=== PATIENT | male | born 1945 | race Caucasian/White ===

== ENCOUNTER 2019-11-12 09:45 | Inpatient (IN) | payer MEDICARE, SELFPAY | END 2019-11-18 17:42 | disposition left against medical advice (07) | DRG 291 | PROVIDERS: Admitting Provider Internal Medicine; Emergency Provider Emergency Medicine; Family Provider Family Medicine; Visit Provider Family Medicine | DX: I50.43 Acute on chronic combined systolic (congestive) and diastolic (congestive) heart failure (principal); J96.01 Acute respiratory failure with hypoxia; J18.9 Pneumonia, unspecified organism; I26.99 Other pulmonary embolism without acute cor pulmonale; J96.02 Acute respiratory failure with hypercapnia; J44.0 Chronic obstructive pulmonary disease with (acute) lower respiratory infection; I48.20 Chronic atrial fibrillation, unspecified; J44.1 Chronic obstructive pulmonary disease with (acute) exacerbation; I25.5 Ischemic cardiomyopathy; N18.2 Chronic kidney disease, stage 2 (mild); Z99.81 Dependence on supplemental oxygen; D63.1 Anemia in chronic kidney disease; I73.9 Peripheral vascular disease, unspecified; R59.9 Enlarged lymph nodes, unspecified; Z53.29 Procedure and treatment not carried out because of patient's decision for other reasons; Z79.82 Long term (current) use of aspirin; I87.8 Other specified disorders of veins; Z79.52 Long term (current) use of systemic steroids; M19.90 Unspecified osteoarthritis, unspecified site; L65.9 Nonscarring hair loss, unspecified; F41.8 Other specified anxiety disorders; F17.210 Nicotine dependence, cigarettes, uncomplicated ==

== ENCOUNTER 2019-11-18 18:51 | Inpatient (IN) | payer MEDICARE, SELFPAY | END 2019-11-21 19:00 | disposition skilled nursing facility (03) | DRG 193 | PROVIDERS: Admitting Provider Internal Medicine; Emergency Provider Emergency Medicine; Family Provider Family Medicine; Visit Provider Internal Medicine | DX: J18.9 Pneumonia, unspecified organism (principal); J96.01 Acute respiratory failure with hypoxia; I26.99 Other pulmonary embolism without acute cor pulmonale; E43 Unspecified severe protein-calorie malnutrition; I50.42 Chronic combined systolic (congestive) and diastolic (congestive) heart failure; I48.20 Chronic atrial fibrillation, unspecified; I24.8 Other forms of acute ischemic heart disease; I25.5 Ischemic cardiomyopathy; J44.9 Chronic obstructive pulmonary disease, unspecified; N18.2 Chronic kidney disease, stage 2 (mild); D63.1 Anemia in chronic kidney disease; Z79.82 Long term (current) use of aspirin; Z99.81 Dependence on supplemental oxygen; F41.8 Other specified anxiety disorders; Z79.52 Long term (current) use of systemic steroids; Z86.718 Personal history of other venous thrombosis and embolism; M19.90 Unspecified osteoarthritis, unspecified site; I73.9 Peripheral vascular disease, unspecified; F17.210 Nicotine dependence, cigarettes, uncomplicated; I87.8 Other specified disorders of veins ==

== ENCOUNTER 2019-11-28 13:34 | Emergency (ER) | payer MEDICARE, SELFPAY ==
[2019-11-28 12:36] VITALS: BMI 21.2
[2019-11-28 12:52] VITALS: BP 109/45; PULSE 60; RESP 22; TEMP 35.9; O2SAT 91
--- NOTE | 2019-11-28 13:04 | ED_ITS ---
Entered by Romi Way, acting as scribe for Sharonda Goodwin HPI - SOB/Dyspnea General: Chief Complaint: Shortness of Breath/Dyspnea Stated Complaint: UNCOOPERATIVE AT RESIDENTIAL Time Seen by Provider: 11/28/19 13:04 Source: patient Mode of arrival: EMS Limitations: no limitations History of Present Illness: HPI Narrative: 74 yo Male presents to ED with complaint not wanting to be at the [facility] in. He states that he wants to be in a m[facility] here in [place]. EMS reports that that was the reason they stated that they were called. The patient has no complaints of being ill or other complaint. MD elicited complaint: shortness of breath Associated symptoms: Deny abdominal pain, chest congestion, chest pain, diaphoresis, dizziness, extremity pain, fever(s), hemoptysis, nausea, orthopnea, palpitations, polydipsia, syncope or vomiting Review of Systems General: Reports: other (negative unless marked) Const: Denies: fever, chills, body aches, fatigue, malaise or diaphoresis Eyes: Denies: change in vision or blurry vision ENMT: Denies: throat pain, painful swallowing, hoarseness, ear pain, ear discharge, Change in hearing or nasal discharge Card: Denies: chest pain, palpitations, irregular heart rhythm, syncope, pre- syncope, shortness of breath on exertion or shortness of breath when lying down Resp: Denies: shortness of breath, productive cough, non-productive cough, wheezing, coughing up blood or chest congestion GI: Denies: abdominal pain, nausea, vomiting, vomiting blood, coffee grounds in vomit, diarrhea, constipation, cramping, blood in stool or black tarry stool : Denies: flank pain, difficulty urinating, painful urination, urinary frequency, urinary urgency, decreased urine ouput, urinary incontinence or blood in urine Musc: Denies: neck pain, back pain, extremity pain, extremity swelling, joint pain, joint swelling, joint warmth or joint stiffness Skin/Breast: Denies: rash, skin tenderness or yellow skin Neuro: Denies: headache, numbness in extremities, weakness in extremities, changes in sensation, lack of coordination, difficulty walking, dizziness, vertigo or confusion Endo: Denies: excessive thirst, tired all the time, cold intolerance, excessive sweating, flushing or hot flashes Juan/Lymph: Denies: easy bruising, easy bleeding, petechiae or enlarged lymph nodes All/Imm: Denies: hives, throat swelling, tongue swelling, facial swelling or acute wheezing PFSH ED PFSH: Statuses (acute, chronic, etc) shown below reflect problem list status as previously entered and may not be historically accurate Social History Smoking and tobacco status: current every day smoker Physical Exam Const: COMMON NORMALS: no apparent distress, oriented x3, no limitations, healthy appearing and well nourished EXAM LIMITATIONS: no altered mental status GENERAL APPEARANCE: cooperative, well kempt and well developed ORIENTATION/CONSCIOUSNESS: Yes awake HENMT: COMMON NORMALS: normocephalic, head/scalp atraumatic, hearing grossly normal bilaterally, external ears normal, EAC's normal, external nose normal and moist oral mucous membranes HEAD & SCALP: normal to inspection, normocephalic and atraumatic FACE & SINUS: normal facial exam and face symmetric NOSE: external nose normal and nares normal EXTERNAL EAR: Yes external ears normal EXTERNAL AUDITORY CANAL: EAC's normal MOUTH: oral and palatal mucosa normal and tongue normal Eye: COMMON NORMALS: PERRL, EOMs intact bilaterally, conjunctivae normal and no scleral icterus GENERAL EYE: normal appearance of both eyes and normal light reflex CONJUNCTIVA: Yes conjunctivae normal SCLERA: sclerae normal CORNEA: Yes corneas normal PUPIL: Yes PERRL DIRECT OPHTHALMOSCOPY: Yes normal light reflex Neck/C-Spine: COMMON NORMALS: full ROM, no lymphadenopathy, supple, no meningeal signs and no JVD GENERAL: Yes normal visual inspection and Yes trachea midline CERVICAL SPINE: Yes cervical ROM normal Chest: COMMONS NORMALS: inspection of chest normal and palpation of chest normal Resp: COMMON NORMALS: normal respiratory effort, no retractions, no use of accessory muscles and clear to auscultation bilaterally EFFORT & INSPECTION: Yes able to speak in complete sentences AUSCULTATION: clear to auscultation bilaterally Cardio: COMMON NORMALS: no JVD, regular rate, regular rhythm, S1 normal heart sound, S2 normal heart sound, no gallops, no clicks, no murmurs and no rub JUGULAR VENOUS DISTENTION: no JVD RATE: regular rate RHYTHM: regular rhythm HEART SOUNDS: S1 normal and S2 normal GI: COMMON NORMALS: soft to palpation, non-tender, no hepatosplenomegaly and no masses INSPECTION: Yes normal to inspection PALPATION: Yes soft and Yes no hepatosplenomegaly : COMMON NORMALS: Yes no CVA tenderness BLADDER/KIDNEY EXAM: Yes no CVA tenderness Back/Pelvis: COMMON NORMALS: no CVA tenderness, thoracic and lumbar spine norm al to inspection, no thoracic nor lumbar tenderness and thoraco-lumbar ROM normal Extremity: COMMON NORMALS: normal to inspection, full ROM, normal capillary refill, no joint enlargement, no clubbing, cyanosis or edema and no calf tenderness Neuro: COMMON NORMALS: oriented x3, CN's II-XII intact bilaterally, moves all extremities, no focal motor deficits and no sensory deficits noted MENINGEAL SIGNS: Yes no meningeal signs Psych: COMMON NORMALS: mental status grossly normal, thought process normal, cooperative, affect normal, speech normal and activity/motor behavior normal APPEARANCE: Yes well kempt SPEECH: Yes normal speech THOUGHT PROCESS: normal thought process Skin: COMMON NORMALS: no rashes or lesions noted, skin turgor normal, no jaundice, no petechiae and no mottling GENERAL SKIN EXAM: no rashes or lesions noted and turgor normal Course Vital Signs: Vital signs: Vital Signs Temperature 96.7 F L 11/28/19 12:52 Pulse Rate 69 11/28/19 14:27 Respiratory Rate 24 H 11/28/19 14:27 Blood Pressure 113/43 11/28/19 14:27 Pulse Oximetry 94 11/28/19 13:16 MDM - SOB/Dyspnea MDM Narrative: Medical decision making narrative: The patient has no complaint of an illness here. He states he came in because he wants to be placed in a different [facility]. We have checked but he will need a 1 to 5-day pre authorization by his insurance company before he can be sent to a different m[facility]. He is tried multiple times to reach family because he states he can go live with them but they have not answered. As he has had no physical complaints or ill complaints I will discharge him back to the [facility] and he is aware that he will have to work from there to try to find a different place to stay. Discharge Plan Discharge Patient Disposition: [facility] ([place] Clinical Impression: Normal exam Condition: Stable Prescriptions: No Action Lasix 40 mg Tablet 40 mg PO TID RF: 0 Advair Diskus 250-50 mcg/dose Blister With Device 1 inh INHALATION BID RF: 0 senna 8.6 mg Tablet 17.2 mg PO BID RF: 0 prednisone 10 mg Tablet 10 mg PO DAILY RF: 0 Lipitor 20 mg Tablet 20 mg PO BEDTIME RF: 0 ipratropium-albuterol 0.5 mg-3 mg(2.5 mg base)/3 mL Solution For Nebulization 3 ml INHALATION QID RF: 0 amiodarone 200 mg Tablet 200 mg PO DAILY RF: 0 potassium chloride 10 mEq Tablet Extended Release 10 meq PO DAILY RF: 0 digoxin 250 mcg (0.25 mg) Tablet 250 mcg PO DAILY RF: 0 Aspir-81 81 mg Tablet,Delayed Release (Dr/Ec) 81 mg PO DAILY RF: 0 spironolactone 25 mg Tablet 12.5 mg PO DAILY RF: 0 Flomax 0.4 mg Capsule 0.4 mg PO BEDTIME RF: 0 trazodone 100 mg Tablet 100 mg PO BEDTIME RF: 0 Protonix 40 mg Tablet,Delayed Release (Dr/Ec) 40 mg PO DAILY RF: 0 lisinopril 5 mg Tablet 5 mg PO DAILY RF: 0 Prozac 20 mg Capsule 20 mg PO DAILY RF: 0 finasteride 5 mg Tablet 5 mg PO DAILY RF: 0 apixaban 2.5 mg Tablet 2.5 mg PO BID RF: 0 Discharge Orders: Discharge Order (Routine); Ordered 11/28/19 Ordered By: Sharonda Goodwin Referrals: Isai Bhatti DO [Primary Care Provider] - Discharge Activity: Resume usual activity Activity Restrictions/Additional Instructions: Work with the social science teacher at your mcf[facility] or with your family to help place yourself in a different facility where you would be more happy. Return to the ER if you have any ill type symptoms or pain that she would like evaluated. Coding Level of Care Code ED Ent Consultant for Chg Fwd The documentation recorded by the Seamus lea Carmen, accurately reflects the service I personally performed and the decisions made by Buddy zavaleta Eli N
[2019-11-28 13:16] VITALS: PULSE 55; RESP 16; O2SAT 94
[2019-11-28 13:21] VITALS: PULSE 57
--- NOTE | 2019-11-28 13:21 | PC.NURSE ---
Patient verbalizes during assessment that he is not having any current acute difficulty. Patient states that he does not want to go back to the senior care in [place], he wants to be in [place]. Patient states he does not like the senior care and does not want to be in one at all. ED physician notified. Case managment working with the patient.
[2019-11-28 14:27] VITALS: BP 113/43; PULSE 69; RESP 24
--- NOTE | 2019-11-28 14:31 | PC.NURSE ---
Chronic pain in the low back remains present. Patient provided with food and drink upon his request at this time. Social/Case Managment in room and states that they have contacted the patients family and left messages for the family to call back to see if they could pick the patient up. Patient yells at this time that he is NEVER going back to [place]. Case management discussed with patient that she has worked as far as she can on his case but it will require preauthorization from insurance for any movement or transfer to and from homes and this takes more than one day with his current insurance policy. Patient does not fully understand this and yells again that he is NEVER going back there, states they have them packed in the [place] theres so many people there.
--- NOTE | 2019-11-28 15:27 | PC.NURSE ---
Report called to [facility] at this time. Spoke with Gisele regarding patient. Nurse is informed that patient is medically stable and has been calm and cooperative with out staff. [facility] staff states that he has signed out of the facility but they will accept him back.
--- NOTE | 2019-11-28 16:12 | DCPLANNER ---
hair salon manager was asked to speak with patient about finding a different halfway facility to stay in. hair salon manager went to patients room and spoke with patient about going to a different halfway, patient stated that he was not going to a halfway, that he was going to go stay in a camper that his son in law has. hair salon manager informed ED physician and nurse of this. hair salon manager spoke with patient, asking if family would be able to pick patient up and take patient home today. Patient stated that he was unable to reach anyone in his family at this time, so patient would just go to another halfway. hair salon manager spoke with patient again, patient signed Patient Choice, stating that [facility] was his first choice. hair salon manager called [facility], spoke with Yvette, was told that with patients insurance that they would not be able to accept patient today, due to needing a pre auth from the halfway. hair salon manager was told that patient could have the halfway at [place] start a transfer process so that it can be started. hair salon manager was asked to call patients son in law at his work to have son in law, Juan, call patient or rehabilitation caseworker when he got message. hair salon manager did call [employer] employer and left a message to Juan to call patient or rehabilitation caseworker. hair salon manager got a phone number for patient for Juan and attempted to contact son in law. hair salon manager was unable to reach Juan to speak with him about being able to pick patient up. Patients daughter called rehabilitation caseworker, informing rehabilitation caseworker that daughter was unable to take care of patient at home at this time, that patient would need to go back to the halfway in [place]. hair salon manager explained this to patient, and ED physician and nurse. hair salon manager did not provide patient with performance data because patient was going to back to the halfway that he just left.
[2019-11-28 22:42] VITALS: BP 102/48; PULSE 56; RESP 18; TEMP 36.6; O2SAT 92
== END 2019-11-28 23:03 | disposition skilled nursing facility (03) ==
LOC: ER 16:27
PROVIDERS: Emergency Provider Emergency Medicine; Family Provider Family Medicine; PCP Family Medicine
DX: Z03.89 Encounter for observation for other suspected diseases and conditions ruled out (principal); F17.210 Nicotine dependence, cigarettes, uncomplicated
CPT/HCPCS: 99281; 99284

== ENCOUNTER 2020-05-17 21:09 | Emergency (ER) | payer MEDICARE, MEDICAID, SELFPAY ==
[2020-05-17] VITALS (7 sets, daily range): BP systolic 91–110; BP diastolic 45–61; PULSE 54–60; RESP 16–18; TEMP 36.6; O2SAT 94–99; BMI 20.6
--- NOTE | 2020-05-17 21:13 | ECG_ITS ---
[facility] Test Date: 2020-05-17 Pat Name: Fredi Claire Department: Room: Gender: Male Manager Diabetes: : 1945 Requested By: Alonso Mckenzie Order Number: [id number] Suzie MD: Noel French M.D. Measurements Intervals Homer Rate: 54 P: 55 NM: 210 QRS: -38 QRSD: 183 T: 53 QT: 412 QTc: 391 Interpretive Statements SINUS BRADYCARDIA WITH SINUS ARRHYTHMIA WITH FIRST DEGREE AV BLOCK LEFT AXIS DEVIATION [QRS AXIS < -30] LEFT BUNDLE BRANCH BLOCK [120+ ms QRS DURATION, 80+ ms Q/S IN V1/V2, 85+ ms R IN I/aVL/V5/V6] Compared to ECG 11/18/2019 19:04:35 First degree AV block now present Left-axis deviation now present Left bundle-branch block now present Sinus rhythm no longer present Indeterminate axis no longer present Intraventricular conduction delay no longer present Electronically Signed On 05-18-2020 21:50:51 CDT by Noel French M.D. [id number]
--- NOTE | 2020-05-17 21:15 | W.ED.GENADLT ---
HPI - General Adult General: Chief complaint: Anxiety Stated complaint: LAB VALUES Time Seen by Provider: 05/17/20 21:12 Source: patient and EMS Mode of arrival: EMS Limitations: no limitations History of Present Illness: HPI narrative: 74-year-old male who presents here from halfway with abnormal lab results. Patient had a creatinine of 2 and a potassium of 5.8 there. Patient has no medical complaints states he feels fine just slightly anxious due to his lab results. He does have a history of CHF and takes 40 mg of Lasix 3 times daily and was on potassium supplements which they stopped 2 days ago. He denies any chest pain or shortness of breath. Associated symptoms: Deny chest pain, dyspnea, headache(s), nausea, rash or vomiting Review of Systems Const: Denies: fever(s), chills, body aches or change in appetite Eyes: Denies: blurry vision or eye discomfort ENMT: Denies: throat pain or dental pain Card: Denies: chest pain Resp: Denies: dyspnea GI: Denies: abdominal pain, nausea, vomiting or diarrhea : Denies: dysuria Musc: Denies: neck pain or back pain Skin/Breast: Denies: rash Neuro: Denies: headache(s) Psych: Denies: depression Juan/Lymph: Denies: easy bruising All/Imm: Denies: urticaria PFSH ED PFSH: Medical History Anemia Anticoagulation adequate with anticoagulant therapy Eliquis Ascending aorta dilatation Atrial fibrillation CHF (congestive heart failure) COPD (chronic obstructive pulmonary disease) DVT (deep venous thrombosis) Dyslipidemia Edema Ischemic cardiomyopathy Left bundle branch block Myocardial infarction Pulmonary embolism Pulmonary HTN Tobacco abuse Venous insufficiency Family History Father CAD (coronary artery disease) Myocardial infarction Social History Smoking and tobacco status: current every day smoker Physical Exam Const: COMMON NORMALS: no acute distress, patient oriented x3 and healthy appearing HENMT: COMMON NORMALS: normocephalic and atraumatic HEAD & SCALP: normocephalic and atraumatic Eye: COMMON NORMALS: Equal, round and reactive pupils present and EOMs intact bilaterally PUPIL: Yes Equal, round and reactive pupils present Neck/C-Spine: COMMON NORMALS: full ROM and supple Chest: COMMONS NORMALS: normal inspection of the chest and normal palpation of entire chest wall Resp: COMMON NORMALS: normal respiratory effort, No retractions, No use of accessory muscles and clear to auscultation bilaterally AUSCULTATION: clear to auscultation bilaterally Cardio: COMMON NORMALS: regular rate, regular rhythm and No murmurs present (Cardio) RATE: regular rate RHYTHM: regular rhythm GI: COMMON NORMALS: Normal to inspection, nondistended, normoactive bowel sounds present, Soft to palpation, non-tender and no masses PALPATION: Yes Soft to palpation Extremity: COMMON NORMALS: normal to inspection and full ROM Neuro: COMMON NORMALS: patient oriented x3, moves all extremities and no focal motor deficits Psych: COMMON NORMALS: mental status grossly normal, Normal thought process present and cooperative THOUGHT PROCESS: Normal thought process present Skin: COMMON NORMALS: no rashes or lesions noted and no wounds GENERAL SKIN EXAM: no rashes or lesions noted Course Vital Signs: Vital signs: Vital Signs Temperature 97.9 F 05/17/20 21:15 Pulse Rate 56 L 05/17/20 23:40 Respiratory Rate 18 05/17/20 23:40 Blood Pressure 100/45 05/17/20 23:40 Pulse Oximetry 97 05/17/20 23:40 MDM - General Adult MDM Narrative: Medical decision making narrative: Patient presents with hyperkalemia along with acute kidney injury. Is likely due to taking Lasix 40 3 times daily. Patient does appear dehydrated as well. Patient's dig levels also elevated at 4. I spoke to poison control and they did not recommend Digibind at this time. I believe his hyperkalemia is likely more due to his acute kidney injury and dehydration. I have given him insulin and glucose and IV fluids. We do not have any ICU bed availability and will transfer to [facility] for bed availability. I spoke to Dr. Juan Miguel [facility], ER and will transfer there. Patient has been stable here and heart rate is currently 54 blood pressure 100/45. Lab Data: Labs: Lab Results 05/17/20 05/17/20 Range/Units 21:26 21:26 WBC 11.2 H (4.0-10.0) 10^3/ uL RBC 3.15 L (4.1-5.3) 10^6/u L Hgb 8.9 L (11.7-16.6) g/dL Hct 30.2 L (42.0-52.0) % MCV 95.9 H (80-94) fL MCH 28.3 (28.0-34.0) pg MCHC 29.5 L (30.0-36.0) g/dL RDW 13.7 (12.1-15.1) % Plt Count 183 (130-400) 10^3/c mm MPV 10.2 (7.4-10.4) fL Neut % (Auto) 82.0 % Lymph % (Auto) 7.4 % [place] % (Auto) 6.2 % Eos % (Auto) 1.2 % Baso % (Auto) 0.2 % Neut # (Auto) 9.2 H (1.8-7.7) 10^3/u L Lymph # (Auto) 0.8 (0.8-4.8) 10^3/u L [place] # (Auto) 0.7 (0.2-0.9) 10^3/u L Eos # (Auto) 0.1 (0.0-0.8) 10^3/u L Baso # (Auto) 0.0 (0.0-0.1) 10^3/u L Nucleated RBC % (a uto) 0 % Nucleated RBCs # 0.0 /100WBC Sodium 132 L (136-145) mmol/L Potassium 6.5 H* (3.5-5.1) mmol/L Chloride 99 (98-107) mmol/L Carbon Dioxide 22 (22-29) mmol/L Anion Gap 17.5 (5-19) BUN 90 H* (8-23) mg/dL Creatinine 2.4 H (0.7-1.2) mg/dL Glucose 98 (65-115) mg/dL Calculated Osmolal ity 274 L (285-295) mOsm/k g Calcium 9.3 (8.5-10.5) mg/dL Total Bilirubin 0.2 (0.15-1.2) mg/dL AST 9 (0-40) U/L ALT 12 (0-41) U/L Alkaline Phosphata se 71 (40-130) IU/L Total Protein 6.6 (6.6-8.7) g/dL Albumin 3.7 (3.5-5.2) g/dL Globulin 2.9 (1.3-4.6) g/dL Digoxin 4.0 H* (0.6-1.2) ng/mL Critical Care Time Critical Care Time: Critical Care Time: Yes Total Critical Care Time: 36 Attestation: This case had a high probability of a clinically significant, sudden, or life threatening deterioration of this patient's condition which required my full and direct attention, intervention and personal management. 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
[2020-05-17 21:37] LABS: Basophils % 0.2 %; Eosinophils # 0.1 10^3/uL (0.0-0.8); Eosinophils % 1.2 %; Hematocrit 30.2 % (42.0-52.0); Hemoglobin 8.9 g/dL (11.7-16.6); Lymphocytes # 0.8 10^3/uL (0.8-4.8); Lymphocytes % 7.4 %; Mean Corpuscular HGB Conc 29.5 g/dL (30.0-36.0); Mean Corpuscular Hemoglobin 28.3 pg (28.0-34.0); Mean Corpuscular Volume 95.9 fL (80-94); Mean Platelet Volume 10.2 fL (7.4-10.4); Monocytes # 0.7 10^3/uL (0.2-0.9); Monocytes % 6.2 %; Neutrophils # 9.2 10^3/uL (1.8-7.7); Nucleated Red Blood Cells % 0 %; Platelet Count 183 10^3/cmm (130-400); Red Blood Count 3.15 10^6/uL (4.1-5.3); Red Cell Distribution Width 13.7 % (12.1-15.1); White Blood Count 11.2 10^3/uL (4.0-10.0)
[2020-05-17] MEDS: sodium chloride 0.9% 500 ML IV (21:38)
--- NOTE | 2020-05-17 21:45 | PC.NURSE ---
EKG done at 2145 and shown to ER doctor
[2020-05-17 22:10] LABS: Alanine Aminotransferase 12 U/L (0-41); Albumin Level 3.7 g/dL (3.5-5.2); Alkaline Phosphatase 71 IU/L (40-130); Anion Gap 17.5 (5-19); Aspartate Amino Transferase 9 U/L (0-40); Calcium 9.3 mg/dL (8.5-10.5); Carbon Dioxide 22 mmol/L (22-29); Chloride 99 mmol/L (98-107); Globulin 2.9 g/dL (1.3-4.6); Glucose 98 mg/dL (65-115); Osmolality Calculated 274 mOsm/kg (285-295); Sodium 132 mmol/L (136-145); Total Bilirubin 0.2 mg/dL (0.15-1.2); Total Protein 6.6 g/dL (6.6-8.7)
[2020-05-17 22:21] LABS: Blood Urea Nitrogen 90 mg/dL (8-23); Potassium 6.5 mmol/L (3.5-5.1)
[2020-05-17] MEDS: insulin regular-human 100 units/1 mL 10 UNIT IVP (22:34)
[2020-05-17] MEDS: dextrose 50% syringe 50 mL IVP (22:35)
[2020-05-17] MEDS: sodium chloride 0.9% 1,000 ML 999 ML IV (23:27)
[2020-05-18 01:03] VITALS: BP 107/47; PULSE 53; RESP 16; O2SAT 94
[2020-05-18 01:13] VITALS: RESP 16; O2SAT 94
[2020-05-18] MEDS: fentaNYL 50 mcg/mL INJ 2mL IVP (01:13)
== END 2020-05-18 01:42 | disposition other institution (70) ==
PROVIDERS: Emergency Provider Emergency Medicine; PCP Family Medicine
DX: E87.5 Hyperkalemia (principal); N17.9 Acute kidney failure, unspecified; T46.0X5A Adverse effect of cardiac-stimulant glycosides and drugs of similar action, initial encounter; I48.91 Unspecified atrial fibrillation; I50.9 Heart failure, unspecified; J44.9 Chronic obstructive pulmonary disease, unspecified; E78.5 Hyperlipidemia, unspecified; I25.2 Old myocardial infarction; F17.210 Nicotine dependence, cigarettes, uncomplicated
CPT/HCPCS: 12345; 36415; 80053; 80162; 83735; 85025; 93005; 94640; 96374; 96375; 99283; 99285; J1815; J3010; J7030; J7040; J7611

== ENCOUNTER 2020-08-15 21:56 | Emergency (ER) | payer MEDICARE, MEDICAID, SELFPAY ==
[2020-08-15 22:00] VITALS: RESP 16; BMI 20.7
[2020-08-15 22:10] VITALS: BP 129/57; PULSE 51; RESP 18; TEMP 36.6; O2SAT 100
--- NOTE | 2020-08-15 22:12 | XR_ITS ---
WS: [id number] Left hip, AP and frog-leg views, AP pelvis, 08/15/2020 Clinical Data: Pain Comparison: Pelvis, 10/03/2019. Findings: No new fractures or dislocations are seen. A left hip arthroplasty is in good position. 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 Circumferential wires aid in the fixation of the pro ximal portion of the long stem prosthesis. The right hip is normal. There is a dextroscoliosis of the lumbar spine. The SI joints and pubic symphysis are normal. There are calcifications in the [place] of the arteries. There is a large amount of fecal material throughout the colon. XR/XR hip LT 2-3V wo/w pel* [id number] Impression: 1. Left hip arthroplasty unchanged. 2. Negative for new left hip or pelvic fracture.
--- NOTE | 2020-08-15 22:12 | XR_ITS ---
WS: [id number] Left femur and thigh, AP and lateral, 08/15/2020 Clinical Data: Pain Comparison: None. Findings: No new fractures or dislocations are seen. The left hip arthroplasty is in good position. A proximal longstem femoral luanne remains unchanged. The distal left femur shows no abnormalities. There is calcif ication in the wall of the superficial femoral artery XR/XR femur LT min 2V* [id number] Impression: 1. Intact left hip arthroplasty. 2. Negative for new left femoral fracture.
--- NOTE | 2020-08-15 22:47 | ED_ITS ---
HPI - Extremity Problem General: Chief complaint: Extremity Injury, Lower Stated complaint: HIP PAIN Time Seen by Provider: 08/15/20 22:37 History of Present Illness: HPI Narrative: Patient is a 74-year-old male comes to the ED via EMS for left hip pain. Past medical history of left total hip replacement. Patient says yesterday he was transferring from wheelchair to his bed and slipped. He says he did not fall but slipped and it kind of janusz his left hip. He is now having left hip pain. He currently rates it an 8 out of 10. Patient says he took his oxycodone a couple hours ago before arriving to the ED. denies fall with head trauma or loss of consciousness. Patient resides at [facility]. Associated symptoms: Deny chest pain, fever(s) or rash Review of Systems Const: Denies: fever(s), chills or fatigue Eyes: Denies: change in vision or eye discomfort ENMT: Denies: throat pain, odynophagia, nasal discharge or nasal congestion Card: Denies: chest pain, palpitations, edema, swelling of feet/ankles, dyspnea on exertion or orthopnea Resp: Denies: dyspnea, productive cough or non-productive cough GI: Denies: abdominal pain, nausea, vomiting, diarrhea, constipation or hematochezia : Denies: flank pain, difficulty urinating, dysuria or hematuria Musc: Reports: joint pain (left hip pain); Denies: neck pain, back pain or extremity swelling Skin/Breast: Denies: rash or new lesions Neuro: Denies: headache(s), numbness in extremities or weakness in extremities [facility] ED PFSH: Medical History Anemia Anticoagulation adequate with anticoagulant therapy Eliquis Ascending aorta dilatation Atrial fibrillation CHF (congestive heart failure) COPD (chronic obstructive pulmonary disease) DVT (deep venous thrombosis) Dyslipidemia Edema Ischemic cardiomyopathy Left bundle branch block Myocardial infarction Pulmonary embolism Pulmonary HTN Tobacco abuse Venous insufficiency Family History Father CAD (coronary artery disease) Myocardial infarction Social History Smoking and tobacco status: current every day smoker Alcohol intake: unknown Adopted: No Caregiver/support person: No Lives independently: No Household members: spouse Marital status: Physical Exam Const: COMMON NORMALS: no acute distress, patient oriented x3 and alert GENERAL APPEARANCE: cooperative and comfortable HENMT: COMMON NORMALS: normocephalic HEAD & SCALP: normocephalic MOUTH: Normal oral and palatal mucosa present THROAT: posterior oropharynx normal and uvula midline Eye: COMMON NORMALS: Equal, round and reactive pupils present PUPIL: Yes Equal, round and reactive pupils present Neck/C-Spine: COMMON NORMALS: supple GENERAL: Yes normal visual inspection Resp: COMMON NORMALS: normal respiratory effort, No retractions, No use of accessory muscles and clear to auscultation bilaterally AUSCULTATION: clear to auscultation bilaterally Cardio: COMMON NORMALS: regular rate, regular rhythm, S1 normal heart sound present, S2 normal heart sound present, No gallops present (Cardio), No clicks present (Cardio), No murmurs present (Cardio) and Peripheral pulses 2+ throughout RATE: regular rate RHYTHM: regular rhythm HEART SOUNDS: S1 normal heart sound present and S2 normal heart sound present PERIPHERAL PULSES: Peripheral pulses 2+ throughout GI: COMMON NORMALS: Normal to inspection, nondistended, normoactive bowel sounds present, Soft to palpation, non-tender and no masses PALPATION: Yes Soft to palpation : COMMON NORMALS: Yes no CVA tenderness BLADDER/KIDNEY EXAM: Yes no CVA tenderness Back/Pelvis: COMMON NORMALS: no CVA tenderness Extremity: LEFT LOWER EXTREMITY: Yes hip joint Left hip: Yes inspection (No visible deformity seen.), Yes palpation (Mild tenderness to palpation of the lateral left hip.), Yes ROM (Limited due to pain.) and Yes neurovascular exam (Intact) Neuro: COMMON NORMALS: patient oriented x3 and moves all extremities SENSORIUM/ORIENTATION: Yes alert Skin: COMMON NORMALS: no rashes or lesions noted GENERAL SKIN EXAM: no rashes or lesions noted and dry skin Course Vital Signs: Vital signs: Vital Signs Temperature 97.9 F 08/15/20 22:10 Pulse Rate 48 L 08/15/20 23:43 Respiratory Rate 18 08/15/20 23:43 Blood Pressure 133/65 08/15/20 23:43 Pulse Oximetry 98 08/15/20 23:43 MDM - Extremity (Nontraumatic) MDM Narrative: Medical decision making narrative: Patient is a 74-year-old male who comes to the ED via EMS for left hip pain. Patient lives at [facility]. Patient says during a transfer from his wheelchair to his bed he slipped but did not fall but it caused some left hip pain. Patient has history of left hip total replacement. X-ray of left hip showed no acute fractures or findings. The hardware was in place and no damage was seen. Patient was discharged with left hip pain and told to follow-up with PCP in 7 to 10 days for reevaluation. Apply cold pack on left hip to help with symptoms. Continue taking previously prescribed pain medications to help with pain. Return to ED precautions given. Patient understood and agreed with plan. Imaging Data^: Xray Ortho: Attestation: I personally reviewed and interpreted this imaging study as follows: My impression: Left hip and femur x-ray showed no acute fractures or findings. No damage to hip replacement hardware. Pending final radiology report. Discharge Plan Discharge Patient Disposition: Home Clinical Impression: Hip pain, left Condition: Stable Prescriptions: No Action Lasix 40 mg Tablet 40 mg PO TID RF: 0 Advair Diskus 250-50 mcg/dose Blister With Device 1 inh INHALATION BID RF: 0 senna 8.6 mg Tablet 17.2 mg PO BID RF: 0 prednisone 10 mg Tablet 10 mg PO DAILY RF: 0 Lipitor 20 mg Tablet 20 mg PO BEDTIME RF: 0 ipratropium-albuterol 0.5 mg-3 mg(2.5 mg base)/3 mL Solution For Nebulization 3 ml INHALATION QID RF: 0 amiodarone 200 mg Tablet 200 mg PO DAILY RF: 0 potassium chloride 10 mEq Tablet Extended Release 10 meq PO DAILY RF: 0 digoxin 250 mcg (0.25 mg) Tablet 250 mcg PO DAILY RF: 0 Aspir-81 81 mg Tablet,Delayed Release (Dr/Ec) 81 mg PO DAILY RF: 0 spironolactone 25 mg Tablet 12.5 mg PO DAILY RF: 0 Flomax 0.4 mg Capsule 0.4 mg PO BEDTIME RF: 0 trazodone 100 mg Tablet 100 mg PO BEDTIME RF: 0 Protonix 40 mg Tablet,Delayed Release (Dr/Ec) 40 mg PO DAILY RF: 0 lisinopril 5 mg Tablet 5 mg PO DAILY RF: 0 Prozac 20 mg Capsule 20 mg PO DAILY RF: 0 finasteride 5 mg Tablet 5 mg PO DAILY RF: 0 apixaban 2.5 mg Tablet 2.5 mg PO BID RF: 0 Discharge Orders: Discharge Order (Routine); Ordered 08/15/20 Ordered By: Jasmeet Manzano Referrals: Isai Bhatti DO [Primary Care Provider] - Discharge Diet: Regular Discharge Activity: Increase activity as tolerated Activity Restrictions/Additional Instructions: Follow-up with medical provider as directed in 7-10 days. Take home medications as prescribed. Return to the ER or your medical provider if condition worsens. Please read and understand discharge instructions. If any questions, please ask. Discharge Date/Time: 08/16/20 01:45 Coding Level of Care Code ED Tumbling Machine Operator for Shayg Fwd Exam Comprehensive
[2020-08-15] MEDS: HYDROcodone-acetaminophen 5-325 mg Tablet 1 TAB PO (22:59)
[2020-08-15 23:41] VITALS: BP 134/65; PULSE 51; RESP 18; O2SAT 98
[2020-08-15 23:43] VITALS: BP 133/65; PULSE 48; RESP 18; O2SAT 98
== END 2020-08-16 01:45 | disposition home or self-care (01) ==
PROVIDERS: Emergency Provider Physician Assistant; PCP Family Medicine
DX: M25.552 Pain in left hip (principal); Z79.82 Long term (current) use of aspirin; I48.91 Unspecified atrial fibrillation; J44.9 Chronic obstructive pulmonary disease, unspecified; I50.9 Heart failure, unspecified; E78.5 Hyperlipidemia, unspecified; I25.2 Old myocardial infarction; F17.210 Nicotine dependence, cigarettes, uncomplicated
CPT/HCPCS: 12345; 73502; 73552; 99281; 99283

== ENCOUNTER 2020-09-29 01:00 | Inpatient (IN) | payer MEDICARE, MEDICAID, SELFPAY ==
[2020-09-29] VITALS (79 sets, daily range): BP systolic 89–155; BP diastolic 47–88; PULSE 45–77; RESP 14–35; TEMP 36.3–37.2; O2SAT 85–100; BMI 19.4
--- NOTE | 2020-09-29 01:06 | XRR_ITS ---
PROCEDURE INFORMATION: Exam: XR Chest, 1 View Exam date and time: 09/29/2020 1:36 AM Age: 74 years old Clinical indication: Shortness of breath; Patient HX: Covid+; Additional info: Dyspnea TECHNIQUE: Imaging protocol: XR of the chest Views: 1 view. COMPARISON: CR Chest 1 [place] [id number] 11/18/2019 7:09 PM FINDINGS: Lungs: Continued coarse interstitial marking prominence in parts of each lung suggesting fibrosis. Blebs in both upper lungs still conceivable. Continued smaller size of the left lung and areas of increased density in the left lung base with no clear delineation of the left hemidiaphragm. No interval consolidation. Pleural space: Small lateral basilar pleural effusions or pleural scarring still not differentiated. Right basilar pleural calcifications not excluded. Still no apparent pneumothorax. Heart/Mediastinum: Continued cardiomegaly. Bones/joints: Continued diffuse osteopenia. Metallic sutures over the cervical spine again evident. Interval increase in the left convex thoracic scoliosis. No visible acute fracture. Old left rib fractures still conceivable. XR/XR chest 1V portable [id number] IMPRESSION: 1. Continued findings consistent with interstitial fibrosis. Blebs in the upper lungs still suspected. Continued increased density in the left lung base possibly due to chronic atelectasis and/or scar. 2. Cardiomegaly still present. 3. Bibasilar pleural scarring suspected although small residual pleural effusions not excluded. Right basilar pleural calcification also not excluded. Other findings detailed above.
--- NOTE | 2020-09-29 01:06 | ECG_ITS ---
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 Measurements Intervals [place] Rate: 54 P: 72 [place]: 182 QRS: -9 QRSD: 181 T: 127 QT: 492 QTc: 467 Interpretive Statements SINUS BRADYCARDIA LEFT BUNDLE BRANCH BLOCK [120+ ms QRS DURATION, 80+ ms Q/S IN V1/V2, 85+ ms R IN I/aVL/V5/V6] Compared to ECG 05/17/2020 21:49:15 Sinus arrhythmia no longer present First degree AV block no longer present Left-axis deviation no longer present Electronically Signed On 09-29-2020 11:29:22 EXECUTOR OF ESTATE by Florecita Chavez M.D. [id number]
--- NOTE | 2020-09-29 01:10 | ED_ITS ---
HPI - SOB/Dyspnea General: Chief Complaint: Shortness of Breath/Dyspnea Stated Complaint: low o2 Time Seen by Provider: 09/29/20 01:03 Source: patient and EMS Mode of arrival: EMS History of Present Illness: HPI Narrative: Fredi is a 74-year-old male who comes in with shortness of breath. The patient has been tested and found to be Covid positive. He was in the [facility] when they did routine rounds and found his oxygen level to be in the 50s on his normal requirement of oxygen believed to be 3 L. Patient was placed on a nonrebreather and by the time EMS arrived the patient's pulse oximetry was in the 90s. Here the patient does not appear to be in distress but his pulse ox is 91% on a nonrebreather. When asked if he has any pain Fredi states that he hurts all over. He denies other complaints at this time. Associated symptoms: Deny abdominal pain, chest congestion, chest pain, diaphoresis, dizziness, extremity pain, fever(s), hemoptysis, lightheadedness, nausea, orthopnea, palpitations, syncope or vomiting Review of Systems Const: Reports: malaise; Denies: fever(s), chills, body aches, fatigue or diaphoresis Eyes: Denies: change in vision, blurry vision, photophobia, eye discomfort, eye discharge, eye redness or yellow eyes ENMT: Denies: throat pain, odynophagia, hoarseness, swelling of lips/tongue, ear or mastoid pain, ear discharge, change in hearing or nasal discharge Card: Denies: chest pain, palpitations, irregular heart rhythm, edema, lightheadedness, syncope, pre-syncope, dyspnea on exertion or orthopnea Resp: Reports: dyspnea; Denies: productive cough, non-productive cough, wheezing, hemoptysis or chest congestion GI: Denies: abdominal pain, nausea, vomiting, hematemesis, coffee ground emesis, heartburn, diarrhea, constipation, GI cramping, hematochezia or melena : Denies: flank pain, dysuria, urinary frequency, urinary urgency or hematuria Musc: Denies: neck pain, back pain, extremity pain, extremity swelling, joint pain, joint swelling, joint redness, joint warmth or joint stiffness Skin/Breast: Denies: rash, pruritus, erythema, skin pain or skin tenderness Neuro: Denies: headache(s), numbness in extremities, weakness in extremities, sensory changes, lack of coordination, difficulty walking, dizziness, vertigo, confusion, Slurred speech present or seizure-like activity Juan/Lymph: Denies: easy bruising, easy bleeding, petechiae, purpura or enlarged lymph nodes All/Imm: Denies: urticaria, throat swelling, tongue swelling, facial swelling or acute wheezing PFSH ED PFSH: Medical History Anemia Anticoagulation adequate with anticoagulant therapy Eliquis Ascending aorta dilatation Atrial fibrillation CHF (congestive heart failure) COPD (chronic obstructive pulmonary disease) DVT (deep venous thrombosis) Dyslipidemia Edema Ischemic cardiomyopathy Left bundle branch block Myocardial infarction Pulmonary embolism Pulmonary HTN Tobacco abuse Urgency incontinence Venous insufficiency Family History Father CAD (coronary artery disease) Myocardial infarction Social History Smoking and tobacco status: current every day smoker Alcohol intake: unknown Adopted: No Caregiver/support person: No Lives independently: No Household members: spouse Marital status: Physical Exam Const: COMMON NORMALS: no acute distress, patient oriented x3, no limitations and alert GENERAL APPEARANCE: cooperative HENMT: COMMON NORMALS: normocephalic, atraumatic, external ears normal, EAC's normal and Normal external nose present HEAD & SCALP: normal to inspection, normocephalic and atraumatic FACE & SINUS: normal facial exam and face symmetric NOSE: Normal external nose present and Normal nares present EXTERNAL EAR: Yes external ears normal EXTERNAL AUDITORY CANAL: EAC's normal MOUTH: Normal oral and palatal mucosa present, lip normal and tongue normal Eye: COMMON NORMALS: Equal, round and reactive pupils present and conjunctivae normal GENERAL EYE: appearance normal, both eyes and all related structures ALIGNMENT: Yes alignment normal PERIORBITAL: periorbital findings normal EYELID: eyelids normal CONJUNCTIVA: Yes conjunctivae normal SCLERA: sclerae normal PUPIL: Yes Equal, round and reactive pupils present Neck/C-Spine: COMMON NORMALS: full ROM, no lymphadenopathy, supple, no men ingeal signs and no JVD GENERAL: Yes normal visual inspection and Yes trachea midline Chest: COMMONS NORMALS: normal inspection of the chest and normal palpation of entire chest wall Resp: COMMON NORMALS: normal respiratory effort EFFORT & INSPECTION: Yes able to speak in complete sentences, Yes symmetric chest movement, Yes tachypneic and Yes audible wheezes AUSCULTATION: no crackles, no rales, rhonchi and wheezes Cardio: COMMON NORMALS: no JVD, regular rate, regular rhythm, S1 normal heart sound present and S2 normal heart sound present RATE: regular rate RHYTHM: regular rhythm HEART SOUNDS: S1 normal heart sound present, S2 normal heart sound present, no click, no gallops, no murmurs and no rubs GI: COMMON NORMALS: Soft to palpation and No hepatosplenomegaly present PALPATION: Yes Soft to palpation, No Tenderness to palpation present (GI), No Guarding due to palpation present (GI), No Rigid due to palpation, Yes No hepatosplenomegaly present, No Hernia present, No Palpable mass present and No Pulsatile mass present : COMMON NORMALS: Yes no CVA tenderness BLADDER/KIDNEY EXAM: Yes no CVA tenderness Back/Pelvis: COMMON NORMALS: no CVA tenderness, thoracic and lumbar spine normal to inspection, no thoracic nor lumbar tenderness and thoraco-lumbar ROM normal Extremity: COMMON NORMALS: normal to inspection, full ROM, capillary refill normal, no joint enlargement, no clubbing, cyanosis or edema and no calf tenderness Neuro: COMMON NORMALS: patient oriented x3, CN's II-XII intact bilaterally, moves all extremities, no focal motor deficits and no sensory deficits noted SENSORIUM/ORIENTATION: Yes alert MENINGEAL SIGNS: Yes no meningeal signs SPEECH: speech normal Psych: COMMON NORMALS: mental status grossly normal, Normal thought process present, cooperative, normal affect, speech normal and activity/motor behavior normal SPEECH: Yes normal speech THOUGHT PROCESS: Normal thought process present Skin: COMMON NORMALS: no rashes or lesions noted, turgor normal, no jaundice, no petechiae and no mottling GENERAL SKIN EXAM: no rashes or lesions noted and turgor normal Course Vital Signs: Vital signs: Vital Signs Temperature 97.5 F L 09/29/20 01:06 Pulse Rate 56 L 09/29/20 01:06 Respiratory Rate 17 09/29/20 01:06 Blood Pressure 135/79 09/29/20 01:06 Pulse Oximetry 91 09/29/20 01:06 MDM - SOB/Dyspnea Lab Data: Labs: Lab Results 09/29/20 Range/Units 01:30 Specimen Type Arterial Sample Site Radial, right ABG pH 7.40 (7.35-7.45) ABG pCO2 46.6 H (35-45) mmHg ABG pO2 56.5 L (80.0-100.0) mmH g ABG HCO3 29.0 H (22-26) mmol/L ABG Base Excess 3.7 H (-2.0-2.0) mmol/ L Avni Test Pos Hematocrit 27.7 L (42-52) % Hgb O2 Saturation 88.1 L (95-100) % Carboxyhemoglobin 0.8 (0.4-20.1) %THgb Methemoglobin 0.6 (0.4-1.5) % Total Hemoglobin 9.0 L (14-18) g/dL O2 Delivery Device Nrb O2 Liters/Min 15.0 % FiO2 100.0 % Vet Tech ID [id number] Imaging Data^: CXR: Attestation: I personally reviewed and interpreted this imaging study as follows: My impression: Bilateral interstitial infiltrates. EKG Data^: EKG 1: Attestation: I personally reviewed and interpreted this EKG as follows: EKG Interpretation Date: 09/29/20 EKG interpretation time: 01:24 Interpretation: Sinus bradycardia 54 beats a minute, left bundle branch block, Discharge Plan Discharge Prescriptions: No Action sulfamethoxazole-trimethoprim 800-160 mg tablet 1 tab PO BID RF: 0 Advair Diskus 250-50 mcg/dose Blister With Device 1 inh INHALATION BID RF: 0 senna 8.6 mg Tablet 17.2 mg PO BID RF: 0 prednisone 10 mg Tablet 10 mg PO DAILY RF: 0 Lipitor 20 mg Tablet 20 mg PO BEDTIME RF: 0 ipratropium-albuterol 0.5 mg-3 mg(2.5 mg base)/3 mL Solution For Nebulization 3 ml INHALATION QID RF: 0 amiodarone 200 mg Tablet 200 mg PO DAILY RF: 0 potassium chloride 10 mEq Tablet Extended Release 10 meq PO DAILY RF: 0 digoxin 250 mcg (0.25 mg) Tablet 250 mcg PO DAILY RF: 0 Aspir-81 81 mg Tablet,Delayed Release (Dr/Ec) 81 mg PO DAILY RF: 0 Flomax 0.4 mg Capsule 0.4 mg PO BEDTIME RF: 0 trazodone 100 mg Tablet 100 mg PO BEDTIME RF: 0 Protonix 40 mg Tablet,Delayed Release (Dr/Ec) 40 mg PO DAILY RF: 0 Prozac 20 mg Capsule 20 mg PO DAILY RF: 0 finasteride 5 mg Tablet 5 mg PO DAILY RF: 0 apixaban 2.5 mg Tablet 2.5 mg PO BID RF: 0 Coding Level of Care Code ED Compounding And Finishing Supervisor for Christina Fwd Exam Comprehensive
[2020-09-29] MEDS: sodium chloride 0.9% 1,000 ML 100 ML IV (01:24)
[2020-09-29] MEDS: ondansetron 2 mg/ML SDV 2 mL 4 MG IV (01:24)
[2020-09-29 01:39] LABS: ABG PCO2 46.6 mmHg (35-45); Arterial Blood Gas Hematocrit 27.7 % (42-52); Base Excess ABG 3.7 mmol/L (-2.0-2.0); Blood Gas Allen Test Pos; Blood Gas Sample Site Radial, right; Blood Gas Sample Type Arterial; Carboxyhemoglobin 0.8 %THgb (0.4-20.1); HGB O2 Sat 88.1 % (95-100); Methemoglobin 0.6 % (0.4-1.5); Oxygen Device NRB; PO2 ABG 56.5 mmHg (80.0-100.0)
[2020-09-29 01:51] LABS: Hematocrit 30.6 % (42.0-52.0); Hemoglobin 8.6 g/dL (11.7-16.6); Lymphocytes # 0.2 10^3/uL (0.8-4.8); Lymphocytes % 4.5 %; Mean Corpuscular HGB Conc 28.1 g/dL (30.0-36.0); Mean Corpuscular Hemoglobin 21.7 pg (28.0-34.0); Mean Corpuscular Volume 77.1 fL (80-94); Monocytes # 0.1 10^3/uL (0.2-0.9); Monocytes % 3.7 %; Neutrophils # 3.19 10^3/uL (1.8-7.7); Neutrophils % 90.7 %; Nucleated Red Blood Cells % 0 %; Platelet Count 202 10^3/cmm (130-400); Red Blood Count 3.97 10^6/uL (4.1-5.3); Red Cell Distribution Width 17.5 % (12.1-15.1); White Blood Count 3.5 10^3/uL (4.0-10.0)
[2020-09-29 02:03] LABS: INR 0.94 (0.8-1.2)
[2020-09-29 02:04] LABS: Fibrinogen 535 mg/dL (174-498)
[2020-09-29 02:09] LABS: Troponin(5th) Baseline 47 ng/L (0-15)
[2020-09-29 02:10] LABS: Lactic Sepsis W/Reflex 0.8 mmol/L (0.5-2.2)
[2020-09-29 02:15] LABS: D Dimer 4.65 ug/mIFEU (0-0.59)
[2020-09-29 02:17] LABS: NT Pro B Type Natriuretic Pept 9094 pg/mL (0-450); Procalcitonin 0.13 ng/mL (0-0.5)
[2020-09-29 02:30] LABS: Alanine Aminotransferase 21 U/L (0-41); Albumin Level 3.1 g/dL (3.5-5.2); Alkaline Phosphatase 81 IU/L (40-130); Anion Gap 13.1 (5-19); Aspartate Amino Transferase 21 U/L (0-40); Blood Urea Nitrogen 32 mg/dL (8-23); C Reactive Protein 140.4 mg/L (0.0-4.9); Calcium 9.2 mg/dL (8.5-10.5); Carbon Dioxide 28 mmol/L (22-29); Chloride 99 mmol/L (98-107); Glucose 107 mg/dL (65-115); Lactate Dehydrogenase 246 U/L (135-225); Magnesium 2.2 mg/dL (1.7-2.3); Osmolality Calculated 287 mOsm/kg (285-295); Potassium 5.1 mmol/L (3.5-5.1); Sodium 135 mmol/L (136-145); Total Bilirubin 0.3 mg/dL (0.15-1.2); Total Protein 6.1 g/dL (6.6-8.7)
[2020-09-29 02:51] LABS: Influenza A by IFA Negative (Negative); Influenza B by IFA Negative (Negative)
--- NOTE | 2020-09-29 03:33 | CTR_ITS ---
PROCEDURE INFORMATION: Exam: CT Angiography Chest With Contrast Exam date and time: 09/29/2020 3:35 AM Age: 74 years old Clinical indication: Shortness of breath; Additional info: Shortness of breath, positive d-dimer TECHNIQUE: Imaging protocol: Computed tomographic angiography of the chest with intravenous contrast. 3D rendering (Not supervised by radiologist): MIP and/or 3D reconstructed images were created by the technologist. Radiation optimization: All CT scans at this facility use at least one of these dose optimization techniques: automated exposure control; mA and/or kV adjustment per patient size (includes targeted exams where dose is matched to clinical indication); or iterative reconstruction. Contrast material: OMNI 350; Contrast volume: 95 ml; Contrast route: INTRAVENOUS (IV); COMPARISON: CTA Chest-Pulmonary Emb [id number] 11/13/2019 10:01 AM RADIATION DOSE METRICS: Total DLP (mGy-cm): 616.48 FINDINGS: Pulmonary arteries: Central pulmonary arteries are dilated consistent with pulmonary hypertension. No pulmonary emboli are seen. Aorta: The ascending aorta is dilated to a diameter 4.2 cm. The aorta is tortuous and calcified. There is atherosclerotic plaquing in the descending aorta. Lungs: There is prominent extensive pulmonary emphysema with bilateral pulmonary fibrosis. There is airspace consolidation in the lower lobes bilaterally consistent with bilateral pneumonia. pulmonary arteries Pleural space: Unremarkable. No pneumothorax. No pleural effusion. Heart: Heart is enlarged. There is calcification of the coronary arteries. Mediastinal space: There is moderate hiatal hernia. Lymph nodes: Unremarkable. No enlarged lymph nodes. Bones/joints: DJD is present in the thoracic spine with sclerosis and osteophyte formation. There is a old mild compression fracture a midthoracic vertebral body. Soft tissues: Unremarkable. CT/CT angio chest PE protcl [id number] IMPRESSION: 1. No evidence of pulmonary embolus. 2. Pulmonary hypertension. 3. Ascending aorta dilatation with a diameter of 4.2 cm. 4. Prominent pulmonary emphysema. 5. Bibasilar pneumonia. 6. Hiatal hernia. Radiation Dose CTDIVOL = (mGy): DLP = 616.48 (mGy-cm)
--- NOTE | 2020-09-29 03:48 | PM.HP ---
Providers/Chief Complaint Primary Care Provider: Isai Bhatti DO Chief Complaint: low o2 History of Present Illness Fredi Claire is a 74 year old male with a past medical history of chronic hypoxic hypercarbic respiratory failure, COPD, 5 L oxygen dependent, systolic and diastolic CHF, history of pulmonary emboli on Eliquis, atrial fibrillation, history of ischemic cardiomyopathy, last ejection fraction showed diffuse hypokinesia of the left ventricle LVEF of 30%, CAD, peripheral vascular disease, CKD stage II, acute on chronic anemia, protein calorie malnutrition, cachexia, deconditioning, detention resident, GERD, BPH, who presents to [facility] due to complaints of shortness of breath, hypoxia, low-grade fevers. Patient is a resident of a local detention, he tested positive for Covid on September 20, since then he has had some intermittent cough, shortness of breath, low-grade fevers, his oxygen requirements have roughly stayed the same at 5 L. This evening, the nurse came and checked up on him, which she was doing vitals, which she noticed that his oxygen saturations were in the low 50s on 5 L, he was complaining of some shortness of breath, he looked blue, she put him on oxygen mask, however his oxygen saturations were only improved to the 70s, so he was brought into the emergency room. Currently he denies chest pain, complaints of shortness of breath, cough, low-grade fevers, currently on BiPAP, 20/10, 80% FiO2. Review of Systems Const: Reports: fever(s), fatigue and malaise; Denies: chills Eyes: Denies: change in vision or blurry vision ENMT: Denies: nasal congestion Resp: Reports: dyspnea and non-productive cough; Denies: productive cough or wheezing GI: Denies: abdominal pain, nausea, vomiting, hematemesis, diarrhea, constipation, hematochezia or melena : Denies: flank pain, difficulty urinating, dysuria or urinary frequency Musc: Denies: neck pain or back pain Skin/Breast: Denies: rash Neuro: Denies: headache(s), dizziness or vertigo Psych: Denies: anxiety or depression Endo: Denies: polyuria or polydipsia Medications/Allergies Home Medications Medication Instructions Recorded Confirmed Last Taken Type amiodarone 200 mg PO DAILY 11/28/19 08/22/2011/28/20 History apixaban 2.5 mg PO BID 11/28/19 08/22/20 11/28/19 History aspirin [Aspir-81] 81 mg PO DAILY 11/28/19 08/22/20 11/28/19 History atorvastatin [Lipitor] 20 mg PO BEDTIME 11/28/19 08/22/20 11/27/19 History digoxin 250 mcg PO DAILY 11/28/19 08/22/20 11/27/19 History finasteride 5 mg PO DAILY 11/28/19 08/22/20 11/28/19 History fluoxetine [Prozac] 20 mg PO DAILY 11/28/19 08/22/20 11/28/19 History fluticasone propion-salmeterol 1 inh INHALATION BID 11/28/19 08/22/20 11/28/19 History [Advair Diskus] ipratropium-albuterol 3 ml INHALATION QID 11/28/19 08/22/20 11/28/19 History pantoprazole [Protonix] 40 mg PO DAILY 11/28/19 08/22/20 11/28/19 History potassium chloride 10 meq PO DAILY 11/28/19 08/22/20 11/28/19 History prednisone 10 mg PO DAILY 11/28/19 08/22/20 11/28/19 History senna 17.2 mg PO BID 11/28/19 08/22/20 11/28/19 History tamsulosin [Flomax] 0.4 mg PO BEDTIME 11/28/19 08/22/20 11/27/19 History trazodone 100 mg PO BEDTIME 11/28/19 08/22/20 11/27/19 History sulfamethoxazole 800 1 tab PO BID 08/22/20 08/22/20 Unknown History mg-trimethoprim 160 mg tablet Allergies Allergy/AdvReac Type Severity Reaction Status Date / Time amitriptyline Allergy Unknown Verified 08/15/20 09:48 ibuprofen Allergy ALGY-Rash Verified 08/15/20 09:48 metoprolol Allergy Unknown Verified 02/01/20 15:05 PFSH Acute PFSH: Medical History Anemia Anticoagulation adequate with anticoagulant therapy Eliquis Ascending aorta dilatation Atrial fibrillation CHF (congestive heart failure) COPD (chronic obstructive pulmonary disease) DVT (deep venous thrombosis) Dyslipidemia Edema Ischemic cardiomyopathy Left bundle branch block Myocardial infarction Pulmonary embolism Pulmonary HTN Tobacco abuse Urgency incontinence Venous insufficiency Surgical History (Updated 09/29/20 @ 03:54 by Francis Richard MD) History of left hip replacement Hx of facial fracture repair Hx of neck surgery S/P hip replacement Family History Father CAD (coronary artery disease) Myocardial infarction Social History Smoking and tobacco status: current every day smoker Alcohol intake: unknown Adopted: No Caregiver/support person: No Lives independently: No Household members: spouse Marital status: Vitals/I&O/Wt Last Vital Signs Temp 97.5 F L 09/29/20 01:06 Pulse 56 L 09/29/20 03:30 Resp 20 H 09/29/20 03:30 BP 116/65 09/29/20 03:30 Pulse Ox 89 L 09/29/20 03:30 Weight last 48 hrs Weight 58.06 kg Physical Exam Const: COMMON NORMALS: no acute distress and patient oriented x3 GENERAL APPEARANCE: cooperative and comfortable HENMT: COMMON NORMALS: normocephalic HEAD & SCALP: normocephalic Eye: COMMON NORMALS: Equal, round and reactive pupils present and EOMs intact bilaterally GENERAL EYE: appearance normal, both eyes and all related structures PUPIL: Yes Equal, round and reactive pupils present Neck/C-Spine: COMMON NORMALS: full ROM, no lymphadenopathy, no JVD and Thyroid normal THYROID: Thyroid normal Lymph: LYMPHATIC: no lymphadenopathy noted Resp: COMMON NORMALS: normal respiratory effort, No retractions, No use of accessory muscles and clear to auscultation bilaterally AUSCULTATION: breath sounds absent bilateral Cardio: COMMON NORMALS: no JVD, regular rate, regular rhythm, S1 normal heart sound present, S2 normal heart sound present, No gallops present (Cardio), No clicks present (Cardio) and No murmurs present (Cardio) RATE: regular rate RHYTHM: regular rhythm HEART SOUNDS: S1 normal heart sound present and S2 normal heart sound present GI: COMMON NORMALS: Normal to inspection, nondistended, normoactive bowel sounds present, Soft to palpation, non-tender and No hepatosplenomegaly present PALPATION: Yes Soft to palpation and Yes No hepatosplenomegaly present Extremity: COMMON NORMALS: normal to inspection, full ROM and no pedal edema Neuro: COMMON NORMALS: patient oriented x3, CN's II-XII intact bilaterally, moves all extremities and no focal motor deficits Psych: COMMON NORMALS: mental status grossly normal, Normal thought process present and cooperative THOUGHT PROCESS: Normal thought process present Data : 09/29/20 01:33 09/29/20 01:33 Micro: Microbiology 09/29/20 01:43 Blood Culture - Preliminary Blood SPECIMEN COLLECTED 09/29/20 01:33 Blood Culture - Preliminary Blood SPECIMEN COLLECTED A&P Assessment and plan (1) Acute on chronic respiratory failure with hypoxia and hypercapnia: Secondary to COVID-19 pneumonia, possible secondary bacterial pneumonia, pulmonary fibrosis, COPD, emphysema, CHF -Review of patient's CT angiogram on October 2019, previous chest x-ray showed that he has definitely had recurrent pneumonias, but does have significant radiographic evidence of severe bullous emphysema and pulmonary fibrosis -Here his white blood cell count 3.5, lymphopenia, hemoglobin 8.6, fibrinogen 535, D-dimer 4.65, his ABG pH was 7.4, PCO2 46, PO2 56.5 on 100% FiO2, LDH 246, influenza negative, chest x-ray shows diffuse interstitial fibrosis, density in the left lung base, bilateral infiltrates PLAN: -Admit to VICU -Continue Eliquis for DVT prophylaxis -Full code -I had a pratima discussion with patient about his goals of care, given his underlying severe bullous emphysema and pulmonary fibrosis, now with acute respiratory failure secondary to above, if he were to deteriorate clinically, and remain a full code, he would end up intubated and mechanically ventilated, which would carry significant morbidity and mortality, and his likelihood of meaningful recovery would be fairly unlikely, advised of the risks and benefits, voiced understanding, all questions answered, wants to proceed with remaining a full code for now -Decadron 6 mg IV push daily, will strongly consider high-dose steroids based on clinical progress -Start remdesivir -Broad-spectrum antibiotics, vancomycin, Zosyn, azithromycin -Continue BiPAP, currently 20/10, 80% FiO2, will consider switching over to high flow, due to concerns for compliance of the lung, and the patient with pulmonary fibrosis severe emphysema -Lasix 40 mg IV daily, monitor creatinine, monitor urine output -Advair, albuterol, steroids -Follow blood cultures, follow sputum cultures Status: Acute (2) Pneumonia due to COVID-19 virus: Status: Acute (3) Pulmonary fibrosis: Status: Acute (4) CHF (congestive heart failure): Status: Acute (5) COPD (chronic obstructive pulmonary disease): Status: Acute (6) Ischemic cardiomyopathy: -Patient's echocardiogram in October 2019 showed an EF of 30%, diffuse hypokinesis of the left ventricle -Has a history of CAD, cath in 2010 showed normal left main, wraparound LAD, minor trait irregularity and circumflex, completely occluded RCA, with bridging collaterals to distal vessels, minimal collaterals from left to right system -BNP 9094 -Aspirin, statin, beta-naye, Lasix Status: Acute (7) Tobacco abuse: Status: Acute (8) Pulmonary HTN: Status: Acute (9) Dyslipidemia: Status: Acute (10) CAD (coronary artery disease): Monitor telemetry, monitor troponin, monitor for chest pain Status: Acute (11) Pulmonary embolism: Continue Eliquis Status: Acute (12) Atrial fibrillation: Continue telemetry monitoring, continue digoxin, continue Eliquis, continue amiodarone Status: Acute (13) Venous insufficiency: Status: Acute (14) Acute on chronic anemia: Hemoglobin at baseline, 8.6 Status: Acute Attestations Medical Necessity Statement*: Patient requires hospitalization for acute respiratory failure secondary to COVID-19 pneumonia, CHF, COPD, pulmonary fibrosis, emphysema Coding Level of Care Code Acute Director Executive Communications for [facility] Diagnoses Acute on chronic respiratory failure with hypoxia and hypercapnia J96.21; J96.22 Pneumonia due to COVID-19 virus U07.1; J12.89 Pulmonary fibrosis J84.10 CHF (congestive heart failure) I50.9 COPD (chronic obstructive pulmonary disease) J44.9 Ischemic cardiomyopathy I25.5 Tobacco abuse Z72.0 Pulmonary HTN I27.20 Dyslipidemia E78.5 CAD (coronary artery disease) I25.10 Pulmonary embolism I26.99 Atrial fibrillation I48.91 Venous insufficiency I87.2 Acute on chronic anemia D64.9
[2020-09-29 04:44] LABS: Add Urine Microscopic? YES; Bilirubin Urine Neg (Negative); Blood Urine Neg (Negative); Glucose Urine UA Norm (Normal); Ketones Urine Negative (Negative); Leukocyte Esterase Urine Negative (Negative); Nitrate Urine Negative (Negative); Protein Urine Trace (Negative); Specific Gravity, Urine 1.015 (1.005-1.030); Urine Appearance SL Hazy (CLEAR); Urine Color Yellow (Yellow); Urobilinogen Urine Norm (Negative); pH Urine 5 (5-7)
[2020-09-29 04:45] LABS: Add Urine Culture? No; Amorphous Sediment Urine 2+ /hpf; Bacteria Urine TRACE /hpf; RBC Urine 0-4 /hpf (0-2); Squamous Epithelial Cell Urine 0-4 /hpf (0-5); WBC Urine 0-4 /hpf (0-5)
[2020-09-29 04:49] LABS: Troponin 5 2HR 43.83 ng/L (0-15)
[2020-09-29 04:54] LABS: Troponin 5 2HR Delta -3.17 ABS# (0-10)
--- NOTE | 2020-09-29 06:24 | USCV_ITS ---
Dak[place]ah Fredi Age: 74 Gender: M : 1945 Exam Date: 09/29/2020 12:57 Ordering Phys: Francis Richard MD Technologist: Isabella Dias Exam Location: [facility] [place] Indication: SOB BP: 151 / 70 HR: 74 Rhythm: Sinus Technical Quality: Fair MEASUREMENTS (Male / Female) Normal Values 2D ECHO LV Diastolic Diameter PLAX 5.4 cm 4.2 - 5.9 / 3.9 - 5.3 cm LV Systolic Diameter PLAX 4.3 cm LV Chamber Size 4.8 cm IVS Diastolic Thickness 1.9 cm 0.6 - 1.0 / 0.6 - 0.9 cm IVS Systolic Thickness 1.8 cm LVPW Diastolic Thickness 1.6 cm 0.6 - 1.0 / 0.6 - 0.9 cm LVPW Systolic Thickness 2.0 cm RV Chamber Size 3.4 cm LVOT Diameter 2.1 cm LV Ejection Fraction 2D Teich 39.3 % LV Ejection Fraction MOD 2C 47.7 % LV Ejection Fraction 2C AL 46.8 % LA Diameter 4.5 cm LA Width 3.4 cm LA Height 6.3 cm RA Width 2.9 cm RA Height 5.3 cm Aorta at Sinotubular Diameter 2.6 cm M-MODE LV Diastolic Diameter MM 6.9 cm 4.2 - 5.9 / 3.9 - 5.3 cm LV Systolic Diameter MM 6.0 cm LV Ejection Fraction MM Teich 27.7 % IVS Diastolic Thickness MM 1.7 cm 0.6 - 1.0 / 0.6 - 0.9 cm IVS Systolic Thickness MM 1.3 cm LVPW Diastolic Thickness MM 1.7 cm 0.6 - 1.0 / 0.6 - 0.9 cm LVPW Systolic Thickness MM 2.6 cm RV Diastolic Diameter MM 1.0 cm Aortic Annulus Diameter 3.2 cm LA Ao Ratio MM 1.5 MV E Point Septal Separation 1.0 cm DOPPLER AV Peak Velocity 161.0 cm/s LVOT Peak Velocity 129.0 cm/s AV Area Cont Eq vti 2.4 cm squared AV Area Cont Eq pk 2.7 cm squared MV Area PHT 2.1 cm squared Mitral E to A Ratio 0.6 MV E' Velocity 28.5 cm/s Mitral E to MV E' Ratio 13.8 Mitral E to LV E' Lateral Ratio 13.2 Mitral E to LV E' Septal Ratio 15.0 TR Peak Velocity 280.0 cm/s TR Peak Gradient 31.4 mmHg TV Peak E Velocity 49.0 cm/s PV Peak Velocity 102.0 cm/s RV Acceleration Time 0.1 s RV Ejection Time 0.3 s RV AcT/ET 0.2 FINDINGS Left Ventricle Normal left ventricular cavity size. Increased left ventricular wall thickness. Moderate left ventricular hypertrophy. Mildly decreased left ventricular systolic function. Left ventricular ejection fraction is estimated at 40 %. Global left ventricular hypokinesis. Abnormal septal motion consistent with conduction abnormality. Grade I diastolic dysfunction (abnormal relaxation filling pattern), normal to mildly elevated filling pressures. Right Ventricle Normal right ventricular size and systolic function. Right Atrium Mildly increased right atrial size. Left Atrium Mildly increased left atrial size. Mitral Valve Mildly thickened mitral valve. No mitral valve stenosis. Trace mitral valve regurgitation. Aortic Valve Structurally normal trileaflet aortic valve. No aortic valve stenosis. Trace to mild aortic valve regurgitation. Tricuspid Valve Structurally normal tricuspid valve. No tricuspid valve stenosis. Trace tricuspid valve regurgitation. Pulmonic Valve Pulmonic valve not well visualized. Pericardium Trivial pericardial effusion. Aorta Normal sized aortic root. CONCLUSIONS 1. Normal left ventricular cavity size. Moderate left ventricular hypertrophy. Mildly decreased left ventricular systolic function. Left ventricular ejection fraction is estimated at 40 %. Global left ventricular hypokinesis. Grade I diastolic dysfunction (abnormal relaxation filling pattern), normal to mildly elevated filling pressures. 2. Trace to mild aortic valve regurgitation. 3. Trivial pericardial effusion. 4. When compared to previous echocardiogram dated 11/15/2019, left ventricular systolic function has improved. Florecita Chavez MD (Electronically Signed) Final Date: 30 September 2020 09:17 S
--- NOTE | 2020-09-29 06:24 | ECG_ITS ---
[facility] Test Date: 2020-09-29 Pat Name: Fredi Claire Department: Room: Gender: Male Organ Teacher: : 1945 Requested By: Francis Richard Order Number: [id number] Suzie MD: Florecita Chavez M.D. Measurements Intervals [place] Rate: 60 P: 74 DC: 180 QRS: -17 QRSD: 182 T: 128 QT: 484 QTc: 485 Interpretive Statements SINUS RHYTHM LEFT BUNDLE BRANCH BLOCK [120+ ms QRS DURATION, 80+ ms Q/S IN V1/V2, 85+ ms R IN I/aVL/V5/V6] Compared to ECG 09/29/2020 03:36:00 Sinus bradycardia no longer present Left-axis deviation no longer present Electronically Signed On 09-29-2020 11:28:40 SCHOOL NURSE by Florecita Chavez M.D. [id number]
--- NOTE | 2020-09-29 07:06 | ECG_ITS ---
[facility] Test Date: 2020-09-29 Pat Name: Fredi Claire Department: Room: Gender: Male Management Professionals: : 1945 Requested By: Sharonda Heaton Order Number: [id number] Larsen MD: Florecita Chavez M.D. Measurements Intervals [place] Rate: 57 P: 66 NE: 188 QRS: -34 QRSD: 181 T: 109 QT: 502 QTc: 492 Interpretive Statements SINUS BRADYCARDIA LEFT AXIS DEVIATION [QRS AXIS < -30] LEFT BUNDLE BRANCH BLOCK [120+ ms QRS DURATION, 80+ ms Q/S IN V1/V2, 85+ ms R IN I/aVL/V5/V6] Compared to ECG 09/29/2020 01:24:14 Left-axis deviation now present Electronically Signed On 09-29-2020 11:34:58 HAND DRILLER by Florecita Chavez M.D. [email or web address] [email or web address] [email or web address].[email or web address]/store/[id number]
[2020-09-29 07:35] LABS: Troponin 5 6HR 46.34 ng/L (0-15)
[2020-09-29 08:25] LABS: Troponin 5 6HR Delta -0.66 ng/L (0-12)
--- NOTE | 2020-09-29 08:33 | PC.NURSE ---
Spoke with pt's Jeanie and updated her on pt status and pending admission. All questions answered.
[2020-09-29] MEDS: LORazepam 1 mg Tablet PO (08:36)
[2020-09-29] MEDS: acetaminophen 500 mg Tablet 1000 MG PO (08:37)
[2020-09-29] MEDS: iohexol 350 mg/mL 100 mL Btl IV (10:12)
[2020-09-29] MEDS: aspirin 81 mg EC Tablet PO (12:23)
[2020-09-29] MEDS: azithromycin 500 MG in sodium chloride 0.9% 250 ML 250 MG IV (12:24)
[2020-09-29] MEDS: apixaban 5 mg Tablet 2.5 MG PO ×2 (12:24→17:02)
[2020-09-29] MEDS: potassium chloride ER 10 mEq Tablet PO (12:24)
[2020-09-29] MEDS: pantoprazole DR 40 mg Tablet PO (12:24)
[2020-09-29] MEDS: FUROsemide 10 mg/mL SDV 4mL 40 MG IVP ×2 (12:25→22:48)
[2020-09-29] MEDS: cefTRIAXone 1,000 MG in sodium chloride 0.9% (plus) 50 ML 100 MG IV (12:25)
[2020-09-29] MEDS: dexamethasone 4 mg/mL INJ 6 MG IVP (12:25)
[2020-09-29] MEDS: fluoxetine 20 mg Capsule PO (13:05)
[2020-09-29] MEDS: finasteride 5 mg Tablet PO (13:06)
[2020-09-29] MEDS: vancomycin 1,000 MG in sodium chloride 0.9% 250 ML 250 MG IV (14:10)
--- NOTE | 2020-09-29 19:11 | PM.PN ---
Subjective Subjective: Interval history: Some discomfort around the mask, but otherwise is doing alright. Denies chest pain or pressure. No nausea. Vitals/I&O/Wt Last Vital Signs Temp 97.3 F L 09/29/20 16:22 Pulse 63 09/29/20 18:15 Resp 26 H 09/29/20 18:15 BP 140/64 09/29/20 18:15 Pulse Ox 90 09/29/20 18:15 09/29/20 09/29/20 09/29/20 06:59 14:59 22:59 Intake Total 613.333 / 613.333 250 / 250 750 / 1000 Output Total 1850 / 1850 Balance 613.333 / 613.333 250 / 250 -1100 / -850 Weight last 48 hrs Weight 58.06 kg Physical Exam Const: COMMON NORMALS: no acute distress and patient oriented x3 OTHER: BiPAP on. HENMT: COMMON NORMALS: oropharynx normal Neck/C-Spine: COMMON NORMALS: no JVD Resp: COMMON NORMALS: normal respiratory effort AUSCULTATION: crackles and wheezes Cardio: COMMON NORMALS: no JVD, regular rhythm, S1 normal heart sound present, S2 normal heart sound present and No murmurs present (Cardio) RHYTHM: regular rhythm HEART SOUNDS: S1 normal heart sound present and S2 normal heart sound present GI: COMMON NORMALS: Normal to inspection, nondistended, normoactive bowel sounds present, Soft to palpation and non-tender PALPATION: Yes Soft to palpation Extremity: COMMON NORMALS: no joint enlargement and no pedal edema Neuro: COMMON NORMALS: patient oriented x3 and moves all extremities Skin: COMMON NORMALS: no rashes or lesions noted GENERAL SKIN EXAM: no rashes or lesions noted Urinary Catheter Management^: Barboza: Cath Placed During This Visit: yes Reason for Continuing Indwelling Catheter: Accurate Measurement of Urinary Output in Critically Ill Patients Urinary Catheter Date of Insertion: 09/29/20 Urinary Catheter Time of Insertion: 03:49 Data : 09/29/20 01:33 09/29/20 01:33 Micro: Microbiology 09/29/20 01:43 Blood Culture - Preliminary Blood SPECIMEN COLLECTED 09/29/20 01:33 Blood Culture - Preliminary Blood SPECIMEN COLLECTED A&P Assessment and plan (1) Acute on chronic respiratory failure with hypoxia and hypercapnia: Severe COVID-19 pneumonia, possible secondary bacterial pneumonia, pulmonary fibrosis, COPD, emphysema, CHF There appears to have stabilized. Subjectively is doing little bit better. Oxygenation stable on 40% FiO2 with NIPPV mask on. He has been tolerating this well. Continue treatment for coronavirus including remdesivir, Decadron. Continue antibiotics for suspected bacterial pneumonia and steroid for COPD exacerbation. Continue standing Lasix. Monitor volume status. Monitor WBC count. Recheck D-dimer, CRP. Continue Eliquis. Advair. Albuterol. Recurrent pneumonias and severe bullous emphysema and pulmonary fibrosis on CT angiogram on October 2019, previous chest x-ray. Rapid influenza negative, chest x-ray shows diffuse interstitial fibrosis, density in the left lung base, bilateral infiltrates Status: Acute (2) Pneumonia due to COVID-19 virus: Status: Acute (3) Pulmonary fibrosis: Status: Acute (4) CHF (congestive heart failure): Status: Acute (5) COPD (chronic obstructive pulmonary disease): Status: Acute (6) Ischemic cardiomyopathy: -Patient's echocardiogram in October 2019 showed an EF of 30%, diffuse hypokinesis of the left ventricle -Has a history of CAD, cath in 2010 showed normal left main, wraparound LAD, minor trait irregularity and circumflex, completely occluded RCA, with bridging collaterals to distal vessels, minimal collaterals from left to right system -BNP 9094 Continue aspirin, statin, beta-naye, Lasix. Treatment of heart failure as above. Status: Acute (7) Tobacco abuse: Status: Acute (8) Pulmonary HTN: Status: Acute (9) Dyslipidemia: Status: Acute (10) CAD (coronary artery disease): Monitor telemetry, monitor troponin, monitor for chest pain Status: Acute (11) Pulmonary embolism: Continue Eliquis Status: Acute (12) Atrial fibrillation: Continue telemetry monitoring, continue digoxin, continue Eliquis, continue amiodarone Status: Acute (13) Venous insufficiency: Status: Acute (14) Acute on chronic anemia: Hemoglobin at baseline, 8.6 Status: Acute Attestations Medical Necessity Statement*: Continue admission for assessment management of respiratory failure, severe COVID-19 infection, superimposed bacterial pneumonia, COPD distribution, CHF exacerbation with underlying ischemic cardiomyopathy, CAD, pulmonary hypertension, atrial fibrillation, and a number of additional comorbidities. Coding Level of Care Code Acute Extrusion Die Corrector for [facility] Fwd Exam Comprehensive Diagnoses Acute on chronic respiratory failure with hypoxia and hypercapnia J96.21; J96.22 Pneumonia due to COVID-19 virus U07.1; J12.89 Pulmonary fibrosis J84.10 CHF (congestive heart failure) I50.9 COPD (chronic obstructive pulmonary disease) J44.9 Ischemic cardiomyopathy I25.5 Tobacco abuse Z72.0 Pulmonary HTN I27.20 Dyslipidemia E78.5 CAD (coronary artery disease) I25.10 Pulmonary embolism I26.99 Atrial fibrillation I48.91 Venous insufficiency I87.2 Acute on chronic anemia D64.9
[2020-09-29] MEDS: atorvastatin 40 mg Tablet 20 MG PO (21:18)
[2020-09-29] MEDS: tamsulosin 0.4 mg Capsule PO (21:19)
[2020-09-30] VITALS (191 sets, daily range): BP systolic 90–149; BP diastolic 49–94; PULSE 50–84; RESP 11–36; TEMP 36.4–37.3; O2SAT 75–98
[2020-09-30 03:45] LABS: ABG PCO2 47.6 mmHg (35-45); ABG PH Result 7.42 (7.35-7.45); Arterial Blood Gas Hematocrit 27.6 % (42-52); Base Excess ABG 5.3 mmol/L (-2.0-2.0); Blood Gas Allen Test Pos; Blood Gas Sample Site Radial, left; Blood Gas Sample Type Arterial; HCO3 ABG 30.5 mmol/L (22-26); Oxygen Device BIPAP
[2020-09-30 05:27] LABS: Hemoglobin 8.1 g/dL (11.7-16.6); Lymphocytes # 0.2 10^3/uL (0.8-4.8); Lymphocytes % 3.4 %; Mean Corpuscular Hemoglobin 21.9 pg (28.0-34.0); Mean Corpuscular Volume 81.1 fL (80-94); Mean Platelet Volume 12.5 fL (7.4-10.4); Monocytes # 0.2 10^3/uL (0.2-0.9); Monocytes % 2.8 %; Neutrophils # 5.22 10^3/uL (1.8-7.7); Neutrophils % 92.6 %; Nucleated Red Blood Cells % 0 %; Platelet Count 215 10^3/cmm (130-400); Red Cell Distribution Width 17.6 % (12.1-15.1); White Blood Count 5.6 10^3/uL (4.0-10.0)
[2020-09-30 05:46] LABS: Lactic Sepsis W/Reflex 1.2 mmol/L (0.5-2.2)
[2020-09-30 05:58] LABS: INR 1.12 (0.8-1.2)
[2020-09-30 06:00] LABS: D Dimer 3.19 ug/mIFEU (0-0.59)
--- NOTE | 2020-09-30 06:00 | ECG_ITS ---
[facility] ED Test Date: 2020-09-30 Pat Name: Fredi Claire Department: Room: ICU19 Gender: Male Contemporary Or Modern Dancer: : 1945 Requested By: Francis Richard Order Number: [id number] Suzie MD: Florecita Chavez M.D. Measurements Intervals [place] Rate: 66 P: 93 MS: 182 QRS: -39 QRSD: 174 T: 104 QT: 476 QTc: 501 Interpretive Statements SINUS RHYTHM WITH SINUS ARRHYTHMIA MARKED LEFT AXIS DEVIATION [QRS AXIS < -30] LEFT BUNDLE BRANCH BLOCK [120+ ms QRS DURATION, 80+ ms Q/S IN V1/V2, 85+ ms R IN I/aVL/V5/V6] Compared to ECG 09/29/2020 06:40:12 Left-axis deviation now present Electronically Signed On 09-30-2020 9:27:17 STONE BELT SANDER by Florecita Chavez M.D. [email or web address].[employer]/store/[id number]
[2020-09-30 06:01] LABS: Alanine Aminotransferase 22 U/L (0-41); Albumin Level 3.1 g/dL (3.5-5.2); Alkaline Phosphatase 78 IU/L (40-130); Blood Urea Nitrogen 38 mg/dL (8-23); C Reactive Protein 128.2 mg/L (0.0-4.9); Calcium 9.1 mg/dL (8.5-10.5); Carbon Dioxide 28 mmol/L (22-29); Chloride 99 mmol/L (98-107); Globulin 3.1 g/dL (1.3-4.6); Glucose 89 mg/dL (65-115); Magnesium 2.1 mg/dL (1.7-2.3); Osmolality Calculated 293 mOsm/kg (285-295); Phosphorus 3.6 mg/dL (2.5-4.5); Sodium 137 mmol/L (136-145); Total Bilirubin 0.3 mg/dL (0.15-1.2); Total Protein 6.2 g/dL (6.6-8.7)
[2020-09-30 06:11] LABS: Anion Gap 15.2 (5-19); Aspartate Amino Transferase 24 U/L (0-40); Potassium 5.2 mmol/L (3.5-5.1)
[2020-09-30 06:13] LABS: NT Pro B Type Natriuretic Pept 4298 pg/mL (0-450); Procalcitonin 0.13 ng/mL (0-0.5)
[2020-09-30 06:24] LABS: Creatine Phosphokinase 17 U/L (39-308)
--- NOTE | 2020-09-30 07:00 | XRR_ITS ---
PROCEDURE INFORMATION: Exam: XR Chest, 1 View Exam date and time: 09/30/2020 8:42 AM Age: 74 years old Clinical indication: Shortness of breath; Patient HX: Covid; Additional info: SOB TECHNIQUE: Imaging protocol: XR of the chest Views: 1 view. COMPARISON: CR XR chest 1V portable [id number] 09/29/2020 1:32 AM FINDINGS: Lungs: Incomplete visualization of the left lung base. COPD, bronchiectasis, and interstitial disease. Asymmetric basilar airspace disease and pleural effusions, left greater than right. Heart/Mediastinum: Borderline cardiomegaly. Bones/joints: Osteopenia and degenerative change. XR/XR chest 1V portable [id number] IMPRESSION: 1. COPD, bronchiectasis, and interstitial disease. 2. Asymmetric basilar airspace disease and pleural effusions, left greater than right.
[2020-09-30] MEDS: vancomycin 1,000 MG in sodium chloride 0.9% 250 ML 250 MG IV (08:37)
[2020-09-30] MEDS: amiodarone 200 mg Tablet PO (08:41)
[2020-09-30] MEDS: aspirin 81 mg EC Tablet PO (08:42)
[2020-09-30] MEDS: apixaban 5 mg Tablet 2.5 MG PO ×2 (08:42→17:49)
[2020-09-30] MEDS: digoxin 250 mcg Tablet PO (08:43)
[2020-09-30] MEDS: pantoprazole DR 40 mg Tablet PO (08:43)
[2020-09-30] MEDS: fluoxetine 20 mg Capsule PO (08:43)
[2020-09-30] MEDS: finasteride 5 mg Tablet PO (08:43)
[2020-09-30] MEDS: cefTRIAXone 1,000 MG in sodium chloride 0.9% (plus) 50 ML 100 MG IV (10:48)
[2020-09-30] MEDS: dexamethasone 4 mg/mL INJ 6 MG IVP (10:49)
[2020-09-30] MEDS: azithromycin 500 MG in sodium chloride 0.9% 250 ML 250 MG IV (10:49)
[2020-09-30] MEDS: FUROsemide 10 mg/mL SDV 4mL 40 MG IVP (10:49)
[2020-09-30] MEDS: sodium chloride 0.9% (100 ml) 100 ML 10 ML (11:14)
--- NOTE | 2020-09-30 13:55 | PC.NURSE ---
Pt placed on heated high flow for lunch, however oxygen saturations were noted to fall as low at 78% and patient had to be placed on bipap. Pt placed in prone position, tolerated for approximately 30 minutes before requesting to be repositioned. Pt assisted to a left lateral position. Education given about how positioning aids in oxygenation. Pt also verbalized frustration due to inability to finish lunch, educated patient about importance of oxygenation and gave assurance that when it is safe to attempt to eat again he will be allowed to.
[2020-09-30] MEDS: albuterol 8 gm MDI 2 PUFF INHALATION ×2 (15:34→20:05)
--- NOTE | 2020-09-30 20:32 | P.PN_ITS ---
Subjective Subjective: Interval history: He was eating breakfast today, however, noted to be in worsening hypoxia, requested to be cut short. Also on a few occasions noted by nursing staff to have a near aspiration event. He was disappointed that he could not eat, but on discussion agreed to hold off on food until his oxygenation is little bit better. Also discussed with him concern for possible aspiration, and he is agreeable to empirically thicken liquids, see speech therapy. He reports that he hurts all over. Denies any specific location of pain. No nausea vomiting or diarrhea. Vitals/I&O/Wt Last Vital Signs Temp 98.2 F 09/30/20 08:00 Pulse 60 09/30/20 20:06 Resp 25 H 09/30/20 18:20 BP 135/65 09/30/20 18:20 Pulse Ox 95 09/30/20 20:06 09/30/20 09/30/20 09/30/20 06:59 14:59 22:59 Intake Total 400 / 1650 360 / 360 Output Total 1750 / 3600 950 / 950 600 / 1550 Balance -1350 / -1950 -590 / -590 -600 / -1190 Weight last 48 hrs Weight 58.06 kg Physical Exam Const: COMMON NORMALS: no acute distress, patient oriented x3 and alert GENERAL APPEARANCE: cooperative ORIENTATION/CONSCIOUSNESS: Yes awake OTHER: BiPAP on. HENMT: COMMON NORMALS: oropharynx normal Neck/C-Spine: COMMON NORMALS: no JVD Resp: COMMON NORMALS: normal respiratory effort AUSCULTATION: crackles (Coarse) and no wheezes Cardio: COMMON NORMALS: no JVD, regular rhythm, S1 normal heart sound present, S2 normal heart sound present and No murmurs present (Cardio) RHYTHM: regular rhythm HEART SOUNDS: S1 normal heart sound present and S2 normal heart sound present GI: COMMON NORMALS: Normal to inspection, nondistended, normoactive bowel sounds present, Soft to palpation and non-tender PALPATION: Yes Soft to palpation Extremity: COMMON NORMALS: no joint enlargement and no pedal edema Neuro: COMMON NORMALS: patient oriented x3 and moves all extremities SENSORIUM/ORIENTATION: Yes alert Skin: COMMON NORMALS: no rashes or lesions noted GENERAL SKIN EXAM: no rashes or lesions noted Urinary Catheter Management^: Barboza: Cath Placed During This Visit: yes Reason for Continuing Indwelling Catheter: Accurate Measurement of Urinary Output in Critically Ill Patients Urinary Catheter Date of Insertion: 09/29/20 Urinary Catheter Time of Insertion: 03:49 Data : 09/30/20 05:15 09/30/20 05:15 Micro: Microbiology 09/29/20 01:43 Blood Culture - Preliminary Blood Gram positive cocci 09/29/20 01:33 Blood Culture - Preliminary Blood NEGATIVE TO DATE A&P Assessment and plan (1) Acute on chronic respiratory failure with hypoxia and hypercapnia: Hypoxia worse. Today with noted episode of near aspiration. Empirically started on nectar thick liquids. Had to go back to BiPAP due to worsening hypoxia, however, if weaning down to high flow cannula, request speech therapy assessment. Hypoxic on high flow cannula, not tolerating BiPAP all right. Continue. Wean down as able. Continue remdesivir, Decadron. Lasix. In negative balance. Monitor volume status, renal function. Continue empiric antibiotics with Ceftriaxone, azithromycin, vancomycin. Req uest MRSA PCR. Keep Vanco for now due to positive blood culture. Could not reach for update. Severe COVID-19 pneumonia, possible secondary bacterial pneumonia, pulmonary fibrosis, COPD, emphysema, CHF Recheck D-dimer, CRP. Continue Eliquis. Advair. Change Albuterol to duoneb since he spends more time in BiPAP. Recurrent pneumonias and severe bullous emphysema and pulmonary fibrosis on CT angiogram on October 2019, previous chest x-ray. Rapid influenza negative, chest x-ray shows diffuse interstitial fibrosis, density in the left lung base, bilateral infiltrates Status: Acute (2) Pneumonia due to COVID-19 virus: Status: Acute (3) Pulmonary fibrosis: Status: Acute (4) CHF (congestive heart failure): Status: Acute (5) COPD (chronic obstructive pulmonary disease): Status: Acute (6) Ischemic cardiomyopathy: -Patient's echocardiogram in October 2019 showed an EF of 30%, diffuse hypokinesis of the left ventricle -Has a history of CAD, cath in 2010 showed normal left main, wraparound LAD, minor trait irregularity and circumflex, completely occluded RCA, with bridging collaterals to distal vessels, minimal collaterals from left to right system -high BNP, possibly secondary to CHF, but also may be secondary to chronic pul monary disease. With improvement. Continue aspirin, statin, beta-naye, Lasix. Treatment of heart failure as above. Status: Acute (7) Tobacco abuse: Status: Acute (8) Pulmonary HTN: Status: Acute (9) Dyslipidemia: Status: Acute (10) CAD (coronary artery disease): Monitor telemetry, monitor troponin, monitor for chest pain Status: Acute (11) Pulmonary embolism: Continue Eliquis Status: Acute (12) Atrial fibrillation: Continue telemetry monitoring, continue digoxin, continue Eliquis, continue amiodarone Status: Acute (13) Venous insufficiency: Status: Acute (14) Acute on chronic anemia: Hemoglobin at baseline, 8.6 Status: Acute (15) Gram-positive cocci bacteremia: Gram-positive cocci 1/4 bottles from admission. Possible contamination. On vancomycin. Repeat culture. Follow-up final results. Status: Acute Attestations Medical Necessity Statement*: Continue admission for assessment management of respiratory failure with hypoxia, severe COVID-19 infection, pneumonia, CHF exacerbation this chronically very ill gentleman. Coding Level of Care Code Acute Sap Solution Manager Consultant for [facility] Diagnoses Acute on chronic respiratory failure with hypoxia and hypercapnia J96.21; J9 6.22 Pneumonia due to COVID-19 virus U07.1; J12.89 Pulmonary fibrosis J84.10 CHF (congestive heart failure) I50.9 COPD (chronic obstructive pulmonary disease) J44.9 Ischemic cardiomyopathy I25.5 Tobacco abuse Z72.0 Pulmonary HTN I27.20 Dyslipidemia E78.5 CAD (coronary artery disease) I25.10 Pulmonary embolism I26.99 Atrial fibrillation I48.91 Venous insufficiency I87.2 Acute on chronic anemia D64.9 Gram-positive cocci bacteremia R78.81
[2020-09-30] MEDS: tamsulosin 0.4 mg Capsule PO (20:40)
[2020-09-30] MEDS: trazodone 100 mg Tablet PO (20:40)
[2020-09-30] MEDS: atorvastatin 40 mg Tablet 20 MG PO (20:40)
[2020-10-01] VITALS (49 sets, daily range): BP systolic 106–161; BP diastolic 45–81; PULSE 42–65; RESP 14–28; TEMP 36.4–37.2; O2SAT 87–100
[2020-10-01] MEDS: FUROsemide 10 mg/mL SDV 4mL 40 MG IVP ×2 (01:00→11:26)
[2020-10-01] MEDS: vancomycin 1,000 MG in sodium chloride 0.9% 250 ML 250 MG IV (01:01)
[2020-10-01] MEDS: ipratropium-albuterol 3 mL Neb INHALATION ×2 (02:21→09:39)
[2020-10-01 05:03] LABS: Arterial Blood Gas Hematocrit 27.1 % (42-52); Blood Gas Sample Site Radial, right; Blood Gas Sample Type Arterial; Oxygen Device BIPAP
--- NOTE | 2020-10-01 06:00 | ECG_ITS ---
[facility] ED Test Date: 2020-10-01 Pat Name: Fredi Claire Department: Room: ICU19 Gender: Male Residential Direct Support Professional: : 1945 Requested By: Francis Richard Order Number: [id number] Suzie MD: Florecita Chavez M.D. Measurements Intervals [place] Rate: 59 P: 89 [place]: 187 QRS: -56 QRSD: 172 T: 96 QT: 490 QTc: 486 Interpretive Statements SINUS BRADYCARDIA WITH SINUS ARRHYTHMIA MARKED LEFT AXIS DEVIATION [QRS AXIS < -30] LEFT BUNDLE BRANCH BLOCK [120+ ms QRS DURATION, 80+ ms Q/S IN V1/V2, 85+ ms R IN I/aVL/V5/V6] Compared to ECG 09/30/2020 03:55:56 Sinus rhythm no longer present Electronically Signed On 10-01-2020 8:21:51 SE[employer] P[employer] by Florecita Chavez M.D. [id number]
[2020-10-01 06:10] LABS: Hematocrit 30.2 % (42.0-52.0); Hemoglobin 8.1 g/dL (11.7-16.6); Lymphocytes # 0.3 10^3/uL (0.8-4.8); Mean Corpuscular HGB Conc 26.8 g/dL (30.0-36.0); Mean Corpuscular Hemoglobin 21.2 pg (28.0-34.0); Mean Corpuscular Volume 79.1 fL (80-94); Mean Platelet Volume 10.7 fL (7.4-10.4); Monocytes # 0.2 10^3/uL (0.2-0.9); Monocytes % 4.4 %; Neutrophils # 4.01 10^3/uL (1.8-7.7); Neutrophils % 87.3 %; Nucleated Red Blood Cells % 0 %; Platelet Count 215 10^3/cmm (130-400); Red Blood Count 3.82 10^6/uL (4.1-5.3); Red Cell Distribution Width 17.6 % (12.1-15.1); White Blood Count 4.6 10^3/uL (4.0-10.0)
[2020-10-01 06:18] LABS: ABG PCO2 45.3 mmHg (35-45); ABG PH Result 7.44 (7.35-7.45); Base Excess ABG 5.8 mmol/L (-2.0-2.0); Blood Gas Allen Test P; HCO3 ABG 30.7 mmol/L (22-26); PO2 ABG 56.5 mmHg (80.0-100.0)
[2020-10-01 06:19] LABS: BIPAP 18/10; Blood Gas Tidal Volume 531
[2020-10-01 06:31] LABS: Lactic Sepsis W/Reflex 1.8 mmol/L (0.5-2.2)
[2020-10-01 06:35] LABS: INR 1.22 (0.8-1.2)
[2020-10-01 06:38] LABS: D Dimer 2.18 ug/mIFEU (0-0.59)
[2020-10-01 06:59] LABS: NT Pro B Type Natriuretic Pept 3750 pg/mL (0-450); Procalcitonin 0.13 ng/mL (0-0.5)
[2020-10-01 07:11] LABS: Creatine Phosphokinase 14 U/L (39-308)
[2020-10-01 07:13] LABS: Alanine Aminotransferase 20 U/L (0-41); Albumin Level 2.8 g/dL (3.5-5.2); Alkaline Phosphatase 71 IU/L (40-130); Anion Gap 16.3 (5-19); Aspartate Amino Transferase 18 U/L (0-40); Blood Urea Nitrogen 48 mg/dL (8-23); Carbon Dioxide 27 mmol/L (22-29); Chloride 97 mmol/L (98-107); Globulin 3.6 g/dL (1.3-4.6); Glucose 96 mg/dL (65-115); Osmolality Calculated 294 mOsm/kg (285-295); Potassium 4.3 mmol/L (3.5-5.1); Sodium 136 mmol/L (136-145); Total Bilirubin 0.3 mg/dL (0.15-1.2); Total Protein 6.4 g/dL (6.6-8.7)
[2020-10-01] MEDS: aspirin 81 mg EC Tablet PO (08:02)
[2020-10-01] MEDS: finasteride 5 mg Tablet PO (08:02)
[2020-10-01] MEDS: amiodarone 200 mg Tablet PO (08:02)
[2020-10-01] MEDS: pantoprazole DR 40 mg Tablet PO (08:02)
[2020-10-01] MEDS: fluoxetine 20 mg Capsule PO (08:03)
[2020-10-01] MEDS: apixaban 5 mg Tablet 2.5 MG PO (08:03)
[2020-10-01] MEDS: digoxin 250 mcg Tablet PO (08:04)
[2020-10-01] MEDS: pneumococcal (23 valent) SDV 0.5 mL IM (10:40)
[2020-10-01] MEDS: cefTRIAXone 1,000 MG in sodium chloride 0.9% (plus) 50 ML 100 MG IV (11:25)
[2020-10-01] MEDS: dexamethasone 4 mg/mL INJ 6 MG IVP (11:25)
[2020-10-01] MEDS: azithromycin 500 MG in sodium chloride 0.9% 250 ML 250 MG IV (11:26)
--- NOTE | 2020-10-01 14:01 | P.PN_ITS ---
Subjective Subjective: Interval history: Hospital course, labs noted. On examination sitting comfortably in bed. Having some episodes of diarrhea today no nausea no vomiting. On present were able to wean down to 45 L 50% to maintain saturation over 90%. Denies any nausea, vomiting, headache, dizziness. Asking for food. Vitals/I&O/Wt Last Vital Signs Temp 97.7 F 10/01/20 04:00 Pulse 56 L 10/01/20 12:00 Resp 22 H 10/01/20 12:00 BP 124/61 10/01/20 12:00 Pulse Ox 92 10/01/20 12:00 09/30/20 10/01/20 10/01/20 22:59 06:59 14:59 Intake Total 150 / 1060 180 / 1240 750 / 750 Output Total 600 / 1550 950 / 2500 Balance -450 / -490 -770 / -1260 750 / 750 Weight last 48 hrs Weight 59.421 kg Physical Exam Const: COMMON NORMALS: no acute distress, patient oriented x3 and alert GENERAL APPEARANCE: cooperative and comfortable ORIENTATION/CONSCIOUSNESS: Yes awake OTHER: BiPAP on. HENMT: COMMON NORMALS: normocephalic and oropharynx normal HEAD & SCALP: normocephalic Eye: COMMON NORMALS: Equal, round and reactive pupils present and EOMs intact bilaterally GENERAL EYE: appearance normal, both eyes and all related structures PUPIL: Yes Equal, round and reactive pupils present Neck/C-Spine: COMMON NORMALS: full ROM, no lymphadenopathy, no JVD and Thyroid normal THYROID: Thyroid normal Lymph: LYMPHATIC: no lymphadenopathy noted Resp: COMMON NORMALS: normal respiratory effort, No retractions and No use of accessory muscles AUSCULTATION: crackles (Coarse), no wheezes and breath sounds absent bilateral Cardio: COMMON NORMALS: no JVD, regular rate, regular rhythm, S1 normal heart sound present, S2 normal heart sound present, No gallops present (Cardio), No clicks present (Cardio) and No murmurs present (Cardio) RATE: regular rate RHYTHM: regular rhythm HEART SOUNDS: S1 normal heart sound present and S2 normal heart sound present GI: COMMON NORMALS: Normal to inspection, nondistended, normoactive bowel sounds present, Soft to palpation, non-tender and No hepatosplenomegaly present PALPATION: Yes Soft to palpation and Yes No hepatosplenomegaly present Extremity: COMMON NORMALS: normal to inspection, full ROM, no joint enlargement and no pedal edema Neuro: COMMON NORMALS: patient oriented x3, CN's II-XII intact bilaterally, mo ves all extremities and no focal motor deficits SENSORIUM/ORIENTATION: Yes alert Psych: COMMON NORMALS: mental status grossly normal, Normal thought process present and cooperative THOUGHT PROCESS: Normal thought process present Skin: COMMON NORMALS: no rashes or lesions noted GENERAL SKIN EXAM: no rashes or lesions noted Urinary Catheter Management^: Barboza: Cath Placed During This Visit: yes Reason for Continuing Indwelling Catheter: Accurate Measurement of Urinary Output in Critically Ill Patients Urinary Catheter Date of Insertion: 09/29/20 Urinary Catheter Time of Insertion: 03:49 Data : 10/01/20 05:40 10/01/20 05:40 Micro: Microbiology 09/29/20 01:43 Blood Culture - Preliminary Blood Staphylococcus sp coag neg Staphylococcus sp coag neg#2 09/30/20 21:15 Blood Culture - Preliminary Blood SPECIMEN COLLECTED 09/30/20 21:20 Blood Culture - Preliminary Blood SPECIMEN COLLECTED A&P Assessment and plan (1) Acute on chronic respiratory failure with hypoxia and hypercapnia: Status: Acute (2) Pneumonia due to COVID-19 virus: Status: Acute (3) Ischemic cardiomyopathy: -Patient's echocardiogram in October 2019 showed an EF of 30%, diffuse hypokinesis of the left ventricle -Has a history of CAD, cath in 2010 showed normal left main, wraparound LAD, minor trait irregularity and circumflex, completely occluded RCA, with bridging collaterals to distal vessels, minimal collaterals from left to right system Status: Acute (4) CHF (congestive heart failure): Status: Acute (5) COPD (chronic obstructive pulmonary disease): Status: Acute (6) Pulmonary fibrosis: Status: Acute (7) Pulmonary HTN: Status: Acute (8) CAD (coronary artery disease): Monitor telemetry, monitor troponin, monitor for chest pain Status: Acute (9) Pulmonary embolism: Continue Eliquis Status: Acute (10) Atrial fibrillation: Continue telemetry monitoring, continue digoxin, continue Eliquis, continue amiodarone Status: Acute (11) Venous insufficiency: Status: Acute (12) Acute on chronic anemia: Hemoglobin at baseline, 8.6 Status: Acute (13) Gram-positive cocci bacteremia: Gram-positive cocci 1/4 bottles from admission. Possible contamination. On vancomycin. Repeat culture. Follow-up final results. Status: Acute (14) Tobacco abuse: Status: Acute (15) Dyslipidemia: Status: Acute (16) ARDS (adult respiratory distress syndrome): Status: Acute Additional A&P Information ARDS: Acute on chronic respiratory failure with hypoxia and hypercapnia: ABG appreciated. Multifactorial because of COVID-19 severe pneumonia, baseline COPD and pulmonary fibrosis and systolic and diastolic heart failure with history of pulmonary hypertension and pulmonary embolism in the past. Continue course of remdesivir. Continue dexamethasone. Advair, Spiriva. Vitamin C, zinc. Tessalon Perles. Pulmonary toilet with incentive spirometry and flutter valve. Continue to follow-up inflammatory markers including LDH, fibrinogen, ferritin, D-dimer, CRP. D-dimer elevated. Continue with anticoagulation. Switch to Eliquis 5 mg twice daily. Next chances of pneumonia. Procalcitonin has remained negative. Ceftriaxone and vancomycin for now. Check MRSA swab. For now continue with Zosyn to finish a 5-day course of IV antibiotics. Patient did have possible episodes of aspiration. For congestive heart failure patient has an EF of 40% with global LV hypokinesia with abnormal septal motion, grade 1 diastolic dysfunction, mild AI with trivial pericardial effusion on the echocardiogram from earlier this admission Daily weights, strict input output charting. Fluid restriction up to 1500 cc. Continue to monitor BMP daily for now. Continue with aspirin, statin. Holding off on starting of beta-naye because of bradycardia. Hypertension: Goal blood pressure less than 140/90 mmHg. Continue to monitor. Atrial fibrillation: Patient having persistent bradycardia. EKG reviewed. Check digoxin level and hold digoxin and amiodarone for now. Anemia: Baseline hemoglobin prior to admission around 10. Since admission has been stable around 8. Given multiple cardiac issues will transfuse 1 unit of PRBC. Check iron panel prior to transfusion. Start on IV iron supplementation accordingly. GPC bacteremia: Most likely contaminant. Repeat blood cultures have remained negative. Continue vancomycin for now. Continue other chronic medications including nicotine patch, finasteride, fluoxetine. Clear liquid diet. Full code. Eliquis will also for DVT prophylaxis. Protonix for daily prophylaxis Attestations Medical Necessity Statement*: Patient requires further hospitalization for management of ARDS which is multifactorial because of COPD, pulmonary fibrosis, active severe COVID-19 pneumonia, acute on chronic systolic and diastolic heart failure and possible GPC bacteremia. Time Spent in Patient Care: Greater than 35 minutes (>than 50% of time spent in counselling and/or direct pt care on unit) . Coding Level of Care Code Acute Director Of Extension Work for [facility] Fwd Diagnoses Acute on chronic respiratory failure with hypoxia and hypercapnia J96.21; J96.22 Pneumonia due to COVID-19 virus U07.1; J12.89 Ischemic cardiomyopathy I25.5 CHF (congestive heart failure) I50.9 COPD (chronic obstructive pulmonary disease) J44.9 Pulmonary fibrosis J84.10 Pulmonary HTN I27.20 CAD (coronary artery disease) I25.10 Pulmonary embolism I26.99 Atrial fibrillation I48.91 Venous insufficiency I87.2 Acute on chronic anemia D64.9 Gram-positive cocci bacteremia R78.81 Tobacco abuse Z72.0 Dyslipidemia E78.5 ARDS (adult respiratory distress syndrome) J80
[2020-10-01] MEDS: pantoprazole 40 mg SDV IVP (14:44)
[2020-10-01] MEDS: benzonatate 100 mg Capsule PO ×2 (14:45→20:13)
[2020-10-01] MEDS: nicotine 7 mg Patch 1 PATCH TRANSDERMA (14:45)
[2020-10-01 15:21] LABS: Digoxin 1.3 ng/mL (0.6-1.2)
[2020-10-01 15:30] LABS: Procalcitonin 0.14 ng/mL (0-0.5)
[2020-10-01 15:31] LABS: Thyroid Stimulating Hormone 0.82 uIU/mL (0.27-4.20)
[2020-10-01 15:49] LABS: Iron 19 ug/dL (59-158); Percent Saturation 9.7 % (20-50); Total Iron Binding Capacity 195 mcg/dl; Unsaturated Iron Binding 176 ug/dL (112-347)
[2020-10-01] MEDS: apixaban 5 mg Tablet PO (17:09)
[2020-10-01] MEDS: sodium chloride 0.9% (100 ml) 100 ML (17:09)
[2020-10-01] MEDS: atorvastatin 40 mg Tablet 20 MG PO (20:13)
[2020-10-01] MEDS: trazodone 100 mg Tablet PO (20:14)
[2020-10-01] MEDS: tamsulosin 0.4 mg Capsule PO (20:14)
[2020-10-01] MEDS: piperacillin-tazobactam 3.375 GM in sodium chloride 0.9% (plus) 50 ML IV (20:32)
[2020-10-01] MEDS: LORazepam 0.5 mg Tablet PO (21:31)
[2020-10-02] VITALS (32 sets, daily range): BP systolic 106–153; BP diastolic 47–80; PULSE 38–79; RESP 13–27; TEMP 36.6–36.8; O2SAT 83–99
[2020-10-02] MEDS: pantoprazole 40 mg SDV IVP ×2 (00:52→15:22)
[2020-10-02] MEDS: piperacillin-tazobactam 3.375 GM in sodium chloride 0.9% (plus) 50 ML IV ×2 (03:31→11:01)
[2020-10-02] MEDS: LORazepam 0.5 mg Tablet PO ×3 (04:24→20:09)
[2020-10-02 04:41] LABS: INR 1.22 (0.8-1.2)
[2020-10-02 04:48] LABS: Alanine Aminotransferase 16 U/L (0-41); Albumin Level 2.8 g/dL (3.5-5.2); Alkaline Phosphatase 67 IU/L (40-130); Anion Gap 14.3 (5-19); Aspartate Amino Transferase 15 U/L (0-40); Blood Urea Nitrogen 46 mg/dL (8-23); Calcium 8.9 mg/dL (8.5-10.5); Carbon Dioxide 29 mmol/L (22-29); Chloride 99 mmol/L (98-107); D Dimer 1.55 ug/mIFEU (0-0.59); Globulin 3.3 g/dL (1.3-4.6); Glucose 103 mg/dL (65-115); Magnesium 2.1 mg/dL (1.7-2.3); Osmolality Calculated 298 mOsm/kg (285-295); Phosphorus 3.8 mg/dL (2.5-4.5); Potassium 4.3 mmol/L (3.5-5.1); Sodium 138 mmol/L (136-145); Total Bilirubin 0.4 mg/dL (0.15-1.2); Total Protein 6.1 g/dL (6.6-8.7)
[2020-10-02 04:56] LABS: NT Pro B Type Natriuretic Pept 4192 pg/mL (0-450); Procalcitonin 0.11 ng/mL (0-0.5)
[2020-10-02 05:04] LABS: Fibrinogen 386 mg/dL (174-498)
[2020-10-02 05:07] LABS: C Reactive Protein 58.1 mg/L (0.0-4.9); Creatine Phosphokinase 14 U/L (39-308); Ferritin 371 ng/mL (30-400); Lactate Dehydrogenase 196 U/L (135-225)
[2020-10-02 05:17] LABS: Hematocrit 30.5 % (42.0-52.0); Hemoglobin 8.8 g/dL (11.7-16.6); Lymphocytes # 0.3 10^3/uL (0.8-4.8); Lymphocytes % 7.5 %; Mean Corpuscular HGB Conc 28.9 g/dL (30.0-36.0); Mean Corpuscular Hemoglobin 22.7 pg (28.0-34.0); Mean Corpuscular Volume 78.6 fL (80-94); Monocytes # 0.2 10^3/uL (0.2-0.9); Monocytes % 4.9 %; Neutrophils # 3.69 10^3/uL (1.8-7.7); Neutrophils % 86.4 %; Nucleated Red Blood Cells % 0 %; Platelet Count 277 10^3/cmm (130-400); Red Blood Count 3.88 10^6/uL (4.1-5.3); Red Cell Distribution Width 17.8 % (12.1-15.1); White Blood Count 4.3 10^3/uL (4.0-10.0)
--- NOTE | 2020-10-02 06:00 | ECG_ITS ---
[facility] ED Test Date: 2020-10-02 Pat Name: Fredi Claire Department: Room: ICU19 Gender: Male Rural Health Consultant: : 1945 Requested By: Francis Richard Order Number: [id number] Suzie MD: Florecita Chavez M.D. Measurements Intervals [place] Rate: 45 P: 9 [place]: 180 QRS: 81 QRSD: 183 T: 29 QT: 562 QTc: 491 Interpretive Statements SINUS BRADYCARDIA WITH OCCASIONAL SUPRAVENTRICULAR PREMATURE COMPLEXES INTRAVENTRICULAR CONDUCTION DELAY [130+ ms QRS DURATION] Compared to ECG 10/01/2020 03:37:23 Intraventricular conduction delay now present Sinus arrhythmia no longer present Left-axis deviation no longer present Left bundle-branch block no longer present Electronically Signed On 10-10-2020 8:11:52 RENEWABLE ENERGY TRADER by Florecita Chavez M.D. [id number]
--- NOTE | 2020-10-02 06:00 | XR_ITS ---
WS: [id number] XR chest 1V portable [id number] REASON FOR EXAM: covid FINDINGS: Diffuse interstitial infiltrative changes superimposed upon chronic underlying interstitial and cysti c change in both lower lobes with focal consolidation in the left lower lobe. There does not appear t o been significant interval change since the previous examination of 09/30/2020. No new findings are n oted. XR/XR chest 1V portable [id number] IMPRESSION: Stable abnormal chest as above.
[2020-10-02 06:51] LABS: Estmated Average Glucose 108; Hemoglobin A1C 5.4 % (4.0-6.0)
[2020-10-02 06:55] LABS: Slide Review Slide Review Perform
[2020-10-02] MEDS: apixaban 5 mg Tablet PO ×2 (08:53→17:17)
[2020-10-02] MEDS: aspirin 81 mg EC Tablet PO (08:53)
[2020-10-02] MEDS: ascorbic acid 500 mg Tablet PO (08:53)
[2020-10-02] MEDS: zinc gluconate 50 mg Tablet PO (08:53)
[2020-10-02] MEDS: benzonatate 100 mg Capsule PO ×3 (08:53→20:09)
[2020-10-02] MEDS: fluoxetine 20 mg Capsule PO (08:55)
[2020-10-02] MEDS: finasteride 5 mg Tablet PO (08:55)
--- NOTE | 2020-10-02 08:58 | PC.SOCIAL ---
IMM Not Updated Attempted to contact patient's and daughter. Patient's does not answer and unable to leave a voicemail. Patient's daughters phone number is listed incorrectly, the person that answers states that she bought the phone from her. Do not anticipated discharge within the next 48hours.
[2020-10-02] MEDS: dexamethasone 4 mg/mL INJ 6 MG IVP (10:54)
[2020-10-02] MEDS: oxyCODONE 5 mg IR Tab/Cap PO (10:55)
[2020-10-02] MEDS: nicotine 7 mg Patch 1 PATCH TRANSDERMA (15:23)
--- NOTE | 2020-10-02 18:06 | P.PN_ITS ---
Subjective Subjective: Interval history: No acute events overnight. On examination patient sitting comfortably in chair able to complete conversation with me. During my visit with the patient was able to turn down the high flow to 40 L 50% maintaining saturation at 96%. Heart rate has been better. Denies any nausea or vomiting. Afebrile last 24 hours. Patient did receive 1 unit of blood t ransfusion yesterday. Vitals/I&O/Wt Last Vital Signs Temp 97.8 F 10/02/20 08:00 Pulse 76 10/02/20 17:37 Resp 18 10/02/20 17:37 BP 129/60 10/02/20 10:00 Pulse Ox 95 10/02/20 17:37 10/02/20 10/02/20 10/02/20 06:59 14:59 22:59 Intake Total 190 / 2090 1180 / 1180 Output Total 200 / 2250 Balance -10 / -160 1180 / 1180 Weight last 48 hrs Weight 64.319 kg Weight 59.421 kg Physical Exam Const: COMMON NORMALS: no acute distress, patient oriented x3 and alert GENERAL APPEARANCE: cooperative and comfortable ORIENTATION/CONSCIOUSNESS: Yes awake OTHER: BiPAP on. HENMT: COMMON NORMALS: normocephalic and oropharynx normal HEAD & SCALP: normocephalic Eye: COMMON NORMALS: Equal, round and reactive pupils present and EOMs intact bilaterally GENERAL EYE: appearance normal, both eyes and all related structures PUPIL: Yes Equal, round and reactive pupils present Neck/C-Spine: COMMON NORMALS: full ROM, no lymphadenopathy, no JVD and Thyroid normal THYROID: Thyroid normal Lymph: LYMPHATIC: no lymphadenopathy noted Resp: COMMON NORMALS: normal respiratory effort, No retractions and No use of accessory muscles AUSCULTATION: crackles (Coarse), no wheezes and breath sounds absent bilateral Cardio: COMMON NORMALS: no JVD, regular rate, regular rhythm, S1 normal heart sound present, S2 normal heart sound present, No gallops present (Cardio), No clicks present (Cardio) and No murmurs present (Cardio) RATE: regular rate RHYTHM: regular rhythm HEART SOUNDS: S1 normal heart sound present and S2 normal heart sound present GI: COMMON NORMALS: Normal to inspection, nondistended, normoactive bowel sounds present, Soft to palpation, non-tender and No hepatosplenomegaly present PALPATION: Yes Soft to palpation and Yes No hepatosplenomegaly present Extremity: COMMON NORMALS: normal to inspection, full ROM, no joint enlargement and no pedal edema Neuro: COMMON NORMALS: patient oriented x3, CN's II-XII intact bilaterally, moves all extremities and no focal motor deficits SENSORIUM/ORIENTATION: Yes alert Psych: COMMON NORMALS: mental status grossly normal, Normal thought process present and cooperative THOUGHT PROCESS: Normal thought process present Skin: COMMON NORMALS: no rashes or lesions noted GENERAL SKIN EXAM: no rashes or lesions noted Urinary Catheter Management^: Barboza: Cath Placed During This Visit: yes Reason for Continuing Indwelling Catheter: Accurate Measurement of Urinary Output in Critically Ill Patients Urinary Catheter Date of Insertion: 09/29/20 Urinary Catheter Time of Insertion: 03:49 Data : 10/02/20 03:15 10/02/20 03:15 Micro: Microbiology 10/01/20 14:05 MRSA Culture - Final Nose 09/30/20 21:15 Blood Culture - Preliminary Blood NEGATIVE TO DATE 09/30/20 21:20 Blood Culture - Preliminary Blood NEGATIVE TO DATE 09/29/20 01:43 Blood Culture - Preliminary Blood Staphylococcus sp coag neg Staphylococcus sp coag neg#2 A&P Assessment and plan (1) Acute on chronic respiratory failure with hypoxia and hypercapnia: Status: Acute (2) Pneumonia due to COVID-19 virus: Status: Acute (3) Ischemic cardiomyopathy: -Patient's echocardiogram in October 2019 showed an EF of 30%, diffuse hypokinesis of the left ventricle -Has a history of CAD, cath in 2010 showed normal left main, wraparound LAD, minor trait irregularity and circumflex, completely occluded RCA, with bridging collaterals to distal vessels, minimal collaterals from left to right system Status: Acute (4) CHF (congestive heart failure): Status: Acute (5) COPD (chronic obstructive pulmonary disease): Status: Acute (6) Pulmonary fibrosis: Status: Acute (7) Pulmonary HTN: Status: Acute (8) CAD (coronary artery disease): Monitor telemetry, monitor troponin, monitor for chest pain Status: Acute (9) Pulmonary embolism: Continue Eliquis Status: Acute (10) Atrial fibrillation: Continue telemetry monitoring, continue digoxin, continue Eliquis, continue amiodarone Status: Acute (11) Venous insufficiency: Status: Acute (12) Acute on chronic anemia: Hemoglobin at baseline, 8.6 Status: Acute (13) Gram-positive cocci bacteremia: Gram-positive cocci 1/4 bottles from admission. Possible contamination. On vancomycin. Repeat culture. Follow-up final results. Status: Acute (14) Tobacco abuse: Status: Acute (15) Dyslipidemia: Status: Acute (16) ARDS (adult respiratory distress syndrome): Status: Acute Additional A&P Information ARDS: Acute on chronic respiratory failure with hypoxia and hypercapnia: ABG appreciated. Multifactorial because of COVID-19 severe pneumonia, baseline COPD and pulmonary fibrosis and systolic and diastolic heart failure with history of pulmonary hypertension and pulmonary embolism in the past. Continue course of remdesivir. Day 4/5. Continue dexamethasone. Advair, Spiriva. Vitamin C, zinc. Tessalon Perles. Pulmonary toilet with incentive spirometry and flutter valve. Continue to follow-up inflammatory markers including LDH, fibrinogen, ferritin, D-dimer, CRP. D-dimer elevated. Eliquis 5 mg twice daily. Less chances of pneumonia. Procalcitonin has remained negative. Stop antibiotics. Patient's blood culture repeated has remained negative. For congestive heart failure patient has an EF of 40% with global LV hypokinesia with abnormal septal motion, grade 1 diastolic dysfunction, mild AI with trivial pericardial effusion on the echocardiogram from earlier this admission Daily weights, strict input output charting. Fluid restriction up to 1500 cc. Creatinine improving. Continue to monitor BMP daily. Improving today. Continue with aspirin, statin. Holding off on starting of beta-naye because of bradycardia. Acute kidney injury: Creatinine coming down to baseline. Reconciliation done for nephrotoxic drugs. Can start patient back on oral Lasix 40 mg daily from tomorrow. Hypertension: Goal blood pressure less than 140/90 mmHg. Continue to monitor. Atrial fibrillation: Patient having persistent bradycardia. EKG reviewed. Digoxin level elevated. Continue to hold digoxin and amiodarone. Once the heart rate improves can restart medications. Anemia: I received a note of blood transfusion. Hemoglobin 8.8 today. We will continue to monitor. Start on IV iron supplementation. GPC bacteremia: Most likely contaminant. Repeat blood cultures have remained negative. Stop antibiotics and monitor. Continue other chronic medications including nicotine patch, finasteride, fluoxetine. Advance to GI soft diet. Full code. Eliquis will also for DVT prophylaxis. Protonix for daily prophylaxis Attestations Medical Necessity Statement*: Patient requires further hospitalization for management of ARDS because of severe COVID-19 pneumonia, congestive heart failure, resolving MAGDI and severe anemia with possible GPC bacteremia Time Spent in Patient Care: Greater than 35 minutes (>than 50% of time spent in counselling and/or direct pt care on unit) . Coding Level of Care Code Acute [facility] [employer] for g Fwd Diagnoses Acute on chronic respiratory failure with hypoxia and hypercapnia J96.21; J96.22 Pneumonia due to COVID-19 virus U07.1; J12.89 Ischemic cardiomyopathy I25.5 CHF (congestive heart failure) I50.9 COPD (chronic obstructive pulmonary disease) J44.9 Pulmonary fibrosis J84.10 Pulmonary HTN I27.20 CAD (coronary artery disease) I25.10 Pulmonary embolism I26.99 Atrial fibrillation I48.91 Venous insufficiency I87.2 Acute on chronic anemia D64.9 Gram-positive cocci bacteremia R78.81 Tobacco abuse Z72.0 Dyslipidemia E78.5 ARDS (adult respiratory distress syndrome) J80
[2020-10-02] MEDS: atorvastatin 40 mg Tablet 20 MG PO (20:09)
[2020-10-02] MEDS: tamsulosin 0.4 mg Capsule PO (20:09)
[2020-10-02] MEDS: trazodone 100 mg Tablet PO (20:09)
[2020-10-02] MEDS: iron sucrose 200 MG in sodium chloride 0.9% (100 ml) 100 ML 220 MG IV (20:09)
[2020-10-03] VITALS (60 sets, daily range): BP systolic 114–159; BP diastolic 48–78; PULSE 16–80; RESP 13–94; TEMP 36.2–36.6; O2SAT 41–98
[2020-10-03] MEDS: pantoprazole 40 mg SDV IVP ×2 (02:40→16:55)
[2020-10-03 03:22] LABS: Hemoglobin 8.4 g/dL (11.7-16.6); Lymphocytes # 0.3 10^3/uL (0.8-4.8); Lymphocytes % 5.7 %; Mean Corpuscular Volume 78.5 fL (80-94); Mean Platelet Volume 11.4 fL (7.4-10.4); Monocytes # 0.3 10^3/uL (0.2-0.9); Monocytes % 5.9 %; Neutrophils # 4.57 10^3/uL (1.8-7.7); Neutrophils % 86.7 %; Nucleated Red Blood Cells % 0 %; Platelet Count 271 10^3/cmm (130-400); Red Blood Count 3.82 10^6/uL (4.1-5.3); Red Cell Distribution Width 17.8 % (12.1-15.1); White Blood Count 5.3 10^3/uL (4.0-10.0)
[2020-10-03 04:03] LABS: Alanine Aminotransferase 16 U/L (0-41); Albumin Level 2.8 g/dL (3.5-5.2); Alkaline Phosphatase 79 IU/L (40-130); Anion Gap 10.3 (5-19); Aspartate Amino Transferase 13 U/L (0-40); Blood Urea Nitrogen 36 mg/dL (8-23); Calcium 8.8 mg/dL (8.5-10.5); Carbon Dioxide 29 mmol/L (22-29); Chloride 101 mmol/L (98-107); Glucose 170 mg/dL (65-115); Osmolality Calculated 294 mOsm/kg (285-295); Potassium 4.3 mmol/L (3.5-5.1); Sodium 136 mmol/L (136-145); Total Bilirubin 0.2 mg/dL (0.15-1.2); Total Protein 5.8 g/dL (6.6-8.7)
[2020-10-03 04:15] LABS: C Reactive Protein 34.4 mg/L (0.0-4.9); Creatine Phosphokinase 15 U/L (39-308); Ferritin 298 ng/mL (30-400); Lactate Dehydrogenase 183 U/L (135-225); NT Pro B Type Natriuretic Pept 4203 pg/mL (0-450)
[2020-10-03 04:34] LABS: Fibrinogen 389 mg/dL (174-498)
[2020-10-03] MEDS: oxyCODONE 5 mg IR Tab/Cap PO (05:47)
[2020-10-03] MEDS: LORazepam 0.5 mg Tablet PO ×3 (05:47→16:57)
[2020-10-03] MEDS: finasteride 5 mg Tablet PO (09:59)
[2020-10-03] MEDS: ascorbic acid 500 mg Tablet PO (10:00)
[2020-10-03] MEDS: zinc gluconate 50 mg Tablet PO (10:00)
[2020-10-03] MEDS: FUROsemide 40 mg Tablet PO (10:00)
[2020-10-03] MEDS: fluoxetine 20 mg Capsule PO (10:01)
[2020-10-03] MEDS: aspirin 81 mg EC Tablet PO (10:02)
[2020-10-03] MEDS: benzonatate 100 mg Capsule PO ×3 (10:04→21:32)
[2020-10-03] MEDS: apixaban 5 mg Tablet PO ×2 (10:58→16:56)
[2020-10-03] MEDS: dexamethasone 4 mg/mL INJ 6 MG IVP (10:59)
[2020-10-03] MEDS: nicotine 7 mg Patch 1 PATCH TRANSDERMA (11:05)
[2020-10-03 13:50] LABS: D Dimer 1.26 ug/mIFEU (0-0.59)
--- NOTE | 2020-10-03 16:31 | P.PN_ITS ---
Subjective Subjective: Interval history: No acute events overnight. On examination patient sitting in chair. He is saturating 97% on heated high flow 40 L 50%. We will able to come down on 40 L 40% with a saturation of 99 2%. Appetite is good. Denies any nausea, vomiting, headache. Patient has remained medically stable and afebrile in last 24 hours. Vitals/I&O/Wt Last Vital Signs Temp 97.1 F L 10/03/20 11:30 Pulse 76 10/03/20 15:31 Resp 18 10/03/20 15:31 BP 149/59 10/03/20 11:30 Pulse Ox 92 10/03/20 15:31 10/03/20 10/03/20 10/03/20 06:59 14:59 22:59 Intake Total 370 / 3330 1860 / 1860 Output Total 400 / 1250 1200 / 1200 Balance -30 / 0 660 / 660 Weight last 48 hrs Weight 67.358 kg Weight 64.319 kg Physical Exam Const: COMMON NORMALS: no acute distress, patient oriented x3 and alert GENERAL APPEARANCE: cooperative and comfortable ORIENTATION/CONSCIOUSNESS: Yes awake OTHER: BiPAP on. HENMT: COMMON NORMALS: normocephalic and oropharynx normal HEAD & SCALP: normocephalic Eye: COMMON NORMALS: Equal, round and reactive pupils present and EOMs intact bilaterally GENERAL EYE: appearance normal, both eyes and all related str uctures PUPIL: Yes Equal, round and reactive pupils present Neck/C-Spine: COMMON NORMALS: full ROM, no lymphadenopathy, no JVD and Thyroid normal THYROID: Thyroid normal Lymph: LYMPHATIC: no lymphadenopathy noted Resp: COMMON NORMALS: normal respiratory effort, No retractions and No use of accessory muscles AUSCULTATION: crackles (Coarse), no wheezes and breath sounds absent bilateral Cardio: COMMON NORMALS: no JVD, regular rate, regular rhythm, S1 normal heart sound present, S2 normal heart sound present, No gallops present (Cardio), No clicks present (Cardio) and No murmurs present (Cardio) RATE: regular rate RHYTHM: regular rhythm HEART SOUNDS: S1 normal heart sound present and S2 normal heart sound present GI: COMMON NORMALS: Normal to inspection, nondistended, normoactive bowel sounds present, Soft to palpation, non-tender and No hepatosplenomegaly present PALPATION: Yes Soft to palpation and Yes No hepatosplenomegaly present Extremity: COMMON NORMALS: normal to inspection, full ROM, no joint en largement and no pedal edema Neuro: COMMON NORMALS: patient oriented x3, CN's II-XII intact bilaterally, moves all extremities and no focal motor deficits SENSORIUM/ORIENTATION: Yes alert Psych: COMMON NORMALS: mental status grossly normal, Normal thought process present and cooperative THOUGHT PROCESS: Normal thought process present Skin: COMMON NORMALS: no rashes or lesions noted GENERAL SKIN EXAM: no rashes or lesions noted Urinary Catheter Management^: Barboza: Cath Placed During This Visit: yes Reason for Continuing Indwelling Catheter: Accurate Measurement of Urinary Output in Critically Ill Patients Urinary Catheter Date of Insertion: 09/29/20 Urinary Catheter Time of Insertion: 03:49 Data : 10/03/20 02:20 10/03/20 02:20 A&P Assessment and plan (1) Acute on chronic respiratory failure with hypoxia and hypercapnia: Status: Acute (2) Pneumonia due to COVID-19 virus: Status: Acute (3) Ischemic cardiomyopathy: -Patient's echocardiogram in October 2019 showed an EF of 30%, diffuse hypokinesis of the left ventricle -Has a history of CAD, cath in 2010 showed normal left main, wraparound LAD, minor trait irregularity and circumflex, completely occluded RCA, with bridging collaterals to distal vessels, minimal collaterals from left to right system Status: Acute (4) CHF (congestive heart failure): Status: Acute (5) COPD (chronic obstructive pulmonary disease): Status: Acute (6) Pulmonary fibrosis: Status: Acute (7) Pulmonary HTN: Status: Acute (8) CAD (coronary artery disease): Monitor telemetry, monitor troponin, monitor for chest pain Status: Acute (9) Pulmonary embolism: Continue Eliquis Status: Acute (10) Atrial fibrillation: Continue telemetry monitoring, continue digoxin, continue Eliquis, continue amiodarone Status: Acute (11) Venous insufficiency: Status: Acute (12) Acute on chronic anemia: Hemoglobin at baseline, 8.6 Status: Acute (13) Gram-positive cocci bacteremia: Gram-positive cocci 1/4 bottles from admission. Possible contamination. On vancomycin. Repeat culture. Follow-up final results. Status: Acute (14) Tobacco abuse: Status: Acute (15) Dyslipidemia: Status: Acute (16) ARDS (adult respiratory distress syndrome): Status: Acute Additional A&P Information ARDS: Acute on chronic respiratory failure with hypoxia and hypercapnia: ABG appreciated. Multifactorial because of COVID-19 severe pneumonia, baseline COPD and pulmonary fibrosis and systolic and diastolic heart failure with history of pulmonary hypertension and pulmonary embolism in the past. Last dose of remdesivir today. Continue dexamethasone. Advair, Spiriva. Vitamin C, zinc. Tessalon Perles. Pulmonary toilet with incentive spirometry and flutter valve. Continue to follow-up inflammatory markers including LDH, fibrinogen, ferritin, D-dimer, CRP. D-dimer elevated. Eliquis 5 mg twice daily. Less chances of pneumonia. Procalcitonin has remained negative. Stop antibiotics. Patient's blood culture repeated has remained negative. For congestive heart failure patient has an EF of 40% with global LV hypokinesia with abnormal septal motion, grade 1 diastolic dysfunction, mild AI with trivial pericardial effusion on the echocardiogram from earlier this admission Daily weights, strict input output charting. Fluid restriction up to 1500 cc. Patient is euvolemic. And input output shows he is equal balance. Creatinine has stabilized to 1.2. We will start patient on Lasix 40 mg oral daily now with first dose today. Continue with aspirin, statin. Holding off on starting of beta-naye because of bradycardia. Acute kidney injury: Creatinine coming down to baseline. Reconciliation done for nephrotoxic drugs. Starting Lasix today. Hypertension: Goal blood pressure less than 140/90 mmHg. Continue to monitor. Atrial fibrillation: Patient having persistent bradycardia. EKG reviewed. Digoxin level elevated. Continue to hold digoxin and amiodarone. Once the heart rate improves can restart medications. Anemia: I received a note of blood transfusion. Hemoglobin 8.8 today. We will continue to monitor. Start on IV iron supplementation. GPC bacteremia: Most likely contaminant. Repeat blood cultures have remained negative. Stop antibiotics and monitor. Continue other chronic medications including nicotine patch, finasteride, fluoxetine. Advance to GI soft diet. Full code. Eliquis will also for DVT prophylaxis. Protonix for daily prophylaxis Attestations Medical Necessity Statement*: Patient requires further hospitalization for management of ARDS from severe COVID-19 pneumonia, congestive heart failure, resolving MAGDI with ongoing bradycardia in setting of atrial fibrillation. Time Spent in Patient Care: Greater than 35 minutes (>than 50% of time spent in counselling and/or direct pt care on unit) . Coding Level of Care Code Acute [employer] for Chg Fwd Diagnoses Acute on chronic respiratory failure with hypoxia and hypercapnia J96.21; J96.22 Pneumonia due to COVID-19 virus U07.1; J12.89 Ischemic cardiomyopathy I25.5 CHF (congestive heart failure) I50.9 COPD (chronic obstructive pulmonary disease) J44.9 Pulmonary fibrosis J84.10 Pulmonary HTN I27.20 CAD (coronary artery disease) I25.10 Pulmonary embolism I26.99 Atrial fibrillation I48.91 Venous insufficiency I87.2 Acute on chronic anemia D64.9 Gram-positive cocci bacteremia R78.81 Tobacco abuse Z72.0 Dyslipidemia E78.5 ARDS (adult respiratory distress syndrome) J80
[2020-10-03] MEDS: iron sucrose 200 MG in sodium chloride 0.9% (100 ml) 100 ML 100 MG IV (18:30)
[2020-10-03] MEDS: ipratropium-albuterol 3 mL Neb INHALATION (21:03)
[2020-10-03] MEDS: tamsulosin 0.4 mg Capsule PO (21:32)
[2020-10-03] MEDS: atorvastatin 40 mg Tablet 20 MG PO (21:32)
[2020-10-03] MEDS: trazodone 100 mg Tablet PO (21:34)
[2020-10-04] VITALS (25 sets, daily range): BP systolic 108–152; BP diastolic 46–81; PULSE 44–68; RESP 16–22; TEMP 36.7–36.9; O2SAT 85–98
[2020-10-04] MEDS: pantoprazole 40 mg SDV IVP ×2 (00:46→15:10)
[2020-10-04 04:14] LABS: Hematocrit 28.8 % (42.0-52.0); Hemoglobin 7.9 g/dL (11.7-16.6); Lymphocytes # 0.4 10^3/uL (0.8-4.8); Lymphocytes % 5.6 %; Mean Corpuscular HGB Conc 27.4 g/dL (30.0-36.0); Mean Corpuscular Hemoglobin 21.8 pg (28.0-34.0); Mean Corpuscular Volume 79.3 fL (80-94); Monocytes # 0.3 10^3/uL (0.2-0.9); Monocytes % 4.7 %; Neutrophils # 5.64 10^3/uL (1.8-7.7); Nucleated Red Blood Cells % 0 %; Platelet Count 242 10^3/cmm (130-400); Red Blood Count 3.63 10^6/uL (4.1-5.3); Red Cell Distribution Width 18.1 % (12.1-15.1); White Blood Count 6.6 10^3/uL (4.0-10.0)
[2020-10-04] MEDS: oxyCODONE 5 mg IR Tab/Cap PO ×3 (04:26→15:17)
[2020-10-04] MEDS: LORazepam 0.5 mg Tablet PO ×3 (04:27→15:16)
[2020-10-04 04:50] LABS: Fibrinogen 303 mg/dL (174-498)
[2020-10-04 04:53] LABS: D Dimer 1.34 ug/mIFEU (0-0.59)
[2020-10-04 05:00] LABS: Alanine Aminotransferase 15 U/L (0-41); Albumin Level 2.7 g/dL (3.5-5.2); Alkaline Phosphatase 101 IU/L (40-130); Anion Gap 9.5 (5-19); Aspartate Amino Transferase 12 U/L (0-40); Blood Urea Nitrogen 34 mg/dL (8-23); C Reactive Protein 18.9 mg/L (0.0-4.9); Calcium 8.7 mg/dL (8.5-10.5); Carbon Dioxide 28 mmol/L (22-29); Chloride 105 mmol/L (98-107); Creatine Phosphokinase 40 U/L (39-308); Ferritin 454 ng/mL (30-400); Globulin 2.3 g/dL (1.3-4.6); Glucose 139 mg/dL (65-115); Lactate Dehydrogenase 222 U/L (135-225); NT Pro B Type Natriuretic Pept 6070 pg/mL (0-450); Osmolality Calculated 296 mOsm/kg (285-295); Potassium 4.5 mmol/L (3.5-5.1); Sodium 138 mmol/L (136-145); Total Bilirubin 0.2 mg/dL (0.15-1.2)
--- NOTE | 2020-10-04 06:00 | XR_ITS ---
WS: [id number] Portable AP upright chest, 10/04/2020 Clinical Data: covid Comparison: Portable chest, 10/02/2020. Findings: The bilateral opacities remain the same. There is a dense consolidation in the retrocardiac region. The aortic arch shows tortuosity and calcification. Monitor leads on the chest wall. The pat ient has had mid cervical spine surgery. There is a dextroscoliosis of the lower thoracic spine. XR/XR chest 1V portable [id number] Impression: No change in bilateral lung opacities and probable left lower lobe consolidatio n.
--- NOTE | 2020-10-04 06:38 | NUR.SHIFT ---
Uneventful night, C/O back pain earlier in shift controlled with PRN Oxy, required FIO2 of 40 on Heated High Flow per NC
[2020-10-04] MEDS: ipratropium-albuterol 3 mL Neb INHALATION (09:21)
[2020-10-04] MEDS: ascorbic acid 500 mg Tablet PO (10:17)
[2020-10-04] MEDS: aspirin 81 mg EC Tablet PO (10:17)
[2020-10-04] MEDS: FUROsemide 40 mg Tablet PO (10:17)
[2020-10-04] MEDS: zinc gluconate 50 mg Tablet PO (10:18)
[2020-10-04] MEDS: finasteride 5 mg Tablet PO (10:19)
[2020-10-04] MEDS: nicotine 7 mg Patch 1 PATCH TRANSDERMA (10:19)
[2020-10-04] MEDS: benzonatate 100 mg Capsule PO ×3 (10:20→20:08)
[2020-10-04] MEDS: apixaban 5 mg Tablet PO (10:21)
[2020-10-04] MEDS: fluoxetine 20 mg Capsule PO (10:21)
[2020-10-04] MEDS: dexamethasone 4 mg/mL INJ 6 MG IVP (10:27)
[2020-10-04] MEDS: polyethylene glycol 3350 Pkt 17 gm PO (15:10)
[2020-10-04] MEDS: docusate sodium 100 mg Capsule PO (15:11)
[2020-10-04] MEDS: FUROsemide 10 mg/mL SDV 4mL 40 MG IVP (15:11)
--- NOTE | 2020-10-04 15:14 | PC.SOCIAL ---
IMM Not Updated Unable to explain IMM to pt's family. Pt's did not answer & there was no voicemail to leave a message. Pt's daughter's number was the wrong number. Imaging Scheduler called [facility] & received different numbers for both the & daughter. Called the daughter's it said it wasn't a working number & the 's number, no one answered & no voicemail has been setup to leave a message. Pt is not discharging within 48hrs.
--- NOTE | 2020-10-04 15:51 | PC.SOCIAL ---
IMM Updated Received a call back from patient's spouse Maria Luisa and explained IMM to her. She verbalizes understanding. Initialed, dated, and timed to update.
--- NOTE | 2020-10-04 17:54 | P.PN_ITS ---
Subjective Subjective: Interval history: This morning patient was examined, he is actually sitting up into a chair, having lunch, he is happy with the [place] that he has [place] [facility] [place] remains on high flow, discussed long-term care facility placement, he tells me he has good insurance, hemoglobin this morning is 7.9, will give 1 unit PRBC Vitals/I&O/Wt Last Vital Signs Temp 98.4 F 10/04/20 17:28 Pulse 60 10/04/20 17:28 Resp 22 H 10/04/20 17:28 BP 119/61 10/04/20 17:28 Pulse Ox 94 10/04/20 17:11 10/04/20 10/04/20 10/04/20 06:59 14:59 22:59 Intake Total 1000 / 1000 0 / 1000 Output Total 900 / 2100 1200 / 1200 Balance -900 / -130 -200 / -200 0 / -200 Weight last 48 hrs Weight 67.857 kg Weight 67.358 kg Physical Exam Const: COMMON NORMALS: no acute distress and patient oriented x3 HENMT: COMMON NORMALS: normocephalic HEAD & SCALP: normocephalic Neck/C-Spine: COMMON NORMALS: no JVD Resp: COMMON NORMALS: normal respiratory effort, No retractions and No use of accessory muscles AUSCULTATION: crackles Cardio: COMMON NORMALS: no JVD, regular rate, regular rhythm, S1 normal heart sound present and S2 normal heart sound present RATE: regular rate RHYTHM: regular rhythm HEART SOUNDS: S1 normal heart sound present and S2 normal heart sound present GI: COMMON NORMALS: Normal to inspection, nondistended, normoactive bowel sounds present, Soft to palpation, non-tender, No hepatosplenomegaly present, no masses and no bruits PALPATION: Yes Soft to palpation and Yes No hepatosplenomegaly present Extremity: COMMON NORMALS: capillary refill normal, no clubbing, cyanosis or edema, no calf tenderness and no pedal edema Neuro: COMMON NORMALS: patient oriented x3 Psych: COMMON NORMALS: mental status grossly normal Urinary Catheter Management^: Barboza: Cath Placed During This Visit: yes Reason for Continuing Indwelling Catheter: Accurate Measurement of Urinary Output in Critically Ill Patients Urinary Catheter Date of Insertion: 09/29/20 Urinary Catheter Time of Insertion: 03:49 Data : 10/04/20 04:00 10/04/20 04:00 Micro: Microbiology 09/29/20 01:43 Blood Culture - Final Blood Staphylococcus sp coag neg Staphylococcus sp coag neg#2 09/29/20 01:33 Blood Culture - Final Blood NO GROWTH AFTER 5 DAYS A&P Assessment and plan (1) Acute on chronic respiratory failure with hypoxia and hypercapnia: Secondary to COVID-19 pneumonia, possible secondary bacterial pneumonia, pulmonary fibrosis, COPD, emphysema, CHF -Review of patient's CT angiogram on October 2019, previous chest x-ray showed that he has definitely had recurrent pneumonias, but does have significant radiographic evidence of severe bullous emphysema and pulmonary fibrosis -Here his white blood cell count 3.5, lymphopenia, hemoglobin 8.6, fibrinogen 535, D-dimer 4.65, his ABG pH was 7.4, PCO2 46, PO2 56.5 on 100% FiO2, LDH 246, influenza negative, chest x-ray shows diffuse interstitial fibrosis, density in the left lung base, bilateral infiltrates PLAN: -Admit to VICU -Continue Eliquis for DVT prophylaxis -Full code -I had a pratima discussion with patient about his goals of care, given his underlying severe bullous emphysema and pulmonary fibrosis, now with acute respiratory failure secondary to above, if he were to deteriorate clinically, and remain a full code, he would end up intubated and mechanically ventilated, which would carry significant morbidity and mortality, and his likelihood of meaningful recovery would be fairly unlikely, advised of the risks and benefits, voiced understanding, all questions answered, wants to proceed with remaining a full code for now -Decadron 6 mg IV push daily, will strongly consider high-dose steroids based on clinical progress -Start remdesivir -Broad-spectrum antibiotics, vancomycin, Zosyn, azithromycin -Continue BiPAP, currently 20/10, 80% FiO2, will consider switching over to high flow, due to concerns for compliance of the lung, and the patient with pulmonary fibrosis severe emphysema -Lasix 40 mg IV daily, monitor creatinine, monitor urine output -Advair, albuterol, steroids -Follow blood cultures, follow sputum cultures Status: Acute (2) Pneumonia due to COVID-19 virus: Status: Acute (3) Ischemic cardiomyopathy: -Patient's echocardiogram in October 2019 showed an EF of 30%, diffuse hypokinesis of the left ventricle -Has a history of CAD, cath in 2011 showed normal left main, wraparound LAD, minor trait irregularity and circumflex, completely occluded RCA, with bridging collaterals to distal vessels, minimal collaterals from left to right system -BNP 9094 -Aspirin, statin, beta-naye, Lasix Status: Acute (4) CHF (congestive heart failure): Status: Acute (5) COPD (chronic obstructive pulmonary disease): Status: Acute (6) Pulmonary fibrosis: Status: Acute (7) Pulmonary HTN: Status: Acute (8) CAD (coronary artery disease): Monitor telemetry, monitor troponin, monitor for chest pain Status: Acute (9) Pulmonary embolism: Continue Eliquis Status: Acute (10) Atrial fibrillation: Continue telemetry monitoring, continue digoxin, continue Eliquis, contin ue amiodarone Status: Acute (11) Venous insufficiency: Status: Acute (12) Acute on chronic anemia: Hemoglobin at baseline, 8.6 Status: Acute (13) Gram-positive cocci bacteremia: Status: Acute (14) Tobacco abuse: Status: Acute (15) Dyslipidemia: Status: Acute (16) ARDS (adult respiratory distress syndrome): Status: Acute Additional A&P Information ARDS: Acute on chronic respiratory failure with hypoxia and hypercapnia: Multifactorial because of COVID-19 severe pneumonia, baseline COPD and pulmonary fibrosis and systolic and diastolic heart failure with history of pulmonary hypertension and pulmonary embolism in the past. Last dose of remdesivir yesterday Continue dexamethasone. Advair, Spiriva. Vitamin C, zinc. Tessalon Perles. Pulmonary toilet with incentive spirometry and flutter valve. Continue to follow-up inflammatory markers including LDH, fibrinogen, ferritin, D-dimer, CRP. D-dimer elevated. Eliquis 5 mg twice daily on hold given anemia Less chances of pneumonia. Procalcitonin has remained negative. Stop antibiotics. Patient's blood culture repeated has remained negative. For congestive heart failure patient has an EF of 40% with global LV hypokinesia with abnormal septal motion, grade 1 diastolic dysfunction, mild AI with trivial pericardial effusion on the echocardiogram from earlier this admission Daily weights, strict input output charting. Fluid restriction up to 1500 cc. Patient is euvolemic. And input output shows he is equal balance. Creatinine has stabilized to 1.0. Daily dose Lasix 40 mg IV Lasix twice daily Continue with aspirin, statin. Holding off on starting of beta-naye because of bradycardia. Acute on chronic anemia with underlying CAD: Currently hemoglobin 7.9, no hemodynamic compromise, no overt signs of bleeding, hold Eliquis 5 mg twice bryan y, transfuse 1 unit PRBC, continue Protonix 40 IV twice daily, continue IV iron supplementation Acute kidney injury: Creatinine coming down to baseline. Reconciliation done for nephrotoxic drugs. Starting Lasix today. Hypertension: Goal blood pressure less than 140/90 mmHg. Continue to monitor. Atrial fibrillation: Patient having persistent bradycardia. EKG reviewed. Digoxin level elevated. Continue to hold digoxin and amiodarone. Once the heart rate improves can restart medications. GPC bacteremia: Most likely contaminant. Blood culture showing staph low coccus species coagulase-negative, repeat blood cultures have remained negative. Stop antibiotics and monitor. Continue other chronic medications including nicotine patch, finasteride, fluoxetine. Advance to GI soft diet. Full code. SCDs for DVT prophylaxis Protonix for daily prophylaxis Plan for today: Encourage ambulation, get up out of bed, aggressive pulmonary toilet, working on LTAC placement, hold Eliquis, give 1 unit PRBC, hemoglobin 7.9, will give Lasix 40 mg IV twice daily Attestations Medical Necessity Statement*: Patient requires hospitalization due to acute respiratory failure secondary COVID-19 pneumonia, CHF exacerbation, anemia Coding Level of Care Code Acute Shirrer for [facility] Fw Diagnoses Acute on chronic respiratory failure with hypoxia and hypercapnia J96.21; J96.22 Pneumonia due to COVID-19 virus U07.1; J12.89 Ischemic cardiomyopathy I25.5 CHF (congestive heart failure) I50.9 COPD (chronic obstructive pulmonary disease) J44.9 Pulmonary fibrosis J84.10 Pulmonary HTN I27.20 CAD (coronary artery disease) I25.10 Pulmonary embolism I26.99 Atrial fibrillation I48.91 Venous insufficiency I87.2 Acute on chronic anemia D64.9 Gram-positive cocci bacteremia R78.81 Tobacco abuse Z72.0 Dyslipidemia E78.5 ARDS (adult respiratory distress syndrome) J80
[2020-10-04] MEDS: iron sucrose 200 MG in sodium chloride 0.9% (100 ml) 100 ML 220 MG IV (19:34)
--- NOTE | 2020-10-04 19:51 | PC.NURSE ---
PATIENTS IV SITE IN THE LEFT AC STARTED TO LEAK SHORTLY AFTER BLOOD STARTED. THE SITE WAS REDRESSED AND WORKED WELL UNTIL PATIENT BENT HIS ARM AND A NEW IV SITE WAS PLACED IN RIGHT HAND. HE SEEMS TO RECOVER BETTER TODAY AND IS ANXIOUS FOR THE DOCTOR TO UPDATE HIS AND FOR HIM TO MOVE UP TO THE 2ND FLOOR.
--- NOTE | 2020-10-04 20:00 | PC.NURSE ---
AO x4, regular unlabored RR 6L High Flow NC, denied SOB, Blood administration finished 1954 denied flank, denied itching pain, temp 98.1 oral, up in recliner call light within reach
[2020-10-04] MEDS: tamsulosin 0.4 mg Capsule PO (20:07)
[2020-10-04] MEDS: atorvastatin 40 mg Tablet 20 MG PO (20:07)
[2020-10-04] MEDS: trazodone 100 mg Tablet PO (20:08)
--- NOTE | 2020-10-04 20:30 | ECG_ITS ---
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 Measurements Intervals [place] Rate: 53 P: 64 ND: 196 QRS: -22 QRSD: 170 T: 130 QT: 498 QTc: 470 Interpretive Statements SINUS BRADYCARDIA WITH SINUS ARRHYTHMIA BORDERLINE LEFT AXIS DEVIATION [QRS AXIS < -20] INTRAVENTRICULAR CONDUCTION DELAY [130+ ms QRS DURATION] Compared to ECG 10/02/2020 03:49:52 No significant changes Electronically Signed On 10-10-2020 8:11:13 INTERNATIONAL ACCOUNT MANAGER by Florecita Chavez M.D. [id number]
[2020-10-05] VITALS (23 sets, daily range): BP systolic 98–146; BP diastolic 50–73; PULSE 46–69; RESP 18–25; TEMP 36.4–36.6; O2SAT 89–97
[2020-10-05] MEDS: pantoprazole 40 mg SDV IVP ×2 (00:58→12:31)
--- NOTE | 2020-10-05 03:02 | PC.NURSE ---
Desat to 83 mouth breathing eyes closed regular RR 4L High Flow NC, placed on 6 L High Flow NC, Sat 87 at this time, RT notified
[2020-10-05 05:05] LABS: Basophils % 0.3 %; Hematocrit 35.1 % (42.0-52.0); Hemoglobin 10.1 g/dL (11.7-16.6); Lymphocytes # 0.5 10^3/uL (0.8-4.8); Lymphocytes % 5.4 %; Mean Corpuscular HGB Conc 28.8 g/dL (30.0-36.0); Mean Corpuscular Hemoglobin 23.2 pg (28.0-34.0); Mean Corpuscular Volume 80.5 fL (80-94); Monocytes # 0.5 10^3/uL (0.2-0.9); Monocytes % 4.8 %; Neutrophils # 7.73 10^3/uL (1.8-7.7); Neutrophils % 82.8 %; Nucleated Red Blood Cells % 0 %; Platelet Count 296 10^3/cmm (130-400); Red Blood Count 4.36 10^6/uL (4.1-5.3); Red Cell Distribution Width 18.2 % (12.1-15.1); White Blood Count 9.3 10^3/uL (4.0-10.0)
[2020-10-05] MEDS: FUROsemide 10 mg/mL SDV 4mL 40 MG IVP ×2 (05:19→12:26)
[2020-10-05] MEDS: LORazepam 0.5 mg Tablet PO ×4 (05:20→22:48)
[2020-10-05 05:26] LABS: INR 1.05 (0.8-1.2)
[2020-10-05 05:27] LABS: Fibrinogen 357 mg/dL (174-498)
[2020-10-05 05:30] LABS: D Dimer 1.19 ug/mIFEU (0-0.59)
[2020-10-05 05:50] LABS: NT Pro B Type Natriuretic Pept 6847 pg/mL (0-450)
--- NOTE | 2020-10-05 06:00 | ECG_ITS ---
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 Measurements Intervals [place] Rate: 43 P: 77 NC: 201 QRS: -19 QRSD: 182 T: 129 QT: 534 QTc: 452 Interpretive Statements SINUS BRADYCARDIA LEFT BUNDLE BRANCH BLOCK [120+ ms QRS DURATION, 80+ ms Q/S IN V1/V2, 85+ ms R IN I/aVL/V5/V6] Compared to ECG 10/04/2020 21:17:34 Left bundle-branch block now present Sinus arrhythmia no longer present Intraventricular conduction delay no longer present Electronically Signed On 10-09-2020 22:09:14 LOCATOR by Florecita Chavez M.D. [id number]
--- NOTE | 2020-10-05 06:13 | NUR.SHIFT ---
uneventful night, O2 sat 95 6L High Flow NC, denies SOB, Requested PRN Ativan 0530, no C/O or S/S of distress throughout shift, AO x4 follows commands and answers questions appropriately
[2020-10-05 06:43] LABS: Alanine Aminotransferase 18 U/L (0-41); Albumin Level 3.1 g/dL (3.5-5.2); Alkaline Phosphatase 118 IU/L (40-130); Anion Gap 11.8 (5-19); Aspartate Amino Transferase 14 U/L (0-40); Blood Urea Nitrogen 44 mg/dL (8-23); C Reactive Protein 15.5 mg/L (0.0-4.9); Calcium 8.9 mg/dL (8.5-10.5); Carbon Dioxide 30 mmol/L (22-29); Chloride 101 mmol/L (98-107); Globulin 2.5 g/dL (1.3-4.6); Glucose 97 mg/dL (65-115); Magnesium 2.2 mg/dL (1.7-2.3); Osmolality Calculated 297 mOsm/kg (285-295); Phosphorus 2.4 mg/dL (2.5-4.5); Potassium 4.8 mmol/L (3.5-5.1); Sodium 138 mmol/L (136-145); Total Bilirubin 0.3 mg/dL (0.15-1.2); Total Protein 5.6 g/dL (6.6-8.7)
--- NOTE | 2020-10-05 07:00 | XR_ITS ---
WS: [id number] Portable AP upright chest, 10/05/2020 Clinical Data: sob Comparison: Portable chest, 10/04/2020 Findings: The bilateral opacities have not changed. There is consolidation in the retrocardiac region . The aortic arch and descending aorta show calcification and tortuosity. There is of the lower thora cic spine. Monitor leads are on the chest wall. XR/XR chest 1V portable [id number] Impression: No change from yesterday's portable chest.
[2020-10-05 07:15] LABS: Add RBC Morph Yes; Hypochromasia 1+; Ovalocytes 1+; Poikilocytosis 1+; Slide Review Slide Review Perform
[2020-10-05 07:16] LABS: RBC Morph Comp Yes; Schistocytes Trace
[2020-10-05 07:46] LABS: Creatine Phosphokinase 18 U/L (39-308)
[2020-10-05] MEDS: nicotine 7 mg Patch 1 PATCH TRANSDERMA (09:25)
[2020-10-05] MEDS: aspirin 81 mg EC Tablet PO (09:25)
[2020-10-05] MEDS: polyethylene glycol 3350 Pkt 17 gm PO (09:25)
[2020-10-05] MEDS: oxyCODONE 5 mg IR Tab/Cap PO ×3 (09:26→20:27)
[2020-10-05] MEDS: benzonatate 100 mg Capsule PO ×3 (09:26→20:26)
[2020-10-05] MEDS: finasteride 5 mg Tablet PO (09:26)
[2020-10-05] MEDS: ascorbic acid 500 mg Tablet PO (09:26)
[2020-10-05] MEDS: zinc gluconate 50 mg Tablet PO (09:26)
[2020-10-05] MEDS: fluoxetine 20 mg Capsule PO (09:27)
[2020-10-05] MEDS: docusate sodium 100 mg Capsule PO ×2 (09:27→16:34)
[2020-10-05] MEDS: dexamethasone 4 mg/mL INJ 6 MG IVP (09:36)
--- NOTE | 2020-10-05 12:33 | PM.PN ---
Subjective Subjective: Interval history: Patient was examined this morning, he sitting up into a chair, enjoying his lunch, he is very happy with the care that he is got, he is currently on high flow, but at one point was weaned down to 6 L, diuresed roughly 5 L yesterday, overall doing better, remains afebrile Vitals/I&O/Wt Last Vital Signs Temp 97.5 F L 10/05/20 12:00 Pulse 58 L 10/05/20 10:51 Resp 18 10/05/20 10:51 BP 120/60 10/05/20 10:51 Pulse Ox 97 10/05/20 12:00 10/04/20 10/05/20 10/05/20 22:59 06:59 14:59 Intake Total 1050 / 2050 110 / 2160 360 / 360 Output Total 2500 / 3700 1300 / 5000 1600 / 1600 Balance -1450 / -1650 -1190 / -2840 -1240 / -1240 Weight last 48 hrs Weight 68.039 kg Weight 67.857 kg Physical Exam Const: COMMON NORMALS: no acute distress and patient oriented x3 HENMT: COMMON NORMALS: normocephalic HEAD & SCALP: normocephalic Neck/C-Spine: COMMON NORMALS: no JVD Resp: COMMON NORMALS: normal respiratory effort, No retractions, No use of accessory muscles and clear to auscultation bilaterally AUSCULTATION: clear to auscultation bilaterally Cardio: COMMON NORMALS: no JVD, regular rate, regular rhythm, S1 normal heart sound present and S2 normal heart sound present RATE: regular rate RHYTHM: regular rhythm HEART SOUNDS: S1 normal heart sound present and S2 normal heart sound present GI: COMMON NORMALS: Normal to inspection, nondistended, normoactive bowel sounds present, Soft to palpation, non-tender, No hepatosplenomegaly present, no masses and no bruits PALPATION: Yes Soft to palpation and Yes No hepatosplenomegaly present Extremity: COMMON NORMALS: capillary refill normal, no clubbing, cyanosis or edema, no calf tenderness and no pedal edema Neuro: COMMON NORMALS: patient oriented x3 Psych: COMMON NORMALS: mental status grossly normal Urinary Catheter Management^: Barboza: Cath Placed During This Visit: yes Reason for Continuing Indwelling Catheter: Accurate Measurement of Urinary Output in Critically Ill Patients Urinary Catheter Date of Insertion: 09/29/20 Urinary Catheter Time of Insertion: 03:49 Data : 10/05/20 03:30 10/05/20 03:30 Micro: Microbiology 09/29/20 01:43 Blood Culture - Final Blood Staphylococcus sp coag neg Staphylococcus sp coag neg#2 A&P Assessment and plan (1) Acute on chronic respiratory failure with hypoxia and hypercapnia: Secondary to COVID-19 pneumonia, possible secondary bacterial pneumonia, pulmonary fibrosis, COPD, emphysema, CHF -Review of patient's CT angiogram on October 2019, previous chest x-ray showed that he has definitely had recurrent pneumonias, but does have significant radiographic evidence of severe bullous emphysema and pulmonary fibrosis -Here his white blood cell count 3.5, lymphopenia, hemoglobin 8.6, fibrinogen 535, D-dimer 4.65, his ABG pH was 7.4, PCO2 46, PO2 56.5 on 100% FiO2, LDH 246, influenza negative, chest x-ray shows diffuse interstitial fibrosis, density in the left lung base, bilateral infiltrates PLAN: -Admit to VICU -Continue Eliquis for DVT prophylaxis -Full code -I had a pratima discussion with patient about his goals of care, given his underlying severe bullous emphysema and pulmonary fibrosis, now with acute respiratory failure secondary to above, if he were to deteriorate clinically, and remain a full code, he would end up intubated and mechanically ventilated, which would carry significant morbidity and mortality, and his likelihood of meaningful recovery would be fairly unlikely, advised of the risks and benefits, voiced understanding, all questions answered, wants to proceed with remaining a full code for now -Decadron 6 mg IV push daily, will strongly consider high-dose steroids based on clinical progress -Start remdesivir -Broad-spectrum antibiotics, vancomycin, Zosyn, azithromycin -Continue BiPAP, currently 20/10, 80% FiO2, will consider switching over to high flow, due to concerns for compliance of the lung, and the patient with pulmonary fibrosis severe emphysema -Lasix 40 mg IV daily, monitor creatinine, monitor urine output -Advair, albuterol, steroids -Follow blood cultures, follow sputum cultures Status: Acute (2) Pneumonia due to COVID-19 virus: Status: Acute (3) Ischemic cardiomyopathy: -Patient's echocardiogram in October 2019 showed an EF of 30%, diffuse hypokinesis of the left ventricle -Has a history of CAD, cath in 2010 showed normal left main, wraparound LAD, minor trait irregularity and circumflex, completely occluded RCA, with bridging collaterals to distal vessels, minimal collaterals from left to right system -BNP 9094 -Aspirin, statin, beta-naye, Lasix Status: Acute (4) CHF (congestive heart failure): Status: Acute (5) COPD (chronic obstructive pulmonary disease): Status: Acute (6) Pulmonary fibrosis: Status: Acute (7) Pulmonary HTN: Status: Acute (8) CAD (coronary artery disease): Monitor telemetry, monitor troponin, monitor for chest pain Status: Acute (9) Pulmonary embolism: Continue Eliquis Status: Acute (10) Atrial fibrillation: Continue telemetry monitoring, continue digoxin, continue Eliquis, continue amiodarone Status: Acute (11) Venous insufficiency: Status: Acute (12) Acute on chronic anemia: Hemoglobin at baseline, 8.6 Status: Acute (13) Gram-positive cocci bacteremia: Status: Acute (14) Tobacco abuse: Status: Acute (15) Dyslipidemia: Status: Acute (16) ARDS (adult respiratory distress syndrome): Status: Acute Additional A&P Information ARDS: Acute on chronic respiratory failure with hypoxia and hypercapnia: Multifactorial because of COVID-19 severe pneumonia, baseline COPD and pulmonary fibrosis and systolic and diastolic heart failure with history of pulmonary hypertension and pulmonary embolism in the past. Last dose of remdesivir 10/03/2020 Continue dexamethasone. Advair, Spiriva. Vitamin C, zinc. Tessalon Perles. Pulmonary toilet with incentive spirometry and flutter valve. Continue to follow-up inflammatory markers including LDH, fibrinogen, ferritin, D-dimer, CRP. D-dimer elevated. Eliquis 5 mg twice daily on hold given anemia, continue to hold Less chances of pneumonia. Procalcitonin has remained negative. Stopped antibiotics. Patient's blood culture repeated has remained negative. For congestive heart failure patient has an EF of 40% with global LV hypokinesia with abnormal septal motion, grade 1 diastolic dysfunction, mild AI with trivial pericardial effusion on the echocardiogram from earlier this admission Daily weights, strict input output charting. Fluid restriction up to 1500 cc. Diuresed over 5 L yesterday. And input output shows he is equal balance. Creatinine has stabilized to 1.0. Daily dose Lasix 40 mg IV Lasix twice daily Continue with aspirin, statin. Holding off on starting of beta-naye because of bradycardia. Acute on chronic anemia with underlying CAD: Currently hemoglobin 10.1, no hemodynamic compromise, no overt signs of bleeding, hold Eliquis 5 mg twice daily, status post 1 unit PRBC, continue Protonix 40 IV twice daily, continue IV iron supplementation Acute kidney injury: Creatinine coming down to baseline. Reconciliation done for nephrotoxic drugs. Continue Lasix today. Hypertension: Goal blood pressure less than 140/90 mmHg. Continue to monitor. Atrial fibrillation: Patient having persistent bradycardia. EKG reviewed. Digoxin level elevated. Continue to hold digoxin and amiodarone. Once the heart rate improves can restart medications. GPC bacteremia: Most likely contaminant. Blood culture showing staph low coccus species coagulase-negative, repeat blood cultures have remained negative. Stop antibiotics and monitor. Continue other chronic medications including nicotine patch, finasteride, fluoxetine. Advance to GI soft diet. Full code. SCDs for DVT prophylaxis Protonix GI prophylaxis Plan for today: Encourage ambulation, get up out of bed, aggressive pulmonary toilet, working on LTAC placement versus returning to halfway, hold Eliquis, monitor hemoglobin, monitor hemodynamics, will give Lasix 40 mg IV twice daily, plan on moving to the floors in the next 24 to 48 hours Attestations Medical Necessity Statement*: Patient requires hospitalization for acute respiratory failure secondary to COVID-19, CHF Coding Level of Care Code Acute Administrative Nursing Supervisor for [facility] Fw Diagnoses Acute on chronic respiratory failure with hypoxia and hypercapnia J96.21; J96.22 Pneumonia due to COVID-19 virus U07.1; J12.89 Ischemic cardiomyopathy I25.5 CHF (congestive heart failure) I50.9 COPD (chronic obstructive pulmonary disease) J44.9 Pulmonary fibrosis J84.10 Pulmonary HTN I27.20 CAD (coronary artery disease) I25.10 Pulmonary embolism I26.99 Atrial fibrillation I48.91 Venous insufficiency I87.2 Acute on chronic anemia D64.9 Gram-positive cocci bacteremia R78.81 Tobacco abuse Z72.0 Dyslipidemia E78.5 ARDS (adult respiratory distress syndrome) J80
[2020-10-05] MEDS: iron sucrose 200 MG in sodium chloride 0.9% (100 ml) 100 ML 220 MG IV (20:24)
[2020-10-05] MEDS: atorvastatin 40 mg Tablet 20 MG PO (20:25)
[2020-10-05] MEDS: trazodone 100 mg Tablet PO (20:26)
[2020-10-05] MEDS: tamsulosin 0.4 mg Capsule PO (20:26)
[2020-10-05] MEDS: ipratropium-albuterol 3 mL Neb INHALATION (21:46)
[2020-10-06] VITALS (25 sets, daily range): BP systolic 93–152; BP diastolic 50–95; PULSE 45–73; RESP 18–25; TEMP 36.7–37.7; O2SAT 83–98
[2020-10-06] MEDS: pantoprazole 40 mg SDV IVP ×2 (01:40→15:24)
[2020-10-06] MEDS: FUROsemide 10 mg/mL SDV 4mL 40 MG IVP (01:40)
[2020-10-06] MEDS: oxyCODONE 5 mg IR Tab/Cap PO ×3 (03:22→15:25)
[2020-10-06 03:29] LABS: Basophils % 0.2 %; Eosinophils % 0.1 %; Hematocrit 38.3 % (42.0-52.0); Hemoglobin 10.9 g/dL (11.7-16.6); Lymphocytes # 0.6 10^3/uL (0.8-4.8); Lymphocytes % 5.1 %; Mean Corpuscular HGB Conc 28.5 g/dL (30.0-36.0); Mean Corpuscular Hemoglobin 22.5 pg (28.0-34.0); Mean Corpuscular Volume 79.1 fL (80-94); Monocytes # 0.6 10^3/uL (0.2-0.9); Monocytes % 5.4 %; Neutrophils # 9.86 10^3/uL (1.8-7.7); Nucleated Red Blood Cells % 0 %; Platelet Count 294 10^3/cmm (130-400); Red Blood Count 4.84 10^6/uL (4.1-5.3); Red Cell Distribution Width 18.7 % (12.1-15.1); White Blood Count 11.9 10^3/uL (4.0-10.0)
[2020-10-06 03:41] LABS: INR 0.98 (0.8-1.2)
[2020-10-06 03:42] LABS: Fibrinogen 336 mg/dL (174-498)
[2020-10-06 03:44] LABS: D Dimer 1.41 ug/mIFEU (0-0.59)
[2020-10-06 03:47] LABS: Alanine Aminotransferase 24 U/L (0-41); Albumin Level 3.4 g/dL (3.5-5.2); Alkaline Phosphatase 129 IU/L (40-130); Aspartate Amino Transferase 21 U/L (0-40); Blood Urea Nitrogen 54 mg/dL (8-23); C Reactive Protein 10.6 mg/L (0.0-4.9); Calcium 9.5 mg/dL (8.5-10.5); Carbon Dioxide 33 mmol/L (22-29); Chloride 98 mmol/L (98-107); Globulin 2.8 g/dL (1.3-4.6); Glucose 112 mg/dL (65-115); Magnesium 2.2 mg/dL (1.7-2.3); Osmolality Calculated 302 mOsm/kg (285-295); Sodium 138 mmol/L (136-145); Total Bilirubin 0.3 mg/dL (0.15-1.2); Total Protein 6.2 g/dL (6.6-8.7)
[2020-10-06 03:58] LABS: Creatine Phosphokinase 28 U/L (39-308); NT Pro B Type Natriuretic Pept 4495 pg/mL (0-450)
--- NOTE | 2020-10-06 06:00 | ECG_ITS ---
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 Measurements Intervals [place] Rate: 49 P: 54 MO: 192 QRS: -41 QRSD: 176 T: 114 QT: 522 QTc: 476 Interpretive Statements SINUS BRADYCARDIA MARKED LEFT AXIS DEVIATION [QRS AXIS < -30] LEFT BUNDLE BRANCH BLOCK [120+ ms QRS DURATION, 80+ ms Q/S IN V1/V2, 85+ ms R IN I/aVL/V5/V6] Compared to ECG 10/05/2020 05:18:43 Left-axis deviation now present Electronically Signed On 10-09-2020 22:06:49 FLANGER by Florecita Chavez M.D. [id number]
--- NOTE | 2020-10-06 06:00 | XRR_ITS ---
PROCEDURE INFORMATION: Exam: XR Chest, 1 View Exam date and time: 10/06/2020 3:16 AM Age: 74 years old Clinical indication: Condition or disease; Other: Covid TECHNIQUE: Imaging protocol: XR of the chest Views: 1 view. COMPARISON: CR XR chest 1V portable [id number] 10/05/2020 4:39 AM FINDINGS: Lungs: There are diffuse bilateral ground-glass opacities present similar to those seen on 10/05/2020 compatible with COVID pneumonia. Pleural space: Unremarkable. No pleural effusion. No pneumothorax. Heart/Mediastinum: Unremarkable. No cardiomegaly. Bones/joints: Unremarkable. XR/XR chest 1V portable [id number] IMPRESSION: Ground-glass opacities and consolidation in the retrocardiac region unchanged from 10/05/2020.
[2020-10-06] MEDS: dexamethasone 4 mg/mL INJ 6 MG IVP (08:53)
[2020-10-06] MEDS: fluoxetine 20 mg Capsule PO (08:54)
[2020-10-06] MEDS: finasteride 5 mg Tablet PO (08:55)
[2020-10-06] MEDS: polyethylene glycol 3350 Pkt 17 gm PO (08:56)
[2020-10-06] MEDS: docusate sodium 100 mg Capsule PO ×2 (08:56→15:26)
[2020-10-06] MEDS: ascorbic acid 500 mg Tablet PO (08:56)
[2020-10-06] MEDS: zinc gluconate 50 mg Tablet PO (08:56)
[2020-10-06] MEDS: aspirin 81 mg EC Tablet PO (08:57)
[2020-10-06] MEDS: benzonatate 100 mg Capsule PO ×3 (08:57→20:14)
[2020-10-06] MEDS: LORazepam 0.5 mg Tablet PO ×2 (08:58→15:24)
[2020-10-06] MEDS: apixaban 5 mg Tablet PO ×2 (09:01→15:25)
[2020-10-06 09:57] LABS: Procalcitonin 0.08 ng/mL (0-0.5)
--- NOTE | 2020-10-06 10:43 | PC.SOCIAL ---
IMM Update Pg. 2 of IMM updated and reviewed with patient's over the phone, verbalized understanding.
[2020-10-06] MEDS: iron sucrose 200 MG in sodium chloride 0.9% (100 ml) 100 ML IV (18:05)
--- NOTE | 2020-10-06 18:09 | PM.PN ---
Subjective Subjective: Interval history: This morning patient was examined, he still on high flow, is a bit frustrated with nursing staff given his fluid restrictions, but overall is quite happy in terms of how he is doing, Vitals/I&O/Wt Last Vital Signs Temp 98.7 F 10/06/20 17:00 Pulse 59 L 10/06/20 17:00 Resp 25 H 10/06/20 17:00 BP 133/62 10/06/20 17:00 Pulse Ox 98 10/06/20 17:00 10/06/20 10/06/20 10/06/20 06:59 14:59 22:59 Intake Total 240 / 1020 820 / 820 250 / 1070 Output Total 1150 / 5200 Balance -910 / -4180 820 / 820 250 / 1070 Weight last 48 hrs Weight 67.358 kg Weight 68.039 kg Physical Exam Const: COMMON NORMALS: no acute distress and patient oriented x3 NUTRITIONAL APPEARANCE: thin HENMT: COMMON NORMALS: normocephalic HEAD & SCALP: normocephalic Neck/C-Spine: COMMON NORMALS: no JVD Resp: COMMON NORMALS: normal respiratory effort, No retractions, No use of accessory muscles and clear to auscultation bilaterally AUSCULTATION: clear to auscultation bilaterally Cardio: COMMON NORMALS: no JVD, regular rate, regular rhythm, S1 normal heart sound present and S2 normal heart sound present RATE: regular rate RHYTHM: regular rhythm HEART SOUNDS: S1 normal heart sound present and S2 normal heart sound present GI: COMMON NORMALS: Normal to inspection, nondistended, normoactive bowel sounds present, Soft to palpation, non-tender, No hepatosplenomegaly present, no masses and no bruits PALPATION: Yes Soft to palpation and Yes No hepatosplenomegaly present Extremity: COMMON NORMALS: capillary refill normal, no clubbing, cyanosis or edema, no calf tenderness and no pedal edema Neuro: COMMON NORMALS: patient oriented x3 Psych: COMMON NORMALS: mental status grossly normal Urinary Catheter Management^: Barboza: Cath Placed During This Visit: yes Reason for Continuing Indwelling Catheter: Accurate Measurement of Urinary Output in Critically Ill Patients Urinary Catheter Date of Insertion: 09/29/20 Urinary Catheter Time of Insertion: 03:49 Data : 10/06/20 02:15 10/06/20 02:15 Micro: Microbiology 11/08/20 21:15 Blood Culture - Final Blood NO GROWTH AFTER 5 DAYS 09/30/20 21:20 Blood Culture - Final Blood NO GROWTH AFTER 5 DAYS A&P Assessment and plan (1) Acute on chronic respiratory failure with hypoxia and hypercapnia: Secondary to COVID-19 pneumonia, possible secondary bacterial pneumonia, pulmonary fibrosis, COPD, emphysema, CHF -Review of patient's CT angiogram on October 2019, previous chest x-ray showed that he has definitely had recurrent pneumonias, but does have significant radiographic evidence of severe bullous emphysema and pulmonary fibrosis -Here his white blood cell count 3.5, lymphopenia, hemoglobin 8.6, fibrinogen 535, D-dimer 4.65, his ABG pH was 7.4, PCO2 46, PO2 56.5 on 100% FiO2, LDH 246, influenza negative, chest x-ray shows diffuse interstitial fibrosis, density in the left lung base, bilateral infiltrates PLAN: -Admit to VICU -Continue Eliquis for DVT prophylaxis -Full code -I had a pratima discussion with patient about his goals of care, given his underlying severe bullous emphysema and pulmonary fibrosis, now with acute respiratory failure secondary to above, if he were to deteriorate clinically, and remain a full code, he would end up intubated and mechanically ventilated, which would carry significant morbidity and mortality, and his likelihood of meaningful recovery would be fairly unlikely, advised of the risks and benefits, voiced understanding, all questions answered, wants to proceed with remaining a full code for now -Decadron 6 mg IV push daily, will strongly consider high-dose steroids based on clinical progress -Start remdesivir -Broad-spectrum antibiotics, vancomycin, Zosyn, azithromycin -Continue BiPAP, currently 20/10, 80% FiO2, will consider switching over to high flow, due to concerns for compliance of the lung, and the patient with pulmonary fibrosis severe emphysema -Lasix 40 mg IV daily, monitor creatinine, monitor urine output -Advair, albuterol, steroids -Follow blood cultures, follow sputum cultures Status: Acute (2) Pneumonia due to COVID-19 virus: Status: Acute (3) Ischemic cardiomyopathy: -Patient's echocardiogram in October 2019 showed an EF of 30%, diffuse hypokinesis of the left ventricle -Has a history of CAD, cath in 2010 showed normal left main, wraparound LAD, minor trait irregularity and circumflex, completely occluded RCA, with bridging collaterals to distal vessels, minimal collaterals from left to right system -BNP 9094 -Aspirin, statin, beta-naye, Lasix Status: Acute (4) CHF (congestive heart failure): Status: Acute (5) COPD (chronic obstructive pulmonary disease): Status: Acute (6) Pulmonary fibrosis: Status: Acute (7) Pulmonary HTN: Status: Acute (8) CAD (coronary artery disease): Monitor telemetry, monitor troponin, monitor for chest pain Status: Acute (9) Pulmonary embolism: Continue Eliquis Status: Acute (10) Atrial fibrillation: Continue telemetry monitoring, continue digoxin, continue Eliquis, continue amiodarone Status: Acute (11) Venous insufficiency: Status: Acute (12) Acute on chronic anemia: Hemoglobin at baseline, 8.6 Status: Acute (13) Gram-positive cocci bacteremia: Status: Acute (14) Tobacco abuse: Status: Acute (15) Dyslipidemia: Status: Acute (16) ARDS (adult respiratory distress syndrome): Status: Acute Additional A&P Information ARDS: Acute on chronic respiratory failure with hypoxia and hypercapnia: Multifactorial because of COVID-19 severe pneumonia, baseline COPD and pulmonary fibrosis and systolic and diastolic heart failure with history of pulmonary hypertension and pulmonary embolism in the past. Last dose of remdesivir 10/03/2020 Continue dexamethasone. Advair, Spiriva. Vitamin C, zinc. Tessalon Perles. Pulmonary toilet with incentive spirometry and flutter valve. Continue to follow-up inflammatory markers including LDH, fibrinogen, ferritin, D-dimer, CRP. D-dimer elevated. Eliquis 5 mg twice daily on hold given anemia, might resume tomorrow morning Less chances of pneumonia. Procalcitonin has remained negative. Stopped antibiotics. Patient's blood culture showed coagulase-negative staph, repeat blood cultures have been unremarkable, MRSA positive For congestive heart failure patient has an EF of 40% with global LV hypokinesia with abnormal septal motion, grade 1 diastolic dysfunction, mild AI with trivial pericardial effusion on the echocardiogram from earlier this admission Daily weights, strict input output charting. Fluid restriction up to 1500 cc. Diuresed over 5.2 L yesterday. And input output shows he is equal balance. Creatinine has stabilized to 1.0. Hold Lasix for today Continue with aspirin, statin. Holding off on starting of beta-naye because of bradycardia. Acute on chronic anemia with underlying CAD: Currently hemoglobin 10.9, no hemodynamic compromise, no overt signs of bleeding, hold Eliquis 5 mg twice daily, status post 1 unit PRBC, continue Protonix 40 IV twice daily, continue IV iron supplementation Acute kidney injury: Creatinine coming down to baseline. Reconciliation done for nephrotoxic drugs. Continue Lasix today. Hypertension: Goal blood pressure less than 140/90 mmHg. Continue to monitor. Atrial fibrillation: Patient having persistent bradycardia. EKG reviewed. Digoxin level elevated. Continue to hold digoxin and amiodarone. Once the heart rate improves can restart medications. GPC bacteremia: Most likely contaminant. Blood culture showing staph low coccus species coagulase-negative, repeat blood cultures have remained negative. Stop antibiotics and monitor. Continue other chronic medications including nicotine patch, finasteride, fluoxetine. Advance to GI soft diet. Full code. SCDs for DVT prophylaxis Protonix GI prophylaxis Plan for today: Encourage ambulation, get up out of bed, aggressive pulmonary toilet, wean off high flow, plan to move to general medical floors in the next 24 hours Attestations Medical Necessity Statement*: Patient requires hospitalization for acute hypoxic respiratory failure secondary to COVID-19 Coding Level of Care Code Acute Certified Ophthalmic Technologist for [facility] Fwd Diagnoses Acute on chronic respiratory failure with hypoxia and hypercapnia J96.21; J96.22 Pneumonia due to COVID-19 virus U07.1; J12.89 Ischemic cardiomyopathy I25.5 CHF (congestive heart failure) I50.9 COPD (chronic obstructive pulmonary disease) J44.9 Pulmonary fibrosis J84.10 Pulmonary HTN I27.20 CAD (coronary artery disease) I25.10 Pulmonary embolism I26.99 Atrial fibrillation I48.91 Venous insufficiency I87.2 Acute on chronic anemia D64.9 Gram-positive cocci bacteremia R78.81 Tobacco abuse Z72.0 Dyslipidemia E78.5 ARDS (adult respiratory distress syndrome) J80
[2020-10-06] MEDS: tamsulosin 0.4 mg Capsule PO (20:13)
[2020-10-06] MEDS: trazodone 100 mg Tablet PO (20:13)
[2020-10-06] MEDS: atorvastatin 40 mg Tablet 20 MG PO (20:14)
[2020-10-07] VITALS (13 sets, daily range): BP systolic 107–133; BP diastolic 51–63; PULSE 38–95; RESP 16–24; TEMP 36.5–37.1; O2SAT 89–97
[2020-10-07] MEDS: pantoprazole 40 mg SDV IVP (01:16)
[2020-10-07] MEDS: oxyCODONE 5 mg IR Tab/Cap PO ×3 (01:33→18:30)
[2020-10-07 04:14] LABS: Basophils % 0.2 %; Eosinophils % 0.1 %; Hematocrit 35.6 % (42.0-52.0); Hemoglobin 9.9 g/dL (11.7-16.6); Lymphocytes # 0.7 10^3/uL (0.8-4.8); Lymphocytes % 5.8 %; Mean Corpuscular HGB Conc 27.8 g/dL (30.0-36.0); Mean Corpuscular Hemoglobin 22.6 pg (28.0-34.0); Mean Corpuscular Volume 81.3 fL (80-94); Mean Platelet Volume 11.1 fL (7.4-10.4); Monocytes # 0.7 10^3/uL (0.2-0.9); Monocytes % 5.8 %; Neutrophils # 9.79 10^3/uL (1.8-7.7); Neutrophils % 80.5 %; Nucleated Red Blood Cells % 0 %; Platelet Count 291 10^3/cmm (130-400); Red Blood Count 4.38 10^6/uL (4.1-5.3); Red Cell Distribution Width 19.6 % (12.1-15.1); White Blood Count 12.2 10^3/uL (4.0-10.0)
[2020-10-07 04:37] LABS: Alanine Aminotransferase 23 U/L (0-41); Albumin Level 3.1 g/dL (3.5-5.2); Alkaline Phosphatase 124 IU/L (40-130); Anion Gap 9.1 (5-19); Aspartate Amino Transferase 18 U/L (0-40); Blood Urea Nitrogen 52 mg/dL (8-23); C Reactive Protein 6.1 mg/L (0.0-4.9); Carbon Dioxide 32 mmol/L (22-29); Chloride 102 mmol/L (98-107); Globulin 2.3 g/dL (1.3-4.6); Glucose 106 mg/dL (65-115); Magnesium 2.4 mg/dL (1.7-2.3); Osmolality Calculated 300 mOsm/kg (285-295); Phosphorus 2.5 mg/dL (2.5-4.5); Potassium 5.1 mmol/L (3.5-5.1); Sodium 138 mmol/L (136-145); Total Bilirubin 0.2 mg/dL (0.15-1.2); Total Protein 5.4 g/dL (6.6-8.7)
[2020-10-07 04:42] LABS: NT Pro B Type Natriuretic Pept 2196 pg/mL (0-450); Procalcitonin 0.07 ng/mL (0-0.5)
[2020-10-07 04:53] LABS: Creatine Phosphokinase 16 U/L (39-308); Fibrinogen 321 mg/dL (174-498); INR 1.06 (0.8-1.2)
[2020-10-07 04:56] LABS: D Dimer 0.73 ug/mIFEU (0-0.59)
--- NOTE | 2020-10-07 06:00 | ECG_ITS ---
[facility] ED Test Date: 2020-10-07 Pat Name: Fredi Claire Department: Room: ICU19 Gender: Male [employer] Inspector: : 1945 Requested By: Francis Richard Order Number: [id number] Larsen MD: Florecita Chavze M.D. Measurements Intervals [place] Rate: 41 P: 72 TX: 216 QRS: -19 QRSD: 182 T: 76 QT: 556 QTc: 464 Interpretive Statements SINUS BRADYCARDIA WITH FIRST DEGREE AV BLOCK INTRAVENTRICULAR CONDUCTION DELAY [130+ ms QRS DURATION] Compared to ECG 10/06/2020 05:30:42 First degree AV block now present Intraventricular conduction delay now present Left-axis deviation no longer present Left bundle-branch block no longer present Electronically Signed On 10-10-2020 8:09:16 [employer]PERVISOR [employer]YPESETTING by Florecita Chavez M.D. [email or web address]
--- NOTE | 2020-10-07 06:34 | NUR.SHIFT ---
Uneventful night, AO x4 follows commands, remained on 4L High Flow NC, Required PRN for pain control through night
[2020-10-07] MEDS: aspirin 81 mg EC Tablet PO (08:16)
[2020-10-07] MEDS: benzonatate 100 mg Capsule PO ×3 (08:16→20:36)
[2020-10-07] MEDS: ascorbic acid 500 mg Tablet PO (08:16)
[2020-10-07] MEDS: zinc gluconate 50 mg Tablet PO (08:16)
[2020-10-07] MEDS: docusate sodium 100 mg Capsule PO ×2 (08:16→18:30)
[2020-10-07] MEDS: apixaban 5 mg Tablet PO ×2 (08:16→18:30)
[2020-10-07] MEDS: fluoxetine 20 mg Capsule PO (08:18)
[2020-10-07] MEDS: finasteride 5 mg Tablet PO (08:18)
[2020-10-07] MEDS: potassium chloride ER 10 mEq Tablet 20 MEQ PO (08:19)
[2020-10-07] MEDS: polyethylene glycol 3350 Pkt 17 gm PO (08:19)
[2020-10-07] MEDS: pantoprazole DR 40 mg Tablet PO ×2 (08:19→18:30)
[2020-10-07] MEDS: FUROsemide 40 mg Tablet PO (08:22)
[2020-10-07] MEDS: LORazepam 0.5 mg Tablet PO ×2 (12:01→20:39)
--- NOTE | 2020-10-07 12:08 | P.PN_ITS ---
Subjective Subjective: Interval history: Patient was examined this morning, he sitting up in bed, states that he is feeling well, no nausea, no vomiting, no fevers, chills Vitals/I&O/Wt Last Vital Signs Temp 98.7 F 10/06/20 17:00 Pulse 52 L 10/07/20 08:59 Resp 16 10/07/20 08:59 BP 118/52 10/07/20 06:06 Pulse Ox 93 10/07/20 08:59 10/06/20 10/07/20 10/07/20 22:59 06:59 14:59 Intake Total 250 / 1070 Output Total 1075 / 1075 Balance 250 / 1070 -1075 / -5 Weight last 48 hrs Weight 67.767 kg Weight 67.358 kg Physical Exam Const: COMMON NORMALS: no acute distress and patient oriented x3 GENERAL APPEARANCE: cooperative and comfortable NUTRITIONAL APPEARANCE: thin HENMT: COMMON NORMALS: normocephalic HEAD & SCALP: normocephalic Neck/C-Spine: COMMON NORMALS: no JVD Resp: COMMON NORMALS: normal respiratory effort, No retractions, No use of accessory muscles and clear to auscultation bilaterally AUSCULTATION: clear to auscultation bilaterally Cardio: COMMON NORMALS: no JVD, regular rate, regular rhythm, S1 normal heart sound present and S2 normal heart sound present RATE: regular rate RHYTHM: regular rhythm HEART SOUNDS: S1 normal heart sound present and S2 normal heart sound present GI: COMMON NORMALS: Normal to inspection, nondistended, normoactive bowel sounds present, Soft to palpation, non-tender, No hepatosplenomegaly present, no masses and no bruits PALPATION: Yes Soft to palpation and Yes No hepatosplenomegaly present Extremity: COMMON NORMALS: capillary refill normal, no clubbing, cyanosis or edema, no calf tenderness and no pedal edema Neuro: COMMON NORMALS: patient oriented x3 Psych: COMMON NORMALS: mental status grossly normal Urinary Catheter Management^: Barboza: Cath Placed During This Visit: yes Reason for Continuing Indwelling Catheter: Accurate Measurement of Urinary Output in Critically Ill Patients Urinary Catheter Date of Insertion: 09/29/20 Urinary Catheter Time of Insertion: 03:49 Data : 10/07/20 03:45 10/07/20 03:45 A&P Assessment and plan (1) Acute on chronic respiratory failure with hypoxia and hypercapnia: Secondary to COVID-19 pneumonia, possible secondary bacterial pneumonia, pulmonary fibrosis, COPD, emphysema, CHF -Review of patient's CT angiogram on October 2019, previous chest x-ray showed that he has definitely had recurrent pneumonias, but does have significant radiographic evidence of severe bullous emphysema and pulmonary fibrosis -Here his white blood cell count 3.5, lymphopenia, hemoglobin 8.6, fibrinogen 535, D-dimer 4.65, his ABG pH was 7.4, PCO2 46, PO2 56.5 on 100% FiO2, LDH 246, influenza negative, chest x-ray shows diffuse interstitial fibrosis, density in the left lung base, bilateral infiltrates PLAN: -Admit to VICU -Continue Eliquis for DVT prophylaxis -Full code -I had a pratima discussion with patient about his goals of care, given his underlying severe bullous emphysema and pulmonary fibrosis, now with acute respiratory failure secondary to above, if he were to deteriorate clinically, and remain a full code, he would end up intubated and mechanically ventilated, which would carry significant morbidity and mortality, and his likelihood of meaningful recovery would be fairly unlikely, advised of the risks and benefits, voiced understanding, all questions answered, wants to proceed with remaining a full code for now -Decadron 6 mg IV push daily, will strongly consider high-dose steroids based on clinical progress -Start remdesivir -Broad-spectrum antibiotics, vancomycin, Zosyn, azithromycin -Continue BiPAP, currently 20/10, 80% FiO2, will consider switching over to high flow, due to concerns for compliance of the lung, and the patient with pulmonary fibrosis severe emphysema -Lasix 40 mg IV daily, monitor creatinine, monitor urine output -Advair, albuterol, steroids -Follow blood cultures, follow sputum cultures Status: Acute (2) Pneumonia due to COVID-19 virus: Status: Acute (3) Ischemic cardiomyopathy: -Patient's echocardiogram in October 2019 showed an EF of 30%, diffuse hypokinesis of the left ventricle -Has a history of CAD, cath in 2010 showed normal left main, wraparound LAD, minor trait irregularity and circumflex, completely occluded RCA, with bridging collaterals to distal vessels, minimal collaterals from left to right system -BNP 9094 -Aspirin, statin, beta-naye, Lasix Status: Acute (4) CHF (congestive heart failure): Status: Acute (5) COPD (chronic obstructive pulmonary disease): Status: Acute (6) Pulmonary fibrosis: Status: Acute (7) Pulmonary HTN: Status: Acute (8) CAD (coronary artery disease): Monitor telemetry, monitor troponin, monitor for chest pain Status: Acute (9) Pulmonary embolism: Continue Eliquis Status: Acute (10) Atrial fibrillation: Continue telemetry monitoring, continue digoxin, continue Eliquis, continue amiodarone Status: Acute (11) Venous insufficiency: Status: Acute (12) Acute on chronic anemia: Hemoglobin at baseline, 8.6 Status: Acute (13) Gram-positive cocci bacteremia: Status: Acute (14) Tobacco abuse: Status: Acute (15) Dyslipidemia: Status: Acute (16) ARDS (adult respiratory distress syndrome): Status: Acute Additional A&P Information ARDS: Acute on chronic respiratory failure with hypoxia and hypercapnia: Multifactorial because of COVID-19 severe pneumonia, baseline COPD and pulmonary fibrosis and systolic and diastolic heart failure with history of pulmonary hypertension and pulmonary embolism in the past. Last dose of remdesivir 10/03/2020 Continue Lasix 40 mg p.o. once daily Continue dexamethasone. Advair, Spiriva. Vitamin C, zinc. Tessalon Perles. Pulmonary toilet with incentive spirometry and flutter valve. Continue to follow-up inflammatory markers including LDH, fibrinogen, ferritin, D-dimer, CRP. D-dimer elevated. Eliquis 5 mg twice daily continued, hemoglobin 9.9 Less chances of pneumonia. Procalcitonin has remained negative. Stopped antibiotics. Patient's blood culture showed coagulase-negative staph, repeat blood cultures have been unremarkable, MRSA positive Bradycardia: Heart rates in the low 30s, due to bradycardia, patient is asymptomatic, no significant hypoxia, oxygen requirements actually decreasing down to 4 L, will consult cardiology for possible pacemaker For congestive heart failure patient has an EF of 40% with global LV hypokinesia with abnormal septal motion, grade 1 diastolic dysfunction, mild AI with trivial pericardial effusion on the echocardiogram from earlier this admission Daily weights, strict input output charting. Fluid restriction up to 1500 cc. Diuresed over 5.2 L yesterday. And input output shows he is equal balance. Creatinine has stabilized to 1.1. Lasix 40 mg p.o. daily Continue with aspirin, statin. Holding off on starting of beta-naye because of bradycardia. Acute on chronic anemia with underlying CAD: Currently hemoglobin 9.9 no hemodynamic compromise, no overt signs of bleeding, continuing Eliquis 5 mg twice daily, status post 1 unit PRBC, continue Protonix 40 p.o. twice daily, continue IV iron supplementation Acute kidney injury: Creatinine coming down to baseline. 1.1 Reconciliation done for nephrotoxic drugs. Continue Lasix today. Hypertension: Goal blood pressure less than 140/90 mmHg. Continue to monitor. Atrial fibrillation: Patient having persistent bradycardia. EKG reviewed. Digoxin level elevated. Continue to hold digoxin and amiodarone. Once the heart rate improves can restart medications. GPC bacteremia: Most likely contaminant. Blood culture showing staph low coccus species coagulase-negative, repeat blood cultures have remained negative. Stop antibiotics and monitor. Continue other chronic medications including nicotine patch, finasteride, fluoxetine. Advance to GI soft diet. Full code. SCDs for DVT prophylaxis Protonix GI prophylaxis Plan for today: Encourage ambulation, get up out of bed, aggressive pulmonary toilet, continue 4 L, Lasix 40 mg p.o. daily, moved to general medical floors, consult cardiology for sinus bradycardia Attestations Medical Necessity Statement*: Patient requires hospitalization for acute respiratory distress syndrome secondary COVID-19, CHF exacerbation, bradycardia Coding Level of Care Code Acute Maintenance Worker House Trailer for [facility] Fwd Diagnoses Acute on chronic respiratory failure with hypoxia and hypercapnia J96.21; J96.22 Pneumonia due to COVID-19 virus U07.1; J12.89 Ischemic cardiomyopathy I25.5 CHF (congestive heart failure) I50.9 COPD (chronic obstructive pulmonary disease) J44.9 Pulmonary fibrosis J84.10 Pulmonary HTN I27.20 CAD (coronary artery disease) I25.10 Pulmonary embolism I26.99 Atrial fibrillation I48.91 Venous insufficiency I87.2 Acute on chronic anemia D64.9 Gram-positive cocci bacteremia R78.81 Tobacco abuse Z72.0 Dyslipidemia E78.5 ARDS (adult respiratory distress syndrome) J80
[2020-10-07] MEDS: dexamethasone 4 mg/mL INJ 6 MG IVP (12:24)
[2020-10-07] MEDS: nicotine 7 mg Patch 1 PATCH TRANSDERMA (14:11)
[2020-10-07] MEDS: atorvastatin 40 mg Tablet 20 MG PO (20:36)
[2020-10-07] MEDS: trazodone 100 mg Tablet PO (20:37)
[2020-10-07] MEDS: tamsulosin 0.4 mg Capsule PO (20:37)
[2020-10-08] VITALS (11 sets, daily range): BP systolic 116–156; BP diastolic 56–74; PULSE 42–95; RESP 14–20; TEMP 36.3–37; O2SAT 90–97; BMI 22.7
[2020-10-08] MEDS: oxyCODONE 5 mg IR Tab/Cap PO ×2 (03:46→14:51)
[2020-10-08 04:30] LABS: Basophils % 0.2 %; Hematocrit 35.8 % (42.0-52.0); Lymphocytes # 0.6 10^3/uL (0.8-4.8); Lymphocytes % 5.3 %; Mean Corpuscular HGB Conc 27.9 g/dL (30.0-36.0); Mean Corpuscular Hemoglobin 22.6 pg (28.0-34.0); Mean Platelet Volume 11.1 fL (7.4-10.4); Monocytes # 0.5 10^3/uL (0.2-0.9); Monocytes % 4.7 %; Neutrophils # 8.69 10^3/uL (1.8-7.7); Neutrophils % 83.1 %; Nucleated Red Blood Cells % 0 %; Platelet Count 269 10^3/cmm (130-400); Red Blood Count 4.42 10^6/uL (4.1-5.3); Red Cell Distribution Width 20.5 % (12.1-15.1); White Blood Count 10.5 10^3/uL (4.0-10.0)
[2020-10-08 04:56] LABS: Alanine Aminotransferase 20 U/L (0-41); Albumin Level 3.1 g/dL (3.5-5.2); Alkaline Phosphatase 114 IU/L (40-130); Anion Gap 9.1 (5-19); Aspartate Amino Transferase 14 U/L (0-40); Blood Urea Nitrogen 49 mg/dL (8-23); Calcium 9.4 mg/dL (8.5-10.5); Carbon Dioxide 33 mmol/L (22-29); Chloride 102 mmol/L (98-107); Globulin 2.6 g/dL (1.3-4.6); Glucose 100 mg/dL (65-115); Magnesium 2.4 mg/dL (1.7-2.3); Osmolality Calculated 301 mOsm/kg (285-295); Phosphorus 2.8 mg/dL (2.5-4.5); Potassium 5.1 mmol/L (3.5-5.1); Sodium 139 mmol/L (136-145); Total Bilirubin 0.2 mg/dL (0.15-1.2); Total Protein 5.7 g/dL (6.6-8.7)
[2020-10-08 06:25] LABS: Slide Review Slide Review Perform
[2020-10-08 07:40] LABS: NT Pro B Type Natriuretic Pept 2438 pg/mL (0-450)
[2020-10-08] MEDS: aspirin 81 mg EC Tablet PO (08:39)
[2020-10-08] MEDS: zinc gluconate 50 mg Tablet PO (08:39)
[2020-10-08] MEDS: finasteride 5 mg Tablet PO (08:39)
[2020-10-08] MEDS: ascorbic acid 500 mg Tablet PO (08:39)
[2020-10-08] MEDS: docusate sodium 100 mg Capsule PO ×2 (08:39→17:02)
[2020-10-08] MEDS: FUROsemide 40 mg Tablet PO (08:39)
[2020-10-08] MEDS: apixaban 5 mg Tablet PO ×2 (08:39→17:02)
[2020-10-08] MEDS: polyethylene glycol 3350 Pkt 17 gm PO (08:39)
[2020-10-08] MEDS: benzonatate 100 mg Capsule PO ×3 (08:39→20:39)
[2020-10-08] MEDS: fluoxetine 20 mg Capsule PO (08:39)
[2020-10-08] MEDS: potassium chloride ER 10 mEq Tablet 20 MEQ PO (08:39)
[2020-10-08] MEDS: pantoprazole DR 40 mg Tablet PO ×2 (08:39→17:02)
[2020-10-08] MEDS: LORazepam 0.5 mg Tablet PO ×3 (08:40→20:39)
--- NOTE | 2020-10-08 09:47 | PC.SOCIAL ---
IMM Update Pg. 2 of IMM updated and reviewed with patient over the phone. Verbalized understanding.
[2020-10-08] MEDS: dexamethasone 4 mg/mL INJ 6 MG IVP (11:30)
--- NOTE | 2020-10-08 13:07 | PM.PN ---
Subjective Subjective: Interval history: This morning patient was examined, he sitting in bed, states that he is feeling well this morning, on 4 L, afebrile overnight, no chest pain, no shortness of breath Vitals/I&O/Wt Last Vital Signs Temp 97.3 F L 10/08/20 11:44 Pulse 48 L 10/08/20 11:44 Resp 14 10/08/20 11:44 BP 142/71 10/08/20 11:44 Pulse Ox 96 10/08/20 11:44 10/07/20 10/08/20 10/08/20 22:59 06:59 14:59 Intake Total 240 / 1080 300 / 1380 Output Total 1350 / 1350 Balance -1110 / -270 300 / 30 Weight last 48 hrs Weight 67.767 kg Weight 67.767 kg Physical Exam Const: COMMON NORMALS: no acute distress and patient oriented x3 HENMT: COMMON NORMALS: normocephalic HEAD & SCALP: normocephalic Neck/C-Spine: COMMON NORMALS: no JVD Resp: COMMON NORMALS: normal respiratory effort, No retractions, No use of accessory muscles and clear to auscultation bilaterally AUSCULTATION: clear to auscultation bilaterally Cardio: COMMON NORMALS: no JVD, regular rate, regular rhythm, S1 normal heart sound present and S2 normal heart sound present RATE: regular rate RHYTHM: regular rhythm HEART SOUNDS: S1 normal heart sound present and S2 normal heart sound present GI: COMMON NORMALS: Normal to inspection, nondistended, normoactive bowel sounds present, Soft to palpation, non-tender, No hepatosplenomegaly present, no masses and no bruits PALPATION: Yes Soft to palpation and Yes No hepatosplenomegaly present Extremity: COMMON NORMALS: capillary refill normal, no clubbing, cyanosis or edema, no calf tenderness and no pedal edema Neuro: COMMON NORMALS: patient oriented x3 Psych: COMMON NORMALS: mental status grossly normal Urinary Catheter Management^: Barboza: Cath Placed During This Visit: yes Reason for Continuing Indwelling Catheter: Accurate Measurement of Urinary Output in Critically Ill Patients Urinary Catheter Date of Insertion: 09/29/20 Urinary Catheter Time of Insertion: 03:49 Data : 10/08/20 04:00 10/08/20 04:00 A&P Assessment and plan (1) Acute on chronic respiratory failure with hypoxia and hypercapnia: Secondary to COVID-19 pneumonia, possible secondary bacterial pneumonia, pulmonary fibrosis, COPD, emphysema, CHF -Review of patient's CT angiogram on October 2019, previous chest x-ray showed that he has definitely had recurrent pneumonias, but does have significant radiographic evidence of severe bullous emphysema and pulmonary fibrosis -Here his white blood cell count 3.5, lymphopenia, hemoglobin 8.6, fibrinogen 535, D-dimer 4.65, his ABG pH was 7.4, PCO2 46, PO2 56.5 on 100% FiO2, LDH 246, influenza negative, chest x-ray shows diffuse interstitial fibrosis, density in the left lung base, bilateral infiltrates PLAN: -Admit to VICU -Continue Eliquis for DVT prophylaxis -Full code -I had a pratima discussion with patient about his goals of care, given his underlying severe bullous emphysema and pulmonary fibrosis, now with acute respiratory failure secondary to above, if he were to deteriorate clinically, and remain a full code, he would end up intubated and mechanically ventilated, which would carry significant morbidity and mortality, and his likelihood of meaningful recovery would be fairly unlikely, advised of the risks and benefits, voiced understanding, all questions answered, wants to proceed with remaining a full code for now -Decadron 6 mg IV push daily, will strongly consider high-dose steroids based on clinical progress -Start remdesivir -Broad-spectrum antibiotics, vancomycin, Zosyn, azithromycin -Continue BiPAP, currently 20/10, 80% FiO2, will consider switching over to high flow, due to concerns for compliance of the lung, and the patient with pulmonary fibrosis severe emphysema -Lasix 40 mg IV daily, monitor creatinine, monitor urine output -Advair, albuterol, steroids -Follow blood cultures, follow sputum cultures Status: Acute (2) Pneumonia due to COVID-19 virus: Status: Acute (3) Ischemic cardiomyopathy: -Patient's echocardiogram in October 2019 showed an EF of 30%, diffuse hypokinesis of the left ventricle -Has a history of CAD, cath in 2010 showed normal left main, wraparound LAD, minor trait irregularity and circumflex, completely occluded RCA, with bridging collaterals to distal vessels, minimal collaterals from left to right system -BNP 9094 -Aspirin, statin, beta-naye, Lasix Status: Acute (4) CHF (congestive heart failure): Status: Acute (5) COPD (chronic obstructive pulmonary disease): Status: Acute (6) Pulmonary fibrosis: Status: Acute (7) Pulmonary HTN: Status: Acute (8) CAD (coronary artery disease): Monitor telemetry, monitor troponin, monitor for chest pain Status: Acute (9) Pulmonary embolism: Continue Eliquis Status: Acute (10) Atrial fibrillation: Continue telemetry monitoring, continue digoxin, continue Eliquis, continue amiodarone Status: Acute (11) Venous insufficiency: Status: Acute (12) Acute on chronic anemia: Hemoglobin at baseline, 8.6 Status: Acute (13) Gram-positive cocci bacteremia: Status: Acute (14) Tobacco abuse: Status: Acute (15) Dyslipidemia: Status: Acute (16) ARDS (adult respiratory distress syndrome): Status: Acute Additional A&P Information ARDS: Acute on chronic respiratory failure with hypoxia and hypercapnia: Multifactorial because of COVID-19 severe pneumonia, baseline COPD and pulmonary fibrosis and systolic and diastolic heart failure with history of pulmonary hypertension and pulmonary embolism in the past. Last dose of remdesivir 10/03/2020 Continue Lasix 40 mg p.o. once daily Continue dexamethasone. Advair, Spiriva. Vitamin C, zinc. Tessalon Perles. Pulmonary toilet with incentive spirometry and flutter valve. Continue to follow-up inflammatory markers including LDH, fibrinogen, ferritin, D-dimer, CRP. D-dimer elevated. Eliquis 5 mg twice daily continued, hemoglobin 9.9 Less chances of pneumonia. Procalcitonin has remained negative. Stopped antibiotics. Patient's blood culture showed coagulase-negative staph, repeat blood cultures have been unremarkable, MRSA positive Bradycardia: Heart rates in the low 30s, due to bradycardia, patient is asymptomatic, no significant hypoxia, oxygen requirements actually decreasing down to 4 L, cardiology advises to continue to monitor, hold all iglesia blocking agents, follow-up as outpatient For congestive heart failure patient has an EF of 40% with global LV hypokinesia with abnormal septal motion, grade 1 diastolic dysfunction, mild AI with trivial pericardial effusion on the echocardiogram from earlier this admission Daily weights, strict input output charting. Fluid restriction up to 1500 cc. Creatinine has stabilized to 1.1. Lasix 40 mg p.o. daily Continue with aspirin, statin. Holding off on starting of beta-naye because of bradycardia. Acute on chronic anemia with underlying CAD: Currently hemoglobin 9.9 no hemodynamic compromise, no overt signs of bleeding, continuing Eliquis 5 mg twice daily, status post 1 unit PRBC, continue Protonix 40 p.o. twice daily, continue IV iron supplementation Acute kidney injury: Creatinine coming down to baseline. 1.1 Reconciliation done for nephrotoxic drugs. Continue Lasix today. Hypertension: Goal blood pressure less than 140/90 mmHg. Continue to monitor. Atrial fibrillation: Patient having persistent bradycardia. EKG reviewed. Digoxin level elevated. Continue to hold digoxin and amiodarone. Once the heart rate improves can restart medications. GPC bacteremia: Most likely contaminant. Blood culture showing staph low coccus species coagulase-negative, repeat blood cultures have remained negative. Stop antibiotics and monitor. Continue other chronic medications including nicotine patch, finasteride, fluoxetine. Advance to GI soft diet. Full code. SCDs for DVT prophylaxis Protonix GI prophylaxis Plan for today: Encourage ambulation, get up out of bed, aggressive pulmonary toilet, continue 4 L, Lasix 40 mg p.o. 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 Project Planner for [facility] Fwd Diagnoses Acute on chronic respiratory failure with hypoxia and hypercapnia J96.21; J96.22 Pneumonia due to COVID-19 virus U07.1; J12.89 Ischemic cardiomyopathy I25.5 CHF (congestive heart failure) I50.9 COPD (chronic obstructive pulmonary disease) J44.9 Pulmonary fibrosis J84.10 Pulmonary HTN I27.20 CAD (coronary artery disease) I25.10 Pulmonary embolism I26.99 Atrial fibrillation I48.91 Venous insufficiency I87.2 Acute on chronic anemia D64.9 Gram-positive cocci bacteremia R78.81 Tobacco abuse Z72.0 Dyslipidemia E78.5 ARDS (adult respiratory distress syndrome) J80
[2020-10-08] MEDS: nicotine 7 mg Patch 1 PATCH TRANSDERMA (14:40)
[2020-10-08] MEDS: tamsulosin 0.4 mg Capsule PO (20:39)
[2020-10-08] MEDS: trazodone 100 mg Tablet PO (20:39)
[2020-10-08] MEDS: atorvastatin 40 mg Tablet 20 MG PO (20:39)
[2020-10-09] VITALS (11 sets, daily range): BP systolic 116–158; BP diastolic 53–70; PULSE 52–71; RESP 18–20; TEMP 36.4–37.1; O2SAT 85–94; BMI 22.7
--- NOTE | 2020-10-09 04:21 | PC.NURSE ---
at 0400 vitals it was discovered that patient O2 saturation was 86% on 7LNC - pt asymptomatic. Lung sounds dimminished - no change from initial assessment. Attempted to turn up O2 with no improvement in O2 saturation. Respiratory called to assess. Pt placed on 12 L highflow NC after pt refused Oxymask. Pt currently SAT 92%. Respiratory staff proceeded to notify phys on staff tonight with update. She will be in touch with me if there are any new orders or measures of care to take place.
--- NOTE | 2020-10-09 04:30 | PC.NURSE ---
Phys stated to respiratory that 88-89% is okay for this patient. Will monitor and keep saturations within this range.
[2020-10-09 05:00] LABS: Hematocrit 38.9 % (42.0-52.0); Mean Corpuscular HGB Conc 28.3 g/dL (30.0-36.0); Mean Corpuscular Hemoglobin 23.4 pg (28.0-34.0); Mean Corpuscular Volume 82.6 fL (80-94); Mean Platelet Volume 11.4 fL (7.4-10.4); Platelet Count 270 10^3/cmm (130-400); Red Blood Count 4.71 10^6/uL (4.1-5.3); Red Cell Distribution Width 21.4 % (12.1-15.1); White Blood Count 9.1 10^3/uL (4.0-10.0)
[2020-10-09 05:15] LABS: Alanine Aminotransferase 20 U/L (0-41); Albumin Level 3.1 g/dL (3.5-5.2); Alkaline Phosphatase 110 IU/L (40-130); Anion Gap 10.4 (5-19); Aspartate Amino Transferase 14 U/L (0-40); Blood Urea Nitrogen 50 mg/dL (8-23); Calcium 9.4 mg/dL (8.5-10.5); Carbon Dioxide 33 mmol/L (22-29); Chloride 100 mmol/L (98-107); Glucose 85 mg/dL (65-115); Magnesium 2.3 mg/dL (1.7-2.3); Osmolality Calculated 299 mOsm/kg (285-295); Phosphorus 2.7 mg/dL (2.5-4.5); Potassium 5.4 mmol/L (3.5-5.1); Sodium 138 mmol/L (136-145); Total Bilirubin 0.3 mg/dL (0.15-1.2); Total Protein 6.1 g/dL (6.6-8.7)
[2020-10-09 05:36] LABS: NT Pro B Type Natriuretic Pept 2743 pg/mL (0-450)
[2020-10-09 06:32] LABS: Slide Review Slide Review Perform
[2020-10-09 06:33] LABS: Eosinophils 0 %; Lymphocytes 15 %; Monocytes Absolute 0.4 10^3/cmm (0.1-0.6); Segmented Neutrophils 77 %; Total Cells Counted 100 (0-100)
[2020-10-09 06:34] LABS: Platelet Estimate Normal (Normal); Poikilocytosis 1+
[2020-10-09 06:35] LABS: Anisocytosis 1+; Ovalocytes 1+
--- NOTE | 2020-10-09 07:00 | XR_ITS ---
WS: [id number] Exam: XR chest 1V portable [id number] Date/Time of Exam: 10/09/2020 7:00 AM Reason For Exam: sob Comparison 10/06/2020. Consolidating infiltrate in the left retrocardiac region shows little change. There are also diffuse infiltrates in the mid and lower right lung zone and mid left lung which may be partially chronic. No pneumothorax. Heart size is within normal limits. The mediastinum is not widened. XR/XR chest 1V portable [id number] IMPRESSION: 1. Bilateral pulmonary infiltrates unchanged. There is likely some superimposed chronic interstitial change present bilaterally.
[2020-10-09] MEDS: apixaban 5 mg Tablet PO ×2 (09:18→18:22)
[2020-10-09] MEDS: aspirin 81 mg EC Tablet PO (09:18)
[2020-10-09] MEDS: potassium chloride ER 10 mEq Tablet 20 MEQ PO (09:18)
[2020-10-09] MEDS: ascorbic acid 500 mg Tablet PO (09:18)
[2020-10-09] MEDS: pantoprazole DR 40 mg Tablet PO ×2 (09:18→18:22)
[2020-10-09] MEDS: benzonatate 100 mg Capsule PO ×3 (09:18→20:39)
[2020-10-09] MEDS: fluoxetine 20 mg Capsule PO (09:18)
[2020-10-09] MEDS: zinc gluconate 50 mg Tablet PO (09:18)
[2020-10-09] MEDS: finasteride 5 mg Tablet PO (09:18)
--- NOTE | 2020-10-09 13:10 | P.PN_ITS ---
Subjective Subjective: Interval history: Overnight patient was turned up to 12 L nasal cannula, had spoke to respiratory therapy today, we have trended down to 5 L, he has no particular complaints, just wondering what he is getting over the [facility], no fevers, no chills, he is chronically incontinent of urine Vitals/I&O/Wt Last Vital Signs Temp 97.8 F 10/09/20 11:39 Pulse 66 10/09/20 11:39 Resp 20 H 10/09/20 11:39 BP 126/63 10/09/20 11:39 Pulse Ox 93 10/09/20 11:39 10/08/20 10/09/20 10/09/20 22:59 06:59 14:59 Intake Total 480 / 840 300 / 1140 600 / 600 Balance 480 / 840 300 / 1140 600 / 600 Weight last 48 hrs Weight 67.767 kg Weight 67.767 kg Physical Exam Const: COMMON NORMALS: no acute distress and patient oriented x3 HENMT: COMMON NORMALS: normocephalic HEAD & SCALP: normocephalic Neck/C-Spine: COMMON NORMALS: no JVD Resp: COMMON NORMALS: normal respiratory effort, No retractions, No use of accessory muscles and clear to auscultation bilaterally AUSCULTATION: clear to auscultation bilaterally Cardio: COMMON NORMALS: no JVD, regular rate, regular rhythm, S1 normal heart sound present and S2 normal heart sound present RATE: regular rate RHYTHM: regular rhythm HEART SOUNDS: S1 normal heart sound present and S2 normal heart sound present GI: COMMON NORMALS: Normal to inspection, nondistended, normoactive bowel sounds present, Soft to palpation, non-tender, No hepatosplenomegaly present, no masses and no bruits PALPATION: Yes Soft to palpation and Yes No hepatosplenomegaly present Extremity: COMMON NORMALS: capillary refill normal, no clubbing, cyanosis or edema, no calf tenderness and no pedal edema Neuro: COMMON NORMALS: patient oriented x3 Psych: COMMON NORMALS: mental status grossly normal Urinary Catheter Management^: Barboza: Cath Placed During This Visit: yes, but has since been removed by the nurse Reason for Continuing Indwelling Catheter: Accurate Measurement of Urinary Output in Critically Ill Patients Urinary Catheter Date of Insertion: 09/29/20 Urinary Catheter Time of Insertion: 03:49 Date Urinary Catheter Removed: 10/08/20 Time Urinary Catheter Discontinued: 08:00 Data : 10/09/20 03:50 10/09/20 03:50 A&P Assessment and plan (1) Acute on chronic respiratory failure with hypoxia and hypercapnia: Secondary to COVID-19 pneumonia, possible secondary bacterial pneumonia, pulmonary fibrosis, COPD, emphysema, CHF -Review of patient's CT angiogram on October 2019, previous chest x-ray showed that he has definitely had recurrent pneumonias, but does have significant radiographic evidence of severe bullous emphysema and pulmonary fibrosis -Here his white blood cell count 3.5, lymphopenia, hemoglobin 8.6, fibrinogen 535, D-dimer 4.65, his ABG pH was 7.4, PCO2 46, PO2 56.5 on 100% FiO2, LDH 246, influenza negative, chest x-ray shows diffuse interstitial fibrosis, density in the left lung base, bilateral infiltrates PLAN: -Admit to VICU -Continue Eliquis for DVT prophylaxis -Full code -I had a pratima discussion with patient about his goals of care, given his underlying severe bullous emphysema and pulmonary fibrosis, now with acute respiratory failure secondary to above, if he were to deteriorate clinically, and remain a full code, he would end up intubated and mechanically ventilated, which would carry significant morbidity and mortality, and his likelihood of meaningful recovery would be fairly unlikely, advised of the risks and benefits, voiced understanding, all questions answered, wants to proceed with remaining a full code for now -Decadron 6 mg IV push daily, will strongly consider high-dose steroids based on clinical progress -Start remdesivir -Broad-spectrum antibiotics, vancomycin, Zosyn, azithromycin -Continue BiPAP, currently 20/10, 80% FiO2, will consider switching over to high flow, due to concerns for compliance of the lung, and the patient with pulmonary fibrosis severe emphysema -Lasix 40 mg IV daily, monitor creatinine, monitor urine output -Advair, albuterol, steroids -Follow blood cultures, follow sputum cultures Status: Acute (2) Pneumonia due to COVID-19 virus: Status: Acute (3) Ischemic cardiomyopathy: -Patient's echocardiogram in October 2019 showed an EF of 30%, diffuse hypokinesis of the left ventricle -Has a history of CAD, cath in 2010 showed normal left main, wraparound LAD, minor trait irregularity and circumflex, completely occluded RCA, with bridging collaterals to distal vessels, minimal collaterals from left to right system -BNP 9094 -Aspirin, statin, beta-naye, Lasix Status: Acute (4) CHF (congestive heart failure): Status: Acute (5) COPD (chronic obstructive pulmonary disease): Status: Acute (6) Pulmonary fibrosis: Status: Acute (7) Pulmonary HTN: Status: Acute (8) CAD (coronary artery disease): Monitor telemetry, monitor troponin, monitor for chest pain Status: Acute (9) Pulmonary embolism: Continue Eliquis Status: Acute (10) Atrial fibrillation: Continue telemetry monitoring, continue digoxin, continue Eliquis, continue amiodarone Status: Acute (11) Venous insufficiency: Status: Acute (12) Acute on chronic anemia: Hemoglobin at baseline, 8.6 Status: Acute (13) Gram-positive cocci bacteremia: Status: Acute (14) Tobacco abuse: Status: Acute (15) Dyslipidemia: Status: Acute (16) ARDS (adult respiratory distress syndrome): Status: Acute Additional A&P Information ARDS: Acute on chronic respiratory failure with hypoxia and hypercapnia: Multifactorial because of COVID-19 severe pneumonia, baseline COPD and pulmonary fibrosis and systolic and diastolic heart failure with history of pulmonary hypertension and pulmonary embolism in the past. Last dose of remdesivir 10/03/2020 Hold ue Lasix 40 mg p.o. once daily Continue dexamethasone. Advair, Spiriva. Vitamin C, zinc. Tessalon Perles. Pulmonary toilet with incentive spirometry and flutter valve. Continue to follow-up inflammatory markers including LDH, fibrinogen, ferritin, D-dimer, CRP. D-dimer elevated. Eliquis 5 mg twice daily continued, hemoglobin 11 Less chances of pneumonia. Procalcitonin has remained negative. Stopped antibiotics. Patient's blood culture showed coagulase-negative staph, repeat blood cultures have been unremarkable, MRSA positive Bradycardia: Heart rates in the low 30s, due to bradycardia, patient is asymptomatic, no significant hypoxia, oxygen requirements actually decreasing down to 4 L, cardiology advises to continue to monitor, hold all iglesia blocking agents, follow-up as outpatient For congestive heart failure patient has an EF of 40% with global LV hypokinesia with abnormal septal motion, grade 1 diastolic dysfunction, mild AI with trivial pericardial effusion on the echocardiogram from earlier this admission Daily weights, strict input output charting. Fluid restriction up to 1500 cc. Creatinine has stabilized to 1.5. Lasix on hold Continue with aspirin, statin. Holding off on starting of beta-naye because of bradycardia. Acute on chronic anemia with underlying CAD: Currently hemoglobin 9.9 no hemodynamic compromise, no overt signs of bleeding, continuing Eliquis 5 mg twice daily, status post 1 unit PRBC, continue Protonix 40 p.o. twice daily, continue IV iron supplementation Acute kidney injury: Creatinine coming down to baseline. 1.5 Reconciliation done for nephrotoxic drugs. Holding Lasix today Hypertension: Goal blood pressure less than 140/90 mmHg. Continue to monitor. Atrial fibrillation: Patient having persistent bradycardia. EKG reviewed. Digoxin level elevated. Continue to hold digoxin and amiodarone. Once the heart rate improves can restart medications. GPC bacteremia: Most likely contaminant. Blood culture showing staph low coccus species coagulase-negative, repeat blood cultures have remained negative. Stop antibiotics and monitor. Continue other chronic medications including nicotine patch, finasteride, fluoxetine. Advance to GI soft diet. Full code. SCDs for DVT prophylaxis Protonix GI prophylaxis Plan for today: Encourage ambulation, get up out of bed, aggressive pulmonary toilet, continue 5L, monitor sinus bradycardia, hopefully discharge to nursing over the next 24 hours Attestations Medical Necessity Statement*: Patient requires hospitalization for acute respiratory distress syndrome, MAGDI, hopefully discharge the next 24 hours Coding Level of Care Code Acute Industrial Safety And Health Manager for [facility] Fwd Diagnoses Acute on chronic respiratory failure with hypoxia and hypercapnia J96.21; J96.22 Pneumonia due to COVID-19 virus U07.1; J12.89 Ischemic cardiomyopathy I25.5 CHF (congestive heart failure) I50.9 COPD (chronic obstructive pulmonary disease) J44.9 Pulmonary fibrosis J84.10 Pulmonary HTN I27.20 CAD (coronary artery disease) I25.10 Pulmonary embolism I26.99 Atrial fibrillation I48.91 Venous insufficiency I87.2 Acute on chronic anemia D64.9 Gram-positive cocci bacteremia R78.81 Tobacco abuse Z72.0 Dyslipidemia E78.5 ARDS (adult respiratory distress syndrome) J80
[2020-10-09] MEDS: oxyCODONE 5 mg IR Tab/Cap PO ×2 (14:37→20:39)
[2020-10-09] MEDS: dexamethasone 4 mg/mL INJ 6 MG IVP (14:37)
[2020-10-09] MEDS: LORazepam 0.5 mg Tablet PO ×2 (14:38→20:39)
[2020-10-09] MEDS: nicotine 7 mg Patch 1 PATCH TRANSDERMA (14:38)
--- NOTE | 2020-10-09 15:39 | PC.NURSE ---
I reported the low 02 level to the nurse. 85%
[2020-10-09] MEDS: acetaminophen 500 mg Tablet PO (19:31)
[2020-10-09] MEDS: tamsulosin 0.4 mg Capsule PO (20:39)
[2020-10-09] MEDS: atorvastatin 40 mg Tablet 20 MG PO (20:39)
[2020-10-09] MEDS: trazodone 100 mg Tablet PO (20:39)
[2020-10-10] VITALS (9 sets, daily range): BP systolic 101–161; BP diastolic 47–70; PULSE 53–79; RESP 16–20; TEMP 36.6–36.8; O2SAT 89–94
[2020-10-10] MEDS: LORazepam 0.5 mg Tablet PO (04:17)
[2020-10-10] MEDS: oxyCODONE 5 mg IR Tab/Cap PO (04:17)
[2020-10-10 04:31] LABS: Alanine Aminotransferase 17 U/L (0-41); Albumin Level 2.9 g/dL (3.5-5.2); Alkaline Phosphatase 109 IU/L (40-130); Anion Gap 10.4 (5-19); Aspartate Amino Transferase 12 U/L (0-40); Blood Urea Nitrogen 47 mg/dL (8-23); Carbon Dioxide 29 mmol/L (22-29); Chloride 104 mmol/L (98-107); Globulin 2.7 g/dL (1.3-4.6); Glucose 147 mg/dL (65-115); Magnesium 2.3 mg/dL (1.7-2.3); Osmolality Calculated 301 mOsm/kg (285-295); Phosphorus 2.6 mg/dL (2.5-4.5); Potassium 5.4 mmol/L (3.5-5.1); Sodium 138 mmol/L (136-145); Total Bilirubin 0.2 mg/dL (0.15-1.2); Total Protein 5.6 g/dL (6.6-8.7)
[2020-10-10 04:38] LABS: NT Pro B Type Natriuretic Pept 2495 pg/mL (0-450)
[2020-10-10 06:37] LABS: Basophils % 0.1 %; Hematocrit 35.8 % (42.0-52.0); Hemoglobin 9.9 g/dL (11.7-16.6); Lymphocytes # 0.5 10^3/uL (0.8-4.8); Lymphocytes % 4.4 %; Mean Corpuscular HGB Conc 27.7 g/dL (30.0-36.0); Mean Corpuscular Hemoglobin 23.1 pg (28.0-34.0); Mean Corpuscular Volume 83.4 fL (80-94); Mean Platelet Volume 11.2 fL (7.4-10.4); Monocytes # 0.6 10^3/uL (0.2-0.9); Monocytes % 4.9 %; Neutrophils % 86.2 %; Nucleated Red Blood Cells % 0 %; Platelet Count 193 10^3/cmm (130-400); Red Blood Count 4.29 10^6/uL (4.1-5.3); Red Cell Distribution Width 21.6 % (12.1-15.1)
[2020-10-10 07:01] LABS: Slide Review Slide Review Perform
[2020-10-10] MEDS: FUROsemide 10 mg/mL SDV 4mL 40 MG IVP (09:21)
[2020-10-10] MEDS: ascorbic acid 500 mg Tablet PO (09:22)
[2020-10-10] MEDS: finasteride 5 mg Tablet PO (09:22)
[2020-10-10] MEDS: apixaban 5 mg Tablet PO (09:22)
[2020-10-10] MEDS: aspirin 81 mg EC Tablet PO (09:22)
[2020-10-10] MEDS: pantoprazole DR 40 mg Tablet PO (09:22)
[2020-10-10] MEDS: zinc gluconate 50 mg Tablet PO (09:22)
[2020-10-10] MEDS: potassium chloride ER 10 mEq Tablet 20 MEQ PO (09:22)
[2020-10-10] MEDS: acetaminophen 500 mg Tablet PO ×2 (09:23→16:52)
[2020-10-10] MEDS: fluoxetine 20 mg Capsule PO (09:23)
[2020-10-10] MEDS: benzonatate 100 mg Capsule PO (09:23)
[2020-10-10] MEDS: dexamethasone 4 mg/mL INJ 6 MG IVP (10:30)
--- NOTE | 2020-10-10 10:52 | PM.DCS ---
Discharge Providers Date of Admission: 09/29/20 06:25 Date of Discharge: October 10, 2020 Attending Provider at Admission: Rell Flores Attending Provider at Discharge: Francis Richard MD Primary Care Provider: Isai Bhatti DO Diagnoses at Discharge Discharge Diagnosis (1) Acute on chronic respiratory failure with hypoxia and hypercapnia: Status: Acute (2) Pneumonia due to COVID-19 virus: Status: Acute (3) Ischemic cardiomyopathy: Status: Acute (4) CHF (congestive heart failure): Status: Acute (5) COPD (chronic obstructive pulmonary disease): Status: Acute (6) Pulmonary fibrosis: Status: Acute (7) Pulmonary HTN: Status: Acute (8) CAD (coronary artery disease): Status: Acute (9) Pulmonary embolism: Status: Acute (10) Atrial fibrillation: Status: Acute (11) Venous insufficiency: Status: Acute (12) Acute on chronic anemia: Status: Acute (13) Gram-positive cocci bacteremia: Status: Acute (14) Tobacco abuse: Status: Acute (15) Dyslipidemia: Status: Acute (16) ARDS (adult respiratory distress syndrome): Status: Acute Reason for Visit Reason for Visit: low o2 Hospital Course Hospital Course This is a 74-year-old male with a past medical history of chronic hypoxic hypercarbic respiratory failure, COPD, pulmonary fibrosis, severe bullous emphysema, systolic and diastolic heart failure, 5 to 6 L oxygen dependent, history of pulmonary emboli on Eliquis, atrial fibrillation on Eliquis, history of ischemic cardiomyopathy, last ejection fraction showed diffuse hypokinesis of the left ventricle and a left ventricular ejection fraction 30%, CAD, peripheral vascular disease, CKD stage II, acute on chronic anemia, protein calorie malnutrition, cachexia, deconditioning, [facility]ci resident, GERD, BPH, history of leaving AGAINST MEDICAL ADVICE who presents to [facility] for shortness of breath, hypoxia, low-grade fevers Patient was admitted to [facility] for acute hypoxic hypercarbic respiratory failure secondary to COVID-19 pneumonia, viral pneumonitis, secondary bacterial pneumonia, systolic and diastolic CHF exacerbation, acute respiratory distress syndrome, exacerbation of pulmonary fibrosis. Patient was admitted to the viral ICU, started remdesivir, Decadron, broad-spectrum antibiotic therapy, oxygen therapy/BiPAP, Lasix therapy, vitamin C, zinc, albuterol, Advair, Spiriva, pulmonary rehab. Patient clinically improved, transition to high flow nasal cannula, antibiotic therapy was deescalated, finished remdesivir, tolerated physical therapy well. Patient was moved to general medical floors, monitored for the next 48 hours, his oxygen requirements remained 5 to 6 L, he in total has been diuresed over 5 L. Patient was discharged on Advair, Spiriva, albuterol, vitamin C, zinc, instructions to socially distance, hand wash, face mask, continue self-isolation for a total of 3 weeks since symptom onset. For his systolic and diastolic heart failure exacerbation, creatinine on discharge was 1.4, Lasix will be held for the next 48 hours, repeat CMP in 1 week, if creatinine improves resume Lasix 40 mg p.o. daily. Given his history of A. fib, pulmonary emboli, for hypercoagulability prophylaxis is discharged on Eliquis 5 mg twice daily, creatinine clearance on discharge is 40, he is 74, weight 75 kg so he fits Eliquis 5 mg twice daily dosing. Patient also had sinus bradycardia throughout his hospitalization, heart rate were in the low 30s at times, he was asymptomatic, likely secondary to hypoxia secondary to COVID-19, I spoke to cardiology who recommended to hold all AV iglesia blocking agents given A. fib above, follow-up with cardiology as outpatient, heart rate on discharge were 60s to 70s, asymptomatic. Physical Exam Const: COMMON NORMALS: no acute distress and patient oriented x3 HENMT: COMMON NORMALS: normocephalic HEAD & SCALP: normocephalic Neck/C-Spine: COMMON NORMALS: no JVD Resp: COMMON NORMALS: normal respiratory effort, No retractions, No use of accessory muscles and clear to auscultation bilaterally AUSCULTATION: clear to auscultation bilaterally Cardio: COMMON NORMALS: no JVD, regular rate, regular rhythm, S1 normal heart sound present and S2 normal heart sound present RATE: regular rate RHYTHM: regular rhythm HEART SOUNDS: S1 normal heart sound present and S2 normal heart sound present GI: COMMON NORMALS: Normal to inspection, nondistended, normoactive bowel sounds present, Soft to palpation, non-tender, No hepatosplenomegaly present, no masses and no bruits PALPATION: Yes Soft to palpation and Yes No hepatosplenomegaly present Extremity: COMMON NORMALS: capillary refill normal, no clubbing, cyanosis or edema, no calf tenderness and no pedal edema Neuro: COMMON NORMALS: patient oriented x3 Psych: COMMON NORMALS: mental status grossly normal Urinary Catheter Management^: Barboza: Cath Placed During This Visit: yes, but has since been removed by the nurse Reason for Continuing Indwelling Catheter: Accurate Measurement of Urinary Output in Critically Ill Patients Urinary Catheter Date of Insertion: 09/29/20 Urinary Catheter Time of Insertion: 03:49 Date Urinary Catheter Removed: 10/08/20 Time Urinary Catheter Discontinued: 08:00 Discharge Data Data Completed and Pending: Completed Studies During Hospitalization Category Date Time Status CT angio chest PE protcl [id number] Stat Cat Scan 09/29/20 03:33 Completed XR chest 1V antonia ble 87972 Q48H Exams 10/02/20 06:00 Completed XR chest 1V antonia ble [id number] Q48H Exams 10/04/20 06:00 Completed XR chest 1V antonia ble [id number] Q48H Exams 10/06/20 06:00 Completed XR chest 1V antonia ble [id number] Routine Exams 09/30/20 07:00 Completed XR chest 1V antonia ble [id number] Routine Exams 10/05/20 07:00 Completed XR chest 1V antonia ble [id number] Routine Exams 10/09/20 07:00 Completed XR chest 1V antonia ble [id number] Stat Exams 09/29/20 01:06 Completed CV echo complete* [id number] Routine Ultrasound 09/29/20 06:24 Completed Pending at discharge Category Date Time Status Lactate (Lactic A seng level) Routine Lab 10/10/20 04:00 Ordered Labs from last 24 hours 10/10/20 10/10/20 10/10/20 06:18 03:58 03:58 WBC 12.0 H Corrected WBC RBC 4.29 Hgb 9.9 L Hct 35.8 L MCV 83.4 MCH 23.1 L MCHC 27.7 L RDW 21.6 H Plt Count 193 MPV 11.2 H Gran % Neut % (Auto) 86.2 Lymph % (Auto) 4.4 [place] % (Auto) 4.9 Eos % (Auto) 0.0 Baso % (Auto) 0.1 Neut # (Auto) 10.30 H Lymph # (Auto) 0.5 L [place] # (Auto) 0.6 Eos # (Auto) 0.0 Baso # (Auto) 0.0 Absolute Gran (aut o) Nucleated RBC % (a uto) 0 Nucleated RBCs # 0.0 Sodium 138 Potassium 5.4 H Chloride 104 Carbon Dioxide 29 Anion Gap 10.4 BUN 47 H Creatinine 1.4 H GFR Calculation Not Reportable Glucose 147 H Calculated Osmolal ity 301 H Calcium 9.0 Phosphorus 2.6 Magnesium 2.3 Total Bilirubin 0.2 AST 12 ALT 17 Alkaline Phosphata se 109 NT-Pro-B Natriuret Pep 2495 H Total Protein 5.6 L Albumin 2.9 L Globulin 2.7 10/10/20 03:58 WBC Cancelled Corrected WBC Cancelled RBC Cancelled Hgb Cancelled Hct Cancelled MCV Cancelled MCH Cancelled MCHC Cancelled RDW Cancelled Plt Count Cancelled MPV Cancelled Gran % Cancelled Neut % (Auto) Cancelled Lymph % (Auto) Cancelled [place] % (Auto) Cancelled Eos % (Auto) Cancelled Baso % (Auto) Cancelled Neut # (Auto) Cancelled Lymph # (Auto) Cancelled [place] # (Auto) Cancelled Eos # (Auto) Cancelled Baso # (Auto) Cancelled Absolute Gran (aut o) Cancelled Nucleated RBC % (a uto) Cancelled Nucleated RBCs # Cancelled Sodium Potassium Chloride Carbon Dioxide Anion Gap BUN Creatinine GFR Calculation Glucose Calculated Osmolal ity Calcium Phosphorus Magnesium Total Bilirubin AST ALT Alkaline Phosphata se NT-Pro-B Natriuret Pep Total Protein Albumin Globulin Vitals: Last Vital Signs Temp 98.2 F 10/10/20 09:53 Pulse 79 10/10/20 09:53 Resp 18 10/10/20 09:53 BP 101/47 10/10/20 09:53 Pulse Ox 90 10/10/20 09:53 Discharge Plan Discharge Patient Disposition: Xfer SNF Condition: Stable Prescriptions: New Eliquis 5 mg Tablet 5 mg PO BID 30 Days Qty: 60 RF: 0 Vitamin C 500 mg Tablet 500 mg PO DAILY 30 Days Qty: 30 RF: 0 benzonatate 100 mg Capsule 100 mg PO TID PRN (Reason: cough) 15 Days Qty: 45 RF: 0 docusate sodium 100 mg Capsule 100 mg PO BID 30 Days Qty: 60 RF: 0 pantoprazole 40 mg Tablet,Delayed Release (Dr/Ec) 40 mg PO BID 30 Days Qty: 60 RF: 0 potassium chloride 10 mEq Tablet Extended Release 20 meq PO DAILY 30 Days Qty: 60 RF: 0 zinc gluconate 50 mg Tablet 50 mg PO DAILY 30 Days Qty: 30 RF: 0 Spiriva with HandiHaler 18 mcg Capsule, W/Inhalation Device 18 mcg inhalation DAILY.RESPIRATORY Qty: 30 RF: 0 albuterol sulfate 90 mcg/actuation HFA aerosol inhaler 1 inh inhalation Q6H PRN (Reason: shortness of breath or wheezing) 30 Days Qty: 18 RF: 0 prednisone 10 mg tablet See Rx Instructions .ROUTE .COMPLEX Qty: 53 RF: 0 Lasix 40 mg tablet 40 mg PO DAILY 30 Days Qty: 30 RF: 0 Continued fluticasone propion-salmeterol [Advair Diskus] 250-50 mcg/dose Blister With Device 1 inh INHALATION DAILY RF: 0 sennosides [senna] 8.6 mg Tablet 17.2 mg PO BID RF: 0 atorvastatin [Lipitor] 20 mg Tablet 20 mg PO BEDTIME RF: 0 aspirin [Aspir-81] 81 mg Tablet,Delayed Release (Dr/Ec) 81 mg PO DAILY RF: 0 tamsulosin [Flomax] 0.4 mg Capsule 0.4 mg PO BEDTIME RF: 0 trazodone 100 mg Tablet 100 mg PO BEDTIME RF: 0 fluoxetine [Prozac] 20 mg Capsule 20 mg PO DAILY RF: 0 finasteride 5 mg Tablet 5 mg PO DAILY RF: 0 acetaminophen 325 mg Tablet 325 mg PO QID PRN (Reason: Pain) RF: 0 Miralax 17 gram Powder In Packet 17 g PO DAILY PRN (Reason: Constipation) RF: 0 Ativan 0.5 mg Tablet 0.5 mg PO Q6H PRN (Reason: Anxiety) RF: 0 nicotine 7 mg/24 hr Patch 24 Hour 1 patch TRANSDERMAL Q24H RF: 0 oxycodone 5 mg Tablet 5 mg PO Q4H PRN (Reason: Pain) RF: 0 TwoCal HN 0.08-2 gram-kcal/mL Liquid 30 ea PO TID RF: 0 Discontinued prednisone 10 mg Tablet 20 mg PO DAILY RF: 0 amiodarone 200 mg Tablet 200 mg PO DAILY RF: 0 pantoprazole [Protonix] 40 mg Tablet,Delayed Release (Dr/Ec) 40 mg PO DAILY RF: 0 hydralazine 10 mg Tablet 10 mg PO TID RF: 0 Discharge Orders: Discharge Order (Routine); Ordered 10/10/20 Ordered By: Francis Richard Other Ambulatory Orders: Complete Blood Count w/Auto (Routine) Timeframe: 1 Week Location: Determined by Patient Ordered By: Francis Richard Comprehensive Metabolic Panel (Routine) Timeframe: 1 Week Facility: [facility] - Location: Lab - Main Lab Ordered By: Francis Richard Referrals: [facility] [Outside] Sole Lai MD [Physician] - 2 weeks Discharge Diet: Cardiac Discharge Activity: Resume usual activity Activity Restrictions/Additional Instructions: -For sinus bradycardia, please follow-up with cardiology in 2 to 3 weeks -For COVID-19 pneumonia, continue to self isolate, socially distance, hand wash -Use albuterol, Advair, Spiriva as prescribed -Eliquis for history of DVT, PE, hypercoagulability associate with COVID-19 -Take prednisone taper as prescribed -Monitor CBC -If you have bloody or black stools come back to emergency room -For atrial fibrillation, all iglesia blocking agents have been held due to sinus bradycardia, follow-up with cardiology in 2 to 3 weeks -Continue physical therapy -Repeat CMP 1 week, creatinine on discharge 1.4, if creatinine improves, start Lasix 40 mg p.o. daily for fluid overload, heart failure Discharge Attestations Time Spent in Discharge Care*: less than 30 min Quality Metrics Clinical Quality Measures During this hospital stay, did patient experience: None Coding Level of Care Code Acute Graduate Teaching Assistant for g Fwd Diagnoses Acute on chronic respiratory failure with hypoxia and hypercapnia J96.21; J96.22 Pneumonia due to COVID-19 virus U07.1; J12.89 Ischemic cardiomyopathy I25.5 CHF (congestive heart failure) I50.9 COPD (chronic obstructive pulmonary disease) J44.9 Pulmonary fibrosis J84.10 Pulmonary HTN I27.20 CAD (coronary artery disease) I25.10 Pulmonary embolism I26.99 Atrial fibrillation I48.91 Venous insufficiency I87.2 Acute on chronic anemia D64.9 Gram-positive cocci bacteremia R78.81 Tobacco abuse Z72.0 Dyslipidemia E78.5 ARDS (adult respiratory distress syndrome) J80
--- NOTE | 2020-10-10 10:55 | DCPLANNER ---
Pg 2 of IM updated and reviewed with pt. Copy sent in with Nursing.
--- NOTE | 2020-10-10 15:51 | PC.OT ---
skilled OT treatment not provided today due to patient scheduled for discharge.
== END 2020-10-10 17:28 | disposition skilled nursing facility (03) | DRG 177 ==
LOC: ER 07:46 → ICU 10:53 → MEDSURG 10-07 17:01
PROVIDERS: Student in an Organized Health Care Education/Training Program; Admitting Provider Internal Medicine; Emergency Provider Emergency Medicine; PCP Family Medicine; Visit Provider Family Medicine
DX: U07.1 COVID-19 (principal); J12.89 Other viral pneumonia; J15.9 Unspecified bacterial pneumonia; J96.21 Acute and chronic respiratory failure with hypoxia; J96.22 Acute and chronic respiratory failure with hypercapnia; I50.43 Acute on chronic combined systolic (congestive) and diastolic (congestive) heart failure; E46 Unspecified protein-calorie malnutrition; N17.9 Acute kidney failure, unspecified; J43.9 Emphysema, unspecified; Z99.81 Dependence on supplemental oxygen; N18.2 Chronic kidney disease, stage 2 (mild); Z86.711 Personal history of pulmonary embolism; I48.91 Unspecified atrial fibrillation; Z79.01 Long term (current) use of anticoagulants; I25.5 Ischemic cardiomyopathy; I25.10 Atherosclerotic heart disease of native coronary artery without angina pectoris; I73.9 Peripheral vascular disease, unspecified; D64.9 Anemia, unspecified; Z68.25 Body mass index [BMI] 25.0-25.9, adult; K21.9 Gastro-esophageal reflux disease without esophagitis; N40.1 Benign prostatic hyperplasia with lower urinary tract symptoms; N39.41 Urge incontinence; E78.5 Hyperlipidemia, unspecified; I25.2 Old myocardial infarction; I27.20 Pulmonary hypertension, unspecified; F17.210 Nicotine dependence, cigarettes, uncomplicated; Z79.891 Long term (current) use of opiate analgesic; Z79.82 Long term (current) use of aspirin; J84.10 Pulmonary fibrosis, unspecified; Z96.642 Presence of left artificial hip joint
CPT/HCPCS: 12345; 36415; 36430; 36600; 51702; 71045; 71275; 80053; 80162; 80202; 81001; 82550; 82728; 82803; 82805; 83036; 83540; 83550; 83605; 83615; 83735; 83880; 84100; 84145; 84443; 84484; 85007; 85025; 85378; 85384; 85610; 86140; 86850; 86900; 86920; 87040; 87641; 87804; 90471; 90732; 93005; 93306; 94640; 94660; 96375; 97110; 97116; 97161; 97166; 97530; 97535; 99284; C9113; J0456; J0696; J1100; J1756; J1940; J2405; J2543; J3370; J3535; J7030; J7050; P9016; Q9967

== ENCOUNTER → 2020-12-18 10:36 | Outpatient (BNVA) | payer MEDICARE, MEDICAID, OTHER, SELFPAY | PROVIDERS: PCP Family Medicine; Visit Provider Urology | DX: N39.41 Urge incontinence (principal) | CPT/HCPCS: 81003 ==

== ENCOUNTER → 2021-05-01 10:18 | Outpatient (BNVA) | payer MEDICARE, MEDICAID, SELFPAY | PROVIDERS: PCP Family Medicine; Visit Provider Urology | DX: N39.41 Urge incontinence (principal); N30.00 Acute cystitis without hematuria | CPT/HCPCS: 81003 ==

== ENCOUNTER → 2021-09-26 09:06 | Outpatient (BNVA) | payer MEDICARE, MEDICAID, SELFPAY | PROVIDERS: PCP Family Medicine; Visit Provider Anesthesiology Pain Medicine | DX: G89.29 Other chronic pain (principal); M79.18 Myalgia, other site; M54.2 Cervicalgia; M51.16 Intervertebral disc disorders with radiculopathy, lumbar region; F17.200 Nicotine dependence, unspecified, uncomplicated; Z79.891 Long term (current) use of opiate analgesic | CPT/HCPCS: 20553; 99205; J1030; J3490 ==

== ENCOUNTER 2021-11-19 10:25 | Outpatient (CLI) | payer MEDICARE, MEDICAID, SELFPAY ==
--- NOTE | 2021-11-19 11:00 | CT_ITS ---
WS: [id number] CT cervical spine. Additional two-dimensional coronal and sagittal reconstruction was performed. 10/24 Clinical Data: M54.12 - Radiculopathy, cervical region Comparison: CT cervical spine, 01/07/2019. DLP: 1804.[address] scans at [facility] use at least one of these dose optimization techniques: automated e xposure control; mA and/or kV adjustment per patient size (includes targeted exams where dose is matc hed to clinical indication); or iterative reconstruction. Findings: No new compression fractures are seen. There is degenerative arthritic change involving the cervical vertebral bodies from C3 through C7 with accompanying disc narrowing. There is an exaggerated lordosi s. There are circumferential wires at the spinous processes and lamina of C2-C4. There is a 0.2 cm humphrey bluxation of C6 on C7 and C7 on T1 unchanged. There is facet joint arthritis from C3-4 through C7. Th ere is bilateral upper lobe bullous emphysema. There is vascular calcification both carotid bifurcati ons. CT/CT cervical spin wo con* [id number] Impression: No change from prior CT cervical spine.
--- NOTE | 2021-11-19 11:15 | CT_ITS ---
WS: [id number] CT of the lumbar spine, additional two-dimensional coronal and sagittal imaging was obtained. 021 Clinical Data: M51.16 - Intervertebral disc disorders with radiculopathy... Comparison: MRI lumbar spine, 12/13/2014. DLP: 1624.[address] scans at [facility] use at least one of these dose optimization techniques: automated e xposure control; mA and/or kV adjustment per patient size (includes targeted exams where dose is matc hed to clinical indication); or iterative reconstruction. Findings: There is a dextroscoliosis of the lumbar spine with degenerative disc narrowing at all lumb ar levels. There is osteoarthritis of all the lumbar vertebral bodies. There is a subluxation of 0.3 cm of L4 on L5. No compression fractures are seen. There is facet joint arthritis at all levels. The abdominal aorta shows mild dilatation to 2.6 cm. T12-L1: There is minimal central disc bulge causing mild canal stenosis along with facet joint arthri tis. L1-L2: There is minimal central disc bulging causing mild canal stenosis along with facet joint arthr itis. L2-L3: There is mild central disc bulging with significant facet joint arthritis causing mild canal a nd foraminal stenosis. L3-L4: There is minimal central disc bulging along with facet joint arthritis causing canal and rickey inal stenosis. L4-L5: There is moderate central disc bulging along with severe facet joint arthritis causing canal a nd foraminal stenosis. L5-S1: There is mild central disc bulging along with severe facet joint arthritis causing canal and f oraminal stenosis. CT/CT lumbar spine wo con* [id number] Impression: 1. Dextroscoliosis, degenerative disc narrowing and osteoarthritis at all level s. 2. Multilevel disc bulging and facet joint arthritis causing foraminal and arron l stenosis.
== END 2021-11-19 10:26 | disposition home or self-care (01) ==
PROVIDERS: PCP Family Medicine; Visit Provider Anesthesiology Pain Medicine
DX: M51.16 Intervertebral disc disorders with radiculopathy, lumbar region (principal); M41.86 Other forms of scoliosis, lumbar region; M48.061 Spinal stenosis, lumbar region without neurogenic claudication; M51.26 Other intervertebral disc displacement, lumbar region
CPT/HCPCS: 72125; 72131

== ENCOUNTER → 2022-02-06 09:59 | Outpatient (BNVA) | payer MEDICARE, MEDICAID, SELFPAY | PROVIDERS: PCP Family Medicine; Visit Provider Nurse Practitioner Family | DX: N40.1 Benign prostatic hyperplasia with lower urinary tract symptoms (principal); N13.8 Other obstructive and reflux uropathy; N39.41 Urge incontinence | CPT/HCPCS: 81003 ==

== ENCOUNTER 2022-03-12 08:59 | Emergency (ER) | payer MEDICARE, MEDICAID, SELFPAY ==
--- NOTE | 2022-03-12 09:03 | ED_ITS ---
HPI - General Adult General: Chief complaint: Abdominal Pain Stated complaint: CONSTIPATED/ HIP PAIN Time Seen by Provider: 03/12/22 09:01 Source: patient Mode of arrival: ambulatory Limitations: no limitations History of Present Illness: 76-year-old male who was resident of a alf evidently called the ambulance himself because he is complaining of hip pain and not being able to have bowel movement for the last week. EMS arrived at the facility and supposedly the facility was not aware that they had been contacted directly by the patient on arrival here he is awake and alert is complaining of chronic painIn the left hip. He is also complaining of abdominal discomfort and bloating states is not a bowel movement for well over a week. Denies hematochezia melena hematemesis cough cramps no fever sweats chills dysuria urgency or frequency Onset (ago): minute(s) Location: pelvis (Left hip) Radiation: non-radiation Severity: mild Quality: aching Pain Consistency: intermittent Relieving factors: none Exacerbating factors: none Associated symptoms: Deny chest pain, confusion, cough, diaphoresis, decreased appetite, dyspnea, fevers/chills, headache(s), malaise, nausea, rash, palpitations, seizures, short of breath, syncope, vomiting or weakness Review of Systems Const: Denies: fever(s), chills, malaise or diaphoresis Card: Denies: chest pain, palpitations or syncope Resp: Denies: dyspnea GI: Reports: abdominal pain (Cramping intermittent), constipation and 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; Denies: nausea or vomiting : Denies: flank pain, dysuria, urinary frequency or urinary urgency Skin/Breast: Denies: rash Neuro: Denies: headache(s) or confusion PFS ED PFSH: Medical History Anemia Anticoagulation adequate with anticoagulant therapy Eliquis Ascending aorta dilatation Atrial fibrillation BPH (benign prostatic hyperplasia) CHF (congestive heart failure) COPD (chronic obstructive pulmonary disease) DVT (deep venous thrombosis) Dyslipidemia Edema GERD (gastroesophageal reflux disease) Ischemic cardiomyopathy Left bundle branch block Myocardial infarction Pulmonary embolism Pulmonary HTN Tobacco abuse Urgency incontinence Venous insufficiency Surgical History History of left hip replacement Hx of facial fracture repair Hx of neck surgery S/P hip replacement Family History Father , at age 76 CAD (coronary artery disease) Myocardial infarction Mother , at age 80 Blood clot associated with vein wall inflammation Social History Smoking and tobacco status: current every day smoker Alcohol intake: never Adopted: No Caregiver/support person: No Lives independently: No Household members: spouse Marital status: Current occupational status: retired History of recent travel: No Course Vital Signs: Vital signs: Vital Signs Temperature 97.9 F 03/12/22 09:07 Pulse Rate 64 03/12/22 14:41 Respiratory Rate 18 03/12/22 14:41 Blood Pressure 108/66 03/12/22 12:17 Pulse Oximetry 100 03/12/22 14:41 MDM - General Adult Medical Decision Making KUB shows constipation no fractures patient has passive range of motion without pain knees and hips. We will go ahead and discharge him back to the alf with aggressive bowel therapy. Medical Records I reviewed the patient's medical records. Lab Data I reviewed the patient's lab results. : 03/12/22 09:26 03/12/22 10:46 Radiology Impressions Hip/Pelvis X-Ray 03/12/22 09:04 IMPRESSION: 1. Total left hip arthroplasty in satisfactory position. No indication of fracture or loosening. KUB X-Ray 03/12/22 09:04 IMPRESSION: 1. Marked constipation with rectal fecal impaction. 2. No acute abdominal process. Laboratory Results WBC 8.2 10^3/uL (4.0-10.0) 03/12/22 09:26 RBC 4.42 10^6/uL (4.1-5.3) 03/12/22 09:26 Hgb 12.6 g/dL (11.7-16.6) 03/12/22 09:26 Hct 40.3 % (42.0-52.0) L 03/12/22 09:26 MCV 91.2 fl (80-94) 03/12/22 09:26 MCH 28.5 pg (28.0-34.0) 03/12/22 09:26 MCHC 31.3 g/dL (30.0-36.0) 03/12/22 09: RDW 13.9 % (12.1-15.1) 03/12/22 09: Plt Count 145 10^3/cmm (130-400) 03/12/22 09: MPV 11.5 fL (7.4-10.4) H 03/12/22 09: Neut % (Auto) 75.4 % 03/12/22 09: Lymph % (Auto) 16.8 % 03/12/22 09: [place] % (Auto) 5.5 % 03/12/22 09: Eos % (Auto) 1.7 % 03/12/22 09: Baso % (Auto) 0.4 % 03/12/22 09: Neut # (Auto) 6.14 10^3/uL (1.8-7.7) 03/12/22 09: Lymph # (Auto) 1.4 10^3/uL (0.8-4.8) 03/12/22 09: [place] # (Auto) 0.5 10^3/uL (0.2-0.9) 03/12/22 09: Eos # (Auto) 0.1 10^3/uL (0.0-0.8) 03/12/22 09: Baso # (Auto) 0.0 10^3/uL (0.0-0.1) 03/12/22 09: Nucleated RBC % (auto) 0 % 03/12/22 09: Nucleated RBCs # 0.0 /100WBC 03/12/22 09:26 Sodium 139 mmol/L (136-145) 03/12/22 10:46 Potassium 5.0 mmol/L (3.5-5.1) 03/12/22 10:46 Chloride 102 mmol/L (98-107) 03/12/22 10:46 Carbon Dioxide 27 mmol/L (22-29) 03/12/22 10:46 Anion Gap 15.0 (5-19) 03/12/22 10:46 BUN 39 mg/dL (8-23) H 03/12/22 10:46 Creatinine 1.2 mg/dL (0.7-1.2) 03/12/22 10:46 GFR Calculation Not Reportable 03/12/22 10:46 Glucose 92 mg/dL (65-115) 03/12/22 10:46 Calculated Osmolality 297 mOsm/kg (285-295) H 03/12/22 10:46 Calcium 10.2 mg/dL (8.5-10.5) 03/12/22 10:46 Total Bilirubin 0.3 mg/dL (0.15-1.2) 03/12/22 10:46 AST 13 U/L (0-40) 03/12/22 10:46 ALT 6 U/L (0-41) 03/12/22 10:46 Alkaline Phosphatase 128 IU/L (40-130) 03/12/22 10:46 Total Protein 7.5 g/dL (6.6-8.7) 03/12/22 10:46 Albumin 3.5 g/dL (3.5-5.2) 03/12/22 10:46 Globulin 4.0 g/dL (1.3-4.6) 03/12/22 10:46 Discharge Plan Discharge Patient Disposition: Home Clinical Impression: Constipation, Chronic left hip pain Condition: Stable Prescriptions: Changed Miralax 17 gram Powder In Packet 17 g PO DAILY Qty: 0 0RF No Action furosemide 40 mg tablet 40 mg PO DAILY 0RF Systane Balance 0.6 % drops 1 drp ophthalmic (eye) TID PRN0RF pantoprazole 40 mg tablet,delayed release (DR/EC) 40 mg PO DAILY 0RF magnesium hydroxide [Milk of Magnesia] 400 mg/5 mL suspension 30 ml PO DAILY PRN0RF Enema 19-7 gram/118 mL enema 118 ml VT DAILY PRN0RF bisacodyl 10 mg suppository 10 mg VT DAILY PRN0RF albuterol sulfate 90 mcg/actuation HFA aerosol inhaler 1 puff inhalation Q6H PRN0RF docusate sodium [Colace] 100 mg capsule 100 mg PO BID 0RF aspirin [Adult Aspirin Regimen] 81 mg tablet,delayed release (DR/EC) 81 mg PO DAILY 0RF buspirone 5 mg tablet 5 mg PO BID 0RF [place] Saline 0.65 % drops 2 drp intranasal QID PRN0RF ondansetron HCl 4 mg tablet 4 mg PO .prn 0RF solifenacin 5 mg tablet 5 mg PO DAILY Qty: 30 12RF triamcinolone acetonide 0.1 % ointment 1 applic topical BID Qty: 453.6 2RF Rx Instructions: Apply BID to affected area on lower legs no more than 2 weeks per month hydrocodone-acetaminophen 5-325 mg tablet 1 tab PO Q4H PRN (Reason: pain) 30 Days Qty: 180 0RF sennosides [senna] 8.6 mg Tablet 17.2 mg PO BID 0RF aspirin [Aspir-81] 81 mg Tablet,Delayed Release (Dr/Ec) 81 mg PO DAILY 0RF tamsulosin [Flomax] 0.4 mg Capsule 0.4 mg PO BEDTIME 0RF finasteride 5 mg Tablet 5 mg PO DAILY 0RF trazodone 100 mg tablet 50 mg PO BEDTIME 0RF fluoxetine [Prozac] 20 mg capsule 40 mg PO DAILY 0RF Ativan 0.5 mg Tablet 0.5 mg PO Q6H PRN (Reason: Anxiety) 0RF TwoCal HN 0.08-2 gram-kcal/mL Liquid 30 ea PO TID 0RF Spiriva with HandiHaler 18 mcg Capsule, W/Inhalation Device 18 mcg inhalation DAILY.RESPIRATORY Qty: 30 0RF Discharge Orders: Discharge ED (Routine); Ordered 03/12/22 Ordered By: Cory Webster Referrals: Renzo Pate MD [Primary Care Provider] - Discharge Diet: Usual diet Discharge Activity: Resume usual activity Patient Instructions: Opioid Safety Activity Restrictions/Additional Instructions: Use MiraLAX daily rather than as needed follow-up with your primary care Coding Level of Care Code ED Supervisor [employer] Vehicle for Christina Dangelo
--- NOTE | 2022-03-12 09:04 | XR_ITS ---
WS: [email or web address] Exam: XR KUB portable [id number] Date/Time of Exam: 03/12/2022 9:36 AM Reason For Exam: constipatioon No bowel obstruction or free air. Marked stool retention throughout the large bowel with rectal fecal impaction. Organ margins are obscured. Degenerative change and dextroscoliosis of the lumbar spine. Total hip replacement on the left. XR/XR KUB portable [id number] IMPRESSION: 1. Marked constipation with rectal fecal impaction. 2. No acute abdominal process.
--- NOTE | 2022-03-12 09:04 | XR_ITS ---
WS: [email or web address] Exam: XR hip LT 2-3V wo/w pel* [id number] Date/Time of Exam: 03/12/2022 9:36 AM Reason For Exam: pain Comparison 08/15/2020. Total hip replacement on the left appears to be intact. No fracture or loosening. Plate and cable fix ation of the upper femur is unchanged in appearance. XR/XR hip LT 2-3V wo/w pel* [id number] IMPRESSION: 1. Total left hip arthroplasty in satisfactory position. No indication of fract ure or loosening.
[2022-03-12 09:07] VITALS: BP 150/70; PULSE 54; RESP 24; TEMP 36.6; O2SAT 99; BMI 22.0
[2022-03-12 09:14] VITALS: BP 157/70; PULSE 39; RESP 19; O2SAT 92
[2022-03-12 09:37] LABS: Basophils % 0.4 %; Eosinophils # 0.1 10^3/uL (0.0-0.8); Eosinophils % 1.7 %; Hematocrit 40.3 % (42.0-52.0); Hemoglobin 12.6 g/dL (11.7-16.6); Lymphocytes # 1.4 10^3/uL (0.8-4.8); Lymphocytes % 16.8 %; Mean Corpuscular HGB Conc 31.3 g/dL (30.0-36.0); Mean Corpuscular Hemoglobin 28.5 pg (28.0-34.0); Mean Corpuscular Volume 91.2 fl (80-94); Mean Platelet Volume 11.5 fL (7.4-10.4); Monocytes # 0.5 10^3/uL (0.2-0.9); Monocytes % 5.5 %; Neutrophils # 6.14 10^3/uL (1.8-7.7); Neutrophils % 75.4 %; Nucleated Red Blood Cells % 0 %; Platelet Count 145 10^3/cmm (130-400); Red Blood Count 4.42 10^6/uL (4.1-5.3); Red Cell Distribution Width 13.9 % (12.1-15.1); White Blood Count 8.2 10^3/uL (4.0-10.0)
[2022-03-12 11:37] LABS: Alanine Aminotransferase 6 U/L (0-41); Albumin Level 3.5 g/dL (3.5-5.2); Alkaline Phosphatase 128 IU/L (40-130); Blood Urea Nitrogen 39 mg/dL (8-23); Calcium 10.2 mg/dL (8.5-10.5); Carbon Dioxide 27 mmol/L (22-29); Chloride 102 mmol/L (98-107); Glucose 92 mg/dL (65-115); Osmolality Calculated 297 mOsm/kg (285-295); Sodium 139 mmol/L (136-145); Total Bilirubin 0.3 mg/dL (0.15-1.2); Total Protein 7.5 g/dL (6.6-8.7)
[2022-03-12 11:54] LABS: Aspartate Amino Transferase 13 U/L (0-40)
[2022-03-12 12:17] VITALS: BP 108/66; PULSE 62; RESP 20; O2SAT 100
[2022-03-12 14:41] VITALS: PULSE 64; RESP 18; O2SAT 100
== END 2022-03-12 14:44 | disposition home or self-care (01) ==
PROVIDERS: Emergency Provider Family Medicine; PCP Internal Medicine
DX: K59.00 Constipation, unspecified (principal); G89.29 Other chronic pain; F17.210 Nicotine dependence, cigarettes, uncomplicated; Z96.642 Presence of left artificial hip joint; Z79.82 Long term (current) use of aspirin; Z79.891 Long term (current) use of opiate analgesic
CPT/HCPCS: 45915; 73502; 74018; 80053; 85025; 99283

== ENCOUNTER → 2022-03-26 11:19 | Outpatient (BNVA) | payer MEDICARE, MEDICAID, SELFPAY | PROVIDERS: PCP Internal Medicine; Visit Provider Surgery | DX: R19.4 Change in bowel habit (principal); Z80.0 Family history of malignant neoplasm of digestive organs | CPT/HCPCS: 99203 ==

== ENCOUNTER → 2022-04-07 12:18 | Outpatient (BNVA) | payer MEDICARE, MEDICAID, SELFPAY | PROVIDERS: PCP Internal Medicine; Visit Provider Urology | DX: N30.00 Acute cystitis without hematuria (principal); N39.41 Urge incontinence | CPT/HCPCS: 51798; 81003; 87086; 99213 ==

== ENCOUNTER 2022-04-11 21:21 | Emergency (ER) | payer MEDICARE, MEDICAID, SELFPAY ==
[2022-04-11 21:25] VITALS: BP 125/83; PULSE 51; RESP 18; TEMP 36.3; O2SAT 96; BMI 21.5
--- NOTE | 2022-04-11 21:25 | XRR_ITS ---
PROCEDURE INFORMATION: Exam: XR Abdomen Exam date and time: 04/11/2022 9:30 PM Age: 76 years old Clinical indication: Abdominal pain; Generalized; Additional info: Constipation TECHNIQUE: Imaging protocol: XR of the abdomen. Views: Frontal supine view of the abdomen. 1 View. COMPARISON: CR XR KUB portable [id number] 03/12/2022 9:27 AM FINDINGS: Gastrointestinal tract: There is moderate amount of formed stool in the colon without bowel dilation. Bones/joints: Left hip arthroplasty is in place. No evidence of loosening. Dextroscoliosis of the lumbar spine. XR/XR KUB portable [id number] IMPRESSION: Moderate constipation.
--- NOTE | 2022-04-11 21:29 | XRR_ITS ---
PROCEDURE INFORMATION: Exam: XR Left Hip Exam date and time: 04/11/2022 10:00 PM Age: 76 years old Clinical indication: Hip pain; Left hip; Prior surgery; Surgery date: 6+ months; Surgery type: Lt. Hip; Additional info: Injury TECHNIQUE: Imaging protocol: XR Left hip. Views: 2 or 3 views hip with pelvis when performed. COMPARISON: CR XR hip LT 2-3V wo/w pel* [id number] 03/12/2022 9:23 AM FINDINGS: Tubes, catheters and devices: Cerclage wires are in place. No evidence of loosening. Bones/joints: Left hip arthroplasty is in place. No acute fracture or dislocation. Soft tissues: Unremarkable. XR/XR hip LT 2-3V wo/w pel* [id number] IMPRESSION: 1. No acute fracture or dislocation. 2. Stable appearance of a left total hip arthroplasty.
[2022-04-11 21:32] VITALS: PULSE 52; RESP 16; O2SAT 95
--- NOTE | 2022-04-11 21:33 | ED_ITS ---
HPI - General Adult General: Chief complaint: General Medical Stated complaint: costipation/chronic pain Time Seen by Provider: 04/11/22 21:25 Source: patient and EMS Mode of arrival: EMS Limitations: no limitations History of Present Illness: 76-year-old male who is here from [facility] he states that he has chronic left hip pain. He states he has been having that pain for years he states he slipped and fell 2 weeks ago and is caused worsening pain. He states he is also had chronic constipation and is concerned he has not had a bowel movement in a few days. He states the pain in his hip is a 4 out of 10 he denies any abdominal pain no vomiting no fever he is well-appearing here. Associated symptoms: Deny chest pain, dyspnea, headache(s) or rash Review of Systems Const: Denies: fever(s), chills, body aches or change in appetite Eyes: Denies: blurry vision or eye discomfort ENMT: Denies: throat pain or dental pain Card: Denies: chest pain Resp: Denies: dyspnea GI: Reports: constipation : Denies: dysuria Musc: Reports: extremity pain Skin/Breast: Denies: rash Neuro: Denies: headache(s) Psych: Denies: depression Juan/Lymph: Denies: easy bruising All/Imm: Denies: urticaria PFSH ED PFSH: Medical History Anemia Anticoagulation adequate with anticoagulant therapy Eliquis Anxiety Ascending aorta dilatation Atrial fibrillation BPH (benign prostatic hyperplasia) CHF (congestive heart failure) Chronic pain COPD (chronic obstructive pulmonary disease) DVT (deep venous thrombosis) Dyslipidemia Edema GERD (gastroesophageal reflux disease) Ischemic cardiomyopathy Left bundle branch block Myocardial infarction Pulmonary embolism Pulmonary HTN Tobacco abuse Urgency incontinence Venous insufficiency Surgical History History of left hip replacement Hx of facial fracture repair Hx of neck surgery S/P hip replacement Family History Father , at age 76 CAD (coronary artery disease) Myocardial infarction Mother , at age 80 Blood clot associated with vein wall inflammation Social History Smoking and tobacco status: current every day smoker Alcohol intake: never Adopted: No Caregiver/support person: No Lives independently: No Household members: spouse Marital status: Current occupational status: retired History of recent travel: No Physical Exam Const: COMMON NORMALS: no acute distress, patient oriented x3 and healthy appearing HENMT: COMMON NORMALS: normocephalic and atraumatic HEAD & SCALP: normocephalic and atraumatic Eye: COMMON NORMALS: Equal, round and reactive pupils present and EOMs intact bilaterally PUPIL: Yes Equal, round and reactive pupils present Neck/C-Spine: COMMON NORMALS: full ROM and supple Chest: COMMONS NORMALS: normal inspection of the chest and normal palpation of entire chest wall Resp: COMMON NORMALS: normal respiratory effort, No retractions, No use of accessory muscles and clear to auscultation bilaterally AUSCULTATION: clear to auscultation bilaterally Cardio: COMMON NORMALS: regular rate, regular rhythm and No murmurs present (Cardio) RATE: regular rate RHYTHM: regular rhythm GI: COMMON NORMALS: Normal to inspection, nondistended, normoactive bowel sounds present, Soft to palpation, non-tender and no masses PALPATION: Yes Soft to palpation Extremity: COMMON NORMALS: normal to inspection and full ROM Neuro: COMMON NORMALS: patient oriented x3, moves all extremities and no focal motor deficits Psych: COMMON NORMALS: mental status grossly normal, Normal thought process present and cooperative THOUGHT PROCESS: Normal thought process present Skin: COMMON NORMALS: no rashes or lesions noted and no wounds GENERAL SKIN EXAM: no rashes or lesions noted Course Vital Signs: Vital signs: Vital Signs Temperature 97.4 F L 04/11/22 21:25 Pulse Rate 52 L 04/11/22 21:32 Respiratory Rate 20 H 04/11/22 21:39 Blood Pressure 125/83 04/11/22 21:25 Pulse Oximetry 96 04/11/22 21:39 MDM - General Adult Medical Decision Making Patient presents here with chronic hip pain along with constipation well- appearing here exam here is benign no signs of obstruction vitals here are normal is able to fully range his hip with no pain with range of motion x-ray shows no acute findings he is stable for discharge we will place him on [facility] patient given lactulose here he is to follow-up with PCP and return if worsening. Lab Data Radiology Impressions KUB X-Ray 04/11/22 21:25 IMPRESSION: Moderate constipation. Hip/Pelvis X-Ray 04/11/22 21:29 IMPRESSION: 1. No acute fracture or dislocation. 2. Stable appearance of a left total hip arthroplasty. Discharge Plan Discharge Patient Disposition: Home Clinical Impression: Constipation Qualifiers: Constipation type: unspecified constipation type Qualified Code(s): K59.00 - Constipation, unspecified Chronic hip pain Qualifiers: Laterality: left Qualified Code(s): M25.552 - Pain in left hip Condition: Stable Prescriptions: [place] [id number] -5.86 gram recon soln 25 ml PO Q1M Qty: 4000 0RF Rx Instructions: until fecal effluent is clear No Action furosemide 40 mg tablet 40 mg PO DAILY 0RF Systane Balance 0.6 % drops 1 drp ophthalmic (eye) TID PRN0RF pantoprazole 40 mg tablet,delayed release (DR/EC) 40 mg PO DAILY 0RF magnesium hydroxide [Milk of Magnesia] 400 mg/5 mL suspension 30 ml PO DAILY PRN0RF albuterol sulfate 90 mcg/actuation HFA aerosol inhaler 1 puff inhalation Q6H PRN0RF docusate sodium [Colace] 100 mg capsule 100 mg PO BID 0RF aspirin [Adult Aspirin Regimen] 81 mg tablet,delayed release (DR/EC) 81 mg PO DAILY 0RF buspirone 5 mg tablet 5 mg PO BID 0RF [place] Saline 0.65 % drops 2 drp intranasal QID PRN0RF ondansetron HCl 4 mg tablet 4 mg PO .prn 0RF doxycycline hyclate 100 mg tablet 100 mg PO BID Qty: 60 4RF tamsulosin [Flomax] 0.4 mg capsule 0.4 mg PO BID Qty: 180 3RF lorazepam [Ativan] 1 mg tablet 1 mg PO TID 0RF solifenacin 5 mg tablet 5 mg PO DAILY Qty: 30 12RF triamcinolone acetonide 0.1 % ointment 1 applic topical BID Qty: 453.6 2RF Rx Instructions: Apply BID to affected area on lower legs no more than 2 weeks per month hydrocodone-acetaminophen 5-325 mg tablet 1 tab PO Q4H PRN (Reason: pain) 30 Days Qty: 180 0RF sennosides [senna] 8.6 mg Tablet 17.2 mg PO BID 0RF finasteride 5 mg Tablet 5 mg PO DAILY 0RF trazodone 100 mg tablet 50 mg PO BEDTIME 0RF fluoxetine [Prozac] 20 mg capsule 40 mg PO DAILY 0RF Miralax 17 gram Powder In Packet 17 g PO DAILY Qty: 0 0RF Discharge Orders: Discharge ED (Routine); Ordered 04/11/22 Ordered By: Alonso Mckenzie Referrals: Renzo Pate MD [Primary Care Provider] - 1-3 days Discharge Diet: Advance as tolerated Discharge Activity: Resume usual activity Patient Instructions: Constipation (ED), Hip Pain (ED) Coding Level of Care Code ED Hall Monitor for Christina Fwd Exam Comprehensive
[2022-04-11 21:39] VITALS: RESP 20; O2SAT 96
[2022-04-11] MEDS: morphine 4 mg/mL SDV 1 mL IM (21:39)
[2022-04-11] MEDS: ondansetron 2 mg/ML SDV 2 mL 4 MG IM (21:39)
[2022-04-11] MEDS: lactulose oral liq 20 gm/30 mL UDC PO (21:40)
[2022-04-12 06:29] VITALS: BP 127/74; PULSE 91; RESP 16; TEMP 36.3; O2SAT 95
== END 2022-04-12 08:30 | disposition home or self-care (01) ==
PROVIDERS: Emergency Provider Emergency Medicine; PCP Internal Medicine
DX: K59.00 Constipation, unspecified (principal); M25.552 Pain in left hip; G89.29 Other chronic pain; Z96.642 Presence of left artificial hip joint
CPT/HCPCS: 73502; 74018; 96372; 99284; J2270; J2405

== ENCOUNTER 2022-05-15 12:52 | Emergency (ER) | payer MEDICARE, MEDICAID, SELFPAY ==
[2022-05-15] VITALS (7 sets, daily range): BP systolic 126–150; BP diastolic 64–80; PULSE 60–93; RESP 16–24; TEMP 36.3; O2SAT 91–100; BMI 21.4
--- NOTE | 2022-05-15 13:13 | XR_ITS ---
WS: [id number] Exam: XR chest 1V portable [id number] Date/Time of Exam: 05/15/2022 1:15 PM Reason For Exam: dyspnea Comparison 10/09/2020. The lungs are hyperinflated and clear. The heart is enlarged but unchanged in size. No pleural effusi ons or pneumothorax. Chronic interstitial changes. Bony structures are intact. 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 DJD of the left shoulder. XR/XR chest 1V portable [id number] IMPRESSION: 1. Pulmonary hyperinflation which may indicate COPD. No acute process noted. 2. Mild cardiac enlargement unchanged.
--- NOTE | 2022-05-15 13:13 | ECG_ITS ---
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 Measurements Intervals Dierks Rate: 82 P: 60 LA: 197 QRS: 88 QRSD: 174 T: -12 QT: 425 QTc: 498 Interpretive Statements SINUS RHYTHM WITH FREQUENT VENTRICULAR PREMATURE COMPLEXES WITH OCCASIONAL SUPRAVENTRICULAR PREMATURE COMPLEXES LEFT BUNDLE BRANCH BLOCK [120+ ms QRS DURATION, 80+ ms Q/S IN V1/V2, 85+ ms R IN I/aVL/V5/V6] Compared to ECG 10/07/2020 03:48:08 Ventricular premature complex(es) now present Left bundle-branch block now present Sinus bradycardia no longer present First degree AV block no longer present Intraventricular conduction delay no longer present Electronically Signed On 05-15-2022 22:29:59 CDT by Demetrius Rosenthal M.D. [id number]
--- NOTE | 2022-05-15 13:16 | ED_ITS ---
HPI - Skin/Abscess/Foreign Bdy General: Chief complaint: Skin/Abscess/Foreign Body Stated complaint: worsening cellulitis Time Seen by Provider: 05/15/22 12:52 PFSH ED PFSH: Medical History Anemia Anticoagulation adequate with anticoagulant therapy Eliquis Anxiety Ascending aorta dilatation Atrial fibrillation BPH (benign prostatic hyperplasia) CHF (congestive heart failure) Chronic pain COPD (chronic obstructive pulmonary disease) DVT (deep venous thrombosis) Dyslipidemia Edema GERD (gastroesophageal reflux disease) Ischemic cardiomyopathy Left bundle branch block Myocardial infarction Pulmonary embolism Pulmonary HTN Tobacco abuse Urgency incontinence Venous insufficiency Surgical History History of left hip replacement Hx of facial fracture repair Hx of neck surgery S/P hip replacement Family History Father , at age 76 CAD (coronary artery disease) Myocardial infarction Mother , at age 80 Blood clot associated with vein wall inflammation Social History Smoking and tobacco status: current every day smoker Alcohol intake: never Adopted: No Caregiver/support person: No Lives independently: No Household members: spouse Marital status: Current occupational status: retired History of recent travel: No Course Vital Signs: Vital signs: Vital Signs Temperature 97.3 F L 05/15/22 13:02 Pulse Rate 93 05/15/22 13:02 Respiratory Rate 24 H 05/15/22 13:02 Blood Pressure 134/80 05/15/22 13:02 Pulse Oximetry 91 05/15/22 13:02 Discharge Plan Discharge Condition: Stable Prescriptions: No Action pantoprazole 40 mg tablet,delayed release (DR/EC) 40 mg PO DAILY 0RF magnesium hydroxide [Milk of Magnesia] 400 mg/5 mL suspension 30 ml PO DAILY PRN (Reason: Constipation) 0RF albuterol sulfate 90 mcg/actuation HFA aerosol inhaler 1 puff inhalation Q6H PRN (Reason: Shortness Of Breath) 0RF docusate sodium [Colace] 100 mg capsule 100 mg PO BID 0RF aspirin [Adult Aspirin Regimen] 81 mg tablet,delayed release (DR/EC) 81 mg PO DAILY 0RF buspirone 5 mg tablet 5 mg PO BID 0RF [place] Saline 0.65 % drops 2 drp intranasal QID PRN (Reason: Nasal Congestion) 0RF ondansetron HCl 4 mg tablet 4 mg PO Q4H PRN (Reason: Nausea) 0RF doxycycline hyclate 100 mg tablet 100 mg PO BID Qty: 60 4RF Rx Instructions: x 7 days tamsulosin [Flomax] 0.4 mg capsule 0.4 mg PO BID Qty: 180 3RF lorazepam [Ativan] 1 mg tablet 1 mg PO TID 0RF hydrocodone-acetaminophen 5-325 mg tablet 1 tab PO Q4H PRN (Reason: pain) 30 Days Qty: 180 0RF finasteride 5 mg Tablet 5 mg PO DAILY 0RF trazodone 100 mg tablet 50 mg PO BEDTIME 0RF fluoxetine [Prozac] 20 mg capsule 40 mg PO DAILY 0RF polyethylene glycol 3350 [Miralax] 17 gram Powder In Packet 17 g PO DAILY Qty: 0 0RF acetaminophen [Tylenol] 325 mg Tablet 650 mg PO Q4H PRN (Reason: Pain) 0RF Senna-S 8.6-50 mg Tablet 1 tab PO BID 0RF Lasix 20 mg Tablet 20 mg PO DAILY 0RF Refresh 1 % Drops, Liquid Gel 1 drp OPHTHALMIC (EYE) BID 0RF Spiriva with HandiHaler 18 mcg Capsule, W/Inhalation Device 1 cap INHALATION DAILY 0RF Referrals: Renzo Pate MD [Primary Care Provider] - Coding Level of Care Code ED Automatic 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
--- NOTE | 2022-05-15 13:19 | W.ED.GENADLT ---
HPI - General Adult General: Chief complaint: Skin/Abscess/Foreign Body Stated complaint: worsening cellulitis Time Seen by Provider: 05/15/22 12:52 History of Present Illness: Patient is a 76-year-old male with a history of history of CHF, COPD, pulmonary hypertension chronically on 2-3L of oxygen who presents the emergency room for concerns of cellulitis worsening x 2 weeks at [facility]. Patient tells me that he has been taking doxycycline for the last 2 weeks for redness on his arms. He tells me he was diagnosed with cellulitis by his primary care provider. Patient denies any fever or chills, rash on any other aspect of his body other than his arms. Patient denies oral mucosal involvement of the lesions. Patient reports a chronic cough. Denies any hemoptysis, productive phlegm, chest pain shortness of breath or difficulty breathing. En route per EMS, patient was noted to be satting at 89% on room air. Patient required 4L of oxygen to improve to 95%. Onset:2 weeks ago Duration:2 weeks Location: moderate Severity:moderate Associated symptoms: Deny chest pain, dyspnea, nausea, palpitations or vomiting Review of Systems Const: Denies: fever(s) or chills Eyes: Denies: change in vision ENMT: Denies: mouth pain Card: Denies: chest pain or palpitations Resp: Denies: dyspnea or non-productive cough GI: Denies: abdominal pain, nausea, vomiting or diarrhea : Denies: dysuria Musc: Denies: extremity pain Skin/Breast: Reports: new lesions (+b/l erythema over the arms, fragile skin with bleeding) Neuro: Denies: weakness in extremities Psych: Reports: other (Normal mood) Juan/Lymph: Denies: easy bruising PFS ED PFSH: Medical History Anemia Anticoagulation adequate with anticoagulant therapy Eliquis Anxiety Ascending aorta dilatation Atrial fibrillation BPH (benign prostatic hyperplasia) CHF (congestive heart failure) Chronic pain COPD (chronic obstructive pulmonary disease) DVT (deep venous thrombosis) Dyslipidemia Edema GERD (gastroesophageal reflux disease) Ischemic cardiomyopathy Left bundle branch block Myocardial infarction Pulmonary embolism Pulmonary HTN Tobacco abuse Urgency incontinence Venous insufficiency Surgical History History of left hip replacement Hx of facial fracture repair Hx of neck surgery S/P hip replacement Family History Father , at age 76 CAD (coronary artery disease) Myocardial infarction Mother , at age 80 Blood clot associated with vein wall inflammation Social History Smoking and tobacco status: current every day smoker Alcohol intake: never Adopted: No Caregiver/support person: No Lives independently: No Household members: spouse Marital status: Current occupational status: retired History of recent travel: No Physical Exam Const: COMMON NORMALS: alert HENMT: COMMON NORMALS: atraumatic HEAD & SCALP: atraumatic MOUTH: moist mucous membranes not abnormal Eye: COMMON NORMALS: EOMs intact bilaterally and conjunctivae normal CONJUNCTIVA: Yes conjunctivae normal Neck/C-Spine: COMMON NORMALS: full ROM and supple Resp: COMMON NORMALS: normal respiratory effort OTHER: +mild expiratory wheezes b/l Cardio: COMMON NORMALS: regular rate RATE: regular rate GI: COMMON NORMALS: Soft to palpation and non-tender PALPATION: Yes Soft to palpation Extremity: COMMON NORMALS: full ROM OTHER: +Diffuse erythema with with friable skin excoriations over the arms b/l +no crepitus or Neuro: SENSORIUM/ORIENTATION: Yes alert MOTOR EXAM: No Abnormal motor strength present and Other motor observations present (no focal motor deficits) Psych: COMMON NORMALS: speech normal SPEECH: Yes normal speech MOOD & AFFECT: Yes euthymic mood Course Vital Signs: Vital signs: Vital Signs Temperature 97.3 F L 05/15/22 13:02 Pulse Rate 60 05/15/22 16:10 Respiratory Rate 16 05/15/22 16:10 Blood Pressure 126/78 05/15/22 16:10 Pulse Oximetry 94 05/15/22 16:10 MDM - General Adult Medical Decision Making 68-year-old male with a history of pulmonary hypertension, CHF, COPD on 2-3L at baseline presenting to emergency room with concerns of worsening rash over the arms. Patient is noted to have a friable erythema excoriation on both of the arms. Lesions are not warm to palpation there is no bulla/crepitus or weeping. Patient is hemodynamically stable. Patient is noted to be satting at 95% on 4 L oxygen. Wheezes noted bilaterally. Patient is received DuoNeb in the emergency room. Case was discussed with Dr. Siena Brooks who thinks that this is likely photodermatitis from doxycycline. Dr. Brooks recommended topical steroids and switching patient to Keflex. Dr. Brooks would like to see patient in clinic in 1-2 weeks. Patient received 500 mg Keflex in the emergency room. Troponin similar to baseline. Potassium 5.4 without any findings of hyperkalemia on EKG. Patient is noted to have PVCs. Patient is now satting 94% on 3L of oxygen. No suspicion for respiratory compromise. Rx cephalexin 500mg BID for cellulitis, triamincolone for photodermatitis Disposition: Discharge. Patient counseled regarding diagnostic impression, treatment plan. Patient given ED strict return precautions to return for continuation, worsening, or development of new symptoms. Instructed to f/u w/ PCP and dermatology regarding symptoms today. Patient verbalized understanding. Patient was given return precaution for any signs of worsening rash, oral mucosal involvement, fever, or any new or concerning issues. Lab Data : 05/15/22 13:22 05/15/22 13:22 Radiology Impressions Chest X-Ray 05/15/22 13:13 IMPRESSION: 1. Pulmonary hyperinflation which may indicate COPD. No acute process noted. 2. Mild cardiac enlargement unchanged. Laboratory Results WBC 8.5 10^3/uL (4.0-10.0) 05/15/22 13:22 RBC 4.59 10^6/uL (4.1-5.3) 05/15/22 13:22 Hgb 13.2 g/dL (11.7-16.6) 05/15/22 13:22 Hct 42.0 % (42.0-52.0) 05/15/22 13:22 MCV 91.5 fl (80-94) 05/15/22 13:22 MCH 28.8 pg (28.0-34.0) 05/15/22 13:22 MCHC 31.4 g/dL (30.0-36.0) 05/15/22 13:22 RDW 13.0 % (12.1-15.1) 05/15/22 13:22 Plt Count 145 10^3/cmm (130-400) 05/15/22 13:22 MPV 10.8 fL (7.4-10.4) H 05/15/22 13:22 Neut % (Auto) 78.1 % 05/15/22 13:22 Lymph % (Auto) 13.0 % 05/15/22 13:22 Bowman % (Auto) 6.4 % 05/15/22 13:22 Eos % (Auto) 2.1 % 05/15/22 13:22 Baso % (Auto) 0.2 % 05/15/22 13:22 Neut # (Auto) 6.59 10^3/uL (1.8-7.7) 05/15/22 13:22 Lymph # (Auto) 1.1 10^3/uL (0.8-4.8) 05/15/22 13:22 Bowman # (Auto) 0.5 10^3/uL (0.2-0.9) 05/15/22 13:22 Eos # (Auto) 0.2 10^3/uL (0.0-0.8) 05/15/22 13:22 Baso # (Auto) 0.0 10^3/uL (0.0-0.1) 05/15/22 13:22 Nucleated RBC % (auto) 0 % 05/15/22 13:22 Nucleated RBCs # 0.0 /100WBC 05/15/22 13:22 ESR Cancelled 05/15/22 13:22 Sodium 141 mmol/L (136-145) 05/15/22 13:22 Potassium 5.4 mmol/L (3.5-5.1) H 05/15/22 13:22 Chloride 104 mmol/L (98-107) 05/15/22 13:22 Carbon Dioxide 26 mmol/L (22-29) 05/15/22 13:22 Anion Gap 16.4 (5-19) 05/15/22 13:22 BUN 32 mg/dL (8-23) H 05/15/22 13:22 Creatinine 1.1 mg/dL (0.7-1.2) 05/15/22 13:22 GFR Calculation Not Reportable 05/15/22 13:22 Glucose 105 mg/dL (65-115) 05/15/22 13:22 Calculated Osmolality 299 mOsm/kg (285-295) H 05/15/22 13:22 Calcium 9.5 mg/dL (8.5-10.5) 05/15/22 13:22 Troponin T Baseline 36 ng/L (0-15) H 05/15/22 13:22 C-Reactive Protein 32.2 mg/L (0.0-4.9) H 05/15/22 13:22 Nasal Influ A H1 2009 PCR Not detected (NOT DETECT) 05/15/22 13:37 RSV Nasal Swab Cancelled 05/15/22 13:37 RSV Nasal Swab Int Cntl Cancelled 05/15/22 13:37 Adenovirus (PCR) Cancelled 05/15/22 13:37 Adenovirus (PCR) Not detected (NOT DETECT) 05/15/22 13:37 C. pneumoniae DNA (PCR) Not detected (NOT DETECT) 05/15/22 13:37 Coronavirus 229E (PCR) Not detected (NOT DETECT) 05/15/22 13:37 Human Metapneumovir PCR Cancelled 05/15/22 13:37 Human Metapneumovir PCR Not detected (NOT DETECT) 05/15/22 13:37 Influenza A (RT-PCR) Cancelled 05/15/22 13:37 Influenza A (H1) PCR Cancelled 05/15/22 13:37 Influenza A (H1) PCR Not detected (NOT DETECT) 05/15/22 13:37 Influenza A (H3) PCR Cancelled 05/15/22 13:37 Influenza A (H3) PCR Not detected (NOT DETECT) 05/15/22 13:37 Influenza Type A (PCR) Not detected (NOT DETECT) 05/15/22 13:37 Influenza B (RT-PCR) Cancelled 05/15/22 13:37 Influenza Type B (PCR) Not detected (NOT DETECT) 05/15/22 13:37 M. pneumoniae (PCR) Not detected (NOT DETECT) 05/15/22 13:37 Parainfluenzae Type 1 Cancelled 05/15/22 13:37 Parainfluenza 1 (PCR) Not detected (NOT DETECT) 05/15/22 13:37 Parainfluenzae Type 2 Cancelled 05/15/22 13:37 Parainfluenza 2 (PCR) Not detected (NOT DETECT) 05/15/22 13:37 Parainfluenzae Type 3 Cancelled 05/15/22 13:37 Parainfluenza 3 (PCR) Not detected (NOT DETECT) 05/15/22 13:37 Parainfluenza 4 (PCR) Not detected (NOT DETECT) 05/15/22 13:37 RSV Ab Comment Cancelled 05/15/22 13:37 RSV Type A (PCR) Not detected (NOT DETECT) 05/15/22 13:37 RSV Type B (PCR) Not detected (NOT DETECT) 05/15/22 13:37 Rhinovirus (PCR) Cancelled 05/15/22 13:37 Entero/Rhino (PCR) Detected (NOT DETECT) A 05/15/22 13:37 SARS-CoV-2 (PCR) Not detected (NOT DETECT) 05/15/22 13:37 Discharge Plan Discharge Patient Disposition: Home Clinical Impression: Photodermatitis, Cellulitis Condition: Stable Prescriptions: New cephalexin 500 mg capsule 500 mg PO BID 10 Days Qty: 20 0RF triamcinolone acetonide 0.5 % cream 1 applic topical DAILY 15 Days Qty: 15 0RF No Action pantoprazole 40 mg tablet,delayed release (DR/EC) 40 mg PO DAILY 0RF magnesium hydroxide [Milk of Magnesia] 400 mg/5 mL suspension 30 ml PO DAILY PRN (Reason: Constipation) 0RF albuterol sulfate 90 mcg/actuation HFA aerosol inhaler 1 puff inhalation Q6H PRN (Reason: Shortness Of Breath) 0RF docusate sodium [Colace] 100 mg capsule 100 mg PO BID 0RF aspirin [Adult Aspirin Regimen] 81 mg tablet,delayed release (DR/EC) 81 mg PO DAILY 0RF buspirone 5 mg tablet 5 mg PO BID 0RF [place] Saline 0.65 % drops 2 drp intranasal QID PRN (Reason: Nasal Congestion) 0RF ondansetron HCl 4 mg tablet 4 mg PO Q4H PRN (Reason: Nausea) 0RF doxycycline hyclate 100 mg tablet 100 mg PO BID Qty: 60 4RF Rx Instructions: x 7 days tamsulosin [Flomax] 0.4 mg capsule 0.4 mg PO BID Qty: 180 3RF lorazepam [Ativan] 1 mg tablet 1 mg PO TID 0RF hydrocodone-acetaminophen 5-325 mg tablet 1 tab PO Q4H PRN (Reason: pain) 30 Days Qty: 180 0RF finasteride 5 mg Tablet 5 mg PO DAILY 0RF trazodone 100 mg tablet 50 mg PO BEDTIME 0RF fluoxetine [Prozac] 20 mg capsule 40 mg PO DAILY 0RF polyethylene glycol 3350 [Miralax] 17 gram Powder In Packet 17 g PO DAILY Qty: 0 0RF Tylenol 325 mg Tablet 650 mg PO Q4H PRN (Reason: Pain) 0RF Senna-S 8.6-50 mg Tablet 1 tab PO BID 0RF Lasix 20 mg Tablet 20 mg PO DAILY 0RF Refresh 1 % Drops, Liquid Gel 1 drp OPHTHALMIC (EYE) BID 0RF Spiriva with HandiHaler 18 mcg Capsule, W/Inhalation Device 1 cap INHALATION DAILY 0RF Discharge Orders: Discharge ED (Routine); Ordered 05/15/22 Ordered By: Amanda Ragland Referrals: Renzo Pate MD [Primary Care Provider] - Discharge Diet: Advance as tolerated Discharge Activity: Increase activity as tolerated Patient Instructions: Cellulitis (ED) Activity Restrictions/Additional Instructions: Our case planner will have you follow-up with Dr. Siena Brooks in the next few days. You would be expected to have a phone call with our case planner who will put you on the schedule. You can expect a call from us in the next 2-3 days. If you don't hear from us, call us back in the emergency room at [phone]. Please come back to the emergency room any fever or chill, worsening skin lesion, or any new concerning complaints Coding Level of Care Code ED Boiler Tenders Supervisor for Christina Dangelo Exam Comprehensive
[2022-05-15 13:35] LABS: Basophils % 0.2 %; Eosinophils # 0.2 10^3/uL (0.0-0.8); Eosinophils % 2.1 %; Hemoglobin 13.2 g/dL (11.7-16.6); Lymphocytes # 1.1 10^3/uL (0.8-4.8); Mean Corpuscular HGB Conc 31.4 g/dL (30.0-36.0); Mean Corpuscular Hemoglobin 28.8 pg (28.0-34.0); Mean Corpuscular Volume 91.5 fl (80-94); Mean Platelet Volume 10.8 fL (7.4-10.4); Monocytes # 0.5 10^3/uL (0.2-0.9); Monocytes % 6.4 %; Neutrophils # 6.59 10^3/uL (1.8-7.7); Neutrophils % 78.1 %; Nucleated Red Blood Cells % 0 %; Platelet Count 145 10^3/cmm (130-400); Red Blood Count 4.59 10^6/uL (4.1-5.3); White Blood Count 8.5 10^3/uL (4.0-10.0)
[2022-05-15] MEDS: ipratropium-albuterol 3 mL Neb INHALATION (13:48)
[2022-05-15 14:06] LABS: Troponin(5th) Baseline 36 ng/L (0-15)
[2022-05-15 14:08] LABS: Blood Urea Nitrogen 32 mg/dL (8-23); C Reactive Protein 32.2 mg/L (0.0-4.9); Calcium 9.5 mg/dL (8.5-10.5); Carbon Dioxide 26 mmol/L (22-29); Chloride 104 mmol/L (98-107); Glucose 105 mg/dL (65-115); Osmolality Calculated 299 mOsm/kg (285-295); Sodium 141 mmol/L (136-145)
[2022-05-15 14:13] LABS: Anion Gap 16.4 (5-19); Potassium 5.4 mmol/L (3.5-5.1)
--- NOTE | 2022-05-15 14:51 | PC.NURSE ---
PT placed on continuous NIBP, SpO2, and cm
[2022-05-15] MEDS: cephALEXin 500 mg Capsule PO (15:04)
[2022-05-15] MEDS: acetaminophen 500 mg Tablet PO (15:04)
[2022-05-15 15:46] LABS: Adenovirus Not Detected (NOT DETECT); Chlamydia Pneumoniae Not Detected (NOT DETECT); Coronavirus 229E,HKU1,NL63,OC4 Not Detected (NOT DETECT); Human Metapneumovirus Not Detected (NOT DETECT); Influenza A Not Detected (NOT DETECT); Influenza A H1 Not Detected (NOT DETECT); Influenza A H1-2009 Not Detected (NOT DETECT); Influenza A H3 Not Detected (NOT DETECT); Influenza B Not Detected (NOT DETECT); Mycoplasma Pneumoniae Not Detected (NOT DETECT); Parainfluenza Virus Type 1 Not Detected (NOT DETECT); Parainfluenza Virus Type 2 Not Detected (NOT DETECT); Parainfluenza Virus Type 3 Not Detected (NOT DETECT); Parainfluenza Virus Type 4 Not Detected (NOT DETECT); Respiratory Syncytial Virus A Not Detected (NOT DETECT); Respiratory Syncytial Virus B Not Detected (NOT DETECT); SARS-COV-2 Not Detected (NOT DETECT)
[2022-05-15 18:52] LABS: Human Rhinovirus/Enterovirus Detected (NOT DETECT)
--- NOTE | 2022-05-16 13:58 | DCPLANNER ---
Addendum entered by Lolly Du 06/16/22 15:48: residential care facility manager was told that clinic is waiting for patient to call clinic to reschedule appointment. Original Note: residential care facility manager had message to schedule a follow up appointment with dermatology. residential care facility manager called the dermatology clinic, gave clinic patients information. A follow up appointment will be scheduled and clinic will call patient with appointment information.
[2022-05-23 13:48] LABS: Erythrocyte Sedimentation Rate 6 mm/hr (0-10)
== END 2022-05-15 16:43 | disposition home or self-care (01) ==
PROVIDERS: Emergency Provider Emergency Medicine; PCP Internal Medicine
DX: L56.8 Other specified acute skin changes due to ultraviolet radiation (principal); L03.116 Cellulitis of left lower limb; L03.115 Cellulitis of right lower limb; Z79.82 Long term (current) use of aspirin; I11.0 Hypertensive heart disease with heart failure; I50.9 Heart failure, unspecified; J44.9 Chronic obstructive pulmonary disease, unspecified; E78.5 Hyperlipidemia, unspecified; I25.2 Old myocardial infarction; F17.210 Nicotine dependence, cigarettes, uncomplicated; Z99.81 Dependence on supplemental oxygen
CPT/HCPCS: 71045; 80048; 84484; 85025; 85651; 86140; 87040; 87486; 87581; 87633; 93005; 94640; 99285

== ENCOUNTER → 2022-05-20 13:20 | Outpatient (BNVA) | payer MEDICARE, MEDICAID, SELFPAY | PROVIDERS: PCP Internal Medicine; Visit Provider Urology | DX: N39.41 Urge incontinence (principal); N30.00 Acute cystitis without hematuria | CPT/HCPCS: 51798; 81003; 99213 ==

== ENCOUNTER 2022-05-28 11:18 | Emergency (ER) | payer MEDICARE, MEDICAID, SELFPAY ==
[2022-05-28 12:03] VITALS: BP 158/85; PULSE 52; RESP 16; TEMP 36.8; O2SAT 93; BMI 22.2
--- NOTE | 2022-05-28 12:31 | XR_ITS ---
WS: [id number] Left shoulder, 3 views, 05/28/2022 Clinical Data: fall Comparison: None. Findings: There is a probably an impacted fracture of the left humeral head and neck without displacement. There is a healed old fracture of the midshaft of the left clavicle. The AC joint is unremarkable. Th e soft tissues are normal. XR/XR shoulder LT min 2V* [id number] Impression: 1. Probable impacted fracture left humeral head and neck. 2. Old healed fracture of the midshaft of the left clavicle.
--- NOTE | 2022-05-28 12:31 | XR_ITS ---
WS: [id number] Chest with left rib detail, 05/28/2022 Clinical Data: fall Comparison: Multiple chest, 05/15/2022. Findings: The lungs show no nodules, masses, or effusions. The heart is enlarged. No pneumonia or pneumothorax is seen. The aortic arch and descending thoracic aorta show tortuosity. There is a right pleural reaction. The re is a levoscoliosis. The ribs are intact. No new rib fractures seen. No subcutaneous emphysema is present. XR/XR ribs LT mn 3V w CXR1V [id number] Impression: 1. Atherosclerosis and cardiomegaly. 2. Negative for acute rib fractures, subcutaneous emphysema or pneumothorax.
--- NOTE | 2022-05-28 12:31 | XR_ITS ---
WS: [id number] Thoracic spine, 3 views, 05/28/2022 Clinical Data: fall Comparison: None. Findings: There is a levoscoliosis. The paravertebral regions are normal. No definite acute compression fractures are seen. There is loss of anterior vertebral body height of midthoracic vertebral bodies of indeterminate age. The aortic arch and descending thoracic aorta show calcification. Diffuse osteoporosis is noted. The patient had a posterior cervical fusion. There may be a left pleural effusion. XR/XR thoracic spine 3V* [id number] Impression: 1. Possible mid thoracic compression fractures of indeterminate age. 2. Levoscoliosis and osteoporosis.
--- NOTE | 2022-05-28 12:31 | XR_ITS ---
WS: [id number] Left hip, 2 views, AP pelvis, 05/28/2022 Clinical Data: fall; get one view pelvis too please Comparison: Left hip, 04/11/2022. Findings: The left hip arthroplasty with a long intramedullary luanne remains in good position. Multiple wires and screws have not changed. No fractures or dislocations are seen. There is a fecal impaction. The right hips intact. The SI join ts and pubic symphysis are unremarkable. Degenerative change of the lower lumbar vertebral bodies is noted. Vascular calcification is seen. XR/XR hip LT 2-3V wo/w pel* [id number] Impression: 1. Intact left hip arthroplasty. 2. Negative for fracture or dislocation. Tonnis classification:
--- NOTE | 2022-05-28 12:32 | ED_ITS ---
HPI - Fall General: Chief Complaint: Fall Stated Complaint: fell out of wheel chair/ left shoulder pain Time Seen by Provider: 05/28/22 12:07 Source: patient Mode of arrival: wheelchair Limitations: no limitations History of Present Illness: Patient is a nice 76-year-old male who presents to ED today following a fall. According to caregiver (pt resides at [facility] and staff is accompanying him today) she was pushing him down a handicap ramp at the [facility] dermatology office when he accidentally fell out of his wheelchair and landed onto his left side. He is complaining of left shoulder pain, back pain, and left hip pain. Patient denies striking his head or LOC. He has no neck pain. He obtained small skin tears to the dorsal aspect of his bilateral forearms that were dressed at dermatology prior to arrival here. MD complaint: fall Onset (ago): minute(s) Fall from: wheelchair Fall witnessed: yes, by family (caregiver) Place fall occurred: other ([facility] dermatology) Loss of consciousness: None Prolonged down time: no Symptoms prior to fall: none Location of injury: back Location of injury - extremities: Left: shoulder Associated symptoms-after fall: Reports no associated symptoms; Denies abdominal pain, chest pain, headache(s), lightheadedness or neck pain Review of Systems Eyes: Denies: change in vision Card: Denies: chest pain, palpitations, lightheadedness, syncope or pre- syncope Resp: Denies: dyspnea GI: Denies: abdominal pain Musc: Reports: back pain and joint pain (L shoulder, L hip); Denies: neck pain, extremity pain, extremity swelling or joint swelling Neuro: Denies: headache(s), numbness in extremities, weakness in extremities, sensory changes or dizziness [facility] ED PFSH: Medical History Anemia Anticoagulation adequate with anticoagulant therapy Eliquis Anxiety Ascending aorta dilatation Atrial fibrillation BPH (benign prostatic hyperplasia) CHF (congestive heart failure) Chronic pain COPD (chronic obstructive pulmonary disease) DVT (deep venous thrombosis) Dyslipidemia Edema GERD (gastroesophageal reflux disease) Ischemic cardiomyopathy Left bundle branch block Myocardial infarction Pulmonary embolism Pulmonary HTN Tobacco abuse Urgency incontinence Venous insufficiency Surgical History History of left hip replacement Hx of facial fracture repair Hx of neck surgery S/P hip replacement Family History Father , at age 76 CAD (coronary artery disease) Myocardial infarction Mother , at age 80 Blood clot associated with vein wall inflammation Social History Smoking and tobacco status: current every day smoker Alcohol intake: never Adopted: No Caregiver/support person: No Lives independently: No Household members: spouse Marital status: Current occupational status: retired History of recent travel: No Physical Exam Const: COMMON NORMALS: no acute distress, patient oriented x3, no limitations and alert GENERAL APPEARANCE: cooperative ORIENTATION/CONSCIOUSNESS: Yes awake, Yes oriented to person, Yes oriented to place and Yes oriented to time HENMT: COMMON NORMALS: normocephalic and atraumatic HEAD & SCALP: normal to inspection, normocephalic and atraumatic Neck/C-Spine: COMMON NORMALS: full ROM CERVICAL SPINE: Yes cervical ROM normal, No pain with cervical ROM, No Cervical spine tenderness and No Paracervical muscle tenderness Chest: COMMONS NORMALS: normal inspection of the chest and normal palpation of entire chest wall Resp: COMMON NORMALS: normal respiratory effort and clear to auscultation bilaterally AUSCULTATION: clear to auscultation bilaterally OTHER: chronically on O2 Cardio: COMMON NORMALS: regular rate and regular rhythm RATE: regular rate RHYTHM: regular rhythm GI: COMMON NORMALS: Normal to inspection, nondistended, normoactive bowel sounds present, Soft to palpation and non-tender PALPATION: Yes Soft to palpation Back/Pelvis: THORACIC SPINE/UPPER BACK: Yes thoracic spinal tenderness (states he has chronic back pain; thinks maybe minimally worse now), No paraspinal muscle tenderness and No paraspinal muscle spasm LUMBAR SPINE/LOWER BACK: Yes normal to inspection, No lumbar spinal tenderness, No paraspinal muscle tenderness and No paraspinal muscle spasm PELVIS: Yes buttocks normal SACROILIAC JOINTS: Yes SI joints normal SACRUM: no tenderness COCCYX: no tenderness Extremity: GENERAL: Yes normal exam except as noted LEFT UPPER EXTREMITY: Yes shoulder joint (TTP proximal humerus; no ROM secondary to pain) Left shoulder joint: Yes neurovascular exam (normal ) LEFT LOWER EXTREMITY: Yes hip joint (hard to fully assess as patient is seated in a wheelchair) Left hip: Yes neurovascular exam (normal) Neuro: CRICKET COMA SCALE: document GCS findings [place] coma scale eye opening: Spontaneous [place] coma scale verbal response: Orientated [place] coma scale motor response: Obey commands Murdock coma scale total score: 15 COMMON NORMALS: patient oriented x3, moves all extremities, no focal motor deficits and no sensory deficits noted SENSORIUM/ORIENTATION: Yes alert, Yes oriented to person, Yes oriented to place and Yes oriented to time OTHER: patient is mainly confined to a wheelchair; can usually only walk very small distances Skin: NARRATIVE SKIN EXAM: bilateral dorsal forearm skin tears Course Vital Signs: Vital signs: Vital Signs Temperature 98.3 F 05/28/22 12:03 Pulse Rate 52 L 05/28/22 12:03 Respiratory Rate 16 05/28/22 12:03 Blood Pressure 158/85 05/28/22 12:03 Pulse Oximetry 93 05/28/22 12:03 MDM - Fall Medical Decision Making XRs obtained of his hip, left ribs, left shoulder, and left thoracic spine. He does have old/chronic appearing fractures of his thoracic spine that he is aware of. Radiologist stated that this did not look acute. He has no point tenderness along his thoracic spine. I feel these are all chronic findings. His hip and rib films are negative. He does have a left proximal humeral fracture. Patient will be placed in a sling and we will have case management get him set up with orthopedic follow-up. Patient takes one tab hydrocodone every 4 hours for chronic pains. He may increase this to 1-2 tabs every 4-6 hours as needed. Lab Data Radiology Impressions Hip/Pelvis X-Ray 05/28/22 12:31 Impression: 1. Intact left hip arthroplasty. 2. Negative for fracture or dislocation. Tonnis classification: Ribs X-Ray 05/28/22 12:31 Impression: 1. Atherosclerosis and cardiomegaly. 2. Negative for acute rib fractures, subcutaneous emphysema or pneumothorax. Shoulder X-Ray 05/28/22 12:31 Impression: 1. Probable impacted fracture left humeral head and neck. 2. Old healed fracture of the midshaft of the left clavicle. Thoracic Spine X-Ray 05/28/22 12:31 Impression: 1. Possible mid thoracic compression fractures of indeterminate age. 2. Levoscoliosis and osteoporosis. Discharge Plan Discharge Patient Disposition: Home Clinical Impression: Accidental fall from wheelchair Qualifiers: Encounter type: initial encounter Qualified Code(s): W05.0XXA - Fall from non- moving wheelchair, initial encounter Fracture of left humerus Qualifiers: Encounter type: initial encounter Humerus Location: proximal Fracture type: closed Fracture alignment: nondisplaced Condition: Stable Prescriptions: No Action pantoprazole 40 mg tablet,delayed release (DR/EC) 40 mg PO DAILY 0RF magnesium hydroxide [Milk of Magnesia] 400 mg/5 mL suspension 30 ml PO DAILY PRN (Reason: Constipation) 0RF albuterol sulfate 90 mcg/actuation HFA aerosol inhaler 1 puff inhalation Q6H PRN (Reason: Shortness Of Breath) 0RF docusate sodium [Colace] 100 mg capsule 100 mg PO BID 0RF aspirin [Adult Aspirin Regimen] 81 mg tablet,delayed release (DR/EC) 81 mg PO DAILY 0RF buspirone 5 mg tablet 5 mg PO BID 0RF [place] Saline 0.65 % drops 2 drp intranasal QID PRN (Reason: Nasal Congestion) 0RF ondansetron HCl 4 mg tablet 4 mg PO Q4H PRN (Reason: Nausea) 0RF doxycycline hyclate 100 mg tablet 100 mg PO BID Qty: 60 4RF Rx Instructions: x 7 days tamsulosin [Flomax] 0.4 mg capsule 0.4 mg PO BID Qty: 180 3RF lorazepam [Ativan] 1 mg tablet 1 mg PO TID 0RF hydrocodone-acetaminophen 5-325 mg tablet 1 tab PO Q4H PRN (Reason: pain) 30 Days Qty: 180 0RF finasteride 5 mg Tablet 5 mg PO DAILY 0RF trazodone 100 mg tablet 50 mg PO BEDTIME 0RF fluoxetine [Prozac] 20 mg capsule 40 mg PO DAILY 0RF polyethylene glycol 3350 [Miralax] 17 gram Powder In Packet 17 g PO DAILY Qty: 0 0RF Tylenol 325 mg Tablet 650 mg PO Q4H PRN (Reason: Pain) 0RF Senna-S 8.6-50 mg Tablet 1 tab PO BID 0RF Lasix 20 mg Tablet 20 mg PO DAILY 0RF Refresh 1 % Drops, Liquid Gel 1 drp OPHTHALMIC (EYE) BID 0RF Spiriva with HandiHaler 18 mcg Capsule, W/Inhalation Device 1 cap INHALATION DAILY 0RF triamcinolone acetonide 0.5 % cream 1 applic topical DAILY 15 Days Qty: 15 0RF Discharge Orders: Discharge ED (Routine); Ordered 05/28/22 Ordered By: Vivian Michael Referrals: Renzo Pate MD [Primary Care Provider] - Activity Restrictions/Additional Instructions: As we discussed case management will contact Rodrigue Bomont to set him up with his follow-up orthopedic appointment. He already takes one tab of hydrocodone every 4 hours as needed for pain. He can increase this to 1 to 2 tablets every 4-6 hours as needed for pain. Coding Level of Care Code ED Rubber Compounder Supervisor for Chg Fwd Exam Comprehensive
--- NOTE | 2022-05-29 15:18 | DCPLANNER ---
Addendum entered by Lolly Du 06/06/22 14:11: Patient had a follow up appointment scheduled for 06.04.[address] Velez at ortho - patient did attend appointment. Original Note: field service manager had message to schedule a follow up appointment for patient with ortho. field service manager sent patients information to the front office staff at ortho. Patients information will be printed and reviewed. Clinic will call patient with appointment.
== END 2022-05-28 14:50 | disposition home or self-care (01) ==
PROVIDERS: Emergency Provider Physician Assistant; PCP Internal Medicine
DX: S42.292A Other displaced fracture of upper end of left humerus, initial encounter for closed fracture (principal); W05.0XXA Fall from non-moving wheelchair, initial encounter
CPT/HCPCS: 71101; 72072; 73030; 73502; 99283

== ENCOUNTER → 2022-06-04 09:06 | Outpatient (BNVA) | payer MEDICARE, MEDICAID, SELFPAY | PROVIDERS: PCP Internal Medicine; Referring Provider Physician Assistant; Visit Provider Orthopaedic Surgery | DX: S42.202A Unspecified fracture of upper end of left humerus, initial encounter for closed fracture (principal); W04.XXXA Fall while being carried or supported by other persons, initial encounter | CPT/HCPCS: 23600 ==

== ENCOUNTER → 2022-07-23 08:19 | Outpatient (BNVA) | payer MEDICARE, MEDICAID, SELFPAY | PROVIDERS: PCP Internal Medicine; Visit Provider Orthopaedic Surgery | DX: S42.202A Unspecified fracture of upper end of left humerus, initial encounter for closed fracture (principal); X58.XXXA Exposure to other specified factors, initial encounter | CPT/HCPCS: 73030; 99024 ==

== ENCOUNTER 2023-03-24 20:21 | Inpatient (IN) | payer MEDICARE, MEDICAID, SELFPAY ==
[2023-03-24 20:24] VITALS: BP 95/55; PULSE 77; RESP 16; TEMP 36.6; O2SAT 94; BMI 17.6
--- NOTE | 2023-03-24 20:37 | XRR_ITS ---
PROCEDURE INFORMATION: Exam: XR Chest Exam date and time: 03/24/2023 8:44 PM Age: 77 years old Clinical indication: Shortness of breath; Additional info: Dyspnea TECHNIQUE: Imaging protocol: Radiologic exam of the chest. Views: 1 view. COMPARISON: CR XR ribs LT mn 3V w [id number] 05/28/2022 12:42 PM FINDINGS: Lungs: Complete opacification of the left hemithorax. Coarse interstitial opacities in the right lung base. Emphysema. Pleural spaces: Unremarkable. No pleural effusion. No pneumothorax. Heart/Mediastinum: Unremarkable. No cardiomegaly. Bones/joints: Thoracic curvature. C-spine fusion wires. XR/XR chest 1V portable [id number] IMPRESSION: 1. Complete opacification of the left thorax likely represents a combination pleural fluid and lung atelectasis/consolidation. 2. Mild edema or pneumonia in the right lung base.
[2023-03-24] MEDS: LORazepam 1 mg Tablet PO (20:46)
--- NOTE | 2023-03-24 20:46 | ED_ITS ---
HPI - Anxiety General: Chief Complaint: Anxiety Stated Complaint: panic attack Time Seen by Provider: 03/24/23 20:31 History of Present Illness: Patient presents to the ER by EMS with complaints of anxiety attack. Patient says he was eating dinner and got strangled and went into full-blown panic attack. Patient used to be on Ativan but they would not give him any Ativan this time. Patient is more controlled now. Patient is currently on 6 L off of oxygen per nasal cannula where patient normally wears 5 L of oxygen per nasal cannula at all times. Patient is daughter said group home said his heart rate got up to 160s and also was as low as in the 40s. Patient does have a history of a bad heart. MD complaint: anxiety and heart racing Onset (ago): hour(s) Symptoms: dyspnea and palpitations Severity: moderate Quality: constant Place: home History of similar episodes: Yes Provoking factors: other (Choking episode) Relieving factors: nothing Associated symptoms: Reports short of breath; Deny chest pain, chills, fever(s), nausea, palpitations or vomiting Review of Systems General: Reports: 10 or more systems reviewed and unremarkable except in HPI and below Const: Denies: fever(s) or chills Eyes: Denies: change in vision or photophobia ENMT: Denies: throat pain Card: Denies: chest pain, palpitations or irregular heart rhythm Resp: Denies: dyspnea, productive cough or non-productive cough GI: Denies: abdominal pain, nausea, vomiting or diarrhea : Denies: flank pain Musc: Denies: neck pain or back pain Psych: Reports: anxiety [facility] PFSH: Medical History Anemia Anticoagulation adequate with anticoagulant therapy Eliquis Anxiety Ascending aorta dilatation Atrial fibrillation BPH (benign prostatic hyperplasia) CHF (congestive heart failure) Chronic pain COPD (chronic obstructive pulmonary disease) DVT (deep venous thrombosis) Dyslipidemia Edema GERD (gastroesophageal reflux disease) Ischemic cardiomyopathy Left bundle branch block Myocardial infarction Pulmonary embolism Pulmonary HTN Tobacco abuse Urgency incontinence Venous insufficiency Surgical History History of left hip replacement Hx of facial fracture repair Hx of neck surgery S/P hip replacement Family History Father , at age 76 CAD (coronary artery disease) Myocardial infarction Mother , at age 80 Blood clot associated with vein wall inflammation Social History Smoking and tobacco status: never smoked Alcohol intake: never Substance/Drug Use: unknown Adopted: No Caregiver/support person: No Lives independently: No Household members: spouse Marital status: Current occupational status: retired Physical Exam Const: COMMON NORMALS: no acute distress, average body habitus, patient oriented x3, no limitations, healthy appearing, alert and well nourished HENMT: COMMON NORMALS: normocephalic, atraumatic, hearing grossly normal bilaterally, external ears normal and Normal external nose present HEAD & SCALP: normocephalic and atraumatic NOSE: Normal external nose present EXTERNAL EAR: Yes external ears normal Eye: COMMON NORMALS: Equal, round and reactive pupils present, EOMs intact bilaterally, conjunctivae normal and no scleral icterus CONJUNCTIVA: Yes conjunctivae normal PUPIL: Yes Equal, round and reactive pupils present Neck/C-Spine: COMMON NORMALS: full ROM, no lymphadenopathy, supple, no meningeal signs, no JVD and Thyroid normal THYROID: Thyroid normal Lymph: LYMPHATIC: no lymphadenopathy noted Chest: COMMONS NORMALS: normal inspection of the chest and normal palpation of entire chest wall Resp: COMMON NORMALS: normal respiratory effort, No retractions and No use of accessory muscles Cardio: COMMON NORMALS: no JVD, regular rate, regular rhythm and S2 normal heart sound present RATE: regular rate RHYTHM: regular rhythm HEART SOUNDS: S2 normal heart sound present GI: COMMON NORMALS: Normal to inspection, nondistended, normoactive bowel sounds present, Soft to palpation, non-tender, No hepatosplenomegaly present and no masses PALPATION: Yes Soft to palpation and Yes No hepatosplenomegaly present Neuro: COMMON NORMALS: patient oriented x3 SENSORIUM/ORIENTATION: Yes alert MENINGEAL SIGNS: Yes no meningeal signs Psych: MOOD & AFFECT: Yes anxious Course Vital Signs: Vital signs: Vital Signs Temperature 97.8 F 03/24/23 20:24 Pulse Rate 60 03/24/23 21:40 Respiratory Rate 18 03/24/23 21:40 Blood Pressure 90/67 03/24/23 21:40 Pulse Oximetry 93 03/24/23 21:40 Oxygen Delivery Me thod Nasal Cannula 03/24/23 21:40 Oxygen Flow Rate 6 03/24/23 21:22 MDM - Anxiety Medical Decision Making Patient presents by EMS from [facility]. Patient's complaint was he was having anxiety attack from choking at dinner. Upon patient's arrival he was on 6 L of oxygen per nasal cannula where he normally wears 4 L of oxygen per nasal cannula. Patient was not moving very much air at all in his left lung. Upon further exam as well as lab work and imaging revealed patient a white count 9.7 hemoglobin of 8.7 hematocrit 29.5 chest x-ray revealed complete opacification of the left thorax with mild edema or pneumonia in the right lung base. CT scan showed large left and small right pleural effusions complete collapse of the left lung with obstruction or collapse of the bronchi severe emphysema with dependent atelectasis.. Patient had a BNP of approximately 11,000. Patient was treated with Zosyn 3.375 g these findings were discussed with the family in detail Dr. Richard agreed to see the patient in ER and will transfer the patient to the hospital for inpatient treatment. Differential Diagnosis Likely panic disorder and acute anxiety; Unlikely hyperventilation Medical Records I reviewed the patient's medical records. Lab Data I reviewed the patient's lab results. 03/24/23 21:07 03/24/23 21:07 Radiology Impressions Chest X-Ray 03/24/23 20:37 IMPRESSION: 1. Complete opacification of the left thorax likely represents a combination pleural fluid and lung atelectasis/consolidation. 2. Mild edema or pneumonia in the right lung base. Chest CT 03/24/23 20:54 IMPRESSION: 1. Large left and small right pleural effusions. 2. Complete collapse of the left lung with obstruction or collapse of the bronchi. Consider follow-up bronchoscopy. 3. Severe emphysema with dependent atelectasis in the right lung. 4. Multiple compression fractures. The T6 and T8 fractures have progressed since the prior study. Laboratory Results WBC 9.7 10^3/uL (4.0-10.0) 03/24/23 21:07 RBC 3.20 10^6/uL (4.1-5.3) L 03/24/23 21:07 Hgb 8.7 g/dL (11.7-16.6) L 03/24/23 21:07 Hct 29.5 % (42.0-52.0) L 03/24/23 21:07 MCV 92.2 fl (80-94) 03/24/23 21:07 MCH 27.2 pg (28.0-34.0) L 03/24/23 21:07 MCHC 29.5 g/dL (30.0-36.0) L 03/24/23 21:07 RDW 14.9 % (12.1-15.1) 03/24/23 21:07 Plt Count 307 10^3/cmm (130-400) 03/24/23 21:07 MPV 9.4 fL (7.4-10.4) 03/24/23 21:07 Neut % (Auto) 83.9 % 03/24/23 21:07 Lymph % (Auto) 9.4 % 03/24/23 21:07 Tyler % (Auto) 4.8 % 03/24/23 21:07 Eos % (Auto) 1.1 % 03/24/23 21:07 Baso % (Auto) 0.2 % 03/24/23 21:07 Neut # (Auto) 8.13 10^3/uL (1.8-7.7) H 03/24/23 21:07 Lymph # (Auto) 0.9 10^3/uL (0.8-4.8) 03/24/23 21:07 Tyler # (Auto) 0.5 10^3/uL (0.2-0.9) 03/24/23 21:07 Eos # (Auto) 0.1 10^3/uL (0.0-0.8) 03/24/23 21:07 Baso # (Auto) 0.0 10^3/uL (0.0-0.1) 03/24/23 21:07 Nucleated RBC % (auto) 0 % 03/24/23 21:07 Nucleated RBCs # 0.0 /100WBC 03/24/23 21:07 Sodium 137 mmol/L (136-145) 03/24/23 21:07 Potassium 4.1 mmol/L (3.5-5.1) 03/24/23 21:07 Chloride 103 mmol/L (98-107) 03/24/23 21:07 Carbon Dioxide 28 mmol/L (22-29) 03/24/23 21:07 Anion Gap 10.1 (5-19) 03/24/23 21:07 BUN 20 mg/dL (8-23) 03/24/23 21:07 Creatinine 1.0 mg/dL (0.7-1.2) 03/24/23 21:07 GFR Calculation Not Reportable 03/24/23 21:07 Glucose 124 mg/dL (65-115) H 03/24/23 21:07 Calculated Osmolality 288 mOsm/kg (285-295) 03/24/23 21:07 Lactate 0.6 mmol/L (0.5-2.2) 03/24/23 21:07 Calcium 9.2 mg/dL (8.5-10.5) 03/24/23 21:07 Magnesium 1.6 mg/dL (1.7-2.3) L 03/24/23 21:07 Total Bilirubin 0.2 mg/dL (0.15-1.2) 03/24/23 21:07 AST 8 U/L (0-40) 03/24/23 21:07 ALT 10 U/L (0-41) 03/24/23 21:07 Alkaline Phosphatase 142 U/L (40-130) H 03/24/23 21:07 NT-Pro-B Natriuret Pep 03988 pg/mL (0-450) H 03/24/23 21:07 Total Protein 5.6 g/dL (6.6-8.7) L 03/24/23 21:07 Albumin 2.6 g/dL (3.5-5.2) L 03/24/23 21:07 Globulin 3.0 g/dL (1.3-4.6) 03/24/23 21:07 Procalcitonin 0.07 ng/mL (0-0.5) 03/24/23 21:07 EKG Data EKG 1: I personally reviewed and interpreted this EKG as follows: EKG interpretation date: 03/24/23 EKG interpretation time: 20:58 Prior EKG tracings: available for review Interpretation: Chest X-Ray 03/24/23 20:37 IMPRESSION: 1. Complete opacification of the left thorax likely represents a combination pleural fluid and lung atelectasis/consolidation. 2. Mild edema or pneumonia in the right lung base. Chest CT 03/24/23 20:54 IMPRESSION: 1. Large left and small right pleural effusions. 2. Complete collapse of the left lung with obstruction or collapse of the bronchi. Consider follow-up bronchoscopy. 3. Severe emphysema with dependent atelectasis in the right lung. 4. Multiple compression fractures. The T6 and T8 fractures have progressed since the prior study. EKG showed ventricular rate of 83 bpm, AK interval 193, QRS duration 178, QTc of 465, frequent PVCs, left bundle branch block, Other EKG comments: Chest X-Ray 03/24/23 20:37 IMPRESSION: 1. Complete opacification of the left thorax likely represents a combination pleural fluid and lung atelectasis/consolidation. 2. Mild edema or pneumonia in the right lung base. Chest CT 03/24/23 20:54 IMPRESSION: 1. Large left and small right pleural effusions. 2. Complete collapse of the left lung with obstruction or collapse of the bronchi. Consider follow-up bronchoscopy. 3. Severe emphysema with dependent atelectasis in the right lung. 4. Multiple compression fractures. The T6 and T8 fractures have progressed since the prior study. Discharge Plan Discharge Patient Disposition: Admitted As Inpatient Clinical Impression: COPD (chronic obstructive pulmonary disease), Bilateral pleural effusion, Bilateral pneumonia, Acute on chronic clinical systolic heart failure Condition: Stable Prescriptions: No Action pantoprazole 40 mg tablet,delayed release (DR/EC) 40 mg PO DAILY magnesium hydroxide [Milk of Magnesia] 400 mg/5 mL suspension 30 ml PO DAILY PRN (Reason: Constipation) albuterol sulfate 90 mcg/actuation HFA aerosol inhaler 1 puff inhalation Q6H PRN (Reason: Shortness Of Breath) docusate sodium [Colace] 100 mg capsule 100 mg PO BID aspirin [Adult Aspirin Regimen] 81 mg tablet,delayed release (DR/EC) 81 mg PO DAILY buspirone 5 mg tablet 5 mg PO BID [place] Saline 0.65 % drops 2 drp intranasal QID PRN (Reason: Nasal Congestion) ondansetron HCl 4 mg tablet 4 mg PO Q4H PRN (Reason: Nausea) doxycycline hyclate 100 mg tablet 100 mg PO BID Qty: 60 4RF Rx Instructions: x 7 days tamsulosin [Flomax] 0.4 mg capsule 0.4 mg PO BID Qty: 180 3RF lorazepam [Ativan] 1 mg tablet 1 mg PO TID polyethylene glycol 3350 [Miralax] 17 gram/dose powder 4 g PO DAILY 1 Days Qty: 238 0RF bisacodyl [Dulcolax (bisacodyl)] 5 mg tablet,delayed release (DR/EC) 5 mg PO DAILY Qty: 4 0RF hydrocodone-acetaminophen 5-325 mg tablet 1 tab PO .Q6 PRN (Reason: pain) 30 Days Qty: 120 0RF finasteride 5 mg Tablet 5 mg PO DAILY trazodone 100 mg tablet 50 mg PO BEDTIME fluoxetine [Prozac] 20 mg capsule 40 mg PO DAILY polyethylene glycol 3350 [Miralax] 17 gram Powder In Packet 17 g PO DAILY Qty: 0 0RF Tylenol 325 mg Tablet 650 mg PO Q4H PRN (Reason: Pain) Senna-S 8.6-50 mg Tablet 1 tab PO BID Lasix 20 mg Tablet 20 mg PO DAILY Refresh 1 % Drops, Liquid Gel 1 drp OPHTHALMIC (EYE) BID Spiriva with HandiHaler 18 mcg Capsule, W/Inhalation Device 1 cap INHALATION DAILY Referrals: Renzo Pate MD [Primary Care Provider] - Coding Level of Care Code ED Social Scientist for Christina Dangelo
--- NOTE | 2023-03-24 20:54 | CTR_ITS ---
PROCEDURE INFORMATION: Exam: CT Chest Without Contrast; Diagnostic Exam date and time: 03/24/2023 9:13 PM Age: 77 years old Clinical indication: Dyspnea; Additional info: Cough, dyspnea, abnormal XR TECHNIQUE: Imaging protocol: Diagnostic computed tomography of the chest without contrast. Radiation optimization: All CT scans at this facility use at least one of these dose optimization techniques: automated exposure control; mA and/or kV adjustment per patient size (includes targeted exams where dose is matched to clinical indication); or iterative reconstruction. REPORTING DATA: Count of CT and Cardiac NM exams in prior 12 months: This patient has received 0 known CTs and 0 known cardiac nuclear medicine studies in the 12 months prior to the current study. COMPARISON: CR (CHEST, ) 03/24/2023 8:44 PM RADIATION DOSE METRICS: Total DLP (mGy-cm): 288 FINDINGS: Lungs: Severe emphysema. Dependent atelectasis in the right lung. Mild scarring in the right lung. Complete collapse of the left upper and lower lobes. There is obstruction or collapse of the left mainstem bronchus and all bronchi in the left lung. Pleural spaces: Large left pleural effusion. Small right pleural effusion. No visible pleural thickening. No pneumothorax. Heart: Cardiomegaly. Coronary arteries: Coronary artery calcifications. Lymph nodes: Unremarkable. No enlarged lymph nodes. Vasculature: Unremarkable. No aortic aneurysm. Stomach and bowel: Large hiatal/gastric hernia. Bones/joints: Thoracic scoliosis. Mild T5 and T10, moderate T6, and severe T8 compression fractures. Soft tissues: Unremarkable. CT/CT chest wo con [id number] IMPRESSION: 1. Large left and small right pleural effusions. 2. Complete collapse of the left lung with obstruction or collapse of the bronchi. Consider follow-up bronchoscopy. 3. Severe emphysema with dependent atelectasis in the right lung. 4. Multiple compression fractures. The T6 and T8 fractures have progressed since the prior study.
--- NOTE | 2023-03-24 20:58 | ECG_ITS ---
[facility] Test Date: 2023-03-24 Pat Name: Fredi Claire Department: Room: Gender: Male Investigation Specialist: : 1945 Requested By: Drake Avalos Order Number: [id number] Suzei MD: Sole Lai M.D. Measurements Intervals [place] Rate: 83 P: 90 CO: 193 QRS: 25 QRSD: 178 T: 90 QT: 425 QTc: 502 Interpretive Statements SINUS RHYTHM WITH FREQUENT VENTRICULAR PREMATURE COMPLEXES WITH OCCASIONAL SUPRAVENTRICULAR PREMATURE COMPLEXES LEFT BUNDLE BRANCH BLOCK [120+ ms QRS DURATION, 80+ ms Q/S IN V1/V2, 85+ ms R IN I/aVL/V5/V6] Compared to ECG 05/15/2022 13:35:44 No significant changes Electronically Signed On 03-25-2023 0:23:28 CDT by Sole Lai M.D. [id number]
[2023-03-24 21:16] LABS: Basophils % 0.2 %; Eosinophils # 0.1 10^3/uL (0.0-0.8); Eosinophils % 1.1 %; Hematocrit 29.5 % (42.0-52.0); Hemoglobin 8.7 g/dL (11.7-16.6); Lymphocytes # 0.9 10^3/uL (0.8-4.8); Lymphocytes % 9.4 %; Mean Corpuscular HGB Conc 29.5 g/dL (30.0-36.0); Mean Corpuscular Hemoglobin 27.2 pg (28.0-34.0); Mean Corpuscular Volume 92.2 fl (80-94); Mean Platelet Volume 9.4 fL (7.4-10.4); Monocytes # 0.5 10^3/uL (0.2-0.9); Monocytes % 4.8 %; Neutrophils # 8.13 10^3/uL (1.8-7.7); Neutrophils % 83.9 %; Nucleated Red Blood Cells % 0 %; Platelet Count 307 10^3/cmm (130-400); Red Cell Distribution Width 14.9 % (12.1-15.1); White Blood Count 9.7 10^3/uL (4.0-10.0)
[2023-03-24 21:22] VITALS: PULSE 82; RESP 18; O2SAT 98
[2023-03-24] MEDS: ipratropium-albuterol 3 mL Neb INHALATION (21:22)
[2023-03-24 21:36] LABS: Lactate (Lactic Acid level) 0.6 mmol/L (0.5-2.2)
[2023-03-24 21:40] VITALS: BP 90/67; PULSE 60; RESP 18; O2SAT 93
[2023-03-24 21:46] LABS: NT Pro B Type Natriuretic Pept 11654 pg/mL (0-450); Procalcitonin 0.07 ng/mL (0-0.5)
[2023-03-24 21:57] LABS: Alanine Aminotransferase 10 U/L (0-41); Albumin Level 2.6 g/dL (3.5-5.2); Alkaline Phosphatase 142 U/L (40-130); Anion Gap 10.1 (5-19); Aspartate Amino Transferase 8 U/L (0-40); Blood Urea Nitrogen 20 mg/dL (8-23); Calcium 9.2 mg/dL (8.5-10.5); Carbon Dioxide 28 mmol/L (22-29); Chloride 103 mmol/L (98-107); Glucose 124 mg/dL (65-115); Magnesium 1.6 mg/dL (1.7-2.3); Osmolality Calculated 288 mOsm/kg (285-295); Potassium 4.1 mmol/L (3.5-5.1); Sodium 137 mmol/L (136-145); Total Bilirubin 0.2 mg/dL (0.15-1.2); Total Protein 5.6 g/dL (6.6-8.7)
[2023-03-24] MEDS: piperacillin-tazobactam 3.375 GM in sodium chloride 0.9% (plus) 50 ML IV (22:31)
[2023-03-24 22:33] VITALS: BP 114/53; PULSE 65; RESP 16; O2SAT 93
[2023-03-24 23:26] VITALS: BP 90/51; PULSE 71; RESP 18; TEMP 36.5; O2SAT 93
[2023-03-24 23:43] VITALS: BP 104/63; PULSE 60; RESP 16; TEMP 36.5
--- NOTE | 2023-03-24 23:50 | PM.HP ---
Providers/Chief Complaint Admitting Physician: Francis Richard MD Primary Care Provider: Renzo Pate MD Chief Complaint: panic attack History of Present Illness Fredi Claire is a 77 year old male with a past medical history of chronic respiratory failure, COPD, pulmonary fibrosis, history of bullous emphysema, systolic diastolic CHF, history of atrial fibrillation, history of ischemic cardiomyopathy, history of CKD, CAD, history of anemia, and history of pulmonary embolism who presents to [facility] after he was eating dinner, he had a choking episode, and then became very anxious in the care home wanting give him Ativan. According to patient, he is here in the hospital, because the care home would not give him Ativan, he tells me that at dinnertime, he was eating his dinner, he had to think for some time what he exactly ate, he thinks it might have been hamburger, he reports choking on his food, and then feeling short of breath and then he felt quite anxious, he wanted Ativan however the care home refused to give it to him. He denies any fevers, no chills, no nausea, no vomiting, I spoke to care home, they told me that they sent him over to [facility] as his O2 sats were in the low 80s, Review of Systems Const: Denies: fever(s) Card: Denies: chest pain Resp: Reports: dyspnea GI: Denies: abdominal pain : Denies: flank pain Medications/Allergies Home Medications Medication Instructions Recorded Confirmed Last Taken Type finasteride 5 mg tablet 5 mg PO DAILY 11/28/19 10/03/22 09/28/20 History albuterol sulfate 90 mcg/actuation 1 puff inhalation Q6H PRN 12/18/20 10/03/22 Unknown History aerosol inhaler Shortness Of Breath docusate sodium 100 mg capsule 100 mg PO BID 12/18/20 10/03/22 Unknown History (Colace) magnesium hydroxide 400 mg/5 mL 30 ml PO DAILY PRN Constipation 12/18/20 10/03/22 Unknown History oral suspension (Milk of Magnesia) pantoprazole 40 mg tablet,delayed 40 mg PO DAILY 12/18/20 10/03/22 Unknown History release buspirone 5 mg tablet 5 mg PO BID 05/01/21 10/03/22 Unknown History fluoxetine 20 mg capsule (Prozac) 40 mg PO DAILY 05/01/21 10/03/22 Unknown History ondansetron HCl 4 mg tablet 4 mg PO Q4H PRN Nausea 05/01/21 10/03/22 Unknown History sodium chloride 0.65 % nasal drops 2 drp intranasal QID PRN Nasal 05/01/21 10/03/22 Unknown History (Canjilon Saline) Congestion trazodone 100 mg tablet 50 mg PO BEDTIME 05/01/21 10/03/22 Unknown History aspirin 81 mg tablet,delayed 81 mg PO DAILY 02/06/22 10/03/22 Unknown History release (Adult Aspirin Regimen) polyethylene glycol 3350 17 gram 17 g PO DAILY #0 ea 03/12/22 10/03/22 09/26/20 Rx oral powder packet (Miralax) lorazepam 1 mg tablet (Ativan) 1 mg PO TID 03/26/22 10/03/22 Unknown History doxycycline hyclate 100 mg tablet 100 mg PO BID #60 tabs 04/07/22 10/03/22 Unknown Rx tamsulosin 0.4 mg capsule (Flomax) 0.4 mg PO BID #180 caps 04/07/22 10/03/22 Unknown Rx acetaminophen 325 mg tablet 650 mg PO Q4H PRN Pain 05/15/22 10/03/22 Unknown History (Tylenol) carboxymethylcellulose sodium 1 % 1 drp ophthalmic (eye) BID 05/15/22 10/03/22 Unknown History eye liquid gel drops furosemide 20 mg tablet (Lasix) 20 mg PO DAILY 05/15/22 10/03/22 Unknown History sennosides 8.6 mg-docusate sodium 1 tab PO BID 05/15/22 10/03/22 Unknown History 50 mg tablet (Senna-S) tiotropium bromide 18 mcg capsule 1 cap inhalation DAILY 05/15/22 10/03/22 Unknown History with inhalation device (Spiriva with HandiHaler) bisacodyl 5 mg tablet,delayed 5 mg PO DAILY #4 tabs 08/28/22 10/03/22 Unknown Rx release (Dulcolax (bisacodyl)) polyethylene glycol 3350 17 4 g PO DAILY 1 day #238 grams 08/28/22 10/03/22 Unknown Rx gram/dose oral powder (Miralax) hydrocodone 5 mg-acetaminophen 325 1 tab PO .Q6 PRN pain 1 month #120 09/06/22 10/03/22 Unknown Rx mg tablet tabs Allergies Allergy/AdvReac Type Severity Reaction Status Date / Time amitriptyline Allergy Unknown Verified 03/24/23 20:27 ibuprofen Allergy ALGY-Rash Verified 03/24/23 20:27 metoprolol Allergy Unknown Verified 03/24/23 20:27 PFSH Acute PFSH: Medical History Anemia Anticoagulation adequate with anticoagulant therapy Eliquis Anxiety Ascending aorta dilatation Atrial fibrillation BPH (benign prostatic hyperplasia) CHF (congestive heart failure) Chronic pain COPD (chronic obstructive pulmonary disease) DVT (deep venous thrombosis) Dyslipidemia Edema GERD (gastroesophageal reflux disease) Ischemic cardiomyopathy Left bundle branch block Myocardial infarction Pulmonary embolism Pulmonary HTN Tobacco abuse Urgency incontinence Venous insufficiency Surgical History History of left hip replacement Hx of facial fracture repair Hx of neck surgery S/P hip replacement Family History Father , at age 76 CAD (coronary artery disease) Myocardial infarction Mother , at age 80 Blood clot associated with vein wall inflammation Social History Smoking and tobacco status: never smoked Alcohol intake: never Substance/Drug Use: unknown Adopted: No Caregiver/support person: No Lives independently: No Household members: spouse Marital status: Current occupational status: retired Vitals/I&O/Wt Last Vital Signs Temp 97.7 F 03/24/23 23:26 Pulse 71 03/24/23 23:26 Resp 18 03/24/23 23:26 BP 90/51 03/24/23 23:26 Pulse Ox 93 03/24/23 23:26 O2 Del Method Nasal Cannula 03/24/23 22:58 O2 Flow Rate 6 03/24/23 22:33 03/24/23 03/24/23 03/25/23 14:59 22:59 06:59 Intake Total 50 / 50 Balance 50 / 50 Weight last 48 hrs Weight 58.967 kg Physical Exam Const: COMMON NORMALS: no acute distress and patient oriented x3 HENMT: COMMON NORMALS: normocephalic HEAD & SCALP: normocephalic Eye: COMMON NORMALS: Equal, round and reactive pupils present and EOMs intact bilaterally Neck/C-Spine: COMMON NORMALS: no JVD Lymph: LYMPHATIC: no lymphadenopathy noted Resp: COMMON NORMALS: normal respiratory effort, No retractions and No use of accessory muscles OTHER: Decreased sounds left lung field, right lung field sounds good breath sounds Cardio: COMMON NORMALS: regular rate, regular rhythm, S1 normal heart sound present and S2 normal heart sound present RATE: regular rate RHYTHM: regular rhythm HEART SOUNDS: S1 normal heart sound present and S2 normal heart sound present GI: COMMON NORMALS: Normal to inspection, nondistended, normoactive bowel sounds present, Soft to palpation, non-tender, no masses and no bruits PALPATION: Yes Soft to palpation and Yes No hepatosplenomegaly present Extremity: COMMON NORMALS: capillary refill normal, no calf tenderness and no pedal edema Neuro: COMMON NORMALS: patient oriented x3, CN's II-XII intact bilaterally and moves all extremities Psych: COMMON NORMALS: mental status grossly normal Data 03/24/23 21:07 03/24/23 21:07 Micro: Microbiology 03/24/23 22:22 Blood Culture - Preliminary Blood SPECIMEN COLLECTED 03/24/23 21:07 Blood Culture - Preliminary Blood SPECIMEN COLLECTED A&P Assessment and plan (1) Bilateral pleural effusion: (2) Acute on chronic clinical systolic heart failure: (3) Aspiration pneumonia: (4) Collapse of left lung: (5) Anemia: (6) Atrial fibrillation: (7) CAD (coronary artery disease): (8) Aspiration into airway: (9) Acute respiratory failure with hypoxia: Plan Acute hypoxic respiratory failure -Secondary to aspiration event, aspiration into airway -Aspiration pneumonia -Complete left lung collapse -Has bilateral pleural effusions -Evidence of CHF exacerbation systolic and diastolic Plan -Admit to general medical floors -Monitor respiratory status closely -Mucomyst, hypertonic saline, chest vest therapy -Continue Zosyn -Continue DuoNeb treatments as needed -Lasix 40 IV twice daily -Repeat chest x-ray in the morning, if he continues to have left lung collapse, will need to talk to pulmonary for possible bronchoscopy -Keep n.p.o., until speech therapy eval, aspiration precautions -Full code -Lovenox for DVT prophylaxis Attestations Medical Necessity Statement*: ,Patient requires hospitalization inpatient, greater than 2 midnights, for aspiration event, left lung collapse, aspiration into airway, aspiration pneumonia, respiratory failure, CHF exacerbation Diagnoses Bilateral pleural effusion J90 Acute on chronic clinical systolic heart failure I50.23 Aspiration pneumonia J69.0 Collapse of left lung J98.11 Anemia D64.9 Atrial fibrillation I48.91 CAD (coronary artery disease) I25.10 Aspiration into airway T17.908A Acute respiratory failure with hypoxia J96.01
[2023-03-25] VITALS (26 sets, daily range): BP systolic 96–130; BP diastolic 52–84; PULSE 54–110; RESP 14–33; TEMP 36.3–37; O2SAT 80–99
[2023-03-25] MEDS: FUROsemide 10 mg/mL SDV 4mL 40 MG IVP (00:10)
[2023-03-25] MEDS: pantoprazole 40 mg SDV IVP (00:10)
[2023-03-25] MEDS: enoxaparin 40 mg/0.4 mL Syringe SUBCUT (00:11)
[2023-03-25] MEDS: ipratropium-albuterol 3 mL Neb INHALATION ×4 (01:43→11:46)
[2023-03-25] MEDS: HYDROcodone-acetaminophen 5-325 mg Tablet 1 TAB PO ×3 (02:02→19:44)
[2023-03-25] MEDS: acetylcysteine 200 mg/mL SDV 4 mL 100 MG INHALATION ×2 (04:55→11:46)
[2023-03-25 05:09] LABS: Basophils % 0.4 %; Eosinophils # 0.1 10^3/uL (0.0-0.8); Eosinophils % 1.2 %; Hematocrit 31.1 % (42.0-52.0); Hemoglobin 9.1 g/dL (11.7-16.6); Lymphocytes # 1.1 10^3/uL (0.8-4.8); Mean Corpuscular HGB Conc 29.3 g/dL (30.0-36.0); Mean Corpuscular Hemoglobin 27.2 pg (28.0-34.0); Mean Corpuscular Volume 93.1 fl (80-94); Mean Platelet Volume 9.5 fL (7.4-10.4); Monocytes # 0.5 10^3/uL (0.2-0.9); Monocytes % 5.5 %; Neutrophils # 6.67 10^3/uL (1.8-7.7); Neutrophils % 79.2 %; Nucleated Red Blood Cells % 0 %; Platelet Count 282 10^3/cmm (130-400); Red Blood Count 3.34 10^6/uL (4.1-5.3); White Blood Count 8.4 10^3/uL (4.0-10.0)
[2023-03-25] MEDS: piperacillin-tazobactam 3.375 GM in sodium chloride 0.9% (plus) 50 ML IV ×3 (05:24→22:18)
[2023-03-25 05:35] LABS: Anion Gap 11.5 (5-19); Blood Urea Nitrogen 20 mg/dL (8-23); Calcium 9.4 mg/dL (8.5-10.5); Carbon Dioxide 29 mmol/L (22-29); Chloride 105 mmol/L (98-107); Glucose 96 mg/dL (65-115); Magnesium 1.6 mg/dL (1.7-2.3); NT Pro B Type Natriuretic Pept 12262 pg/mL (0-450); Osmolality Calculated 294 mOsm/kg (285-295); Phosphorus 2.9 mg/dL (2.5-4.5); Potassium 4.5 mmol/L (3.5-5.1); Sodium 141 mmol/L (136-145)
--- NOTE | 2023-03-25 06:00 | XRR_ITS ---
PROCEDURE INFORMATION: Exam: XR Chest Exam date and time: 03/25/2023 5:23 AM Age: 77 years old Clinical indication: Shortness of breath; Additional info: SOB TECHNIQUE: Imaging protocol: Radiologic exam of the chest. Views: 1 view. COMPARISON: CT chest con [id number] 03/24/2023 9:13 PM FINDINGS: Lungs: There is complete opacification of the left hemithorax. There is fine reticular and ground-glass opacity throughout the right lung. Pleural spaces: No pneumothorax. Heart/Mediastinum: The cardiomediastinal silhouette is obscured. Bones/joints: There is a healed left proximal humeral fracture. Bones are suboptimally visualized. No acute fracture is visible. XR/XR chest 1V portable [id number] IMPRESSION: 1. Complete opacification of the left hemithorax corresponding to large left pleural effusion and complete atelectasis of the left lung visible on chest CT 03/24/2023. 2. Reticular and ground-glass opacity in the right lung corresponding to the centrilobular emphysema, pleural fluid and dependent atelectasis visible on the chest CT.
--- NOTE | 2023-03-25 07:51 | PC.PHAR ---
pt is from [facility] [phone]-xin nurse at [facility] states she will fax mar and tar
[2023-03-25] MEDS: finasteride 5 mg Tablet PO (08:32)
[2023-03-25] MEDS: magnesium lactate 84 mg Tablet PO (08:32)
[2023-03-25] MEDS: tamsulosin 0.4 mg Capsule PO ×2 (08:32→17:43)
[2023-03-25] MEDS: BuSPIRONE 10 mg Tablet 5 MG PO ×2 (08:32→17:43)
[2023-03-25] MEDS: aspirin 81 mg EC Tablet PO (08:32)
[2023-03-25] MEDS: docusate sodium 100 mg Capsule PO ×2 (08:32→17:43)
[2023-03-25] MEDS: fluoxetine 20 mg Capsule 40 MG PO (08:32)
--- NOTE | 2023-03-25 10:10 | US_ITS ---
WS: [id number] ULTRASOUND-GUIDED THORACENTESIS CLINICAL INFORMATION: left lung lasrge pleural effusion COMPARISON: None. PROCEDURE: Informed consent: The risks, benefits, and alternatives of the procedure were discussed with the cathy ent. Verbal and written consent was obtained. Timeout: A timeout was performed to confirm the correct patient, procedure, and site. Site: LEFT Preparation: A suitable skin site was identified. The patient was prepped and draped in usual sterile fashion. Lidocaine 1% was used for local anesthesia. Catheter: 4 Thai One-Step catheter. Fluid Volume: 1000 ml Color: clear yellow 50 cc sent to the laboratory for further analysis. Complications: None. / thoracentesis [id number] IMPRESSION: Uncomplicated ultrasound-guided LEFT thoracentesis.
--- NOTE | 2023-03-25 10:51 | PC.CHAP ---
Pastoral Care Encounter/Spiritual Assessment Type of Contact [] Declined activity director visit [] Patient/Family/Request visit [] Outpatient visit [] Follow-up visit [] Physician referral [] Code/Alert [x] Routine visit [] Staff referral [] Actively dying [] Patient sleeping [] Family support [] [] Out of room [] Palliative care [] [] Receiving care in room [] Pre-surgical visit [] Trauma [] Long length of stay [] ICU visit [] Other: Relational/Emotional Strength x[] Patient feels connected with others/family/visitors/staff [] Distress [] Loneliness/isolation [] Abandonment Spirituality of Patient x[] Person of Penelope [] Attends Restorationist of their Penelope [] Believes in Prayer [] Reads Bible or Yarsani materials [] There are Spiritual issues to be addressed Residential Lawn Specialist Interventions x [] Prayer [] Active listening [] Non-anxious presence [] Spiritual/emotional support [] Crisis/trauma care [] Spiritual counseling [] Bereavement support [] Provided bereavement packet [] Provided Bible/devotional materials [] Provided toy/stuffed animal, coloring book to patient or family member [] Provided Communion [] Anointing/[place] [] Salvation [x] Completed spiritual assessment [] Other: Impact on Illness or Injury [] Angry [] Fearful [] Anxious [] Often cries [] Exhaustion [] Unable to work [] Unable to attend catholic [] Unable to walk/stand [] Unable to read [] Unable to drive [] Unable to eat/drink [] Unable to sleep [] Unable to be with family [] Patient intubated [] Other: Summary Time spent with patient 5 min
[2023-03-25 11:02] LABS: INR 1.28 (0.8-1.2)
[2023-03-25 11:21] LABS: C Reactive Protein 48.8 mg/L (0.0-4.9); Thyroid Stimulating Hormone 2.95 uIU/mL (0.27-4.20); Vitamin B12 708 pg/mL (232-1245)
--- NOTE | 2023-03-25 11:32 | XR_ITS ---
WS: [id number] XR chest 1V portable [id number] REASON FOR EXAM: thoracentesis FINDINGS: The left hemithorax remains nearly completely opacified however the opacification is less dense and t here small amount of aerated lung centrally postthoracentesis. Left shift of the mediastinum persists due to continued atelectasis of the left lung. XR/XR chest 1V portable [id number] IMPRESSION: Decreased left hemithorax opacification and presence of a small amount of aerat ed left lung postthoracentesis.
[2023-03-25] MEDS: LORazepam 1 mg Tablet PO (11:36)
[2023-03-25 11:47] LABS: Iron 20 ug/dL (59-158)
[2023-03-25 11:48] LABS: Percent Saturation 10.7 % (20-50); Total Iron Binding Capacity 186 mcg/dl; Unsaturated Iron Binding 166 ug/dL (112-347)
--- NOTE | 2023-03-25 11:48 | PC.PHAR ---
Trough expected to be drawn before 3rd dose Patient: Floor: Age: 77 yo Serum creatinine: 1.1 mg/dL Height: 71.7 Inches Weight (kg): 59 IBW (kg): 76.91 Dosing wt(kg): 59 Estimated Creatinine clearance (ml/min): 45.4 CRCL method: Cockcroft and Gault using ibw(default). Drug selected: Vancomycin Loading dose (mg): Vd (liters): 41.3 (factor used: 0.7 L/kg) Richi (hr-1): 0.042 Half life (hrs): 16.50 CLvanco=?? 1.735 L/hr Recommended dose: 1000 mg Interval: 24 hrs Infusion time (hrs): 1 Predicted peak (mcg/mL): 37.3 Predicted trough (mcg/mL): 14.20 Total body weight is being used for vancomycin dosing. Recommendations: Give Vancomycin 1000 mg q 24 hrs with an expected Cpeak of 37.3 mcg/ml and an expected Ctrough of 14.20 mcg/ml AUC 0-24 /VICKIE Data: VICKIE 0.5 mcg/mL:?? AUC/VICKIE:? 1152.7 VICKIE 1.0 mcg/mL:?? AUC/VICKIE:? 576.4 --------- VICKIE 1.5 mcg/mL:?? AUC/VICKIE:? 384.2 VICKIE 2.0 mcg/mL:?? AUC/VICKIE:? 288.2 Renal dosing of other antibiotics (review renal dosing of other medications and list guidelines here): Thank you for the consult, will continue to follow. Signature: Stephon MéndezD
[2023-03-25 12:06] LABS: Body Fluid Polynuclear #Cells 0.993; Body Fluid WBC 1707 /uL; Monocytes # Body Fluid 0.714
--- NOTE | 2023-03-25 12:44 | PM.CONSULT ---
Providers/Reason For Consult Consulting Physician/Specialty*: Dr. Bliss/cardiothoracic surgery Reason for Consult*: Atelectasis left lung Requesting Physician: Dr. Haile Attending Physician: Cristiano Haile MD Primary Care Provider: Renzo Pate MD History of Present Illness History of Present Illness Fredi Claire is a 77 year old male who was admitted after presentation to the emergency department yesterday complaining of increasing shortness of breath, anxiety attack , and severe coughing while eating dinner. Upon presentation he was found to have complete atelectasis of the left lung with total opacification of the left thorax. This was confirmed by CT scan which also noted a dilated esophagus with retained material and concerns been raised of the potential for aspiration. He is chronically on 4 L nasal cannula the did require 6 L upon presentation. Thoracentesis has been performed by Dr. Thorne from our radiology department. 1000 cc of clear micheline fluid was returned with specimen sent for analysis. I have been requested to consider bronchoscopy to assess for airway obstruction and hopeful resolution. Mr. Claire resides at a nursing facility and [place], [place]. Dr. Sue has informed family of current findings and recommendation for bronchoscopy and I have been told by Dr. Sue by phone conversation that they have given agreement. Apparently, he is n.p.o. though it appears he did receive Lovenox prophylactically. Review of Systems Const: Reports: change in weight, fatigue and malaise Card: Reports: palpitations and irregular heart rhythm Resp: Reports: dyspnea and productive cough : Reports: urinary dribbling and urinary incontinence Neuro: Denies: headache(s) Psych: Reports: anxiety; Denies: depression Medications/Allergies Home Medications Medication Instructions Recorded Confirmed Last Taken Type pantoprazole 40 mg tablet,delayed 40 mg PO BID@12/18/20 03/25/23 Unknown History release ondansetron HCl 4 mg tablet 4 mg PO Q4H PRN Nausea 05/01/21 03/25/23 Unknown History trazodone 100 mg tablet 100 mg PO BEDTIME@05/01/21 03/25/23 Unknown History polyethylene glycol 3350 17 gram 17 g PO DAILY #0 ea 03/12/22 03/25/23 09/26/20 Rx oral powder packet (Miralax) sennosides 8.6 mg-docusate sodium 1 tab PO BID@,05/15/22 03/25/23 Unknown History 50 mg tablet (Senna-S) acetaminophen 500 mg tablet 500 mg PO QID 03/25/23 03/25/23 Unknown History apixaban 5 mg tablet (Eliquis) 5 mg PO BID@,03/25/23 03/25/23 Unknown History atorvastatin 40 mg tablet 40 mg PO DAILY@03/25/23 03/25/23 Unknown History cholecalciferol (vitamin D3) 25 25 mcg PO DAILY@03/25/23 03/25/23 Unknown History mcg (1,000 unit) tablet (Vitamin D3) fluoxetine 40 mg capsule 80 mg PO DAILY@03/25/23 03/25/23 Unknown History folic acid 1 mg tablet 1 mg PO DAILY@03/25/23 03/25/23 Unknown History lanolin alcohols-mineral See Rx Instructions .Route .COMPLEX 03/25/23 03/25/23 Unknown History oil-w.petrolatum-ceresin topical cream (Eucerin topical cream) lisinopril 2.5 mg tablet 2.5 mg PO DAILY@03/25/23 03/25/23 Unknown History lorazepam 0.5 mg tablet 0.5 mg PO TID@,,03/25/23 03/25/23 Unknown History memantine 5 mg tablet 5 mg PO BEDTIME@03/25/23 03/25/23 Unknown History memantine 5 mg tablet 5 mg PO BID@,03/25/23 03/25/23 Unknown History metronidazole 0.75 % topical gel See Rx Instructions .Route .COMPLEX 03/25/23 03/25/23 Unknown History nicotine 14 mg/24 hr daily 1 patch transdermal DAILY@03/25/23 03/25/23 Unknown History transdermal patch solifenacin 5 mg tablet 5 mg PO DAILY@03/25/23 03/25/23 Unknown History tamsulosin 0.4 mg capsule 0.4 mg PO BID@,03/25/23 03/25/23 Unknown History tiotropium bromide 2.5 1 puff inhalation DAILY@03/25/23 03/25/23 Unknown History mcg/actuation mist for inhalation (Spiriva Respimat) tramadol 50 mg tablet 50 mg PO Q8H PRN Pain 03/25/23 03/25/23 Unknown History Allergies Allergy/AdvReac Type Severity Reaction Status Date / Time amitriptyline Allergy Unknown Verified 03/25/23 08:54 ibuprofen Allergy ALGY-Rash Verified 03/25/23 08:54 metoprolol Allergy Unknown Verified 03/25/23 08:54 sulfamethoxazole Allergy Unknown Verified 03/25/23 08:54 [From Bactrim] trimethoprim [From Bactrim] Allergy Unknown Verified 03/25/23 08:54 Current Medications Generic Name Dose Route Start Last Admin Trade Name Freq PRN Reason Stop Dose Admin Hydrocodone Bitart/Acetaminophen 1 tab 03/24/23 23:44 03/25/23 08:32 Hydrocodone-Acetaminophen 5-325 Mg Tablet PO 1 tab Q6H PRN Administration pain Acetylcysteine 100 mg 03/25/23 04:00 03/25/23 11:46 Acetylcysteine 200 Mg/Ml Sdv 4 Ml INHALATION 100 mg Q4H.RESPIRATORY ELILE Administration Albuterol/Ipratropium 3 ml 03/25/23 00:00 03/25/23 11:46 Ipratropium-Albuterol 3 Ml Neb INHALATION 3 ml Q4H.RESPIRATORY ELLIE Administration Aspirin 81 mg 03/25/23 09:00 03/25/23 08:32 Aspirin 81 Mg Ec Tablet PO 81 mg DAILY ELLIE Administration Buspirone HCl 5 mg 03/25/23 09:00 03/25/23 08:32 Buspirone 10 Mg Tablet PO 5 mg BID ELLIE Administration Docusate Sodium 100 mg 03/25/23 09:00 03/25/23 08:32 Docusate Sodium 100 Mg Capsule PO 100 mg BID ELLIE Administration Finasteride 5 mg 03/25/23 09:00 03/25/23 08:32 Finasteride 5 Mg Tablet PO 5 mg DAILY ELLIE Administration Fluoxetine HCl 40 mg 03/25/23 09:00 03/25/23 08:32 Fluoxetine 20 Mg Capsule PO 40 mg DAILY ELLIE Administration Furosemide 40 mg 03/24/23 23:45 03/25/23 00:10 Furosemide 10 Mg/Ml Sdv 4ml IVP 40 mg Q12H ELLIE Administration Piperacillin Sod/Tazobactam 50 mls @ 12.5 mls/hr 03/25/23 06:00 03/25/23 05:24 Sod 3.375 gm/ Sodium Chloride IV 12.5 mls/hr Q8H ELLIE Administration Protocol Lorazepam 1 mg 03/24/23 23:44 03/25/23 11:36 Lorazepam 1 Mg Tablet PO 1 mg TID PRN Administration ANXIETY Magnesium Lactate 84 mg 03/24/23 23:50 03/25/23 08:32 Magnesium Lactate 84 Mg Tablet PO 84 mg DAILY ELLIE Administration Pantoprazole Sodium 40 mg 03/24/23 23:45 03/25/23 00:10 Pantoprazole 40 Mg Sdv IVP 40 mg Q24H ELLIE Administration Sodium Chloride 4 ml 03/25/23 08:00 03/25/23 07:56 Sodium Chloride 3.5% Neb 4 Ml Neb INHALATION Not Given BID.RESPIRATORY ELLIE Tamsulosin HCl 0.4 mg 03/25/23 09:00 03/25/23 08:32 Tamsulosin 0.4 Mg Capsule PO 0.4 mg BID ELLIE Administration Trazodone HCl 50 mg 03/24/23 23:45 03/25/23 00:16 Trazodone 50 Mg Tablet PO Not Given BEDTIME ELLIE PFSH Acute PFSH: Medical History Anemia Anticoagulation adequate with anticoagulant therapy Eliquis Anxiety Ascending aorta dilatation Atrial fibrillation BPH (benign prostatic hyperplasia) CHF (congestive heart failure) Chronic pain COPD (chronic obstructive pulmonary disease) DVT (deep venous thrombosis) Dyslipidemia Edema GERD (gastroesophageal reflux disease) Ischemic cardiomyopathy Left bundle branch block Myocardial infarction Pulmonary embolism Pulmonary HTN Tobacco abuse Urgency incontinence Venous insufficiency Surgical History History of left hip replacement Hx of facial fracture repair Hx of neck surgery S/P hip replacement Family History Father , at age 76 CAD (coronary artery disease) Myocardial infarction Mother , at age 80 Blood clot associated with vein wall inflammation Social History Smoking and tobacco status: never smoked Alcohol intake: never Substance/Drug Use: unknown Adopted: No Caregiver/support person: No Lives independently: No Household members: spouse Marital status: Current occupational status: retired Vitals/I&O/Wt Last Vital Signs Temp 97.4 F L 03/25/23 11:47 Pulse 108 H 03/25/23 11:47 Resp 23 H 03/25/23 11:47 BP 130/61 03/25/23 11:47 Pulse Ox 94 03/25/23 11:53 O2 Del Method Nasal Cannula 03/25/23 11:53 O2 Flow Rate 5 03/25/23 11:53 03/24/23 03/25/23 03/25/23 22:59 06:59 14:59 Intake Total 50 / 50 Balance 50 / 50 Weight last 48 hrs Weight 130 lb Physical Exam HENMT: COMMON NORMALS: normocephalic and atraumatic HEAD & SCALP: normal to inspection, normocephalic and atraumatic Neck/C-Spine: COMMON NORMALS: no lymphadenopathy; negative for full ROM Resp: AUSCULTATION: abnormal I/E ratio, crackles and diminished lung sounds on the left Cardio: COMMON NORMALS: regular rate RATE: regular rate RHYTHM: abnormal rhythm GI: COMMON NORMALS: Normal to inspection, nondistended, normoactive bowel sounds present Extremity: COMMON NORMALS: no clubbing, cyanosis or edema NARRATIVE EXTREMITY EXAM: Muscle wasting Data 03/25/23 04:53 03/25/23 04:53 Micro: Microbiology 03/24/23 22:22 Blood Culture - Preliminary Blood SPECIMEN COLLECTED 03/24/23 21:07 Blood Culture - Preliminary Blood SPECIMEN COLLECTED A&P Assessment and plan (1) Collapse of left lung: Atelectasis left lung with complete opacification left hemithorax with concerns for bronchial obstruction. Possible aspiration with noted dilated esophagus with retained food material. We will tentatively plan for bronchoscopy later today for further assessment of the etiology for his left lung atelectasis. Rationale for this has been carefully discussed with Mr. Claire and family. Given his numerous comorbidities including CHF, COPD, atrial fibrillation, pulmonary hypertension, and history of ischemic cardiomyopathy, he will be at increased risk for perioperative complications including possibility of , major bleeding, stroke, failure to obtain diagnosis or relieve the obstruction, and possible need for prolonged ventilation and care in the intensive care unit. Consult Attestations Medical Necessity Statement: Left lung atelectasis Time Spent in Patient Care: 16 - 35 minutes Coding Level of Care Code Acute Code for [facility] Fwd Diagnoses Collapse of left lung J98.11
[2023-03-25 13:01] LABS: Albumin Body Fluid 1.6 g/dL; Amylase Body Fluid 30 U/L; Cholesterol Body Fluid 50 mg/dL (0-200); Fluid Alkaline Phos. 48 IU/L; LDH Body Fluid 149 U/L; Triglycerides Body Fluid 22 mg/dL (0-150); Uric Acid Body Fluid 6 mg/dL
[2023-03-25 13:02] LABS: Total Protein Pleural Fluid 3.2 g/dL
[2023-03-25 13:03] LABS: Apprearance, Body Fluid CLOUDY; Color, Body Fluid RED
[2023-03-25 13:04] LABS: Body Fluid Specific Gravity 1.023; Cyto Order Verification Order Verified; pH Body Fluid 7.5
--- NOTE | 2023-03-25 14:16 | P.ANESASSM_ITS ---
Pre-Anesthetic Assessment Height/Weight: Height 1.83 m Weight 58.967 kg Temp Pulse Resp BP Pulse Ox O2 Del Method O2 Flow Rate 97.4 F L 108 H 23 H 130/61 94 Nasal Cannula 5 03/25/23 11:47 03/25/23 11:47 03/25/23 11:47 03/25/23 11:47 03/25/23 11:53 03/25/23 11:53 03/25/23 11:53 Operation Date: 03/25/23 15:10 Proposed Procedures p Bronchoscopy(Not Applicable) - Chidi Bliss MD Familial anesthetic complications: None Was Beta Clemente taken within 24 hours: N/A Was Clonidine taken within 24 hours: N/A Last intake: > 8hrs Social Tobacco and No alcohol Exam alert, oriented x 3, clear to auscultation bilaterally and regular rate & rhythm Airway Mallampati: Class III Dentition: other (no teeth) Pulmonary Chronic Obstructive Pulmonary Disease aspiration pneumonia CV/HEM Atrial Fibrillation, Congestive Heart Failure, Hypertension and Myocardial Infarction hx PE GI Gastroesophageal Reflux Disease Esophageal dsyfunction with retention Anesthetic Plan ASA status: 4 Anesthesia: General Other: RSI for hx of CT scan showing retained esophageal material Risk of > 500 ml blood loss (7ml/kg in children): No Medications/Allergies Home Medications Medication Instructions Recorded Confirmed Last Taken Type pantoprazole 40 mg tablet,delayed 40 mg PO BID@12/18/20 03/25/23 Unknown History release ondansetron HCl 4 mg tablet 4 mg PO Q4H PRN Nausea 05/01/21 03/25/23 Unknown History trazodone 100 mg tablet 100 mg PO BEDTIME@05/01/21 03/25/23 Unknown History polyethylene glycol 3350 17 gram 17 g PO DAILY #0 ea 03/12/22 03/25/23 09/26/20 Rx oral powder packet (Miralax) sennosides 8.6 mg-docusate sodium 1 tab PO BID@,05/15/22 03/25/23 Unknown History 50 mg tablet (Senna-S) acetaminophen 500 mg tablet 500 mg PO QID 03/25/23 03/25/23 Unknown History apixaban 5 mg tablet (Eliquis) 5 mg PO BID@03/25/23 03/25/23 Unknown History atorvastatin 40 mg tablet 40 mg PO DAILY@03/25/23 03/25/23 Unknown History cholecalciferol (vitamin D3) 25 25 mcg PO DAILY@03/25/23 03/25/23 Unknown History mcg (1,000 unit) tablet (Vitamin D3) fluoxetine 40 mg capsule 80 mg PO DAILY@03/25/23 03/25/23 Unknown History folic acid 1 mg tablet 1 mg PO DAILY@03/25/23 03/25/23 Unknown History lanolin alcohols-mineral See Rx Instructions .Route .COMPLEX 03/25/23 03/25/23 Unknown History oil-w.petrolatum-ceresin topical cream (Eucerin topical cream) lisinopril 2.5 mg tablet 2.5 mg PO DAILY@03/25/23 03/25/23 Unknown History lorazepam 0.5 mg tablet 0.5 mg PO TID@,,03/25/23 03/25/23 Unknown History memantine 5 mg tablet 5 mg PO BEDTIME@03/25/23 03/25/23 Unknown History memantine 5 mg tablet 5 mg PO BID@03/25/23 03/25/23 Unknown History metronidazole 0.75 % topical gel See Rx Instructions .Route .COMPLEX 03/25/23 03/25/23 Unknown History nicotine 14 mg/24 hr daily 1 patch transdermal DAILY@03/25/23 03/25/23 Unknown History transdermal patch solifenacin 5 mg tablet 5 mg PO DAILY@03/25/23 03/25/23 Unknown History tamsulosin 0.4 mg capsule 0.4 mg PO BID@03/25/23 03/25/23 Unknown History tiotropium bromide 2.5 1 puff inhalation DAILY@03/25/23 03/25/23 Unknown H istory mcg/actuation mist for inhalation (Spiriva Respimat) tramadol 50 mg tablet 50 mg PO Q8H PRN Pain 03/25/23 03/25/23 Unknown History Allergies Allergy/AdvReac Type Severity Reaction Status Date / Time amitriptyline Allergy Unknown Verified 03/25/23 08:54 ibuprofen Allergy ALGY-Rash Verified 03/25/23 08:54 metoprolol Allergy Unknown Verified 03/25/23 08:54 sulfamethoxazole Allergy Unknown Verified 03/25/23 08:54 [From Bactrim] trimethoprim [From Bactrim] Allergy Unknown Verified 03/25/23 08:54 Current Medications Generic Name Dose Route Start Last Admin Trade Name Teagan PRN Reason Stop Dose Admin Hydrocodone Bitart/Acetaminophen 1 tab 03/24/23 23:44 03/25/23 08:32 Hydrocodone-Acetaminophen 5-325 Mg Tablet PO 1 tab Q6H PRN Administration pain Acetylcysteine 100 mg 03/25/23 04:00 03/25/23 11:46 Acetylcysteine 200 Mg/Ml Sdv 4 Ml INHALATION 100 mg Q4H.RESPIRATORY ELLIE Administration Albuterol/Ipratropium 3 ml 03/25/23 00:00 03/25/23 11:46 Ipratropium-Albuterol 3 Ml Neb INHALATION 3 ml Q4H.RESPIRATORY ELLIE Administration Aspirin 81 mg 03/25/23 09:00 03/25/23 08:32 Aspirin 81 Mg Ec Tablet PO 81 mg DAILY ELLIE Administration Buspirone HCl 5 mg 03/25/23 09:00 03/25/23 08:32 Buspirone 10 Mg Tablet PO 5 mg BID ELLIE Administration Docusate Sodium 100 mg 03/25/23 09:00 03/25/23 08:32 Docusate Sodium 100 Mg Capsule PO 100 mg BID ELLIE Administration Finasteride 5 mg 03/25/23 09:00 03/25/23 08:32 Finasteride 5 Mg Tablet PO 5 mg DAILY ELLIE Administration Fluoxetine HCl 40 mg 03/25/23 09:00 03/25/23 08:32 Fluoxetine 20 Mg Capsule PO 40 mg DAILY ELLIE Administration Furosemide 40 mg 03/24/23 23:45 03/25/23 00:10 Furosemide 10 Mg/Ml Sdv 4ml IVP 40 mg Q12H ELLIE Administration Piperacillin Sod/Tazobactam 50 mls @ 12.5 mls/hr 03/25/23 06:00 03/25/23 05:24 Sod 3.375 gm/ Sodium Chloride IV 12.5 mls/hr Q8H ELLIE Administration Protocol Lorazepam 1 mg 03/24/23 23:44 03/25/23 11:36 Lorazepam 1 Mg Tablet PO 1 mg TID PRN Administration ANXIETY Magnesium Lactate 84 mg 03/24/23 23:50 03/25/23 08:32 Magnesium Lactate 84 Mg Tablet PO 84 mg DAILY ELLIE Administration Pantoprazole Sodium 40 mg 05/02/23 23:45 03/25/23 00:10 Pantoprazole 40 Mg Sdv IVP 40 mg Q24H ELLIE Administration Sodium Chloride 4 ml 03/25/23 08:00 03/25/23 07:56 Sodium Chloride 3.5% Neb 4 Ml Neb INHALATION Not Given BID.RESPIRATORY ELLIE Tamsulosin HCl 0.4 mg 03/25/23 09:00 03/25/23 08:32 Tamsulosin 0.4 Mg Capsule PO 0.4 mg BID ELLIE Administration Trazodone HCl 50 mg 03/24/23 23:45 03/25/23 00:16 Trazodone 50 Mg Tablet PO Not Given BEDTIME ELLIE PFSH Anesthesia Medical History Anemia Anticoagulation adequate with anticoagulant therapy Eliquis Anxiety Ascending aorta dilatation Atrial fibrillation BPH (benign prostatic hyperplasia) CHF (congestive heart failure) Chronic pain COPD (chronic obstructive pulmonary disease) DVT (deep venous thrombosis) Dyslipidemia Edema GERD (gastroesophageal reflux disease) Ischemic cardiomyopathy Left bundle branch block Myocardial infarction Pulmonary embolism Pulmonary HTN Tobacco abuse Urgency incontinence Venous insufficiency Surgical History History of left hip replacement Hx of facial fracture repair Hx of neck surgery S/P hip replacement Family History Father , at age 76 CAD (coronary artery disease) Myocardial infarction Mother , at age 80 Blood clot associated with vein wall inflammation Social History Smoking and tobacco status: never smoked Alcohol intake: never Substance/Drug Use: unknown Adopted: No Caregiver/support person: No Lives independently: No Household members: spouse Marital status: Current occupational status: retired Data Anesthesia 03/25/23 04:53 03/25/23 04:53 Short CBC 03/24/23 03/25/23 Range/Units 21:07 04:53 WBC 9.7 8.4 (4.0-10.0) 10^3/uL Hgb 8.7 L 9.1 L (11.7-16.6) g/dL Hct 29.5 L 31.1 L (42.0-52.0) % MCV 92.2 93.1 (80-94) fl Plt Count 307 282 (130-400) 10^3/cmm Neut % (Auto) 83.9 79.2 % Neut # (Auto) 8.13 H 6.67 (1.8-7.7) 10^3/uL BMP 03/24/23 03/25/23 21:07 04:53 Sodium 137 141 Potassium 4.1 4.5 Chloride 103 105 Carbon Dioxide 28 29 BUN 20 20 Creatinine 1.0 1.1 Glucose 124 H 96 Calcium 9.2 9.4 Cardiac Enzymes 03/24/23 03/25/23 Range/Units 21:07 04:53 NT-Pro-B Natriuret Pep 88437 H 95346 H (0-450) pg/mL Liver Function 03/24/23 Range/Units 21:07 Total Bilirubin 0.2 (0.15-1.2) mg/dL AST 8 (0-40) U/L ALT 10 (0-41) U/L Alkaline Phosphatase 142 H (40-130) U/L Albumin 2.6 L (3.5-5.2) g/dL Coags 03/25/23 03/25/23 04:53 10:45 PT 16.40 H INR 1.28 H C-Reactive Protein 48.8 H Microbiology 03/25/23 11:37 Gram Stain - Final Pleural Fluid 03/24/23 22:22 Blood Culture - Preliminary Blood SPECIMEN COLLECTED 03/24/23 21:07 Blood Culture - Preliminary Blood SPECIMEN COLLECTED Cardiac Studies: Echocardiogram Ultrasound 09/29/20
[2023-03-25] MEDS: vancomycin 1,000 MG in sodium chloride 0.9% 250 ML 250 MG IV (14:18)
[2023-03-25] MEDS: sodium chloride 0.9% 1,000 ML 30 ML IV (14:19)
[2023-03-25] MEDS: cetacaine Spray 5 gm Can 5 SPRAY (15:50)
[2023-03-25] MEDS: sodium bicarbonate 1 mEq/mL SDV 50mL 50 MEQ XX (15:55)
--- NOTE | 2023-03-25 16:05 | XRR_ITS ---
PROCEDURE INFORMATION: Exam: XR Chest Exam date and time: 03/25/2023 3:17 PM Age: 77 years old Clinical indication: Device placement; Other: Post bronchoscopy TECHNIQUE: Imaging protocol: Radiologic exam of the chest. Views: 1 view. COMPARISON: CR XR chest 1V portable [id number] 03/25/2023 10:41 AM FINDINGS: Tubes, catheters and devices: Overlying monitor leads. Lungs: Interval improved aeration of the upper left lung from previous exam, with continued opacity mid and lower left lung. Continued mild interstitial prominence right lung. No pneumothorax is seen. Pleural spaces: See Lungs finding. Heart/Mediastinum: Cardiac border is not seen on the left to evaluate cardiac size. Bones/joints: [id number] thoracic levoscoliosis. XR/XR chest 1V portable [id number] IMPRESSION: Compared with earlier exam, there has been improved aeration in the upper left lung with continued opacity mid and lower left lung, likely related to pleural effusion with atelectasis and/or infiltrate. No pneumothorax.
--- NOTE | 2023-03-25 16:09 | P.OP_ITS ---
Operative Report Date of procedure: March 25, 2023 Pre-op diagnosis: Left lung atelectasis Post-op diagnosis: same Procedure done: Flexible diagnostic/therapeutic bronchoscopy Specimens removed/disposition: Bronchial lavage left main bronchus for culture Pathology: none sent Surgeon: Chidi Bliss Anesthesia: General Complications: None: Post procedure chest x-ray pending Findings: Mucous plugging left main bronchus Condition: stable Disposition: PACU Brief History: Mr. Claire is a 77-year-old gentleman who is a resident of a local skilled care facility. He presented with shortness of breath and coughing episode while eating dinner yesterday. He was found to have complete atelectasis of the left lung with opacification of the left hemithorax. Thoracentesis return 1000 cc of clear/micheline fluid. Bronchoscopy is recommended to assess for possible bronchial obstruction. Details and risk of the procedure were carefully discussed with Mr. Claire and his . Appropriate consents have been reviewed and signed. Procedure: Procedure: Mr. Claire underwent general endotracheal anesthesia with an 8.0 endotracheal tube. With adequate anesthesia, flexible bronchoscope was inserted through the endotracheal tube. In a methodical fashion the trachea, ru, right main bronchus and associated lobar bronchi were inspected. In a similar fashion the left side was inspected. Secretions were cleared as needed to allow for adequate inspection. Normal saline or normal saline and bicarbonate solution were used to clear thick or tenacious secretions. Specimens were collected for culture from the left main bronchus. Findings: Main ru was sharp. There was mild generalized mucosal edema. The entire left bronchial tree was filled with white secretions with mild overflowing onto the right side. The right side was carefully inspected in a systematic fashion and was unremarkable. On the left side active suction was performed to remove thick mucous plug which extended down much of the left main bronchus length. Deep specimen was collected for culture. Once removed, further irrigation was performed with the use of saline and bicarbonate to remove residual mucus material. Inspection of the upper lobe and lower lobe bronchi on the left side revealed generalized edema with substantial encroachment on the airways distally. No endobronchial lesions were identified. There was no submucosal infiltration or evidence for extrinsic compression. The generalized edema and airway compromise to the distal aspect of the left main bronchial tree is felt to represent reaction to longstanding mucous plugging's, though extrinsic adenopathy cannot be ruled out. Once completed, the scope was withdrawn under direct visualization confirming cleared secretions and no substantial bleeding. Endoscopic photos were taken as required to document pathology. Mr. Claire tolerated the procedure well and was taken to postoperative care unit. I did residential substance abuse counselor with his by phone at the completion of the procedure.
[2023-03-25 17:48] LABS: Apprearance, Bronch Wash Cloudy (CLEAR); Color, Bronc Wash White; PATH Referral Yes
[2023-03-25] MEDS: LORazepam 0.5 mg Tablet PO (18:23)
--- NOTE | 2023-03-25 18:52 | PM.PN ---
Subjective Subjective: Hospital course since admission appreciated. On examination patient sitting comfortably in bed with family at bedside on 5 L of oxygen supplementation asking for his oral Ativan. States he is feeling fine. Denies any nausea, vomiting, headache. Denies any chest pain. Has remained hemodynamically stable and afebrile. Vitals/I&O/Wt Last Vital Signs Temp 97.9 F 03/25/23 16:50 Pulse 86 03/25/23 18:15 Resp 18 03/25/23 18:15 BP 109/58 03/25/23 18:15 Pulse Ox 94 03/25/23 18:15 O2 Del Method Nasal Cannula 03/25/23 18:15 O2 Flow Rate 4 03/25/23 16:50 03/25/23 03/25/23 03/25/23 06:59 14:59 22:59 Intake Total 50 / 50 940 / 940 Output Total 100 / 100 Balance 50 / 50 840 / 840 Weight last 48 hrs Weight 58.967 kg Physical Exam Const: COMMON NORMALS: no acute distress and patient oriented x3 HENMT: COMMON NORMALS: normocephalic HEAD & SCALP: normocephalic Eye: COMMON NORMALS: Equal, round and reactive pupils present and EOMs intact bilaterally PUPIL: Yes Equal, round and reactive pupils present Neck/C-Spine: COMMON NORMALS: no JVD Lymph: LYMPHATIC: no lymphadenopathy noted Resp: COMMON NORMALS: normal respiratory effort, No retractions and No use of accessory muscles OTHER: Decreased sounds left lung field, right lung field sounds good breath sounds Cardio: COMMON NORMALS: no JVD, regular rate, regular rhythm, S1 normal heart sound present and S2 normal heart sound present RATE: regular rate RHYTHM: regular rhythm HEART SOUNDS: S1 normal heart sound present and S2 normal heart sound present GI: COMMON NORMALS: Normal to inspection, nondistended, normoactive bowel sounds present, Soft to palpation, non-tender, No hepatosplenomegaly present, no masses and no bruits PALPATION: Yes Soft to palpation and Yes No hepatosplenomegaly present Extremity: COMMON NORMALS: capillary refill normal, no calf tenderness and no pedal edema Neuro: COMMON NORMALS: patient oriented x3, CN's II-XII intact bilaterally and moves all extremities Psych: COMMON NORMALS: mental status grossly normal Data 03/25/23 04:53 03/25/23 04:53 Micro: Microbiology 03/24/23 22:22 Blood Culture - Preliminary Blood 03/24/23 21:07 Blood Culture - Preliminary Blood 03/25/23 11:37 Gram Stain - Final Pleural Fluid A&P Assessment and plan (1) Acute respiratory failure with hypoxia: Acute on chronic hypoxic respiratory failure. Most likely in setting of worsening of COPD exacerbation secondary to aspiration pneumonia leading to mucous plugging of bronchi and collapse of left lung along with pleural effusion. Post 1 L thoracentesis. Follow-up fluid studies. Care discussed in detail with Dr. Bliss. Plan for bronchoscopy today to rule out malignancy and washer popped mucous plug. Plan for CT chest post bronchoscopy. Follow-up fluid culture, bronc cultures. For now continue patient on Zosyn. Add vancomycin. MRSA positive in September 2020. Check urine Legionella, bacterial antigen. Check urinalysis. Speech evaluation and modify diet accordingly. Check modified barium swallow. Oxygen supplementation keeping saturation over 88%. DuoNebs every 4 hour, budesonide twice daily. Mucomyst every 4 hours. Hold off on starting steroids for now. Aggressive pulmonary toilet with incentive spirometry and chest vest. (2) Aspiration pneumonia: (3) Mucus plugging of bronchi: (4) Collapse of left lung: (5) Bilateral pleural effusion: (6) Atrial fibrillation: Chronic. Telemetry. Continue with home dose of Eliquis 5 mg twice daily. Currently rate controlled. Not on any rate controlling medications. (7) Acute on chronic clinical systolic heart failure: Last echocardiogram from 2019 shows an EF of 40% with global LV hypokinesia and grade 1 diastolic dysfunction, trace AI. For now we will hold off on echocardiogram given significant left-sided pleural effusion. Continue with IV Lasix 40 mg twice daily for now. Strict input output charting, daily weights. Fluid restriction up to 1500 cc. (8) Anemia: Check iron panel, vitamin B12, folate level. Monitor hemoglobin daily. (9) CAD (coronary artery disease): Acute chest pain. Continue with home dose of aspirin. Check A1c, lipid panel. (10) Aspiration into airway: Plan Restart home dose of multiple psych and anxiety medications. CODE STATUS: Discussed in detail with patient and patient's at bedside. Full code for now. Soft mechanical diet as per speech evaluation. Protonix for PUD prophylaxis Heparin 5000 every 12 hours for DVT prophylaxis. Attestations Medical Necessity Statement*: Requires further hospitalization for management of acute on chronic hypoxic respiratory failure in setting of mucous plugging and collapse of left lung with left pleural effusion, COPD exacerbation secondary to aspiration pneumonia and High Time for a total of 70 minutes, includes reviewing past or interval history, examining/interviewing patient, placing orders, counseling patient/family/other support, updating patient/family/other support, discussing plan of care with staff, communicating with other healthcare providers, documenting encounter and coordinating care Diagnoses Acute respiratory failure with hypoxia J96.01 Aspiration pneumonia J69.0 Mucus plugging of bronchi T17.500A Collapse of left lung J98.11 Bilateral pleural effusion J90 Atrial fibrillation I48.91 Acute on chronic clinical systolic heart failure I50.23 Anemia D64.9 CAD (coronary artery disease) I25.10 Aspiration into airway T17.908A
[2023-03-25] MEDS: trazodone 50 mg Tablet PO (20:24)
[2023-03-25 21:47] LABS: Total Cells Counted Bronch 100
[2023-03-25 21:48] LABS: Other Cells, Bronch Wash 1 %
[2023-03-25 22:31] LABS: Anion Gap 10.3 (5-19); Blood Urea Nitrogen 23 mg/dL (8-23); Calcium 8.8 mg/dL (8.5-10.5); Carbon Dioxide 29 mmol/L (22-29); Chloride 109 mmol/L (98-107); Glucose 139 mg/dL (65-115); Magnesium 2.2 mg/dL (1.7-2.3); Osmolality Calculated 304 mOsm/kg (285-295); Potassium 4.3 mmol/L (3.5-5.1); Sodium 144 mmol/L (136-145)
[2023-03-26] VITALS (16 sets, daily range): BP systolic 102–127; BP diastolic 50–78; PULSE 56–94; RESP 16–24; TEMP 36.4–36.8; O2SAT 94–98
[2023-03-26] MEDS: pantoprazole 40 mg SDV IVP ×2 (00:12→23:05)
[2023-03-26] MEDS: FUROsemide 10 mg/mL SDV 4mL 40 MG IVP ×3 (00:12→23:04)
[2023-03-26] MEDS: ipratropium-albuterol 3 mL Neb INHALATION ×6 (00:34→20:51)
[2023-03-26] MEDS: acetylcysteine 200 mg/mL SDV 4 mL 100 MG INHALATION ×6 (00:34→20:51)
[2023-03-26] MEDS: LORazepam 1 mg Tablet PO (01:12)
[2023-03-26 04:40] LABS: Basophils % 0.2 %; Eosinophils # 0.2 10^3/uL (0.0-0.8); Eosinophils % 2.1 %; Hematocrit 28.5 % (42.0-52.0); Hemoglobin 8.3 g/dL (11.7-16.6); Lymphocytes # 1.2 10^3/uL (0.8-4.8); Lymphocytes % 14.6 %; Mean Corpuscular HGB Conc 29.1 g/dL (30.0-36.0); Mean Corpuscular Hemoglobin 27.3 pg (28.0-34.0); Mean Corpuscular Volume 93.8 fl (80-94); Mean Platelet Volume 9.4 fL (7.4-10.4); Monocytes # 0.5 10^3/uL (0.2-0.9); Monocytes % 5.9 %; Neutrophils # 6.15 10^3/uL (1.8-7.7); Neutrophils % 76.8 %; Nucleated Red Blood Cells % 0 %; Platelet Count 326 10^3/cmm (130-400); Red Blood Count 3.04 10^6/uL (4.1-5.3); Red Cell Distribution Width 15.1 % (12.1-15.1)
[2023-03-26 05:03] LABS: Alanine Aminotransferase 9 U/L (0-41); Albumin Level 2.5 g/dL (3.5-5.2); Alkaline Phosphatase 125 U/L (40-130); Aspartate Amino Transferase 8 U/L (0-40); Blood Urea Nitrogen 21 mg/dL (8-23); Carbon Dioxide 32 mmol/L (22-29); Chloride 103 mmol/L (98-107); Chol HDL Ratio 2.54 mg/dL (1.0-5.00); Cholesterol 104 mg/dL (0-200); Globulin 3.3 g/dL (1.3-4.6); Glucose 92 mg/dL (65-115); HDL Cholesterol 41 mg/dL (60-100); LDL Cholesterol Calculated 54 mg/dL (50-129); Osmolality Calculated 293 mOsm/kg (285-295); Sodium 140 mmol/L (136-145); Total Bilirubin 0.2 mg/dL (0.15-1.2); Total Protein 5.8 g/dL (6.6-8.7); Triglycerides 45 mg/dL (0-150); VLDL Cholestrol Calculation 9 mg/dL (0-30)
[2023-03-26] MEDS: piperacillin-tazobactam 3.375 GM in sodium chloride 0.9% (plus) 50 ML IV ×3 (05:16→22:13)
[2023-03-26] MEDS: HYDROcodone-acetaminophen 5-325 mg Tablet 1 TAB PO ×3 (05:16→20:01)
[2023-03-26 05:29] LABS: Estmated Average Glucose 88; Hemoglobin A1C 4.7 % (4.0-6.0)
[2023-03-26] MEDS: sodium chloride 3.5% neb 4 mL Neb INHALATION ×2 (08:11→20:51)
[2023-03-26] MEDS: budesonide 0.5 mg/2 mL Neb INHALATION ×2 (08:11→20:51)
--- NOTE | 2023-03-26 08:42 | CTR_ITS ---
PROCEDURE INFORMATION: Exam: CT Chest Without Contrast; Diagnostic Exam date and time: 03/26/2023 9:45 AM Age: 77 years old Clinical indication: Shortness of breath; Additional info: Left lung collapse pathology, post bronch TECHNIQUE: Imaging protocol: Diagnostic computed tomography of the chest without contrast. Radiation optimization: All CT scans at this facility use at least one of these dose optimization techniques: automated exposure control; mA and/or kV adjustment per patient size (includes targeted exams where dose is matched to clinical indication); or iterative reconstruction. REPORTING DATA: Count of CT and Cardiac NM exams in prior 12 months: This patient has received [address] and 0 known cardiac nuclear medicine studies in the 12 months prior to the current study. COMPARISON: 1. CT angio chest PE protcl [id number] 09/29/2020 8:[address] chest wo con [id number] 03/24/2023 9:13 PM RADIATION DOSE METRICS: Total DLP (mGy-cm): 419.99 FINDINGS: Lungs: There is severe upper lung predominant centrilobular emphysema. There is dependent ill-defined opacity and volume loss in the right lower lobe, similar to the findings on 03/24/2023. There is interval partial expansion of the left upper lobe. The left lower lobe remains completely atelectatic. Bronchi remain occluded in the left hilum. Pleural spaces: There is a large left pleural effusion which is decreased in size since 03/24/2023. There is a small right pleural effusion which is also decreased in size. Heart: There is moderate cardiac enlargement. There is no pericardial effusion. Coronary arteries: There is severe coronary artery calcification. Mediastinal space: There is leftward shift of the mediastinum due to volume loss in the left hemithorax. Lymph nodes: There is no mediastinal or hilar lymphadenopathy. Vasculature: There is moderate aortic atherosclerotic disease. Diaphragm: There is a large sliding-type hiatal hernia. Intraperitoneal space: Visible structures in the upper abdomen are unremarkable. Bones/joints: There are chronic compression fractures at T6, T8 and T10. T6 and T10 fractures are stable since 2019. T8 fracture is progressive since 2019 and stable since 03/24/2023. There is a healed fracture of the left humeral neck. Soft tissues: The extrathoracic soft tissues are unremarkable. CT/CT chest wo con [id number] IMPRESSION: 1. Decreased bilateral pleural effusions. 2. Interval partial re-expansion of the left upper lobe and persistent complete atelectasis of the left lower lobe since 03/24/2023. 3. Stable nonspecific opacity and volume loss in the right lower lung. Some component of atelectasis is present. Superimposed infection cannot be excluded. 4. Severe centrilobular emphysema. 5. Large sliding-type hiatal hernia. 6. Incidental findings above.
[2023-03-26] MEDS: finasteride 5 mg Tablet PO (08:57)
[2023-03-26] MEDS: tamsulosin 0.4 mg Capsule PO ×2 (08:57→17:29)
[2023-03-26] MEDS: fluoxetine 20 mg Capsule 40 MG PO (08:58)
[2023-03-26] MEDS: BuSPIRONE 10 mg Tablet 5 MG PO ×2 (08:59→17:29)
[2023-03-26] MEDS: aspirin 81 mg EC Tablet PO (09:01)
[2023-03-26] MEDS: docusate sodium 100 mg Capsule PO ×2 (09:01→17:29)
--- NOTE | 2023-03-26 10:38 | USCV_ITS ---
Fredi Claire Age: 77 Gender: M : 1945 Exam Date: 03/26/2023 11:36 Ordering Phys: Cristiano Haile MD Technologist: Dustin Abdul Exam Location: [facility] [place] [facility] [place] Indication: chf BP: 122 / 83 HR: 44 Rhythm: Sinus Technical Quality: Adequate MEASUREMENTS (Male / Female) Normal Values 2D ECHO LV Diastolic Diameter PLAX 4.8 cm 4.2 - 5.9 / 3.9 - 5.3 cm LV Systolic Diameter PLAX 3.1 cm IVS Diastolic Thickness 1.6 cm 0.6 - 1.0 / 0.6 - 0.9 cm IVS Systolic Thickness 1.6 cm LVPW Diastolic Thickness 1.4 cm 0.6 - 1.0 / 0.6 - 0.9 cm LVPW Systolic Thickness 1.5 cm LVOT Diameter 2.1 cm LV Ejection Fraction 2D Teich 64.2 % LV Ejection Fraction MOD 2C 44.0 % LV Ejection Fraction 2C AL 44.5 % LA Diameter 4.5 cm M-MODE Aortic Annulus Diameter 4.0 cm LA Ao Ratio MM 1.3 MV E Point Septal Separation 2.8 cm DOPPLER AV Peak Velocity 218.0 cm/s LVOT Peak Velocity 98.0 cm/s AV Area Cont Eq vti 1.7 cm squared AV Area Cont Eq pk 1.5 cm squared MV Area PHT 5.0 cm squared Mitral E to A Ratio 0.9 MV E' Velocity 45.5 cm/s Mitral E to MV E' Ratio 15.5 Mitral E to LV E' Lateral Ratio 14.7 Mitral E to LV E' Septal Ratio 16.4 TR Peak Velocity 260.0 cm/s TR Peak Gradient 27.0 mmHg TV Peak E Velocity 91.0 cm/s FINDINGS Left Ventricle Left ventricle is normal in size. LV systolic function is moderately reduced with EF of 35 to 40%. No regional wall motion normalities are seen. Right Ventricle Normal in size and function Right Atrium Normal in size Left Atrium Dilated Mitral Valve Structurally normal mitral valve. Mild mitral regurgitation. Aortic Valve Structurally normal aortic valve. No significant stenosis or regurgitation. Tricuspid Valve Mild tricuspid regurgitation Pulmonic Valve Trace pulmonic regurgitation. Pericardium Normal. Pleural effusion is seen. Aorta Normal in size IVC Not well visualized CONCLUSIONS LV systolic function is moderately reduced with EF of 35 to 40%. Left atrial dilation Mild mitral regurgitation. Mild tricuspid regurgitation Trace pulmonic regurgitation Pleural effusion is noted. Compared to prior echo from 2019, patient has pleural effusion now. Demetrius Rosenthal MD (Electronically Signed) Final Date: 26 Mar 2023 18:02 S
[2023-03-26] MEDS: magnesium lactate 84 mg Tablet PO (10:40)
--- NOTE | 2023-03-26 11:30 | FL_ITS ---
WS: [id number] FL barium swallow modifd [id number] REASON FOR EXAM: Oropharyngeal dysphagia FLUOROSCOPY TIME: 2min [id number] # OF SPOT FILMS: None FINDINGS: Examination was supervised by the speech therapy department. Patient was examined in the upright sitting position, lateral projection. The swallowing of varying consistencies of barium was monitored fluoroscopically and video recorded. Detailed analysis and report of the swallowing will be rendered by the speech therapy department. FL/FL barium swallow modifd [id number] IMPRESSION: Modified barium swallow as above.
[2023-03-26] MEDS: vancomycin 1,000 MG in sodium chloride 0.9% 250 ML 250 MG IV (12:53)
[2023-03-26] MEDS: LORazepam 0.5 mg Tablet PO ×2 (12:53→20:00)
--- NOTE | 2023-03-26 16:16 | P.PN_ITS ---
Subjective Subjective: No acute events overnight. Seen with family at bedside. Currently on 4 L of oxygen supplementation saturating more than 95%. Patient has remained hemodynamically stable and afebrile. Underwent left thoracentesis and bronchoscopy yesterday without any acute events. Had 1 episode of asymptomatic 5 beats of nonsustained V. tach yesterday evening. Electrolytes were checked to be stable. Vitals/I&O/Wt Last Vital Signs Temp 97.6 F 03/26/23 11:56 Pulse 85 03/26/23 15:42 Resp 16 03/26/23 15:37 BP 123/50 03/26/23 15:37 Pulse Ox 97 03/26/23 15:37 O2 Del Method Nasal Cannula 03/26/23 15:37 O2 Flow Rate 4 03/26/23 15:37 03/26/23 03/26/23 03/26/23 06:59 14:59 22:59 Intake Total 50 / 1110 1010 / 1010 Balance 50 / 1010 1010 / 1010 Weight last 48 hrs Weight 58.967 kg Physical Exam Const: COMMON NORMALS: no acute distress and patient oriented x3 HENMT: COMMON NORMALS: normocephalic HEAD & SCALP: normocephalic Eye: COMMON NORMALS: Equal, round and reactive pupils present and EOMs intact bilaterally PUPIL: Yes Equal, round and reactive pupils present Neck/C-Spine: COMMON NORMALS: no JVD Lymph: LYMPHATIC: no lymphadenopathy noted Resp: COMMON NORMALS: normal respiratory effort, No retractions and No use of accessory muscles OTHER: Decreased sounds left lung field, right lung field sounds good breath sounds Cardio: COMMON NORMALS: no JVD, regular rate, regular rhythm, S1 normal heart sound present and S2 normal heart sound present RATE: regular rate RHYTHM: regular rhythm HEART SOUNDS: S1 normal heart sound present and S2 normal hear t sound present GI: COMMON NORMALS: Normal to inspection, nondistended, normoactive bowel sounds present, Soft to palpation, non-tender, No hepatosplenomegaly present, no masses and no bruits PALPATION: Yes Soft to palpation and Yes No hepatosplenomegaly present Extremity: COMMON NORMALS: capillary refill normal, no calf tenderness and no pedal edema Neuro: COMMON NORMALS: patient oriented x3, CN's II-XII intact bilaterally and moves all extremities Psych: COMMON NORMALS: mental status grossly normal Data 03/26/23 04:16 03/26/23 04:16 Micro: Microbiology 03/25/23 11:37 Gram Stain - Final Pleural Fluid Anaerobic Culture - Preliminary Body Fluid Culture - Preliminary 03/24/23 21:07 Blood Culture - Preliminary Blood 03/26/23 05:00 Bacterial Antigens - Final Urine Kidney 03/26/23 05:00 Legionella Urinary Antigen - Final Unknown Source 03/26/23 04:16 Blood Culture - Preliminary Blood SPECIMEN COLLECTED 03/26/23 04:16 Blood Culture - Preliminary Blood SPECIMEN COLLECTED 03/24/23 22:22 Blood Culture - Preliminary Blood A&P Assessment and plan (1) Acute respiratory failure with hypoxia: Acute on chronic hypoxic respiratory failure. Most likely in setting of worsening of COPD exacerbation secondary to aspiration pneumonia leading to mucous plugging of bronchi and collapse of left lung along with pleural effusion. Cannot rule out postobstructive pneumonia. Pleural studies negative for empyema. Appreciate Dr. Bliss's help. Follow-up studies to rule out malignancy and culture results. MRSA positive in past. Continue with IV vancomycin and Zosyn. Appreciate speech evaluation. Patient is at high risk of aspiration with any kind of diet. Modified barium swallow today. Oxygen supplementation keeping saturation over 88%. DuoNebs every 4 hour, budesonide twice daily. Mucomyst every 4 hours. Hold off on starting steroids for now. Aggressive pulmonary toilet with incentive spirometry and chest vest. (2) Aspiration pneumonia: (3) Mucus plugging of bronchi: (4) Collapse of left lung: (5) Bilateral pleural effusion: (6) Atrial fibrillation: Chronic. Telemetry. Continue with home dose of Eliquis 5 mg twice daily. Currently rate controlled. Not on any rate controlling medications. (7) Acute on chronic clinical systolic heart failure: Last echocardiogram from 2019 shows an EF of 40% with global LV hypokinesia and grade 1 diastolic dysfunction, trace AI. Continue with IV Lasix 40 mg twice daily for now. We will switch to oral Lasix tomorrow. Checking echocardiogram today Strict input output charting, daily weights. Fluid restriction up to 1500 cc. (8) Anemia: Check iron panel, vitamin B12, folate level. Monitor hemoglobin daily. (9) CAD (coronary artery disease): No acute chest pain. Continue with home dose of aspirin. Appreciate A1c, lipid panel. Check echocardiogram with and without contrast. (10) Aspiration into airway: Plan Restart home dose of multiple psych and anxiety medications. CODE STATUS: Discussed in detail with patient and patient's at bedside. Full code for now. Soft mechanical diet as per speech evaluation. Protonix for PUD prophylaxis Heparin 5000 every 12 hours for DVT prophylaxis. Attestations Medical Necessity Statement*: Requires further hospitalization for management of aspiration pneumonitis leading to left lung mucous plugging and collapse, left-sided severe pleural effusion while empyema, postobstructive pneumonia and malignancy is ruled out and diet is advanced as per speech therapy in a patient with history of diastolic and systolic heart failure Diagnoses Acute respiratory failure with hypoxia J96.01 Aspiration pneumonia J69.0 Mucus plugging of bronchi T17.500A Collapse of left lung J98.11 Bilateral pleural effusion J90 Atrial fibrillation I48.91 Acute on chronic clinical systolic heart failure I50.23 Anemia D64.9 CAD (coronary artery disease) I25.10 Aspiration into airway T17.908A
[2023-03-26] MEDS: trazodone 50 mg Tablet PO (20:01)
[2023-03-27] VITALS (16 sets, daily range): BP systolic 101–128; BP diastolic 52–68; PULSE 53–85; RESP 15–21; TEMP 36.3–37.1; O2SAT 90–100
--- NOTE | 2023-03-27 00:19 | PC.PHAR ---
Vancomycin Trough scheduled for 03/28 1200, please hold 1300 5/6 dose until drawn. Will continue to follow. Thank you, Annamaria Rubalcava [facility]
[2023-03-27] MEDS: piperacillin-tazobactam 3.375 GM in sodium chloride 0.9% (plus) 50 ML IV ×3 (06:00→23:19)
[2023-03-27] MEDS: LORazepam 0.5 mg Tablet PO ×3 (06:01→19:08)
[2023-03-27 07:23] LABS: Glucose Urine UA Norm (Normal); Ketones Urine Negative (Negative); Protein Urine Neg (Negative); Specific Gravity, Urine 1.015 (1.005-1.030); Urine Appearance Hazy (CLEAR); Urine Color Yellow (Yellow); pH Urine 5 (5-7)
[2023-03-27 07:24] LABS: Add Urine Microscopic? YES; Bilirubin Urine Neg (Negative); Blood Urine 2+ (Negative); Leukocyte Esterase Urine 2+ (Negative); Nitrate Urine Negative (Negative); Urobilinogen Urine Neg (Negative)
[2023-03-27 07:30] LABS: Add Urine Culture? Yes; Bacteria Urine 2+ /hpf; Mucus Urine TRACE /hpf; Squamous Epithelial Cell Urine 0-4 /hpf (0-5); WBC Urine TOO NUMEROUS TO CNT /hpf (0-5)
[2023-03-27] MEDS: sodium chloride 3.5% neb 4 mL Neb INHALATION ×2 (07:43→21:22)
[2023-03-27] MEDS: acetylcysteine 200 mg/mL SDV 4 mL 100 MG INHALATION ×4 (07:43→21:23)
[2023-03-27] MEDS: ipratropium-albuterol 3 mL Neb INHALATION ×4 (07:43→21:23)
[2023-03-27] MEDS: budesonide 0.5 mg/2 mL Neb INHALATION ×2 (07:43→21:23)
[2023-03-27] MEDS: finasteride 5 mg Tablet PO (08:47)
[2023-03-27] MEDS: docusate sodium 100 mg Capsule PO ×2 (08:47→17:22)
[2023-03-27] MEDS: tamsulosin 0.4 mg Capsule PO ×2 (08:47→17:23)
[2023-03-27] MEDS: BuSPIRONE 10 mg Tablet 5 MG PO ×2 (08:48→17:22)
[2023-03-27] MEDS: fluoxetine 20 mg Capsule 40 MG PO (08:48)
[2023-03-27] MEDS: aspirin 81 mg EC Tablet PO (08:48)
[2023-03-27] MEDS: magnesium lactate 84 mg Tablet PO (10:36)
--- NOTE | 2023-03-27 12:10 | PC.SOCIAL ---
Pg 2 IMM Explained to pt Pg 2 IMM. No questions voiced. Provided pt a copy. Initialed, dated, & timed a copy & placed in chart.
[2023-03-27] MEDS: vancomycin 1,000 MG in sodium chloride 0.9% 250 ML 250 MG IV (13:29)
[2023-03-27] MEDS: FUROsemide 10 mg/mL SDV 4mL 40 MG IVP ×2 (13:30→23:18)
--- NOTE | 2023-03-27 14:21 | PM.PN ---
Subjective Subjective: No acute events overnight. Patient seen with family at bedside. He is currently on 3 L oxygen supplementation saturating more than 95%. Appreciate speech therapy evaluation. On review it seems bronc cultures were never sent on the analysis was sent. Lab still has sample will add bronc cultures and Gram stain. Vitals/I&O/Wt Last Vital Signs Temp 97.3 F L 03/27/23 08:00 Pulse 61 03/27/23 12:16 Resp 16 03/27/23 12:05 BP 111/65 03/27/23 08:00 Pulse Ox 99 03/27/23 12:05 O2 Del Method Nasal Cannula 03/27/23 12:05 O2 Flow Rate 2 03/27/23 12:05 03/26/23 03/27/23 03/27/23 22:59 06:59 14:59 Intake Total 410 / 1420 50 / 1470 530 / 530 Balance 410 / 1420 50 / 1470 530 / 530 Physical Exam Const: COMMON NORMALS: no acute distress and patient oriented x3 HENMT: COMMON NORMALS: normocephalic HEAD & SCALP: normocephalic Eye: COMMON NORMALS: Equal, round and reactive pupils present and EOMs intact bilaterally PUPIL: Yes Equal, round and reactive pupils present Neck/C-Spine: COMMON NORMALS: no JVD Lymph: LYMPHATIC: no lymphadenopathy noted Resp: COMMON NORMALS: normal respiratory effort, No retractions and No use of accessory muscles OTHER: Decreased sounds left lung field, right lung field sounds good breath sounds Cardio: COMMON NORMALS: no JVD, regular rate, regular rhythm, S1 normal heart sound present and S2 normal heart sound present RATE: regular rate RHYTHM: regular rhythm HEART SOUNDS: S1 normal heart sound present and S2 normal heart sound present GI: COMMON NORMALS: Normal to inspection, nondistended, normoactive bowel sounds present, Soft to palpation, non-tender, No hepatosplenomegaly present, no masses and no bruits PALPATION: Yes Soft to palpation and Yes No hepatosplenomegaly present Extremity: COMMON NORMALS: capillary refill normal, no calf tenderness and no pedal edema Neuro: COMMON NORMALS: patient oriented x3, CN's II-XII intact bilaterally and moves all extremities Psych: COMMON NORMALS: mental status grossly normal Data 03/26/23 04:16 03/26/23 04:16 Micro: Microbiology 03/26/23 04:16 Blood Culture - Preliminary Blood NEGATIVE TO DATE 03/26/23 04:16 Blood Culture - Preliminary Blood NEGATIVE TO DATE 03/25/23 11:37 Gram Stain - Final Pleural Fluid Anaerobic Culture - Preliminary Body Fluid Culture - Preliminary 03/24/23 21:07 Blood Culture - Preliminary Blood 03/26/23 05:00 Bacterial Antigens - Final Urine Kidney A&P Assessment and plan (1) Acute respiratory failure with hypoxia: Acute on chronic hypoxic respiratory failure. Most likely in setting of worsening of COPD exacerbation secondary to aspiration pneumonia leading to mucous plugging of bronchi and collapse of left lung along with pleural effusion. Cannot rule out postobstructive pneumonia. Pleural studies negative for empyema. Appreciate Dr. Bliss's help. Follow-up studies to rule out malignancy and culture results. MRSA positive in past. Continue with IV vancomycin and Zosyn. Appreciate speech evaluation. Patient is at high risk of aspiration with any kind of diet. Modified barium swallow today. Oxygen supplementation keeping saturation over 88%. DuoNebs every 4 hour, budesonide twice daily. Mucomyst every 4 hours. Hold off on starting steroids for now. Aggressive pulmonary toilet with incentive spirometry and chest vest. (2) Aspiration pneumonia: (3) Mucus plugging of bronchi: (4) Collapse of left lung: (5) Bilateral pleural effusion: (6) Atrial fibrillation: Chronic. Telemetry. Continue with home dose of Eliquis 5 mg twice daily. Currently rate controlled. Not on any rate controlling medications. (7) Acute on chronic clinical systolic heart failure: Last echocardiogram from 2019 shows an EF of 40% with global LV hypokinesia and grade 1 diastolic dysfunction, trace AI. Continue with IV Lasix 40 mg twice daily for now. We will switch to oral Lasix tomorrow. Checking echocardiogram today Strict input output charting, daily weights. Fluid restriction up to 1500 cc. (8) Anemia: Check iron panel, vitamin B12, folate level. Monitor hemoglobin daily. (9) CAD (coronary artery disease): No acute chest pain. Continue with home dose of aspirin. Appreciate A1c, lipid panel. Check echocardiogram with and without contrast. (10) Aspiration into airway: Plan Restart home dose of multiple psych and anxiety medications. CODE STATUS: Discussed in detail with patient and patient's at bedside. Full code for now. Soft mechanical diet as per speech evaluation. Protonix for PUD prophylaxis Heparin 5000 every 12 hours for DVT prophylaxis. Plan for the day: Continue with IV Lasix 40 mg every 12 hourly. Repeat CMP and CBC in AM. Given lab holiday today. [facility] wash Culture and stain. Check MRSA swab. For now continue with vancomycin and Zosyn. Follow-up pleural fluid and blood cultures. Diet as per speech evaluation. Aspiration precautions. Discussed in detail with patient and patient's family regarding aspiration precautions going forward. Discussed that he should be sitting up for at least 45 minutes after eating to make sure he does not aspirate. Also discussed that he is unfortunately always at a high risk of aspiration given significant hiatal hernia. Oxygen supplementation keeping saturation over 90%. Monitor potassium given patient is on diuretics. Replete accordingly. Discharge plan: Plan to discharge in the next 24 hours back to custodial on oral antibiotics with advised to follow-up with pulmonology as an outpatient Attestations Medical Necessity Statement*: Requires further hospitalization for management of hypoxic respiratory failure in setting of left lung mucous plugging from chronic aspiration, left lung collapse, congestive heart failure Diagnoses Acute respiratory failure with hypoxia J96.01 Aspiration pneumonia J69.0 Mucus plugging of bronchi T17.500A Collapse of left lung J98.11 Bilateral pleural effusion J90 Atrial fibrillation I48.91 Acute on chronic clinical systolic heart failure I50.23 Anemia D64.9 CAD (coronary artery disease) I25.10 Aspiration into airway T17.908A
[2023-03-27] MEDS: trazodone 50 mg Tablet PO (21:12)
[2023-03-27] MEDS: pantoprazole 40 mg SDV IVP (23:18)
[2023-03-28] VITALS (14 sets, daily range): BP systolic 95–120; BP diastolic 53–67; PULSE 55–98; RESP 15–18; TEMP 36.4–36.8; O2SAT 86–99
[2023-03-28] MEDS: ipratropium-albuterol 3 mL Neb INHALATION ×5 (01:23→19:39)
[2023-03-28] MEDS: acetylcysteine 200 mg/mL SDV 4 mL 100 MG INHALATION ×5 (01:23→19:40)
[2023-03-28] MEDS: HYDROcodone-acetaminophen 5-325 mg Tablet 1 TAB PO ×3 (03:38→20:32)
[2023-03-28] MEDS: LORazepam 0.5 mg Tablet PO ×3 (07:44→18:04)
[2023-03-28] MEDS: piperacillin-tazobactam 3.375 GM in sodium chloride 0.9% (plus) 50 ML IV ×3 (07:44→23:25)
[2023-03-28] MEDS: budesonide 0.5 mg/2 mL Neb INHALATION ×2 (07:47→19:39)
[2023-03-28 09:38] LABS: Basophils % 0.3 %; Eosinophils # 0.2 10^3/uL (0.0-0.8); Eosinophils % 2.4 %; Hematocrit 32.1 % (42.0-52.0); Lymphocytes # 1.1 10^3/uL (0.8-4.8); Lymphocytes % 17.7 %; Mean Corpuscular Hemoglobin 27.1 pg (28.0-34.0); Mean Corpuscular Volume 96.7 fl (80-94); Monocytes # 0.3 10^3/uL (0.2-0.9); Monocytes % 5.3 %; Neutrophils # 4.56 10^3/uL (1.8-7.7); Nucleated Red Blood Cells % 0 %; Platelet Count 299 10^3/cmm (130-400); Red Blood Count 3.32 10^6/uL (4.1-5.3); Red Cell Distribution Width 15.1 % (12.1-15.1); White Blood Count 6.2 10^3/uL (4.0-10.0)
[2023-03-28] MEDS: tamsulosin 0.4 mg Capsule PO ×2 (09:54→18:04)
[2023-03-28] MEDS: finasteride 5 mg Tablet PO (09:54)
[2023-03-28] MEDS: aspirin 81 mg EC Tablet PO (09:55)
[2023-03-28] MEDS: magnesium lactate 84 mg Tablet PO (09:55)
[2023-03-28] MEDS: BuSPIRONE 10 mg Tablet 5 MG PO ×2 (09:55→18:03)
[2023-03-28] MEDS: fluoxetine 20 mg Capsule 40 MG PO (09:55)
[2023-03-28 10:31] LABS: Alanine Aminotransferase 9 U/L (0-41); Albumin Level 2.5 g/dL (3.5-5.2); Alkaline Phosphatase 140 U/L (40-130); Anion Gap 13.1 (5-19); Aspartate Amino Transferase 9 U/L (0-40); Blood Urea Nitrogen 21 mg/dL (8-23); Carbon Dioxide 31 mmol/L (22-29); Chloride 104 mmol/L (98-107); Globulin 3.7 g/dL (1.3-4.6); Glucose 88 mg/dL (65-115); Osmolality Calculated 300 mOsm/kg (285-295); Potassium 4.1 mmol/L (3.5-5.1); Sodium 144 mmol/L (136-145); Total Bilirubin 0.2 mg/dL (0.15-1.2); Total Protein 6.2 g/dL (6.6-8.7)
[2023-03-28] MEDS: FUROsemide 10 mg/mL SDV 4mL 40 MG IVP (11:56)
[2023-03-28 13:14] LABS: Vancomycin Trough 12.9 ug/mL (10-15)
[2023-03-28] MEDS: vancomycin 1,000 MG in sodium chloride 0.9% 250 ML 250 MG IV (14:06)
--- NOTE | 2023-03-28 16:10 | P.PN_ITS ---
Subjective Subjective: No acute events overnight. Patient on examination remains comfortable. He is saturating well over 95% on 3 L of oxygen supplementation. States he is feeling a lot better but continues to have pain all over. Urine output not documented in chart. Vitals/I&O/Wt Last Vital Signs Temp 97.7 F 03/28/23 15:40 Pulse 98 03/28/23 15:40 Resp 16 03/28/23 15:40 BP 95/59 03/28/23 15:40 Pulse Ox 97 03/28/23 15:40 O2 Del Method Nasal Cannula 03/28/23 15:40 O2 Flow Rate 3 03/28/23 15:38 03/28/23 03/28/23 03/28/23 06:59 14:59 22:59 Intake Total 50 / 1900 770 / 770 250 / 1020 Balance 50 / 1900 770 / 770 250 / 1020 Physical Exam Const: COMMON NORMALS: no acute distress and patient oriented x3 HENMT: COMMON NORMALS: normocephalic HEAD & SCALP: normocephalic Eye: COMMON NORMALS: Equal, round and reactive pupils present and EOMs intact bilaterally PUPIL: Yes Equal, round and reactive pupils present Neck/C-Spine: COMMON NORMALS: no JVD Lymph: LYMPHATIC: no lymphadenopathy noted Resp: COMMON NORMALS: normal respiratory effort, No retractions and No use of accessory muscles OTHER: Decreased sounds left lung field, right lung field sounds good breath sounds Cardio: COMMON NORMALS: no JVD, regular rate, regular rhythm, S1 normal heart sound present and S2 normal heart sound present RATE: regular rate RHYTHM: regular rhythm HEART SOUNDS: S1 normal heart sound present and S2 normal heart sound present GI: COMMON NORMALS: Normal to inspection, nondistended, normoactive bowel sounds present, Soft to palpation, non-tender, No hepatosplenomegaly present, no masses and no bruits PALPATION: Yes Soft to palpation and Yes No hepatosplenomegaly present Extremity: COMMON NORMALS: capillary refill normal, no calf tenderness and no pedal edema Neuro: COMMON NORMALS: patient oriented x3, CN's II-XII intact bilaterally and moves all extremities Psych: COMMON NORMALS: mental status grossly normal Data 03/28/23 08:50 03/28/23 08:50 Micro: Microbiology 03/25/23 15:57 Gram Stain - Final Lung Left Lower Lobe Bronchial Washings Culture - Preliminary 03/26/23 05:00 Urine Culture - Preliminary Urine,Clean Catch Gram Negative Rods 03/24/23 21:07 Blood Culture - Preliminary Blood 03/25/23 11:37 Gram Stain - Final Pleural Fluid Anaerobic Culture - Preliminary Body Fluid Culture - Preliminary A&P Assessment and plan (1) Gram-positive bacteremia: Blood culture from admission growing gram-positive cocci in clusters. Speciation and sensitivities not available currently. Repeat blood culture from 03/26 so far negative. If blood cultures persistently remain positive will have to plan for SWATI along with spine CT scan to rule out discitis. We will rest hospitalization and sensitivities and then de-escalate antibiotics accordingly. For now continue with both vancomycin and Zosyn. Patient will most likely need 14 days of antibiotics post first negative blood cultures. (2) Acute respiratory failure with hypoxia: Acute on chronic hypoxic respiratory failure. Most likely in setting of congestive heart failure and COPD exacerbation secondary to aspiration pneumonia leading to mucous plugging of bronchi and collapse of left lung along with pleural effusion. Cannot rule out postobstructive pneumonia. Follow-up bronchial wash and pleural fluid culture results. History of being MRSA positive in past. Continue with IV vancomycin and Zosyn. Appreciate speech evaluation and modified barium swallow results. Patient is at high risk of aspiration with any kind of diet. Diet as per speech therapy. Oxygen supplementation keeping saturation over 88%. DuoNebs every 4 hour, budesonide twice daily. Mucomyst every 4 hours. Hold off on starting steroids for now. Aggressive pulmonary toilet with incentive spirometry and chest vest. (3) Aspiration pneumonia: (4) Acute on chronic clinical systolic heart failure: Echocardiogram shows a EF of 35 to 40% without regional wall motion abnormality, mild MR, mild TR and trace NM. No urine output documented. Switch to oral Lasix 40 mg twice daily. Strict input output charting, daily weights. Fluid restriction up to 1500 cc. (5) Mucus plugging of bronchi: (6) Collapse of left lung: (7) Bilateral pleural effusion: (8) Atrial fibrillation: Chronic. Telemetry. Continue with home dose of Eliquis 5 mg twice daily. Currently rate controlled. Not on any rate controlling medications. (9) Anemia: Check iron panel, vitamin B12, folate level. Monitor hemoglobin daily. (10) CAD (coronary artery disease): No acute chest pain. Continue with home dose of aspirin. Appreciate A1c, lipid panel. Check echocardiogram with and without contrast. (11) Aspiration into airway: Plan Restart home dose of multiple psych and anxiety medications. CODE STATUS: Discussed in detail with patient and patient's at bedside. Full code for now. Soft mechanical diet as per speech evaluation. Protonix for PUD prophylaxis Heparin 5000 every 12 hours for DVT prophylaxis. Attestations 2 Medical Necessity Statement*: Requires further hospitalization for management of gram-positive bacteremia, respiratory failure in setting of mucous plugging from chronic aspiration, post bronchoscopy and thoracentesis Diagnoses Gram-positive bacteremia R78.81 Acute respiratory failure with hypoxia J96.01 Aspiration pneumonia J69.0 Acute on chronic clinical systolic heart failure I50.23 Mucus plugging of bronchi T17.500A Collapse of left lung J98.11 Bilateral pleural effusion J90 Atrial fibrillation I48.91 Anemia D64.9 CAD (coronary artery disease) I25.10 Aspiration into airway T17.908A
[2023-03-28] MEDS: apixaban 5 mg Tablet PO (18:03)
[2023-03-28] MEDS: pantoprazole DR 40 mg Tablet PO (18:04)
[2023-03-28] MEDS: memantine 5 mg tablet PO (18:04)
[2023-03-28] MEDS: sodium chloride 3.5% neb 4 mL Neb INHALATION (19:39)
[2023-03-28] MEDS: trazodone 50 mg Tablet PO (20:01)
[2023-03-29] VITALS (13 sets, daily range): BP systolic 107–122; BP diastolic 53–61; PULSE 55–85; RESP 15–26; TEMP 36.4–36.8; O2SAT 89–100
--- NOTE | 2023-03-29 01:54 | PC.NURSE ---
Addendum entered by KIRK Reyes 03/29/23 02:43: Orders received for EKG and troponin series at 0211. Original Note: Pt had a ten-beat run of v-tach at 0114. Pt asymptomatic, Dr. Richard notified. Strip posted in chart. Pt has had multiple runs of v-tach since being admitted.
--- NOTE | 2023-03-29 02:25 | ECG_ITS ---
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 Measurements Intervals [place] Rate: 74 P: 83 KS: 194 QRS: 214 QRSD: 175 T: 90 QT: 458 QTc: 511 Interpretive Statements Sinus rhythm with frequent PACs and PVCs Left bundle branch block ABNORMAL RHYTHM ECG INTERPRETATION BASED ON A DEFAULT AGE OF 40 YEARS Compared to ECG 03/24/2023 20:58:26 No change Electronically Signed On 03-29-2023 10:26:09 CDT by Omid Santana M.D. [email or web address].Heat Biologicssouth sunflower county hospitalClicks for a Causewhite hospital.[employer]/store/NU/[id number] f
[2023-03-29] MEDS: ipratropium-albuterol 3 mL Neb INHALATION ×6 (03:00→19:58)
[2023-03-29 03:12] LABS: Basophils # 0.1 10^3/uL (0.0-0.1); Basophils % 0.9 %; Eosinophils # 0.2 10^3/uL (0.0-0.8); Eosinophils % 3.6 %; Hematocrit 27.1 % (42.0-52.0); Hemoglobin 7.7 g/dL (11.7-16.6); Lymphocytes # 1.3 10^3/uL (0.8-4.8); Lymphocytes % 23.1 %; Mean Corpuscular HGB Conc 28.4 g/dL (30.0-36.0); Mean Corpuscular Hemoglobin 26.9 pg (28.0-34.0); Mean Corpuscular Volume 94.8 fl (80-94); Mean Platelet Volume 9.3 fL (7.4-10.4); Monocytes # 0.3 10^3/uL (0.2-0.9); Monocytes % 5.9 %; Neutrophils # 3.82 10^3/uL (1.8-7.7); Neutrophils % 66.2 %; Nucleated Red Blood Cells % 0 %; Platelet Count 278 10^3/cmm (130-400); Red Blood Count 2.86 10^6/uL (4.1-5.3); White Blood Count 5.8 10^3/uL (4.0-10.0)
[2023-03-29 03:28] LABS: Troponin(5th) Baseline 58 ng/L (0-15)
[2023-03-29 03:29] LABS: Alanine Aminotransferase 7 U/L (0-41); Albumin Level 2.2 g/dL (3.5-5.2); Alkaline Phosphatase 128 U/L (40-130); Anion Gap 7.9 (5-19); Aspartate Amino Transferase 7 U/L (0-40); Blood Urea Nitrogen 23 mg/dL (8-23); Calcium 8.7 mg/dL (8.5-10.5); Carbon Dioxide 33 mmol/L (22-29); Chloride 101 mmol/L (98-107); Globulin 3.1 g/dL (1.3-4.6); Glucose 104 mg/dL (65-115); Osmolality Calculated 290 mOsm/kg (285-295); Potassium 3.9 mmol/L (3.5-5.1); Sodium 138 mmol/L (136-145); Total Bilirubin 0.2 mg/dL (0.15-1.2); Total Protein 5.3 g/dL (6.6-8.7)
--- NOTE | 2023-03-29 04:16 | ECG_ITS ---
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 Measurements Intervals [place] Rate: 74 P: 83 DC: 194 QRS: 214 QRSD: 175 T: 90 QT: 458 QTc: 511 Interpretive Statements Sinus rhythm with frequent PACs and PVCs Left bundle branch block ABNORMAL RHYTHM ECG INTERPRETATION BASED ON A DEFAULT AGE OF 40 YEARS Compared to ECG 03/24/2023 20:58:26 No change Electronically Signed On 03-29-2023 10:30:21 CDT by Omid Santana M.D. [email or web address]/store/[id number] f
[2023-03-29 05:45] LABS: Troponin 5 2HR 60.32 ng/L (0-15)
[2023-03-29 05:58] LABS: Troponin 5 2HR Delta 2.32 ABS# (0-10)
[2023-03-29] MEDS: folic acid 1 mg Tablet PO (06:23)
[2023-03-29] MEDS: atorvastatin 40 mg Tablet PO (06:23)
[2023-03-29] MEDS: LORazepam 0.5 mg Tablet PO ×3 (06:23→18:07)
[2023-03-29] MEDS: HYDROcodone-acetaminophen 5-325 mg Tablet 1 TAB PO ×2 (06:23→15:41)
[2023-03-29] MEDS: apixaban 5 mg Tablet PO ×2 (06:23→18:04)
[2023-03-29] MEDS: pantoprazole DR 40 mg Tablet PO ×2 (06:23→18:05)
[2023-03-29] MEDS: piperacillin-tazobactam 3.375 GM in sodium chloride 0.9% (plus) 50 ML IV ×3 (06:24→23:57)
[2023-03-29] MEDS: acetylcysteine 200 mg/mL SDV 4 mL 100 MG INHALATION ×3 (07:13→15:53)
[2023-03-29] MEDS: budesonide 0.5 mg/2 mL Neb INHALATION ×2 (07:13→19:57)
[2023-03-29] MEDS: sodium chloride 3.5% neb 4 mL Neb INHALATION ×2 (07:14→19:57)
--- NOTE | 2023-03-29 08:16 | ECG_ITS ---
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 Measurements Intervals [place] Rate: 76 P: 78 RI: 171 QRS: 93 QRSD: 176 T: 91 QT: 452 QTc: 509 Interpretive Statements SINUS RHYTHM WITH OCCASIONAL VENTRICULAR PREMATURE COMPLEXES WITH OCCASIONAL SUPRAVENTRICULAR PREMATURE COMPLEXES INDETERMINATE AXIS Left bundle branch block Compared to ECG 03/29/2023 02:25:52 Indeterminate axis now present Electronically Signed On 03-29-2023 10:31:28 CDT by Omdi Santana M.D. [email or web address] valley medical centeriContactscci hospital [place].[employer]/store/OM/[id number]/[id number]
[2023-03-29] MEDS: finasteride 5 mg Tablet PO (08:33)
[2023-03-29] MEDS: FUROsemide 40 mg Tablet PO ×2 (08:34→15:38)
[2023-03-29] MEDS: fluoxetine 20 mg Capsule 40 MG PO (08:34)
[2023-03-29] MEDS: BuSPIRONE 10 mg Tablet 5 MG PO ×2 (08:34→17:31)
[2023-03-29] MEDS: docusate sodium 100 mg Capsule PO ×2 (08:34→17:33)
[2023-03-29] MEDS: tamsulosin 0.4 mg Capsule PO ×2 (08:34→17:30)
[2023-03-29] MEDS: magnesium lactate 84 mg Tablet PO (08:34)
[2023-03-29] MEDS: nicotine 14 mg Patch 1 PATCH TRANSDERMA (08:35)
[2023-03-29] MEDS: aspirin 81 mg EC Tablet PO (08:35)
[2023-03-29 09:56] LABS: Troponin 5 6HR 64.43 ng/L (0-15)
[2023-03-29 10:04] LABS: Troponin 5 6HR Delta 6.43 ng/L (0-12)
--- NOTE | 2023-03-29 10:25 | PC.SOCIAL ---
IMM Update pg 2 of IMM updated and reviewed w/ patient. Copy provided and Copy dated, initialed and placed in chart.
[2023-03-29] MEDS: TRAMadol 50 mg Tablet PO (11:17)
[2023-03-29] MEDS: vancomycin 1,000 MG in sodium chloride 0.9% 250 ML 250 MG IV (12:21)
[2023-03-29] MEDS: magnesium hydroxide 30 mL UDC PO (12:22)
--- NOTE | 2023-03-29 14:18 | PM.PN ---
Subjective Subjective: No events overnight. Seen with at bedside. States he is feeling the same. Complaining of pain all over. States the pain is chronic from his past injuries. Denies any nausea, vomiting, headache. Remains on 2 L of oxygen supplementation saturating more than 95%. Vitals/I&O/Wt Last Vital Signs Temp 97.8 F 03/29/23 11:43 Pulse 69 03/29/23 11:43 Resp 19 H 03/29/23 11:43 BP 122/60 03/29/23 11:43 Pulse Ox 94 03/29/23 11:43 O2 Del Method Nasal Cannula 03/29/23 11:06 O2 Flow Rate 2 03/29/23 11:06 03/28/23 03/29/23 03/29/23 22:59 06:59 14:59 Intake Total 1020 / 1790 290 / 2080 1020 / 1020 Balance 1020 / 1790 290 / 2080 1020 / 1020 Physical Exam Const: COMMON NORMALS: no acute distress and patient oriented x3 HENMT: COMMON NORMALS: normocephalic HEAD & SCALP: normocephalic Eye: COMMON NORMALS: Equal, round and reactive pupils present and EOMs intact bilaterally PUPIL: Yes Equal, round and reactive pupils present Neck/C-Spine: COMMON NORMALS: no JVD Lymph: LYMPHATIC: no lymphadenopathy noted Resp: COMMON NORMALS: normal respiratory effort, No retractions and No use of accessory muscles OTHER: Decreased sounds left lung field, right lung field sounds good breath sounds Cardio: COMMON NORMALS: no JVD, regular rate, regular rhythm, S1 normal heart sound present and S2 normal heart sound present RATE: regular rate RHYTHM: regular rhythm HEART SOUNDS: S1 normal heart sound present and S2 normal heart sound present GI: COMMON NORMALS: Normal to inspection, nondistended, normoactive bowel sounds present, Soft to palpation, non-tender, No hepatosplenomegaly present, no masses and no bruits PALPATION: Yes Soft to palpation and Yes No hepatosplenomegaly present Extremity: COMMON NORMALS: capillary refill normal, no calf tenderness and no pedal edema Neuro: COMMON NORMALS: patient oriented x3, CN's II-XII intact bilaterally and moves all extremities Psych: COMMON NORMALS: mental status grossly normal Data 03/29/23 03:01 03/29/23 03:01 Micro: Microbiology 03/24/23 22:22 Blood Culture - Final Blood Staphylococcus epidermidis 03/24/23 21:07 Blood Culture - Final Blood Staphylococcus epidermidis 03/25/23 15:57 Gram Stain - Final Lung Left Lower Lobe Bronchial Washings Culture - Final 03/26/23 05:00 Urine Culture - Final Urine,Clean Catch 03/25/23 11:37 Gram Stain - Final Pleural Fluid Anaerobic Culture - Preliminary Body Fluid Culture - Final A&P Assessment and plan (1) Gram-positive bacteremia: Blood culture from admission growing staph epidermidis. MRSA. Repeat blood culture from 03/26 so far negative. If blood cultures persistently remain positive will have to plan for SWATI along with spine CT scan to rule out discitis. We will rest hospitalization and sensitivities and then de-escalate antibiotics accordingly. Continue vancomycin. Continue Zosyn for overall 5 days to cover for aspiration pneumonia. We will plan to DC patient on IV vancomycin for 14 days from first negative blood cultures. (2) Acute respiratory failure with hypoxia: Acute on chronic hypoxic respiratory failure. Most likely in setting of congestive heart failure and COPD exacerbation secondary to aspiration pneumonia leading to mucous plugging of bronchi and collapse of left lung along with pleural effusion. Cannot rule out postobstructive pneumonia. Follow-up bronchial wash and pleural fluid culture results. History of being MRSA positive in past. Continue with IV vancomycin and Zosyn as above. Appreciate speech evaluation and modified barium swallow results. Patient is at high risk of aspiration with any kind of diet. Diet as per speech therapy. Oxygen supplementation keeping saturation over 88%. DuoNebs every 6 hour, budesonide twice daily. Mucomyst every 4 hours. Hold off on starting steroids for now. Aggressive pulmonary toilet with incentive spirometry and chest vest. (3) Aspiration pneumonia: (4) Acute on chronic clinical systolic heart failure: Echocardiogram shows a EF of 35 to 40% without regional wall motion abnormality, mild MR, mild TR and trace VT. No urine output documented. Continue with oral Lasix 40 mg twice daily. Strict input output charting, daily weights. Fluid restriction up to 1500 cc. (5) Mucus plugging of bronchi: (6) Collapse of left lung: (7) Bilateral pleural effusion: (8) Atrial fibrillation: Chronic. Telemetry. Continue with home dose of Eliquis 5 mg twice daily. Currently rate controlled. Not on any rate controlling medications. (9) Anemia: Check iron panel, vitamin B12, folate level. Monitor hemoglobin daily. (10) CAD (coronary artery disease): No acute chest pain. Continue with home dose of aspirin. Appreciate A1c, lipid panel. Check echocardiogram with and without contrast. (11) Aspiration into airway: Plan Restart home dose of multiple psych and anxiety medications. CODE STATUS: Discussed in detail with patient and patient's at bedside. Full code for now. Soft mechanical diet as per speech evaluation. Protonix for PUD prophylaxis Heparin 5000 every 12 hours for DVT prophylaxis. Attestations Medical Necessity Statement*: Requires further hospitalization for management of staph bacteremia in setting of chronic aspiration, left pleural effusion Diagnoses Gram-positive bacteremia R78.81 Acute respiratory failure with hypoxia J96.01 Aspiration pneumonia J69.0 Acute on chronic clinical systolic heart failure I50.23 Mucus plugging of bronchi T17.500A Collapse of left lung J98.11 Bilateral pleural effusion J90 Atrial fibrillation I48.91 Anemia D64.9 CAD (coronary artery disease) I25.10 Aspiration into airway T17.908A
[2023-03-29] MEDS: memantine 5 mg tablet PO (18:04)
[2023-03-29] MEDS: trazodone 50 mg Tablet PO (20:19)
[2023-03-30] VITALS (8 sets, daily range): BP systolic 112–129; BP diastolic 51–72; PULSE 67–84; RESP 16–23; TEMP 36.4–36.8; O2SAT 92–96
[2023-03-30] MEDS: acetaminophen 325 mg Tablet 650 MG PO (00:17)
[2023-03-30 06:11] LABS: Basophils % 0.6 %; Eosinophils # 0.2 10^3/uL (0.0-0.8); Eosinophils % 3.2 %; Hematocrit 27.6 % (42.0-52.0); Lymphocytes # 1.5 10^3/uL (0.8-4.8); Lymphocytes % 21.9 %; Mean Corpuscular Hemoglobin 27.2 pg (28.0-34.0); Mean Corpuscular Volume 93.9 fl (80-94); Mean Platelet Volume 9.8 fL (7.4-10.4); Monocytes # 0.4 10^3/uL (0.2-0.9); Monocytes % 5.8 %; Neutrophils # 4.66 10^3/uL (1.8-7.7); Neutrophils % 68.2 %; Nucleated Red Blood Cells % 0 %; Platelet Count 282 10^3/cmm (130-400); Red Blood Count 2.94 10^6/uL (4.1-5.3); Red Cell Distribution Width 14.9 % (12.1-15.1); White Blood Count 6.8 10^3/uL (4.0-10.0)
[2023-03-30 06:17] LABS: Alanine Aminotransferase 6 U/L (0-41); Albumin Level 2.3 g/dL (3.5-5.2); Alkaline Phosphatase 128 U/L (40-130); Anion Gap 10.6 (5-19); Aspartate Amino Transferase 7 U/L (0-40); Blood Urea Nitrogen 25 mg/dL (8-23); Calcium 8.9 mg/dL (8.5-10.5); Carbon Dioxide 32 mmol/L (22-29); Chloride 100 mmol/L (98-107); Globulin 3.3 g/dL (1.3-4.6); Glucose 90 mg/dL (65-115); Osmolality Calculated 290 mOsm/kg (285-295); Potassium 4.6 mmol/L (3.5-5.1); Sodium 138 mmol/L (136-145); Total Bilirubin 0.2 mg/dL (0.15-1.2); Total Protein 5.6 g/dL (6.6-8.7)
[2023-03-30] MEDS: apixaban 5 mg Tablet PO (06:28)
[2023-03-30] MEDS: atorvastatin 40 mg Tablet PO (06:28)
[2023-03-30] MEDS: memantine 5 mg tablet PO (06:28)
[2023-03-30] MEDS: LORazepam 0.5 mg Tablet PO ×2 (06:28→11:20)
[2023-03-30] MEDS: folic acid 1 mg Tablet PO (06:28)
[2023-03-30] MEDS: pantoprazole DR 40 mg Tablet PO (06:28)
[2023-03-30] MEDS: HYDROcodone-acetaminophen 5-325 mg Tablet 1 TAB PO (07:33)
[2023-03-30] MEDS: FUROsemide 40 mg Tablet PO (07:33)
[2023-03-30] MEDS: acetylcysteine 200 mg/mL SDV 4 mL 100 MG INHALATION (07:36)
[2023-03-30] MEDS: budesonide 0.5 mg/2 mL Neb INHALATION (07:36)
[2023-03-30] MEDS: sodium chloride 3.5% neb 4 mL Neb INHALATION (07:37)
[2023-03-30] MEDS: ipratropium-albuterol 3 mL Neb INHALATION (07:37)
[2023-03-30] MEDS: fluoxetine 20 mg Capsule 40 MG PO (09:27)
[2023-03-30] MEDS: nicotine 14 mg Patch 1 PATCH TRANSDERMA (09:27)
[2023-03-30] MEDS: tamsulosin 0.4 mg Capsule PO (09:28)
[2023-03-30] MEDS: magnesium lactate 84 mg Tablet PO (09:28)
[2023-03-30] MEDS: BuSPIRONE 10 mg Tablet 5 MG PO (09:28)
[2023-03-30] MEDS: docusate sodium 100 mg Capsule PO (09:28)
[2023-03-30] MEDS: aspirin 81 mg EC Tablet PO (09:28)
[2023-03-30] MEDS: finasteride 5 mg Tablet PO (09:28)
--- NOTE | 2023-03-30 12:10 | PM.PN ---
Subjective Subjective: No acute events overnight. Patient remains hemodynamically stable and afebrile. Denies any nausea, vomiting, headache. Complaining of chronic generalized pain otherwise. Vitals/I&O/Wt Last Vital Signs Temp 97.5 F L 03/30/23 08:00 Pulse 76 03/30/23 11:58 Resp 16 03/30/23 11:58 BP 112/58 03/30/23 08:00 Pulse Ox 92 03/30/23 11:58 O2 Del Method Nasal Cannula 03/30/23 11:58 O2 Flow Rate 2 03/30/23 11:58 03/29/23 03/30/23 03/30/23 22:59 06:59 14:59 Intake Total 410 / 1430 50 / 1480 100 / 100 Balance 410 / 1430 50 / 1480 100 / 100 Physical Exam Const: COMMON NORMALS: no acute distress and patient oriented x3 HENMT: COMMON NORMALS: normocephalic HEAD & SCALP: normocephalic Eye: COMMON NORMALS: Equal, round and reactive pupils present and EOMs intact bilaterally PUPIL: Yes Equal, round and reactive pupils present Neck/C-Spine: COMMON NORMALS: no JVD Lymph: LYMPHATIC: no lymphadenopathy noted Resp: COMMON NORMALS: normal respiratory effort, No retractions and No use of accessory muscles OTHER: Decreased sounds left lung field, right lung field sounds good breath sounds Cardio: COMMON NORMALS: no JVD, regular rate, regular rhythm, S1 normal heart sound present and S2 normal heart sound present RATE: regular rate RHYTHM: regular rhythm HEART SOUNDS: S1 normal heart sound present and S2 normal heart sound present GI: COMMON NORMALS: Normal to inspection, nondistended, normoactive bowel sounds present, Soft to palpation, non-tender, No hepatosplenomegaly present, no masses and no bruits PALPATION: Yes Soft to palpation and Yes No hepatosplenomegaly present Extremity: COMMON NORMALS: capillary refill normal, no calf tenderness and no pedal edema Neuro: COMMON NORMALS: patient oriented x3, CN's II-XII intact bilaterally and moves all extremities Psych: COMMON NORMALS: mental status grossly normal Data 03/30/23 05:36 03/30/23 05:36 Micro: Microbiology 03/25/23 11:37 Fungal Smear - Preliminary Pleural Fluid 03/25/23 11:37 Mycobacterial Smear - Preliminary Body Fluids - Pleura,Lt Lung 03/25/23 11:37 Gram Stain - Final Pleural Fluid Anaerobic Culture - Preliminary Body Fluid Culture - Final 03/28/23 14:50 MRSA Culture - Final Nose 03/24/23 22:22 Blood Culture - Final Blood Staphylococcus epidermidis 03/24/23 21:07 Blood Culture - Final Blood Staphylococcus epidermidis 03/25/23 15:57 Gram Stain - Final Lung Left Lower Lobe Bronchial Washings Culture - Final 03/26/23 05:00 Urine Culture - Final Urine,Clean Catch A&P Assessment and plan (1) Gram-positive bacteremia: Blood culture from admission growing staph epidermidis. MRSA. Repeat blood culture from 03/26 so far negative. If blood cultures persistently remain positive will have to plan for SWATI along with spine CT scan to rule out discitis. We will rest hospitalization and sensitivities and then de-escalate antibiotics accordingly. Continue vancomycin. Continue Zosyn for overall 5 days to cover for aspiration pneumonia. We will plan to DC patient on IV vancomycin for 14 days from first negative blood cultures. (2) Acute respiratory failure with hypoxia: Acute on chronic hypoxic respiratory failure. Most likely in setting of congestive heart failure and COPD exacerbation secondary to aspiration pneumonia leading to mucous plugging of bronchi and collapse of left lung along with pleural effusion. Cannot rule out postobstructive pneumonia. Follow-up bronchial wash and pleural fluid culture results. History of being MRSA positive in past. Continue with IV vancomycin and Zosyn as above. Appreciate speech evaluation and modified barium swallow results. Patient is at high risk of aspiration with any kind of diet. Diet as per speech therapy. Oxygen supplementation keeping saturation over 88%. DuoNebs every 6 hour, budesonide twice daily. Mucomyst every 4 hours. Hold off on starting steroids for now. Aggressive pulmonary toilet with incentive spirometry and chest vest. (3) Aspiration pneumonia: (4) Acute on chronic clinical systolic heart failure: Echocardiogram shows a EF of 35 to 40% without regional wall motion abnormality, mild MR, mild TR and trace OH. No urine output documented. Continue with oral Lasix 40 mg twice daily. Strict input output charting, daily weights. Fluid restriction up to 1500 cc. (5) Mucus plugging of bronchi: (6) Collapse of left lung: (7) Bilateral pleural effusion: (8) Atrial fibrillation: Chronic. Telemetry. Continue with home dose of Eliquis 5 mg twice daily. Currently rate controlled. Not on any rate controlling medications. (9) Anemia: Check iron panel, vitamin B12, folate level. Monitor hemoglobin daily. (10) CAD (coronary artery disease): No acute chest pain. Continue with home dose of aspirin. Appreciate A1c, lipid panel. Check echocardiogram with and without contrast. (11) Aspiration into airway: Plan Restart home dose of multiple psych and anxiety medications. CODE STATUS: Discussed in detail with patient and patient's at bedside. Full code for now. Soft mechanical diet as per speech evaluation. Protonix for PUD prophylaxis Heparin 5000 every 12 hours for DVT prophylaxis. Plan for the day: Continue with IV vancomycin. PICC line placement. Plan to discharge on IV vancomycin 1 g daily for next 14 days with 1 weekly CBC and CMP while on antibiotics and trough every 3 days with target trough of around 15. Patient will also need to follow-up with pulmonology outpatient. Repeat blood cultures from 03/26 so far negative. Continue oral Lasix 40 mg once daily. Plan to discharge on Lasix. Monitor BMP and potassium while on Lasix. Continue with aspiration precautions and diet as per speech therapy. Patient should be sitting up in chair while having his meal and for around an hour after finishing his meal. Attestations Medical Necessity Statement*: Requires further hospitalization for management of staph/MRSA bacteremia in a patient with chronic aspiration, whiteout of left lung with mucous plug and pleural effusion with systolic congestive heart failure Diagnoses Gram-positive bacteremia R78.81 Acute respiratory failure with hypoxia J96.01 Aspiration pneumonia J69.0 Acute on chronic clinical systolic heart failure I50.23 Mucus plugging of bronchi T17.500A Collapse of left lung J98.11 Bilateral pleural effusion J90 Atrial fibrillation I48.91 Anemia D64.9 CAD (coronary artery disease) I25.10 Aspiration into airway T17.908A
--- NOTE | 2023-03-30 12:30 | PC.NURSE ---
Midline placed to right basilic vein. Attempted placement of single lumen PICC but unable to pass through shoulder area to SVC. Patient care nurse, Sarah, consulted and stated Dr. Haile agreed that a midline would be fine. Pt being discharged home on IV Vancomycin for 2-4 weeks. Mid-arm circumference measured 20 cm from right AC noted at 23 cm. Trimmed catheter 10 cm with 0 cm external length. Pt tolerated well. Dressing due to be changed tomorrow, 03/31/23. Report given to bedside nurse, Sarah.
[2023-03-30] MEDS: LORazepam 1 mg Tablet PO (12:54)
[2023-03-30] MEDS: vancomycin 1,000 MG in sodium chloride 0.9% 250 ML 250 MG IV (13:02)
--- NOTE | 2023-03-30 13:53 | P.DS_ITS ---
Discharge Providers Date of Admission: 03/24/23 22:22 Date of Discharge: March 30, 2023 Attending Provider at Admission: Francis Richard MD Attending Provider at Discharge: Cristiano Haile MD Primary Care Provider: Renzo Pate MD Diagnoses at Discharge Discharge Diagnosis (1) Gram-positive bacteremia: Status: Acute (2) Acute respiratory failure with hypoxia: Status: Acute (3) Aspiration pneumonia: Status: Acute (4) Acute on chronic clinical systolic heart failure: Status: Acute (5) Mucus plugging of bronchi: Status: Acute (6) Collapse of left lung: Status: Acute (7) Bilateral pleural effusion: Status: Acute (8) Atrial fibrillation: Status: Acute (9) Anemia: Status: Acute (10) CAD (coronary artery disease): Status: Acute (11) Aspiration into airway: Status: Acute Reason for Visit Reason for Visit: panic attack Brief History: History as per HPI: Fredi Claire is a 77 year old male with a past medical history of chronic respiratory failure, COPD, pulmonary fibrosis, history of bullous emphysema, systolic diastolic CHF, history of atrial fibrillation, history of ischemic cardiomyopathy, history of CKD, CAD, history of anemia, and history of pulmonary embolism who presents to [facility] after he was eating dinner, he had a choking episode, and then became very anxious in the halfway wanting give him Ativan.? According to patient, he is here in the hospital, because the halfway would not give him Ativan, he tells me that at dinnertime, he was eating his dinner, he had to think for some time what he exactly ate, he thinks it might have been hamburger, he reports choking on his food, and then feeling short of breath and then he felt quite anxious, he wanted Ativan however the halfway refused to give it to him.? He denies any fevers, no chills, no nausea, no vomiting, I spoke to halfway, they told me that they sent him over to [facility] as his O2 sats were in the low 80s, Hospital Course Hospital Course Patient was admitted to the hospital further evaluation and management of hypoxic respiratory failure in setting of left lung whiteout found to be from left lung mucous plugging and left pleural effusion. CT scan was done which confirmed the same. He was found to have significant fluid in the esophagus concerning for chronic aspiration. He underwent left-sided thoracentesis. Fluid was negative for empyema. Cultures so far are negative but final results are so far pending. CT surgery was consulted and he underwent bronchoscopy to rule out bronchial lesion. Bronchoscopy was consistent with chronic aspiration and inflammation. Mucous mucous plugs were aspirated which resulted in partial opening of both upper lobe of the left lung. His fluid cultures and sputum cultures were negative though blood cultures from admission came back positive for staph epidermidis resistant to oxacillin. Echocardiogram was done which showed an EF of around 35 to 40% with mild valvular changes. Patient's hospitalization was otherwise unremarkable. PICC line was placed on 03/30. He has been discharged hemodynamically stable condition back to halfway with advised to follow-up with pulmonology for further recommendations within next 2 weeks on IV vancomycin. PICC line is to be removed after finishing of course of IV antibiotics. He needs to have repeat CBC and CMP weekly and trough every third day with target trough of around 15. Final results are pending Physical Exam Const: COMMON NORMALS: no acute distress and patient oriented x3 HENMT: COMMON NORMALS: normocephalic HEAD & SCALP: normocephalic Eye: COMMON NORMALS: Equal, round and reactive pupils present and EOMs intact bilaterally PUPIL: Yes Equal, round and reactive pupils present Neck/C-Spine: COMMON NORMALS: no JVD Lymph: LYMPHATIC: no lymphadenopathy noted Resp: COMMON NORMALS: normal respiratory effort, No retractions and No use of accessory muscles OTHER: Decreased sounds left lung field, right lung field sounds good breath sounds Cardio: COMMON NORMALS: no JVD, regular rate, regular rhythm, S1 normal heart sound present and S2 normal heart sound present RATE: regular rate RHYTHM: regular rhythm HEART SOUNDS: S1 normal heart sound present and S2 normal heart sound present GI: COMMON NORMALS: Normal to inspection, nondistended, normoactive bowel sounds present, Soft to palpation, non-tender, No hepatosplenomegaly present, no masses and no bruits PALPATION: Yes Soft to palpation and Yes No hepatosplenomegaly present Extremity: COMMON NORMALS: capillary refill normal, no calf tenderness and no pedal edema Neuro: COMMON NORMALS: patient oriented x3, CN's II-XII intact bilaterally and moves all extremities Psych: COMMON NORMALS: mental status grossly normal Discharge Data Studies Completed and Pending Completed Studies During Hospitalization Category Date Time Status CT chest wo con [id number] Routine Cat Scan 03/26/23 08:[address] chest wo con [id number] Stat Cat Scan 03/24/23 20:54 Completed CXRP [XR chest 1V portable [id number]] Routine Exams 03/25/23 16:05 Completed CXRP [XR chest 1V portable [id number]] Stat Exams 03/25/23 11:32 Completed FL barium swallow modifd [id number] Routine Exams 03/26/23 11:30 Completed XR chest 1V portable [id number] QAM Exams 03/25/23 06:00 Completed XR chest 1V portable [id number] Stat Exams 03/24/23 20:37 Completed CV. echo complete* [id number] Routine Ultrasound 03/26/23 10:38 Completed US thoracentesis [id number] Routine Ultrasound 03/25/23 10:10 Completed Pending at discharge Category Date Time Status CXRP [XR chest 1V portable [id number]] Routine Exams 03/30/23 10:37 Stop Req Anaerobic Culture Routine Lab 03/25/23 11:37 Results Blood Culture AM LABS Lab 03/26/23 04:16 Results Body Fluid Culture & GS Routine Lab 03/25/23 11:37 Results COVID [SARS Covid-2 Antigen] Routine Lab 03/30/23 13:47 Uncollected Fungal Culture not HR/SK/BL Routine Lab 03/25/23 11:37 Results Mycobacteria, Culture w/Fluor Routine Lab 03/25/23 11:37 Results Radiology Impressions Thoracentesis Ultrasound 03/25/23 10:10 IMPRESSION: Uncomplicated ultrasound-guided LEFT thoracentesis. Chest X-Ray 03/25/23 16:05 IMPRESSION: Compared with earlier exam, there has been improved aeration in the upper left lung with continued opacity mid and lower left lung, likely related to pleural effusion with atelectasis and/or infiltrate. No pneumothorax. Chest CT 03/26/23 08:42 IMPRESSION: 1. Decreased bilateral pleural effusions. 2. Interval partial re-expansion of the left upper lobe and persistent complete atelectasis of the left lower lobe since 03/24/2023. 3. Stable nonspecific opacity and volume loss in the right lower lung. Some component of atelectasis is present. Superimposed infection cannot be excluded. 4. Severe centrilobular emphysema. 5. Large sliding-type hiatal hernia. 6. Incidental findings above. Modified Barium Swallow 03/26/23 11:30 IMPRESSION: Modified barium swallow as above. Echocardiogram ?LV systolic function is moderately reduced with EF of 35 to 40%. ?Left atrial dilation ?Mild mitral regurgitation. ?Mild tricuspid regurgitation ?Trace pulmonic regurgitation ?Pleural effusion is noted. ?Compared to prior echo from 2019, patient has pleural effusion ?now. Microbiology 03/25/23 11:37 Pleural Fluid Fungal Smear - Preliminary 03/25/23 11:37 Body Fluids - Pleura,Lt Lung Mycobacterial Smear - Preliminary 03/25/23 11:37 Pleural Fluid Gram Stain - Final 03/25/23 11:37 Pleural Fluid Anaerobic Culture - Preliminary 03/25/23 11:37 Pleural Fluid Body Fluid Culture - Final 03/28/23 14:50 Nose MRSA Culture - Final 03/24/23 22:22 Blood Blood Culture - Final Staphylococcus epidermidis 03/24/23 21:07 Blood Blood Culture - Final Staphylococcus epidermidis 03/25/23 15:57 Lung Left Lower Lobe Gram Stain - Final 03/25/23 15:57 Lung Left Lower Lobe Bronchial Washings Culture - Final 03/26/23 05:00 Urine,Clean Catch Urine Culture - Final 03/26/23 04:16 Blood Blood Culture - Preliminary NEGATIVE TO DATE 03/26/23 04:16 Blood Blood Culture - Preliminary NEGATIVE TO DATE 03/26/23 05:00 Urine Kidney Bacterial Antigens - Final 03/26/23 05:00 Unknown Source Legionella Urinary Antigen - Final Laboratory Results WBC 6.8 10^3/uL (4.0-10.0) 03/30/23 05:36 RBC 2.94 10^6/uL (4.1-5.3) L 03/30/23 05:36 Hgb 8.0 g/dL (11.7-16.6) L 03/30/23 05:36 Hct 27.6 % (42.0-52.0) L 03/30/23 05:36 MCV 93.9 fl (80-94) 03/30/23 05:36 MCH 27.2 pg (28.0-34.0) L 03/30/23 05:36 MCHC 29.0 g/dL (30.0-36.0) L 03/30/23 05:36 RDW 14.9 % (12.1-15.1) 03/30/23 05:36 Plt Count 282 10^3/cmm (130-400) 03/30/23 05:36 MPV 9.8 fL (7.4-10.4) 03/30/23 05:36 Neut % (Auto) 68.2 % 03/30/23 05:36 Lymph % (Auto) 21.9 % 03/30/23 05:36 [place] % (Auto) 5.8 % 03/30/23 05:36 Eos % (Auto) 3.2 % 03/30/23 05:36 Baso % (Auto) 0.6 % 03/30/23 05:36 Neut # (Auto) 4.66 10^3/uL (1.8-7.7) 03/30/23 05:36 Lymph # (Auto) 1.5 10^3/uL (0.8-4.8) 03/30/23 05:36 [place] # (Auto) 0.4 10^3/uL (0.2-0.9) 03/30/23 05:36 Eos # (Auto) 0.2 10^3/uL (0.0-0.8) 03/30/23 05:36 Baso # (Auto) 0.0 10^3/uL (0.0-0.1) 03/30/23 05:36 Nucleated RBC % (auto) 0 % 03/30/23 05:36 Nucleated RBCs # 0.0 /100WBC 03/30/23 05:36 PT 16.40 SECONDS (12.1-14.9) H 03/25/23 10:45 INR 1.28 (0.8-1.2) H 03/25/23 10:45 Sodium 138 mmol/L (136-145) 03/30/23 05:36 Potassium 4.6 mmol/L (3.5-5.1) 03/30/23 05:36 Chloride 100 mmol/L (98-107) 03/30/23 05:36 Carbon Dioxide 32 mmol/L (22-29) H 03/30/23 05:36 Anion Gap 10.6 (5-19) 03/30/23 05:36 BUN 25 mg/dL (8-23) H 03/30/23 05:36 Creatinine 1.3 mg/dL (0.7-1.2) H 03/30/23 05:36 GFR Calculation Not Reportable 03/30/23 05:36 Glucose 90 mg/dL (65-115) 03/30/23 05:36 Estimat Average Glucose 88 03/26/23 04:16 Hemoglobin A1c 4.7 % (4.0-6.0) 03/26/23 04:16 Calculated Osmolality 290 mOsm/kg (285-295) 03/30/23 05:36 Lactate 0.6 mmol/L (0.5-2.2) 03/24/23 21:07 Calcium 8.9 mg/dL (8.5-10.5) 03/30/23 05:36 Phosphorus 2.9 mg/dL (2.5-4.5) 03/25/23 04:53 Magnesium 2.2 mg/dL (1.7-2.3) 03/25/23 22:01 Iron 20 ug/dL (59-158) L 03/25/23 04:53 TIBC 186 mcg/dl 03/25/23 04:53 % Saturation 10.7 % (20-50) L 03/25/23 04:53 Unsat Iron Binding 166 ug/dL (112-347) 03/25/23 04:53 Total Bilirubin 0.2 mg/dL (0.15-1.2) 03/30/23 05:36 AST 7 U/L (0-40) 03/30/23 05:36 ALT 6 U/L (0-41) 03/30/23 05:36 Alkaline Phosphatase 128 U/L (40-130) 03/30/23 05:36 Troponin T Baseline 58 ng/L (0-15) H 03/29/23 03:01 Troponin T 120 Minute 60.32 ng/L (0-15) H 03/29/23 05:11 Delta Troponin T 2.32 ABS# (0-10) 03/29/23 05:11 Troponin T Hi Sens 6Hr 64.43 ng/L (0-15) H 03/29/23 09:17 Troponin T Hi Sens 6Hr Delta 6.43 ng/L (0-12) 03/29/23 09:17 C-Reactive Protein 48.8 mg/L (0.0-4.9) H 03/25/23 04:53 NT-Pro-B Natriuret Pep 50296 pg/mL (0-450) H 03/25/23 04:53 Total Protein 5.6 g/dL (6.6-8.7) L 03/30/23 05:36 Albumin 2.3 g/dL (3.5-5.2) L 03/30/23 05:36 Globulin 3.3 g/dL (1.3-4.6) 03/30/23 05:36 Triglycerides 45 mg/dL (0-150) 03/26/23 04:16 Cholesterol 104 mg/dL (0-200) 03/26/23 04:16 LDL Cholesterol, Calc 54 mg/dL (50-129) 03/26/23 04:16 Total VLDL Cholesterol 9 mg/dL (0-30) 03/26/23 04:16 HDL Cholesterol 41 mg/dL (60-100) L 03/26/23 04:16 Cholesterol/HDL Ratio 2.54 mg/dL (1.0-5.00) 03/26/23 04:16 Vitamin B12 708 pg/mL (232-1245) 03/25/23 04:53 Folate 14.0 ng/mL (4.5-32.2) 03/25/23 04:53 Procalcitonin 0.07 ng/mL (0-0.5) 03/24/23 21:07 TSH 2.95 uIU/mL (0.27-4.20) 03/25/23 04:53 Urine Color Yellow (Yellow) 03/26/23 05:00 Urine Appearance Hazy (CLEAR) A 03/26/23 05:00 Urine pH 5 (5-7) 03/26/23 05:00 Ur Specific [place] 1.015 (1.005-1.030) 03/26/23 05:00 Urine Protein Neg (Negative) 03/26/23 05:00 Urine Glucose (UA) Norm (Normal) 03/26/23 05:00 Urine Ketones Negative (Negative) 03/26/23 05:00 Urine Blood 2+ (Negative) H 03/26/23 05:00 Urine Nitrate Negative (Negative) 03/26/23 05:00 Urine Bilirubin Neg (Negative) 03/26/23 05:00 Urine Urobilinogen Neg mg/dL (Negative) 03/26/23 05:00 Ur Leukocyte Esterase 2+ (Negative) H 03/26/23 05:00 Urine RBC 5-10 /hpf (0-2) H 03/26/23 05:00 Urine WBC Too numerous to cnt /hpf (0-5) H 03/26/23 05:00 Ur Squamous Epith Cells 0-4 /hpf (0-5) H 03/26/23 05:00 Amorphous Sediment Not Reportable 03/26/23 05:00 Urine Bacteria 2+ /hpf (NONE) H 03/26/23 05:00 Urine Mucus Trace /hpf 03/26/23 05:00 Fluid Color Red 03/25/23 11:37 Fluid Appearance Cloudy 03/25/23 11:37 Fluid Specific Grav 1.023 03/25/23 11:37 Fluid pH 7.5 03/25/23 11:37 Fluid WBC 1707 /uL 03/25/23 11:37 Fluid RBC 15.000 10^3/uL 03/25/23 11:37 Fld Polynuclear WBCs # 0.993 03/25/23 11:37 Fld Polynuclear WBCs % 58.200 % 03/25/23 11:37 Fl Mononucl WBCs #(Auto) 0.714 03/25/23 11:37 Fl Mononuclear % Auto 41.800 % 03/25/23 11:37 Fld Crystal Laterality Left thorax 03/25/23 11:37 Fluid Glucose 99.0 mg/dL 03/25/23 11:37 Fluid Albumin 1.6 g/dL 03/25/23 11:37 Fluid LDH 149 U/L 03/25/23 11:37 Fluid Amylase 30 U/L 03/25/23 11:37 Fluid Alk Phosphatase 48 IU/L 03/25/23 11:37 Fluid Cholesterol 50 mg/dL (0-200) 03/25/23 11:37 Fluid Triglycerides 22 mg/dL (0-150) 03/25/23 11:37 Fluid Uric Acid 6 mg/dL 03/25/23 11:37 Pleural Total Protein 3.2 g/dL 03/25/23 11:37 Bronch Specimen Source Left lobe 03/25/23 15:57 Bronchial Fluid Color White 03/25/23 15:57 Bronchial Fluid Appearance Cloudy (CLEAR) 03/25/23 15:57 Bronchial Fluid WBC 613 /uL 03/25/23 15:57 Bronchial Fluid RBC 0 10^3/uL 03/25/23 15:57 Bronch Cells Counted 100 03/25/23 15:57 Bronchial Neutrophils 95.00 % (0.9-2.3) H 03/25/23 15:57 Bronchial Lymphocytes 1.00 % (10.71-12.91) L 03/25/23 15:57 Bronchial Macrophages 3.00 % (83.6-86.8) L 03/25/23 15:57 Bronchial Other Cells 1 % 03/25/23 15:57 Bronchial Diff Comment Yes 03/25/23 15:57 Vancomycin Trough 12.9 ug/mL (10-15) 03/28/23 12:21 Vitals Last Vital Signs Temp 97.5 F L 03/30/23 08:00 Pulse 76 03/30/23 11:58 Resp 16 03/30/23 11:58 BP 112/58 03/30/23 08:00 Pulse Ox 92 03/30/23 11:58 O2 Del Method Nasal Cannula 03/30/23 11:58 O2 Flow Rate 2 03/30/23 11:58 Discharge Plan Discharge Patient Disposition: Xfer SNF Condition: Stable Prescriptions: New furosemide 40 mg Tablet 40 mg PO BID@,16 Qty: 60 0RF Continued pantoprazole 40 mg tablet,delayed release (DR/EC) 40 mg PO BID@, ondansetron HCl 4 mg tablet 4 mg PO Q4H PRN (Reason: Nausea) trazodone 100 mg tablet 100 mg PO BEDTIME@ polyethylene glycol 3350 [Miralax] 17 gram Powder In Packet 17 g PO DAILY Qty: 0 0RF sennosides-docusate sodium [Senna-S] 8.6-50 mg Tablet 1 tab PO BID@, fluoxetine 40 mg capsule 80 mg PO DAILY@07 atorvastatin 40 mg tablet 40 mg PO DAILY@ nicotine 14 mg/24 hr Patch 24 Hour 1 patch TRANSDERMAL DAILY@ tramadol 50 mg tablet 50 mg PO Q8H PRN (Reason: Pain) acetaminophen 500 mg Tablet 500 mg PO QID Rx Instructions: @08:00,12:00,18:00,20:00 lorazepam 0.5 mg tablet 0.5 mg PO TID@07,,19 tamsulosin 0.4 mg capsule 0.4 mg PO BID@,19 folic acid 1 mg Tablet 1 mg PO DAILY@07 metronidazole 0.75 % gel See Rx Instructions .ROUTE .COMPLEX Rx Instructions: apply to face ears neck topically every day and evening shift memantine 5 mg tablet 5 mg PO BEDTIME@19 Rx Instructions: for 14 days (start date 03/23/23) memantine 5 mg tablet 5 mg PO BID@, Rx Instructions: start taking on 04/06/23 solifenacin 5 mg tablet 5 mg PO DAILY@ Vitamin D3 25 mcg (1,000 unit) Tablet 25 mcg PO DAILY@ Spiriva Respimat 2.5 mcg/actuation mist 1 puff INHALATION DAILY@ Eliquis 5 mg tablet 5 mg PO BID@, Eucerin Cream See Rx Instructions .ROUTE .COMPLEX Rx Instructions: apply to feet and legs every day and evening shift for dry skin Discontinued lisinopril 2.5 mg Tablet 2.5 mg PO DAILY@07 Discharge Orders: Discharge Order (Routine); Ordered 03/30/23 Ordered By: Cristiano Haile Referrals: [facility] [Outside] Renzo Pate MD [Primary Care Provider] - Datar,Sadi Escobar MD [Physician] - 7-10 days Discharge Diet: As Directed Discharge Activity: Resume usual activity and Increase activity as tolerated Patient Instructions: Opioid Safety Activity Restrictions/Additional Instructions: IV vancomycin 1 g daily for next 14 days with 1 weekly CBC and CMP while on antibiotics and trough every 3 days with target trough of around 15. Patient will also need to follow-up with pulmonology outpatient. Fluid restriction upto 1500 cc/day Continue with aspiration precautions and diet as per speech therapy. Patient should be sitting up in chair while having his meal and for around an hour after finishing his meal. Dysphagia level 6 diet Remove PICC line after completion of course of Abx Discharge Attestations Time Spent in Discharge Care*: greater than 30 min Specific Discharge Activities: educating patient, educating and/or supporting family/caregiver, discussing with pcp/other providers, discussing with medical case worker/social workers/dc planners, documenting/other paperwork and evaluating patient/reviewing data Status at Discharge: Cognitive status at discharge: cognitively intact , Behavioral status at discharge: cooperative , Functional status at discharge: other assisted ambulation , Overall status at discharge: patient is back to baseline Quality Metrics Clinical Quality Measures [ No reported AMI, CVA or VTE this stay] Coding Level of Care Code Acute Code for Chg Fwd Diagnoses Gram-positive bacteremia R78.81 Acute respiratory failure with hypoxia J96.01 Aspiration pneumonia J69.0 Acute on chronic clinical systolic heart failure I50.23 Mucus plugging of bronchi T17.500A Collapse of left lung J98.11 Bilateral pleural effusion J90 Atrial fibrillation I48.91 Anemia D64.9 CAD (coronary artery disease) I25.10 Aspiration into airway T17.908A
[2023-03-30 15:47] LABS: SARS Covid-2 Antigen negative (Negative)
== END 2023-03-30 16:17 | disposition skilled nursing facility (03) | DRG 177 ==
LOC: ER 22:22 → MEDSURG 22:41
PROVIDERS: Thoracic Surgery (Cardiothoracic Vascular Surgery); Admitting Provider Family Medicine; Emergency Provider Emergency Medicine; PCP Internal Medicine; Visit Provider Student in an Organized Health Care Education/Training Program
PROC: 0BJ08ZZ Inspection of Tracheobronchial Tree, Via Natural or Artificial Opening Endoscopic (ICD-10-PCS; CPT 31622; principal; 2023-03-25 15:00)
DX: J69.0 Pneumonitis due to inhalation of food and vomit (principal); I50.43 Acute on chronic combined systolic (congestive) and diastolic (congestive) heart failure; J96.21 Acute and chronic respiratory failure with hypoxia; I48.20 Chronic atrial fibrillation, unspecified; T17.590A Other foreign object in bronchus causing asphyxiation, initial encounter; J98.19 Other pulmonary collapse; I47.20 Ventricular tachycardia, unspecified; J90 Pleural effusion, not elsewhere classified; J43.2 Centrilobular emphysema; J84.10 Pulmonary fibrosis, unspecified; N18.9 Chronic kidney disease, unspecified; I25.5 Ischemic cardiomyopathy; D63.1 Anemia in chronic kidney disease; Z86.711 Personal history of pulmonary embolism; B95.62 Methicillin resistant Staphylococcus aureus infection as the cause of diseases classified elsewhere; X58.XXXA Exposure to other specified factors, initial encounter; Z79.891 Long term (current) use of opiate analgesic; Z79.01 Long term (current) use of anticoagulants; Z86.14 Personal history of Methicillin resistant Staphylococcus aureus infection; Z96.642 Presence of left artificial hip joint; I27.20 Pulmonary hypertension, unspecified; I25.2 Old myocardial infarction; E78.5 Hyperlipidemia, unspecified; Z86.718 Personal history of other venous thrombosis and embolism; G89.29 Other chronic pain; N40.0 Benign prostatic hyperplasia without lower urinary tract symptoms; I71.40 Abdominal aortic aneurysm, without rupture, unspecified; F41.9 Anxiety disorder, unspecified
CPT/HCPCS: 32555; 36415; 36569; 71045; 71250; 74230; 80048; 80053; 80061; 80202; 80503; 81001; 82042; 82150; 82465; 82607; 82746; 82945; 83036; 83540; 83550; 83605; 83615; 83735; 83880; 83986; 84075; 84100; 84145; 84157; 84315; 84443; 84478; 84484; 84560; 85025; 85610; 86140; 86403; 87015; 87040; 87070; 87075; 87077; 87086; 87102; 87116; 87150; 87186; 87205; 87206; 87426; 87449; 87641; 87801; 88112; 89050; 92523; 92526; 92610; 92611; 93005; 93306; 94640; 94664; 96372; 99285; C9113; J1650; J1940; J2543; J3370; J7030; J7050; J7608; J7626

== ENCOUNTER → 2023-04-09 09:28 | Outpatient (BNVA) | payer MEDICARE, MEDICAID, SELFPAY | PROVIDERS: PCP Internal Medicine; Visit Provider Orthopaedic Surgery | DX: M54.2 Cervicalgia (principal); M48.062 Spinal stenosis, lumbar region with neurogenic claudication; M41.9 Scoliosis, unspecified; M81.0 Age-related osteoporosis without current pathological fracture; K56.41 Fecal impaction | CPT/HCPCS: 99204 ==

== ENCOUNTER → 2023-04-09 09:37 | Outpatient (BNVA) | payer MEDICARE, MEDICAID, SELFPAY | PROVIDERS: PCP Internal Medicine; Visit Provider Orthopaedic Surgery | DX: M54.2 Cervicalgia (principal); M48.062 Spinal stenosis, lumbar region with neurogenic claudication; M41.9 Scoliosis, unspecified; M81.0 Age-related osteoporosis without current pathological fracture; K56.41 Fecal impaction | CPT/HCPCS: 72100; 99204 ==

== ENCOUNTER 2023-05-01 09:21 | Outpatient (CLI) | payer MEDICARE, MEDICAID, SELFPAY ==
--- NOTE | 2023-05-01 09:30 | MR_ITS ---
WS: [id number] MRI LUMBAR SPINE NONCONTRAST HISTORY: low back pain with radiculopathy COMPARISON: 12/13/2014 TECHNIQUE: Sagittal and axial multisequence imaging is submitted. Severe degenerative changes with loss of the normal curvature of the spine. Marked increase in thorac ic kyphosis with multiple compression fractures including T6, T8 and T10. T8 compression fracture jewel roximately 80%. Minimal anterior wedging of T5. C7 anterolisthesis by 3 mm. Rotary scoliosis and curvature of the lumbar spine. Marked RIGHT curvature with asymmetric disc space narrowing. The extent of the curvature and loss of disc space height has progressed since 2014. Severe disc space narrowing most significant at L2-3 and L3-4. Conus terminates normally at L1-2 disc level. L1-L2: Deformity of the thecal sac due to the scoliosis with asymmetric disc bulging. Mild ligamentum flavum and facet arthritis. Mild central deformity with mild bilateral subarticular recess and moder ate foraminal stenosis. L2-L3: Osteophytic ridging and annular asymmetric disc bulging with facet and ligamentum flavum hyper trophy. Nerve roots are distributed in the LEFT thecal sac due to the scoliosis. Mild central and alejandra ateral foraminal stenosis with slightly greater subarticular recess encroachment. L3-L4: Diffuse annular disc bulging with osteophytic ridging. Moderate ligamentum flavum and facet ar thritis. Nerve roots are distributed in the LEFT thecal sac. Moderate to severe central with bilatera l subarticular recess and LEFT foraminal stenosis. Mild RIGHT foraminal stenosis. The most significan t contact and deformity upon the traversing LEFT L4 nerve root. L4-L5: Annular disc bulging is asymmetric osteophytic ridging. Severe ligamentum flavum and facet art hritis. Complete effacement of CSF with loss of the normal thecal sac contour. There is marked ligame ntum flavum hypertrophy encroaching into the central canal. Severe central, bilateral subarticular re cess and foraminal stenosis due to combination of disc, osteophyte and facet arthritis. L5-S1: Mild annular asymmetric disc bulging. Mild disc encroachment upon the ventral thecal sac and s ubarticular recess narrowing, RIGHT greater than LEFT. No significant foraminal stenosis. Bilateral renal cysts. Atherosclerosis aorta. There is a large mass in the central pelvis displacing the urinary bladder. Not significantly invadin g the bladder. This could be a distended rectum or prostate. Suggest CT evaluation of the abdomen and pelvis with IV and oral contrast. MR/MR lumbar spine wo con* [id number] IMPRESSION: 1. Significant progression of degenerative scoliosis throughout the thoracic a nd lumbar spines. 2. Severe rotary scoliosis lumbar spine with progression of stenoses and advan cing degenerative disc and facet disease since 2014. 3. L3-4: Moderate to severe central, bilateral subarticular recess and LEFT fo raminal stenosis and mild RIGHT foraminal stenosis. Most significant deformity and contact involving the traversing LEFT L4 nerve root. 4. L4-5: Severe central, bilateral subarticular recess and foraminal stenosis. Severe ligamentum flavum encroachment into the central canal. 5. L2-3: Mild central, bilateral foraminal stenosis and subarticular recess en croachment. 6. L1-2: Mild central and bilateral subarticular recess and moderate foraminal stenosis at L1-2. 7. Mild central, bilateral subarticular recess and foraminal stenosis at L5-S1 , RIGHT greater than LEFT. 8. Compression fractures at T5, T6, T8 and T10. No retropulsion. 9. Large soft tissue mass in the central pelvis distorting the bladder. Differ ential includes a markedly distended rectum or prostate gland. Recommend follow -up CT abdomen and pelvis with IV and oral contrast.
== END 2023-05-01 09:22 | disposition home or self-care (01) ==
LOC: RAD 09:25
PROVIDERS: PCP Internal Medicine; Visit Provider Orthopaedic Surgery
DX: M51.16 Intervertebral disc disorders with radiculopathy, lumbar region (principal); M48.54XA Collapsed vertebra, not elsewhere classified, thoracic region, initial encounter for fracture; M54.2 Cervicalgia; M48.061 Spinal stenosis, lumbar region without neurogenic claudication; R19.00 Intra-abdominal and pelvic swelling, mass and lump, unspecified site; M41.56 Other secondary scoliosis, lumbar region; M41.54 Other secondary scoliosis, thoracic region; M54.9 Dorsalgia, unspecified; G89.29 Other chronic pain; N28.1 Cyst of kidney, acquired
CPT/HCPCS: 72148; 99204

== ENCOUNTER → 2023-05-12 10:46 | Outpatient (BNVA) | payer MEDICARE, MEDICAID, SELFPAY | PROVIDERS: PCP Internal Medicine; Visit Provider Orthopaedic Surgery | DX: Z09 Encounter for follow-up examination after completed treatment for conditions other than malignant neoplasm (principal); M48.062 Spinal stenosis, lumbar region with neurogenic claudication | CPT/HCPCS: 99214 ==

== ENCOUNTER → 2023-06-11 10:25 | Outpatient (BNVA) | payer MEDICARE, MEDICAID, SELFPAY | PROVIDERS: PCP Internal Medicine; Referring Provider Orthopaedic Surgery; Visit Provider Anesthesiology Pain Medicine | DX: M48.062 Spinal stenosis, lumbar region with neurogenic claudication (principal) | CPT/HCPCS: 99204 ==

== ENCOUNTER → 2023-07-07 09:24 | Outpatient (BNVA) | payer MEDICARE, MEDICAID, SELFPAY | PROVIDERS: PCP Internal Medicine; Visit Provider Nurse Practitioner Family | DX: L85.3 Xerosis cutis (principal); L57.8 Other skin changes due to chronic exposure to nonionizing radiation; L57.0 Actinic keratosis | CPT/HCPCS: 17000; 17003; 99213 ==

== ENCOUNTER 2023-07-18 11:45 | Emergency (ER) | payer MEDICARE, MEDICAID, SELFPAY ==
[2023-07-18 11:48] VITALS: BP 88/63; PULSE 89; RESP 24; TEMP 36.1; O2SAT 92; BMI 21.7
--- NOTE | 2023-07-18 11:55 | XRR_ITS ---
PROCEDURE INFORMATION: Exam: XR Chest Exam date and time: 07/18/2023 12:35 PM Age: 77 years old Clinical indication: Shortness of breath; Additional info: Dyspnea/cough TECHNIQUE: Imaging protocol: Radiologic exam of the chest. Views: 1 view. COMPARISON: CT chest wo con [id number] 03/26/2023 9:45 AM FINDINGS: Limitations: Study is technically suboptimal due to patient positioning and patient rotation. Lungs: There is a large sail shaped opacity left lower hemithorax similar to previous exam likely secondary to combination of pleural effusion and left lower lobe atelectasis. There is accentuated bronchovascular markings right lung with peribronchial cuffing that may be secondary to mild pulmonary congestion. There are central weighted interstitial lung changes peripherally at the right lung base, stable that may be due to combination of chronic airway changes and chronic interstitial lung disease. Pleural spaces: See Lungs finding. Heart/Mediastinum: Heart is enlarged, unchanged. Bones/joints: Unremarkable for age. XR/XR chest 1V portable [id number] IMPRESSION: 1. Cardiomegaly with mild pulmonary vascular congestion. 2. Left lower lobe atelectasis and effusion stable from previous exam. 3. Chronic changes right lung base, stable.
--- NOTE | 2023-07-18 11:56 | ED_ITS ---
HPI - SOB/Dyspnea General: Chief Complaint: Shortness of Breath/Dyspnea Stated Complaint: High Resp Rate Time Seen by Provider: 07/18/23 11:50 Source: patient Mode of arrival: EMS History of Present Illness: HPI Narrative: 77-year-old male who presents to the emergency room with complaint of shortness of breath. long-term transferred him here stating he was having tachypnea he states his breathing is about the same he is chronically on 4 L by regular cannula on arrival here his respiratory rate is 24 he denies cough or fever denies abdominal pain or chest pain. No specific complaint per the patient. He has a history of COPD and CHF and is chronically on oxygen. MD elicited complaint: shortness of breath Pertinent past history: COPD and congestive heart failure Severity: mild Exacerbating factors: nothing Relieving factors: nothing Known history of: COPD and congestive heart failure Associated symptoms: Deny abdominal pain, chest congestion, chest pain, cough, diaphoresis, extremity pain, fever(s), hemoptysis, lightheadedness, myalgias, nausea, orthopnea, palpitations, paresthesias, rash, sense of impending doom, syncope or vomiting Treatment prior to arrival: oxygen Review of Systems Const: Denies: fever(s), chills or diaphoresis Card: Denies: chest pain, palpitations, lightheadedness, syncope or orthopnea Resp: Denies: dyspnea, productive cough, non-productive cough, hemoptysis or chest congestion GI: Denies: abdominal pain, nausea or vomiting : Denies: flank pain, dysuria, urinary frequency or urinary urgency Musc: Denies: extremity pain Skin/Breast: Denies: rash or pruritus PFS ED PFSH: Medical History Anemia Anticoagulation adequate with anticoagulant therapy Eliquis Anxiety Ascending aorta dilatation Atrial fibrillation BPH (benign prostatic hyperplasia) CHF (congestive heart failure) Chronic pain COPD (chronic obstructive pulmonary disease) DVT (deep venous thrombosis) Dyslipidemia Edema GERD (gastroesophageal reflux disease) Ischemic cardiomyopathy Left bundle branch block Myocardial infarction Pulmonary embolism Pulmonary HTN Tobacco abuse Urgency incontinence Venous insufficiency Surgical History History of left hip replacement Hx of facial fracture repair Hx of neck surgery S/P hip replacement Family History Father , at age 76 CAD (coronary artery disease) Myocardial infarction Mother , at age 80 Blood clot associated with vein wall inflammation Social History Smoking and tobacco status: never smoked Alcohol intake: never Substance/Drug Use: unknown Adopted: No Caregiver/support person: No Lives independently: No Household members: spouse Marital status: Current occupational status: retired Physical Exam Const: GENERAL APPEARANCE: cooperative and comfortable ORIENTATION/CONSCIOUSNESS: Yes awake HENMT: COMMON NORMALS: normocephalic, atraumatic and hearing grossly normal bilaterally HEAD & SCALP: normocephalic and atraumatic Resp: COMMON NORMALS: normal respiratory effort, No retractions, No use of accessory muscles and clear to auscultation bilaterally AUSCULTATION: clear to auscultation bilaterally Cardio: COMMON NORMALS: regular rate, regular rhythm and No murmurs present (Cardio) RATE: regular rate RHYTHM: regular rhythm GI: COMMON NORMALS: Soft to palpation and No hepatosplenomegaly present AUSCULTATION: Yes normoactive bowel sounds PALPATION: Yes Soft to palpation, No Tenderness to palpation present (GI), No Guarding due to palpation present (GI) and Yes No hepatosplenomegaly present Extremity: COMMON NORMALS: normal to inspection, capillary refill normal, no clubbing, cyanosis or edema, no calf tenderness and no pedal edema Skin: COMMON NORMALS: no rashes or lesions noted GENERAL SKIN EXAM: no rashes or lesions noted Course Vital Signs: Vital signs: Vital Signs Temperature 97.0 F L 07/18/23 11:48 Pulse Rate 87 07/18/23 13:12 Respiratory Rate 24 H 07/18/23 13:12 Blood Pressure 95/67 07/18/23 13:12 Pulse Oximetry 96 07/18/23 13:12 Oxygen Delivery Me thod Nasal Cannula 07/18/23 12:30 Oxygen Flow Rate 4 07/18/23 12:30 MDM - SOB/Dyspnea Medical Decision Making Chest x-ray unchanged from previous. EKG shows no acute changes labs un remarkable serial enzymes no significant delta. Patient feels like he is at his baseline his confirms. He has chronic changes in the chest x-ray but they are unchanged discharged back to the [facility] no change in medications Medical Records I reviewed the patient's medical records. Lab Data I reviewed the patient's lab results. 07/18/23 12:07 07/18/23 12:07 Labs/Radiology: Radiology Impressions Chest X-Ray 07/18/23 11:55 IMPRESSION: 1. Cardiomegaly with mild pulmonary vascular congestion. 2. Left lower lobe atelectasis and effusion stable from previous exam. 3. Chronic changes right lung base, stable. Laboratory Results WBC 7.00 10^3/uL (3.29-11.43) 07/18/23 12:07 RBC 3.75 10^6/uL (3.85-5.65) L 07/18/23 12:07 Hgb 9.50 g/dL (11.27-16.99) L 07/18/23 12:07 Hct 33.6 % (37-53) L 07/18/23 12:07 MCV 89.6 fl (82-101) 07/18/23 12:07 MCH 25.3 pg (27-33) L 07/18/23 12:07 MCHC 28.3 g/dL (30-55) L 07/18/23 12:07 RDW 15.9 % (12.1-15.1) H 07/18/23 12:07 Plt Count 147 10^3/cmm (157-399) L 07/18/23 12:07 MPV 10.1 fL (7.4-10.4) 07/18/23 12:07 Neut % (Auto) 75.6 % 07/18/23 12:07 Lymph % (Auto) 12.3 % 07/18/23 12:07 [place] % (Auto) 10.7 % 07/18/23 12:07 Eos % (Auto) 0.9 % 07/18/23 12:07 Baso % (Auto) 0.1 % 07/18/23 12:07 Neut # (Auto) 5.29 10^3/uL (1.8-7.7) 07/18/23 12:07 Lymph # (Auto) 0.9 10^3/uL (0.8-4.8) 07/18/23 12:07 [place] # (Auto) 0.8 10^3/uL (0.2-0.9) 07/18/23 12:07 Eos # (Auto) 0.1 10^3/uL (0.0-0.8) 07/18/23 12:07 Baso # (Auto) 0.0 10^3/uL (0.0-0.1) 07/18/23 12:07 Nucleated RBC % (auto) 0 % 07/18/23 12:07 Nucleated RBCs # 0.0 /100WBC 07/18/23 12:07 Specimen Type Arterial 07/18/23 12:08 Sample Site Brachial, left 07/18/23 12:08 ABG pH 7.37 (7.35-7.45) 07/18/23 12:08 ABG pCO2 53.4 mmHg (35-45) H 07/18/23 12:08 ABG pO2 59.0 mmHg (80.0-100.0) L 07/18/23 12:08 ABG HCO3 30.5 mmol/L (22-26) H 07/18/23 12:08 ABG O2 Saturation 89.5 07/18/23 12:08 ABG Base Excess 4.2 mmol/L (-2.0-2.0) H 07/18/23 12:08 Avni Test N/a 07/18/23 12:08 A-a O2 Gradient 3.3 mmHg (5-10) L 07/18/23 12:08 Hematocrit 30.7 % (42-52) L 07/18/23 12:08 Hgb O2 Saturation 87.6 % (95-100) L 07/18/23 12:08 Carboxyhemoglobin 1.7 %THgb (0.4-20.1) 07/18/23 12:08 Methemoglobin 0.5 % (0.4-1.5) 07/18/23 12:08 Total Hemoglobin 10.0 g/dL (14-18) L 07/18/23 12:08 Sodium 138.0 mmol/L (131-143) 07/18/23 12:08 Potassium 4.2 mmol/L (3.5-5.0) 07/18/23 12:08 Glucose 104.0 mg/dL (70-115) 07/18/23 12:08 Ionized Calcium 1.3 mmol/L (1.1-1.4) 07/18/23 12:08 O2 Delivery Device Nc 07/18/23 12:08 O2 Liters/Min 4.0 % 07/18/23 12:08 Machine Repairer Maintenance ID Wong 07/18/23 12:08 Sodium 134 mmol/L (136-145) L 07/18/23 12:07 Potassium 4.3 mmol/L (3.5-5.1) 07/18/23 12:07 Chloride 98 mmol/L (98-107) 07/18/23 12:07 Carbon Dioxide 27 mmol/L (22-29) 07/18/23 12:07 Anion Gap 13.3 (5-19) 07/18/23 12:07 BUN 47 mg/dL (8-23) H 07/18/23 12:07 Creatinine 2.0 mg/dL (0.7-1.2) H 07/18/23 12:07 GFR Calculation Not Reportable 07/18/23 12:07 Glucose 105 mg/dL (65-115) 07/18/23 12:07 Calculated Osmolality 291 mOsm/kg (285-295) 07/18/23 12:07 Calcium 9.5 mg/dL (8.5-10.5) 07/18/23 12:07 Total Bilirubin 0.3 mg/dL (0.15-1.2) 07/18/23 12:07 AST 18 U/L (0-40) 07/18/23 12:07 ALT 26 U/L (0-41) 07/18/23 12:07 Alkaline Phosphatase 94 U/L (40-130) 07/18/23 12:07 Troponin T Baseline 105 ng/L (0-15) H* 07/18/23 12:07 Troponin T 120 Minute 101.7 ng/L (0-15) H 07/18/23 14:04 Delta Troponin T -3.3 ABS# (0-10) L 07/18/23 14:04 Total Protein 7.0 g/dL (6.6-8.7) 07/18/23 12:07 Albumin 3.0 g/dL (3.5-5.2) L 07/18/23 12:07 Globulin 4.0 g/dL (1.3-4.6) 07/18/23 12:07 Discharge Plan Discharge Patient Disposition: Home Clinical Impression: Pulmonary HTN, Pulmonary fibrosis, Chronic neck and back pain, COPD (chronic obstructive pulmonary disease), CHF (congestive heart failure) Condition: Stable Prescriptions: No Action clonazepam 0.5 mg tablet 0.5 mg PO TID buspirone 15 mg tablet 15 mg PO TID Artificial Tears (PF) Dropperette 1 drp OPHTHALMIC (EYE) 6XD PRN (Reason: Dry Eye(S)) Artificial Tears (PF) Dropperette 1 drp OPHTHALMIC (EYE) BID memantine 10 mg tablet 10 mg PO BID nicotine 14 mg/24 hr Patch 24 Hour 1 patch TRANSDERMAL Q24H ondansetron HCl 4 mg tablet 4 mg PO Q4H PRN (Reason: Nausea) Senokot-S 8.6-50 mg Tablet 1 tab-cap PO BID tramadol 50 mg tablet 50 mg PO Q6H PRN (Reason: Pain) Milk of Magnesia 400 mg/5 mL Suspension 400 mg PO DAILY PRN (Reason: Constipation) tamsulosin 0.4 mg capsule 0.4 mg PO QAM trazodone 100 mg tablet 100 mg PO BEDTIME pantoprazole 40 mg tablet,delayed release (DR/EC) 40 mg PO BID triamcinolone acetonide 0.1 % lotion See Rx Instructions .ROUTE .COMPLEX Rx Instructions: 1 applic topically to arms, and back twice daily Miralax 17 gram/dose Powder 4 g PO DAILY solifenacin 5 mg tablet 5 mg PO QAM Vitamin D3 25 mcg (1,000 unit) Tablet 25 mcg PO DAILY Spiriva Respimat 2.5 mcg/actuation mist 1 inh INHALATION QAM fluoxetine 40 mg capsule 80 mg PO DAILY@07 atorvastatin 40 mg tablet 40 mg PO DAILY@07 acetaminophen 500 mg Tablet 500 mg PO QID Rx Instructions: @08:00,12:00,18:00,20:00 folic acid 1 mg Tablet 1 mg PO DAILY@07 metronidazole 0.75 % gel See Rx Instructions .ROUTE .COMPLEX Rx Instructions: apply to face ears neck topically every day and evening shift Eliquis 5 mg tablet 5 mg PO BID@07,19 furosemide 40 mg Tablet 40 mg PO BID@08,16 Qty: 60 0RF Discharge Orders: Discharge ED (Routine); Ordered 07/18/23 Ordered By: Cory Webster Referrals: Femi Mcdermott MD [Primary Care Provider] - Discharge Diet: Usual diet Discharge Activity: Resume usual activity Patient Instructions: Opioid Safety, Pain Management Coding Level of Care Code ED Auditing Control Clerk for Christina Dangelo
[2023-07-18 12:12] LABS: Basophils % 0.1 %; Eosinophils # 0.1 10^3/uL (0.0-0.8); Eosinophils % 0.9 %; Hematocrit 33.6 % (37-53); Lymphocytes # 0.9 10^3/uL (0.8-4.8); Lymphocytes % 12.3 %; Mean Corpuscular HGB Conc 28.3 g/dL (30-55); Mean Corpuscular Hemoglobin 25.3 pg (27-33); Mean Corpuscular Volume 89.6 fl (82-101); Mean Platelet Volume 10.1 fL (7.4-10.4); Monocytes # 0.8 10^3/uL (0.2-0.9); Monocytes % 10.7 %; Neutrophils # 5.29 10^3/uL (1.8-7.7); Neutrophils % 75.6 %; Nucleated Red Blood Cells % 0 %; Platelet Count 147 10^3/cmm (157-399); Red Blood Count 3.75 10^6/uL (3.85-5.65); Red Cell Distribution Width 15.9 % (12.1-15.1)
[2023-07-18 12:20] LABS: ABG PCO2 53.4 mmHg (35-45); ABG PH Result 7.37 (7.35-7.45); Alveolar-Arterial Oxygen Gradi 3.3 mmHg (5-10); Arterial Blood Gas Hematocrit 30.7 % (42-52); Base Excess ABG 4.2 mmol/L (-2.0-2.0); Blood Gas Sample Site Brachial, left; Blood Gas Sample Type Arterial; Carboxyhemoglobin 1.7 %THgb (0.4-20.1); HCO3 ABG 30.5 mmol/L (22-26); HGB O2 Sat 87.6 % (95-100); Ionized Calcium Level - ABG 1.3 mmol/L (1.1-1.4); Methemoglobin 0.5 % (0.4-1.5); Oxygen Device NC; Oxygen Saturation ABG 89.5; Potassium Level - ABG 4.2 mmol/L (3.5-5.0)
--- NOTE | 2023-07-18 12:22 | ECG_ITS ---
[facility] Test Date: 2023-07-18 Pat Name: Fredi Claire Department: Room: Gender: Male Book Illustrator: : 1945 Requested By: Cory Hardy Order Number: [id number] Suzie MD: Demetrius Rosenthal M.D. Measurements Intervals [place] Rate: 82 P: 99 [place]: 188 QRS: -27 QRSD: 181 T: 91 QT: 421 QTc: 494 Interpretive Statements SINUS RHYTHM WITH OCCASIONAL SUPRAVENTRICULAR PREMATURE COMPLEXES LEFT BUNDLE BRANCH BLOCK [120+ ms QRS DURATION, 80+ ms Q/S IN V1/V2, 85+ ms R IN I/aVL/V5/V6] Compared to ECG 03/29/2023 07:27:39 Ventricular premature complex(es) no longer present Indeterminate axis no longer present Electronically Signed On 07-18-2023 14:41:03 CDT by Demetrius Rosenthal M.D. [id number]
[2023-07-18 12:30] VITALS: PULSE 4; RESP 20; O2SAT 93
[2023-07-18] MEDS: ipratropium-albuterol 3 mL Neb INHALATION (12:30)
[2023-07-18 12:33] LABS: Alanine Aminotransferase 26 U/L (0-41); Alkaline Phosphatase 94 U/L (40-130); Anion Gap 13.3 (5-19); Aspartate Amino Transferase 18 U/L (0-40); Blood Urea Nitrogen 47 mg/dL (8-23); Calcium 9.5 mg/dL (8.5-10.5); Carbon Dioxide 27 mmol/L (22-29); Chloride 98 mmol/L (98-107); Glucose 105 mg/dL (65-115); Osmolality Calculated 291 mOsm/kg (285-295); Potassium 4.3 mmol/L (3.5-5.1); Sodium 134 mmol/L (136-145); Total Bilirubin 0.3 mg/dL (0.15-1.2)
[2023-07-18 12:36] LABS: Troponin(5th) Baseline 105 ng/L (0-15)
[2023-07-18 13:12] VITALS: BP 95/67; PULSE 87; RESP 24; O2SAT 96
--- NOTE | 2023-07-18 13:37 | PC.PHAR ---
Addendum entered by Rachel Orellana 07/18/23 14:00: [facility], ENTERED ON CHART. Original Note: [facility] ONLY SENT 2 PAGE MED LIST. PHONED TO QUESTION THE DISCONTINUATION OF SO MANY ORDERS. SPOKE WITH SHERI, WHO IS FAXING FULL LIST. 1:30 PM 07/18/23
--- NOTE | 2023-07-18 14:20 | ECG_ITS ---
[facility] Test Date: 2023-07-18 Pat Name: Fredi Claire Department: Room: Gender: Male Counter Molder: : 1945 Requested By: Cory Hardy Order Number: [id number] Suize MD: Demetrius Rosenthal M.D. Measurements Intervals [place] Rate: 88 P: 0 PA: 0 QRS: -16 QRSD: 181 T: 115 QT: 448 QTc: 544 Interpretive Statements SINUS RHYTHM WITH PACs LEFT BUNDLE BRANCH BLOCK [120+ ms QRS DURATION, 80+ ms Q/S IN V1/V2, 85+ ms R IN I/aVL/V5/V6] Compared to ECG 07/18/2023 12:22:21 Ventricular premature complex(es) now present Aberrant conduction of supraventricular beat(s) now present Electronically Signed On 07-18-2023 14:44:32 CDT by Demetrius Rosenthal M.D. [id number]
[2023-07-18] MEDS: CLONazepam 0.5 mg Tablet PO (14:34)
[2023-07-18] MEDS: TRAMadol 50 mg Tablet PO (14:34)
[2023-07-18 14:44] LABS: Troponin 5 2HR Delta -3.3 ABS# (0-10)
[2023-07-18 14:49] LABS: Troponin 5 2HR 101.7 ng/L (0-15)
[2023-07-18 17:19] VITALS: BP 120/85; PULSE 85; RESP 24; O2SAT 94
[2023-07-18 19:00] VITALS: PULSE 79; RESP 18; O2SAT 97
== END 2023-07-19 00:30 | disposition home or self-care (01) ==
PROVIDERS: Emergency Provider Family Medicine; PCP Internal Medicine
DX: I27.20 Pulmonary hypertension, unspecified (principal); J84.10 Pulmonary fibrosis, unspecified; G89.29 Other chronic pain; M54.2 Cervicalgia; M54.9 Dorsalgia, unspecified; J44.9 Chronic obstructive pulmonary disease, unspecified; I50.9 Heart failure, unspecified; Z79.01 Long term (current) use of anticoagulants; E78.5 Hyperlipidemia, unspecified; I25.2 Old myocardial infarction
CPT/HCPCS: 36415; 36600; 71045; 80051; 80053; 82330; 82805; 84484; 85025; 93005; 94640; 99285

== ENCOUNTER → 2023-09-03 08:07 | Outpatient (BNVA) | payer MEDICARE, MEDICAID, SELFPAY | PROVIDERS: PCP Internal Medicine; Visit Provider Nurse Practitioner Family | DX: L85.3 Xerosis cutis (principal); L57.8 Other skin changes due to chronic exposure to nonionizing radiation; D22.62 Melanocytic nevi of left upper limb, including shoulder; L82.1 Other seborrheic keratosis | CPT/HCPCS: 99213 ==

== ENCOUNTER 2023-11-21 16:03 | Inpatient (IN) | payer MEDICARE, MEDICAID, SELFPAY ==
[2023-11-21] VITALS (51 sets, daily range): BP systolic 61–153; BP diastolic 36–91; PULSE 36–72; RESP 9–28; TEMP 34.3; O2SAT 81–100; BMI 19.0
--- NOTE | 2023-11-21 16:17 | ECG_ITS ---
[facility] Test Date: 2023-11-21 Pat Name: Fredi Claire Department: Room: Gender: Male Order Desk Caller: : 1945 Requested By: Croy Hardy Order Number: [id number] Suzie MD: Demetrius Rosenthal M.D. Measurements Intervals [place] Rate: 65 P: 77 [place]: 269 QRS: 161 QRSD: 200 T: 53 QT: 548 QTc: 572 Interpretive Statements SINUS RHYTHM WITH PVCs RIGHT AXIS DEVIATION [QRS AXIS > 100] INTRAVENTRICULAR CONDUCTION DELAY [130+ ms QRS DURATION] PROLONGED QT INTERVAL Compared to ECG 07/18/2023 14:20:21 Right-axis deviation now present Intraventricular conduction delay now present Prolonged QT interval now present Left bundle-branch block no longer present Electronically Signed On 11-22-2023 10:21:03 MOLD REPAIRER by Demetrisu Rosenthal M.D. [id number] f
--- NOTE | 2023-11-21 16:19 | XRR_ITS ---
PROCEDURE INFORMATION: Exam: XR Chest Exam date and time: 11/21/2023 4:29 PM Age: 78 years old Clinical indication: Device placement; Ett placement (vent status); Patient HX: Respiratory distress; Ett/ng placement; Additional info: Dyspnea/cough TECHNIQUE: Imaging protocol: Radiologic exam of the chest. Views: 1 view. COMPARISON: CR (CHEST, ) 07/18/2023 12:35 PM FINDINGS: Endotracheal tube approximately 2.5 cm above the ru. Enteric tube tip in the proximal/mid gastric body with side port below the diaphragm. XR/XR chest 1V portable [id number] IMPRESSION: As above.
--- NOTE | 2023-11-21 16:33 | ED_ITS ---
HPI - General Adult 2 General: Chief complaint: Shortness of Breath/Dyspnea Stated complaint: RESP. DISTRESS Time Seen by Provider: 11/21/23 16:18 Source: EMS Mode of arrival: EMS History of Present Illness: 78-year-old male is a full code at the [facility] has moderate dementia and severe COPD arrives intubated with a 7.0 ET tube he was in respiratory arrest.. He came in from [place]. He has a full code. He has a history of dementia he was intubated in the field and given put IV push fentanyl and Versed and route. RSI was by rocuronium and etomidate. NG tube in place Onset (ago): unknown Review of Systems 2 General: Reports: ROS unobtainable due to endotracheal tube and ROS unobtainable due to medical condition PFS ED 2 PFSH: Medical History Anxiety Chronic pain BPH (benign prostatic hyperplasia) GERD (gastroesophageal reflux disease) Urgency incontinence Anticoagulation adequate with anticoagulant therapy Eliquis Pulmonary embolism Atrial fibrillation Venous insufficiency Ascending aorta dilatation Left bundle branch block Myocardial infarction Anemia CHF (congestive heart failure) DVT (deep venous thrombosis) COPD (chronic obstructive pulmonary disease) Ischemic cardiomyopathy Edema Tobacco abuse Pulmonary HTN Dyslipidemia Surgical History S/P hip replacement Hx of facial fracture repair History of left hip replacement Hx of neck surgery Family History Father , at age 76 CAD (coronary artery disease) Myocardial infarction Mother , at age 80 Blood clot associated with vein wall inflammation Social History Smoking and tobacco/nicotine status: never used tobacco/nicotine Alcohol intake: never Substance/Drug Use: unknown Adopted: No Caregiver/support person: No Lives independently: No Household members: spouse Marital status: Current occupational status: retired Physical Exam 2 Const: NUTRITIONAL APPEARANCE: cachectic HENMT: COMMON NORMALS: normocephalic and atraumatic HEAD & SCALP: n ormocephalic and atraumatic Resp: AUSCULTATION: rhonchi right upper and right lower, wheezes expiratory wheezes, right lower, right upper and posterior and breath sounds absent on th left Cardio: COMMON NORMALS: No murmurs present (Cardio) RATE: bradycardic R HYTHM: abnormal rhythm with ectopic beats GI: COMMON NORMALS: Soft to palpation and No hepatosplenomegaly present A USCULTATION: Yes normoactive bowel sounds PALPATION: Yes Soft to palpation, No Tenderness to palpation present (GI), No Guarding due to palpation present (GI) and Yes No hepatosplenomegaly present Extremity: COMMON NORMALS: normal to inspection, capillary refill normal, no clubbing, cyanosis or edema, no calf tenderness and no pedal edema Skin: COMMON NORMALS: no rashes or lesions noted GENERAL SKIN EXAM: no rashes or lesions noted Procedures Central Line Placement Right IJ: Time Out Performed: Yes Patient Placed on Monitor/Pulse Ox: Yes MD Prep: mask, gown and gloves Central Line Prep: Chlorhexidine scrub Ultrasound Used for Placement: Yes Central Line Lumen Inserted: triple Post Procedure: sutured in place, good blood return, all ports aspirated, flushed, capped and sterile dressing applied Post Procedure X-Ray: tip of catheter in good position and no pneumothorax seen Patient Tolerated Procedure: well Complications: none Additional Comments: Initially attempted right subclavian but due to blood pressure his subclavian was collapsed and was difficult to cannulate moved to right IJ cannulated without difficulty Intubation sedative: Versed Laryngoscope: fiber optic video scope Assist Device Used: fiber optic device ET Tube Size: 8.5 ET Tube Uncuffed: No Tube Secured Depth (cm): 24 Tube Secured Location: lips Tube Placement Confirmation: visualized tube passing through cords, equal breath sounds bilaterally, no breath sounds over epigastrium and confirmation by capnometry Patient Tolerated Procedure: well Intubation Complications: none Additional Comments: On arrival patient is intubated is a 7.0 ET tube in given his history of COPD and high pressures on the ventilator we exchanged for larger caliber ET tube without complication Course 2 Vital Signs: Vital signs: Vital Signs Temperature 96.6 F L 11/22/23 04:00 Pulse Rate 52 L 11/22/23 05:52 Respiratory Rate 14 11/22/23 04:00 Blood Pressure 125/65 11/22/23 04:00 Pulse Oximetry 95 11/22/23 04:00 Oxygen Delivery Me thod Mechanical Ventil ation 11/22/23 04:00 Fraction of Inspir ed Oxygen 30 11/22/23 04:00 MDM - General Adult Medical Decision Making Long discussion was family. Patient initially at the [facility] was a full code. He was intubated central line was started he has been intermittently on pressors also started on amiodarone because he had nonsustained runs of V. tach. Suspect he is septic may have mucous plugging in the left bronchi he does have pulmonary embolisms which are acute on chronic. Initially he has a large left pleural effusion with compressive atelectasis. He has a history of pulmonary fibrosis dementia ischemic cardiomyopathy congestive heart failure. After several discussions of the family the do wish to treat although they do not wish to transfer. We offered transfer for possible thoracentesis and bronchoscopy to improve potential for outcome however after discussion they have elected not to pursue this they would prefer that he stay on the ventilator they are open to using synchronized cardioversion or defibrillation if needed but do not want CPR. They will reassess expectations in the morning with Dr. Flores. They are okay with medications being given but do not want any further aggressive treatments. We did discuss with them that by not transferring him will not be able to offer some of these other potential procedures that may improve the chance of his outcome. However given his multiple medical problems overall he is a very guarded prognosis they are aware of this and wished to be more conservative. Dr. Flores was included on these discussions as well family members at this time are in agreement. Will admit. Orders are written. Medical Records I reviewed the patient's medical records. Lab Data I reviewed the patient's lab results. 11/22/23 03:53 11/22/23 03:53 Radiology Impressions Chest X-Ray 11/21/23 17:49 IMPRESSION: No acute findings. Head CT 11/21/23 17:49 IMPRESSION: 1. No acute intracranial hemorrhage or evidence of acute territorial infarct. 2. Generalized cerebral atrophy with subjective frontotemporal lobe predominance, which can be seen with frontotemporal dementia. 3. Additional chronic findings as above. Chest/Abdomen/Pelvis CT 11/21/23 17:52 IMPRESSION: 1. Support structures as above. 2. Pulmonary arterial dilatation with chronic appearing bilateral pulmonary emboli, acute component not entirely excluded. 3. Mixed blood and contrast within the left pulmonary artery and distal arterial branches suspected to be on the basis of increased pressures. Reflux of contrast into the IVC and hepatic veins is likely related to elevated pressures. 4. Near complete consolidation of the left lung with associated volume loss in the setting of near complete left bronchial opacification suspected to represent atelectasis. Superimposed infection not entirely excluded. 5. Patchy airway filling of the right lower lobe segmental and subsegmental airways with associated opacification may represent atelectasis, pneumonitis, or infection. 6. Moderate left and small right pleural effusions. 7. Mildly prominent mediastinal lymph nodes are nonspecific, but suspected reactive. 8. Additional chronic and incidental findings as above, to include atherosclerosis with ascending aortic ectasia measuring 4.2 cm. IMPRESSION: 1. Circumferential urinary bladder wall thickening may be on the basis of underdistention, cystitis, or chronic outlet obstruction in the setting of prostatomegaly. 2. Large rectal stool burden. No high-grade upstream obstruction. 3. Periportal edema suspected to be on the basis of secondary cardiac congestion. 4. Additional chronic and incidental findings as above, to include atherosclerosis and colonic diverticulosis. ADDENDUM: 11/21/232122 Addendum to note proximal left femoral hardware with hip prosthesis. Laboratory Results WBC 10.54 10^3/uL (3.29-11.43) 11/21/23 16:22 RBC 3.54 10^6/uL (3.85-5.65) L 11/21/23 16:22 Hgb 9.40 g/dL (11.27-16.99) L 11/21/23 16:22 Hct 31.6 % (37-53) L 11/21/23 16:22 MCV 89.3 fl (82-101) 11/21/23 16: MCH 26.6 pg (27-33) L 11/21/23 16: MCHC 29.7 g/dL (30-55) L 11/21/23 16:22 RDW 16.0 % (12.1-15.1) H 11/21/23 16:22 Plt Count 213 10^3/cmm (157-399) 11/21/23 16:22 MPV 10.6 fL (7.4-10.4) H 11/21/23 16:22 Neut % (Auto) 78.3 % 11/21/23 16:22 Lymph % (Auto) 13.7 % 11/21/23 16:22 Worth % (Auto) 6.1 % 11/21/23 16:22 Eos % (Auto) 1.0 % 11/21/23 16:22 Baso % (Auto) 0.1 % 11/21/23 16:22 Neut # (Auto) 8.26 10^3/uL (1.8-7.7) H 11/21/23 16:22 Lymph # (Auto) 1.4 10^3/uL (0.8-4.8) 11/21/23 16:22 Worth # (Auto) 0.6 10^3/uL (0.2-0.9) 11/21/23 16:22 Eos # (Auto) 0.1 10^3/uL (0.0-0.8) 11/21/23 16:22 Baso # (Auto) 0.0 10^3/uL (0.0-0.1) 11/21/23 16:22 Nucleated RBC % (auto) 0 % 11/21/23 16:22 Nucleated RBCs # 0.0 /100WBC 11/21/23 16:22 Specimen Type Arterial 11/21/23 16:20 Sample Site Brachial, left 11/21/23 16:20 ABG pH 7.38 (7.35-7.45) 11/21/23 16:20 ABG pCO2 39.4 mmHg (35-45) 11/21/23 16:20 ABG pO2 408.0 mmHg (80.0-100.0) H 11/21/23 16:20 ABG PO2/FiO2 Ratio 0 11/21/23 16:20 ABG HCO3 23.2 mmol/L (22-26) 11/21/23 16:20 ABG O2 Saturation > 100.0 11/21/23 16:20 ABG Base Excess -1.8 mmol/L (-2.0-2.0) 11/21/23 16:20 Avni Test N/a 11/21/23 16:20 A-a O2 Gradient 31.8 mmHg (5-10) H 11/21/23 16:20 Hematocrit 30.2 % (42-52) L 11/21/23 16:20 Hgb O2 Saturation 99.1 % (95-100) 11/21/23 16:20 Carboxyhemoglobin 1.4 %THgb (0.4-20.1) 11/21/23 16:20 Methemoglobin 0.5 % (0.4-1.5) 11/21/23 16:20 Total Hemoglobin 9.8 g/dL (14-18) L 11/21/23 16:20 Sodium 141.0 mmol/L (131-143) 11/21/23 16:20 Potassium 2.6 mmol/L (3.5-5.0) L 11/21/23 16:20 Glucose 120.0 mg/dL (70-115) H 11/21/23 16:20 Ionized Calcium 1.3 mmol/L (1.1-1.4) 11/21/23 16:20 O2 Delivery Device Vent 11/21/23 16:20 FiO2 100.0 % 11/21/23 16:20 Tidal Volume 0.50 11/21/23 16:20 PEEP 6.0 cmH20 11/21/23 16:20 Assembler Skylights ID [id number] 11/21/23 16:20 Sodium 139 mmol/L (136-145) 11/21/23 16:22 Potassium 3.8 mmol/L (3.5-5.1) 11/21/23 16:22 Chloride 103 mmol/L (98-107) 11/21/23 16:22 Carbon Dioxide 25 mmol/L (22-29) 11/21/23 16:22 Anion Gap 14.8 (5-19) 11/21/23 16:22 BUN 60 mg/dL (8-23) H 11/21/23 16:22 Creatinine 1.6 mg/dL (0.7-1.2) H 11/21/23 16:22 GFR Calculation Not Reportable 11/21/23 16:22 Glucose 118 mg/dL (65-115) H 11/21/23 16:22 Calculated Osmolality 306 mOsm/kg (285-295) H 11/21/23 16:22 Lactic Acid 1.2 mmol/L (0.5-2.2) 11/21/23 16:22 Calcium 9.3 mg/dL (8.5-10.5) 11/21/23 16:22 Magnesium 1.7 mg/dL (1.7-2.3) 11/21/23 18:00 Total Bilirubin 0.4 mg/dL (0.15-1.2) 11/21/23 16:22 AST 13 U/L (0-40) 11/21/23 16:22 ALT 6 U/L (0-41) 11/21/23 16:22 Alkaline Phosphatase 135 U/L (40-130) H 11/21/23 16:22 Creatine Kinase 45 U/L (39-308) 11/21/23 16:22 Troponin T Baseline 146 ng/L (0-15) H* 11/21/23 16:22 Total Protein 6.2 g/dL (6.6-8.7) L 11/21/23 16:22 Albumin 2.4 g/dL (3.5-5.2) L 11/21/23 16:22 Globulin 3.8 g/dL (1.3-4.6) 11/21/23 16:22 Lipase 12 U/L (13-60) L 11/21/23 16:22 Urine Color Yellow (Yellow) 11/21/23 16:35 Urine Appearance Cloudy (CLEAR) A 11/21/23 16:35 Urine pH 7 (5-7) 11/21/23 16:35 Ur Specific Roby 1.020 (1.005-1.030) 11/21/23 16:35 Urine Protein 2+ (Negative) H 11/21/23 16:35 Urine Glucose (UA) Norm (Normal) 11/21/23 16:35 Urine Ketones Negative (Negative) 11/21/23 16:35 Urine Blood 3+ (Negative) H 11/21/23 16:35 Urine Nitrate Negative (Negative) 11/21/23 16:35 Urine Bilirubin 1+ (Negative) H 11/21/23 16:35 Urine Urobilinogen 1 mg/dL (Negative) H 11/21/23 16:35 Ur Leukocyte Esterase 2+ (Negative) H 11/21/23 16:35 Urine RBC 50-80 /hpf (0-2) H 11/21/23 16:35 Urine WBC 80-100 /hpf (0-5) H 12/30/23 16:35 Ur Squamous Epith Cells 0-4 /hpf (0-5) H 11/21/23 16:35 Amorphous Sediment 2+ /hpf 11/21/23 16:35 Urine Bacteria 2+ /hpf (NONE) H 11/21/23 16:35 Urine Mucus 1+ /hpf 11/21/23 16:35 Coronavirus 229E (PCR) Not detected (NOT DETECT) 11/21/23 18:04 SARS-CoV-2 (PCR) Not detected (NOT DETECT) 11/21/23 18:04 All radiology interpretation(s) finalized by discharge Critical Care Time 2 Critical Care Time: Critical Care Time: Yes Total Critical Care Time: 60 Attestation: The high probability of a clinically significant, sudden or life threatening deterioration of the patient's cardiovascular respiratory system(s) required my full and direct attention, intervention and personal management. The critical care time is as shown. This time is in addition to time spent performing any reported procedures but includes the following: [x] Data and vital sign review and interpretation [x] Patient assessment, examination and intervention [x] Documentation [x] Medication orders and management Discharge Plan Discharge Patient Disposition: Admitted As Inpatient Admit Provider: Rell Flores Clinical Impression: Acute respiratory failure with hypoxia, Anemia, Atrial fibrillation, Pulmonary embolism, Pulmonary fibrosis, Pulmonary HTN, Acute on chronic clinical systolic heart failure, Ischemic cardiomyopathy, Nonsustained ventricular tachycardia, Bradycardia, Pleural effusion, left, COPD (chronic obstructive pulmonary disease) Condition: Stable Coding Level of Care Code ED Insurance Agency Owner for Christina Dangelo
[2023-11-21 16:46] LABS: Basophils % 0.1 %; Eosinophils # 0.1 10^3/uL (0.0-0.8); Hematocrit 31.6 % (37-53); Lymphocytes # 1.4 10^3/uL (0.8-4.8); Lymphocytes % 13.7 %; Mean Corpuscular HGB Conc 29.7 g/dL (30-55); Mean Corpuscular Hemoglobin 26.6 pg (27-33); Mean Corpuscular Volume 89.3 fl (82-101); Mean Platelet Volume 10.6 fL (7.4-10.4); Monocytes # 0.6 10^3/uL (0.2-0.9); Monocytes % 6.1 %; Neutrophils # 8.26 10^3/uL (1.8-7.7); Neutrophils % 78.3 %; Nucleated Red Blood Cells % 0 %; Platelet Count 213 10^3/cmm (157-399); Red Blood Count 3.54 10^6/uL (3.85-5.65); White Blood Count 10.54 10^3/uL (3.29-11.43)
[2023-11-21] MEDS: norepinephrine 4 MG/250 ML BAG 30 MG IV (16:51)
[2023-11-21] MEDS: fentaNYL 1,000 MCG/100 ML BAG 2.5 MCG IV (16:51)
[2023-11-21] MEDS: midazolam hcl 100 MG/100 ML BAG IV (16:52)
[2023-11-21] MEDS: calcium chloride 10% Syr 10 mL 1 GM IVP (16:53)
[2023-11-21] MEDS: amiodarone 50 mg/mL SDV 3 mL 150 MG IVP (16:54)
[2023-11-21 16:56] LABS: Lactic Sepsis W/Reflex 1.2 mmol/L (0.5-2.2)
[2023-11-21 16:57] LABS: Alanine Aminotransferase 6 U/L (0-41); Albumin Level 2.4 g/dL (3.5-5.2); Alkaline Phosphatase 135 U/L (40-130); Aspartate Amino Transferase 13 U/L (0-40); Blood Urea Nitrogen 60 mg/dL (8-23); Calcium 9.3 mg/dL (8.5-10.5); Carbon Dioxide 25 mmol/L (22-29); Chloride 103 mmol/L (98-107); Creatine Phosphokinase 45 U/L (39-308); Globulin 3.8 g/dL (1.3-4.6); Glucose 118 mg/dL (65-115); Lipase 12 U/L (13-60); Osmolality Calculated 306 mOsm/kg (285-295); Sodium 139 mmol/L (136-145); Total Bilirubin 0.4 mg/dL (0.15-1.2); Total Protein 6.2 g/dL (6.6-8.7)
[2023-11-21 16:58] LABS: Anion Gap 14.8 (5-19); Potassium 3.8 mmol/L (3.5-5.1)
[2023-11-21 17:05] LABS: ABG PCO2 39.4 mmHg (35-45); ABG PH Result 7.38 (7.35-7.45); Alveolar-Arterial Oxygen Gradi 31.8 mmHg (5-10); Arterial Blood Gas Hematocrit 30.2 % (42-52); Base Excess ABG -1.8 mmol/L (-2.0-2.0); Blood Gas Operator Identificat AMH; Blood Gas Sample Site Brachial, left; Blood Gas Sample Type Arterial; Carboxyhemoglobin 1.4 %THgb (0.4-20.1); HCO3 ABG 23.2 mmol/L (22-26); HGB O2 Sat 99.1 % (95-100); Ionized Calcium Level - ABG 1.3 mmol/L (1.1-1.4); Methemoglobin 0.5 % (0.4-1.5); Oxygen Device VENT; Oxygen Saturation ABG > 100.0; PO2 FiO2 Ratio Arterial Blood 0; Potassium Level - ABG 2.6 mmol/L (3.5-5.0); Total Hemoglobin 9.8 g/dL (14-18)
[2023-11-21 17:10] LABS: Troponin(5th) Baseline 146 ng/L (0-15)
[2023-11-21] MEDS: ipratropium-albuterol 3 mL Neb INHALATION (17:20)
[2023-11-21] MEDS: dexamethasone 10 mg/mL INJ IM (17:38)
--- NOTE | 2023-11-21 17:49 | ECG_ITS ---
[facility] Test Date: 2023-11-21 Pat Name: Fredi Claire Department: Room: Gender: Male Filling Layer Up: : 1945 Requested By: Cory Hardy Order Number: [id number] Suzie MD: Demetrius Rosenthal M.D. Measurements Intervals [place] Rate: 61 P: 0 IA: 0 QRS: 86 QRSD: 201 T: 120 QT: 495 QTc: 501 Interpretive Statements SINUS RHYTHM LEFT BUNDLE BRANCH BLOCK [120+ ms QRS DURATION, 80+ ms Q/S IN V1/V2, 85+ ms R IN I/aVL/V5/V6] Compared to ECG 11/21/2023 16:17:38 Ventricular premature complex(es) now present Aberrant conduction of supraventricular beat(s) now present Left bundle-branch block now present Right-axis deviation no longer present Intraventricular conduction delay no longer present Prolonged QT interval no longer present Electronically Signed On 11-22-2023 10:24:00 TRAFFIC SUPERVISOR by Demetrius Rosenthal M.D. [id number]
--- NOTE | 2023-11-21 17:49 | XRR_ITS ---
PROCEDURE INFORMATION: Exam: XR Chest Exam date and time: 11/21/2023 5:38 PM Age: 78 years old Clinical indication: Other vascular access device placement or adjustment; Central line, non-tunnelled; Patient HX: Central line placement TECHNIQUE: Imaging protocol: Radiologic exam of the chest. Views: 1 view. COMPARISON: CR (CHEST, ) 11/21/2023 4:29 PM FINDINGS: Right sided central line tip projects over the cavoatrial junction. XR/XR chest 1V portable [id number] IMPRESSION: No acute findings.
--- NOTE | 2023-11-21 17:49 | CTR_ITS ---
PROCEDURE INFORMATION: Exam: CT Head Without Contrast Exam date and time: 11/21/2023 7:26 PM Age: 78 years old Clinical indication: Patient HX: EMS arrival from longterm for resp arrest. Intubated prior to arrival. History of dementia. ; Additional info: AMS TECHNIQUE: Imaging protocol: Computed tomography of the head without contrast. Radiation optimization: All CT scans at this facility use at least one of these dose optimization techniques: automated exposure control; mA and/or kV adjustment per patient size (includes targeted exams where dose is matched to clinical indication); or iterative reconstruction. REPORTING DATA: Count of CT and Cardiac NM exams in prior 12 months: This patient has received 2 known CTs and 0 known cardiac nuclear medicine studies in the 12 months prior to the current study. COMPARISON: CT head wo con* [id number] 10/03/2019 3:29 PM RADIATION DOSE METRICS: Total DLP (mGy-cm): 1166.48 FINDINGS: Brain: No acute intracranial hemorrhage. No acute territorial region of garíca-white dedifferentiation. No extra-axial collection. No mass effect or midline shift. Generalized cerebral atrophy with subjective frontotemporal lobe predominance, which can be seen with frontotemporal dementia. Moderate-severe burden of nonspecific white matter hypoattenuation, most likely chronic microvascular ischemic change. Multiple chronic appearing bilateral basal ganglia lacunar infarcts. Small chronic left cerebellar infarcts. Cerebral ventricles: No acute hyrocephalus. 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 Chronic opacification of the left maxillary sinus, unchanged, and multiple opacified ethmoid air cells. No fluid levels. Mastoid air cells: Chronic left otomastoid effusion. Orbital cavities: No acute abnormality. Chronic left orbital floor and orbital roof fractures. Bones/joints: No acute calvarial fracture. Soft tissues: No acute abnormality. CT/CT head wo con* [id number] IMPRESSION: 1. No acute intracranial hemorrhage or evidence of acute territorial infarct. 2. Generalized cerebral atrophy with subjective frontotemporal lobe predominance, which can be seen with frontotemporal dementia. 3. Additional chronic findings as above.
--- NOTE | 2023-11-21 17:52 | CTR_ITS ---
PROCEDURE INFORMATION: Exam: CTA Chest With Contrast Exam date and time: 11/21/2023 7:31 PM Age: 78 years old Clinical indication: Prior surgery; Surgery date: 6+ months; Surgery type: Left hip; Patient HX: EMS arrival from [facility] for resp arrest. Intubated prior to arrival. Baseline trop of 146. Conor. History of copd and chf. TECHNIQUE: Imaging protocol: Computed tomographic angiography of the chest with contrast. Exam focused on the arteries. 3D rendering (Not supervised by radiologist): MIP and/or 3D reconstructed images were created by the technologist. Radiation optimization: All CT scans at this facility use at least one of these dose optimization techniques: automated exposure control; mA and/or kV adjustment per patient size (includes targeted exams where dose is matched to clinical indication); or iterative reconstruction. Contrast material: OMNI 350; Contrast volume: 80 ml; Contrast route: INTRAVENOUS (IV); REPORTING DATA: Count of CT and Cardiac NM exams in prior 12 months: This patient has received 2 known CTs and 0 known cardiac nuclear medicine studies in the 12 months prior to the current study. COMPARISON: 1. CT chest wo con [id number] 03/26/2023 9:[address] angio chest PE protcl [id number] 09/29/2020 8:36 AM RADIATION DOSE METRICS: Total DLP (mGy-cm): 1081.55 FINDINGS: Tubes, catheters and devices: Endotracheal tube terminates 2.5 cm above the ru. Enteric tube terminates in the stomach. Right IJ catheter terminates in the right atrium. Pulmonary arteries: Pulmonary arterial dilatation with the main trunk measuring 3.4 cm. Anterior right pulmonary artery eccentric filling defect with central hyperdensity possibly representing calcification and/or contrast material, axial image 227 of series 13. Multifocal narrowing of right lower lobe segmental and subsegmental arteries appears chronic. Posterior left pulmonary artery eccentric filling defect with central hyperdensity, axial images 170-187 of series 13. Mixed blood and contrast within the left pulmonary artery and branch arteries. Aorta: Moderate systemic atherosclerotic calcification with ascending aorta ectasia measuring 4.2 cm. Veins: Reflux of contrast into the IVC and hepatic veins. Lungs: Moderate to severe upper lung predominant emphysema. Near complete left lung consolidation with associated volume loss. Heterogeneous right lower lobe opacification. Near complete opacification of the left bronchus and distal airways. Mild to moderate patchy opacification of the right lower lobe airways. Pleural spaces: Moderate left and small right pleural effusions. No pneumothorax. Heart: Cardiomegaly. No pericardial effusion. Heart RV/LV ratio: 0.97. Lymph nodes: Mildly prominent mediastinal lymph nodes. Diaphragm: Moderate hiatal hernia. Bones/joints: Diffuse demineralization. Moderate upper thoracic spine levoconvex curvature. Intervally stable T6 and T8 anterior compression deformities. Stable mild anterior compression deformity of the T10 vertebral body. Soft tissues: Unremarkable. Other findings: Air in a few of the visualized veins is most commonly related to intravenous cannulation and of no clinical significance. PROCEDURE INFORMATION: Exam: CT Abdomen And Pelvis With Contrast Exam date and time: 11/21/2023 7:31 PM Age: 78 years old Clinical indication: Prior surgery; Surgery date: 6+ months; Surgery type: Left hip; Patient HX: [facility] arrival from [facility] for resp arrest. Intubated prior to arrival. Baseline trop of 146. Conor. History of copd and chf. TECHNIQUE: Imaging protocol: Computed tomography of the abdomen and pelvis with contrast. Radiation optimization: All CT scans at this facility use at least one of these dose optimization techniques: automated exposure control; mA and/or kV adjustment per patient size (includes targeted exams where dose is matched to clinical indication); or iterative reconstruction. Contrast material: OMNI 350; Contrast volume: 80 ml; Contrast route: INTRAVENOUS (IV); REPORTING DATA: Count of CT and Cardiac NM exams in prior 12 months: This patient has received 2 known CTs and 0 known cardiac nuclear medicine studies in the 12 months prior to the current study. COMPARISON: 1. CTA Chest w Abd/Pel w* 01/07/2019 12:57 AM 2. CR XR hip LT 2-3V wo/w pel* [id number] 05/28/2022 12:[address] chest wo con [id number] 03/26/2023 9:45 AM RADIATION DOSE METRICS: Total DLP (mGy-cm): 1081.55 FINDINGS: Tubes, catheters and devices: Enteric tube terminates in the stomach. Liver: [id number] periportal edema. Otherwise unremarkable. Gallbladder and bile ducts: Normal. No calcified stones. No ductal dilation. Pancreas: Normal without ductal dilatation. Spleen: Normal. Adrenal glands: Normal. No mass. Kidneys and ureters: Right renal cyst and bilateral subcentimeter hypodensities too small to characterize are statistically likely benign and require no dedicated imaging follow-up. Otherwise unremarkable. Stomach and bowel: No bowel dilatation to suggest high-grade obstruction. Large rectal stool burden. Colonic diverticulosis without findings of diverticulitis. Appendix: No evidence of appendicitis. Intraperitoneal space: Unremarkable. No free air. No significant fluid collection. Vasculature: Heavy systemic atherosclerotic calcification without abdominal aortic aneurysm. Lymph nodes: Unremarkable. No enlarged lymph nodes. Urinary bladder: Barboza catheter in decompressed urinary bladder that shows circumferential wall thickening. Reproductive: Heterogeneously enlarged prostate. Bones/joints: Diffusely demineralized bones without acute fracture. Moderate dextroconvex lumbar spine curvature. Degenerative changes along the spine. Soft tissues: Small right inguinal hernia containing fat and fluid. CT/CT angio chest w abd pel w con IMPRESSION: 1. Support structures as above. 2. Pulmonary arterial dilatation with chronic appearing bilateral pulmonary emboli, acute component not entirely excluded. 3. Mixed blood and contrast within the left pulmonary artery and distal arterial branches suspected to be on the basis of increased pressures. Reflux of contrast into the IVC and hepatic veins is likely related to elevated pressures. 4. Near complete consolidation of the left lung with associated volume loss in the setting of near complete left bronchial opacification suspected to represent atelectasis. Superimposed infection not entirely excluded. 5. Patchy airway filling of the right lower lobe segmental and subsegmental airways with associated opacification may represent atelectasis, pneumonitis, or infection. 6. Moderate left and small right pleural effusions. 7. Mildly prominent mediastinal lymph nodes are nonspecific, but suspected reactive. 8. Additional chronic and incidental findings as above, to include atherosclerosis with ascending aortic ectasia measuring 4.2 cm. IMPRESSION: 1. Circumferential urinary bladder wall thickening may be on the basis of underdistention, cystitis, or chronic outlet obstruction in the setting of prostatomegaly. 2. Large rectal stool burden. No high-grade upstream obstruction. 3. Periportal edema suspected to be on the basis of secondary cardiac congestion. 4. Additional chronic and incidental findings as above, to include atherosclerosis and colonic diverticulosis.
[2023-11-21 18:59] LABS: Add Urine Microscopic? YES; Bilirubin Urine 1+ (Negative); Blood Urine 3+ (Negative); Glucose Urine UA Norm (Normal); Ketones Urine Negative (Negative); Leukocyte Esterase Urine 2+ (Negative); Nitrate Urine Negative (Negative); Protein Urine 2+ (Negative); Urine Appearance Cloudy (CLEAR); Urine Color Yellow (Yellow); Urobilinogen Urine 1 mg/dL (Negative); pH Urine 7 (5-7)
[2023-11-21 19:00] LABS: RBC Urine 50-80 /hpf (0-2); Squamous Epithelial Cell Urine 0-4 /hpf (0-5); WBC Urine 80-100 /hpf (0-5)
[2023-11-21 19:01] LABS: Add Urine Culture? Yes; Amorphous Sediment Urine 2+ /hpf; Bacteria Urine 2+ /hpf; Mucus Urine 1+ /hpf
--- NOTE | 2023-11-21 19:07 | PC.NURSE ---
abx delayed d/t blood cultures not being drawn at this time.
--- NOTE | 2023-11-21 19:22 | PM.HP ---
Providers/Chief Complaint Primary Care Provider: Zoila Mcdermott MD Chief Complaint: RESP. DISTRESS History of Present Illness Fredi Claire is a 78 year old gentleman with history of systolic and diastolic CHF, COPD, ischemic cardiomyopathy, pulmonary hypertension, atrial fibrillation, PE, on anticoagulation with Eliquis, additional history of left bundle branch block, ascending aorta dilation, GERD, BPH, other medical problems, senior care resident, overall has been much less active, not getting up from bed, has been developing a pressure sore, in general recognizing family, not a good historian, was found in respiratory arrest over at senior care, intubated in the field by EMS. In ER with finding of whiteout of left lung, previously with admission with the same problem back in March 2023. In ER with runs of PVCs, nonsustained V. tach, sinus bradycardia, prolonged QT, soft blood pressure. ABG 7.38/39.4/408 on 100% FiO2. PEEP of 6. Creatinine recently noted worsened back in June and currently 1.6. Potassium 3.8, magnesium requested, pending. COVID-19 PCR pending. UA also returning with microscopic hematuria and pyuria, 50-80 RBC, 80-100 WBC. An extensive discussion was had with regards to his condition, including left-sided lung whiteout, mediastinal shift, soft blood pressures, nonsustained ventricular tachycardia runs, bradycardia, findings so far, and usual course of treatment, including as during previous hospitalization with bronchoscopy, thoracentesis currently unavailable here at the very least over the long weekend, and that to pursue usual care similar to prior hospitalization with consideration that he possibly could recover to the condition he was last time, although certainly difficult to know given respiratory arrest and degree of anoxia/possible anoxic brain injury, with usual treatment which would require transfer. On consideration of his overall condition, as well as his condition recently at the senior care despite his full CODE STATUS there, functional decline, some worsening of dementia, the family are not sure that he was fully understanding his condition and capable of making decisions although this is certainly difficult to know at current time. On consideration with multiple family members including his and discussion of options with us and among themselves they request not to transfer him to higher level of care, understanding that we do not have all the treatments required for him, treatments provided here may be more supportive in nature and with lower likelihood of succeeding in weaning him off of mechanical ventilation, high risk of complication, request giving trial of the conservative measures here, versus, depending on his condition lower chance of possibly transfer later if he makes it through the worst of it and still needing transfer, with further consideration of goals of care with possibility of transitioning to comfort measures in case of worsening or lack of improvement. With regards to CODE STATUS on discussion of possible cardiac arrest consensus is for no chest compressions, though they would be okay with pacemaker or cardioversion or defibrillation in case this were to be helpful. Review of Systems General: Reports: ROS unobtainable due to endotracheal tube and ROS unobtainable due to medical condition Medications/Allergies Home Medications Medication Instructions Recorded Confirmed Last Taken Type acetaminophen 500 mg tablet 500 mg PO QID 03/25/23 08/04/23 Unknown History apixaban 5 mg tablet (Eliquis) 5 mg PO BID@,03/25/23 08/04/23 Unknown History atorvastatin 40 mg tablet 40 mg PO DAILY@03/25/23 08/04/23 Unknown History fluoxetine 40 mg capsule 80 mg PO DAILY@03/25/23 08/04/23 Unknown History folic acid 1 mg tablet 1 mg PO DAILY@03/25/23 08/04/23 Unknown History metronidazole 0.75 % topical gel See Rx Instructions .Route .COMPLEX 03/25/23 08/04/23 Unknown History furosemide 40 mg tablet 40 mg PO BID@08,16 #60 tabs 03/30/23 08/04/23 Unknown Rx buspirone 15 mg tablet 15 mg PO TID 07/18/23 08/04/23 Unknown History cholecalciferol (vitamin D3) 25 25 mcg PO DAILY 07/18/23 08/04/23 Unknown History mcg (1,000 unit) tablet (Vitamin D3) clonazepam 0.5 mg tablet 0.5 mg PO TID 07/18/23 08/04/23 Unknown History dextran 70-hypromellose eye drops 1 drp ophthalmic (eye) 6XD PRN Dry 07/18/23 08/04/23 Unknown History in a dropperette (Artificial Tears Eye(S) (PF) drops in a dropperette) dextran 70-hypromellose eye drops 1 drp ophthalmic (eye) BID 07/18/23 08/04/23 Unknown History in a dropperette (Artificial Tears (PF) drops in a dropperette) magnesium hydroxide 400 mg/5 mL 400 mg PO DAILY PRN Constipation 07/18/23 08/04/23 Unknown History oral suspension (Milk of Magnesia) memantine 10 mg tablet 10 mg PO BID 07/18/23 08/04/23 Unknown History nicotine 14 mg/24 hr daily 1 patch transdermal Q24H 07/18/23 08/04/23 Unknown History transdermal patch ondansetron HCl 4 mg tablet 4 mg PO Q4H PRN Nausea 07/18/23 08/04/23 Unknown History pantoprazole 40 mg tablet,delayed 40 mg PO BID 07/18/23 08/04/23 Unknown History release polyethylene glycol 3350 17 4 g PO DAILY 07/18/23 08/04/23 Unknown History gram/dose oral powder (Miralax) sennosides 8.6 mg-docusate sodium 1 tab-cap PO BID 07/18/23 08/04/23 Unknown History 50 mg tablet (Senokot-S) solifenacin 5 mg tablet 5 mg PO QAM 07/18/23 08/04/23 Unknown History tamsulosin 0.4 mg capsule 0.4 mg PO QAM 07/18/23 08/04/23 Unknown History tiotropium bromide 2.5 1 inh inhalation QAM 07/18/23 08/04/23 Unknown History mcg/actuation mist for inhalation (Spiriva Respimat) tramadol 50 mg tablet 50 mg PO Q6H PRN Pain 07/18/23 08/04/23 Unknown History trazodone 100 mg tablet 100 mg PO BEDTIME 07/18/23 08/04/23 Unknown History triamcinolone acetonide 0.1 % See Rx Instructions .Route .COMPLEX 07/18/23 08/04/23 Unknown History lotion Allergies Allergy/AdvReac Type Severity Reaction Status Date / Time amitriptyline Allergy Unknown Verified 08/04/23 11:25 ibuprofen Allergy ALGY-Rash Verified 08/04/23 11:25 metoprolol Allergy Unknown Verified 08/04/23 11:25 sulfamethoxazole Allergy Unknown Verified 08/04/23 11:25 [From Bactrim] trimethoprim [From Bactrim] Allergy Unknown Verified 08/04/23 11:25 PFSH Acute PFSH: Medical History Anxiety Chronic pain BPH (benign prostatic hyperplasia) GERD (gastroesophageal reflux disease) Urgency incontinence Anticoagulation adequate with anticoagulant therapy Eliquis Pulmonary embolism Atrial fibrillation Venous insufficiency Ascending aorta dilatation Left bundle branch block Myocardial infarction Anemia CHF (congestive heart failure) DVT (deep venous thrombosis) COPD (chronic obstructive pulmonary disease) Ischemic cardiomyopathy Edema Tobacco abuse Pulmonary HTN Dyslipidemia Surgical History S/P hip replacement Hx of facial fracture repair History of left hip replacement Hx of neck surgery Family History Father , at age 76 CAD (coronary artery disease) Myocardial infarction Mother , at age 80 Blood clot associated with vein wall inflammation Social History Smoking and tobacco/nicotine status: never used tobacco/nicotine Alcohol intake: never Substance/Drug Use: unknown Adopted: No Caregiver/support person: No Lives independently: No Household members: spouse Marital status: Current occupational status: retired Vitals/I&O/Wt Last Vital Signs Pulse 53 L 11/21/23 17:20 Resp 14 11/21/23 18:18 BP 104/75 11/21/23 16:26 Pulse Ox 94 11/21/23 17:20 O2 Del Method Mechanical Ventilation 11/21/23 17:20 FiO2 30 11/21/23 18:18 11/21/23 11/21/23 11/21/23 06:59 14:59 22:59 Intake Total 44.183 / 44.183 Balance 44.183 / 44.183 Physical Exam Const: GENERAL APPEARANCE: frail appearing and patient mechanically ventilated HENMT: OTHER: Dry MM Neck/C-Spine: COMMON NORMALS: no JVD Resp: COMMON NORMALS: normal respiratory effort and clear to auscultation bilaterally AUSCULTATION: clear to auscultation bilaterally and breath sounds absent on th left Cardio: COMMON NORMALS: no JVD, regular rhythm, S1 normal heart sound present, S2 normal heart sound present and No murmurs present (Cardio) RATE: bradycardic RHYTHM: abnormal rhythm irregularly irregular HEART SOUNDS: S1 normal heart sound present and S2 normal heart sound present OTHER: PVCs GI: COMMON NORMALS: Normal to inspection, nondistended, normoactive bowel sounds present, Soft to palpation and non-tender PALPATION: Yes Soft to palpation Extremity: COMMON NORMALS: no joint enlargement and no pedal edema Data 11/21/23 16:22 11/21/23 16:22 A&P Assessment and plan (1) Respiratory arrest: Intubated in the field, on mechanical ventilatory support, sedation currently. Noted white out of the left lung with history of aspiration, suspected aspiration/mucous plugging, combined with pleural effusion, as per discussion above with family treatments for this condition unavailable at least through the long weekend with unavailable pulmonology or CT surgery, with high risk of worse prognosis, complications, family requested not to transfer to higher level care facility, overall limited goals of care, would like trial of supportive measures, then revisit consideration of goals of care. Respiratory therapy assessment treatment requested, pulmonary toilet, mucolytic's, including hypertonic saline nebs, chest vest, suctioning. Ventilatory support. With left-sided mediastinal shift fluid suspected likely ex vacuo after lung collapse after possibly aspiration versus mucous plug. Empiric antibiotics for now with Zosyn. Does have underlying cardiomyopathy with noted EF 35-40%, high risk of complication. Additionally noted possible NSTEMI. Also with history of PE, underlying COPD and pulmonary hypertension, advanced age, recent functional decline. Overall prognosis is not good, at the moment guarded. Additionally with unknown duration of respiratory arrest discussed with family consideration of possibility of anoxic brain injury which we may not know about until if he improves and we attempted waking him up. He is at elevated risk of delirium. COVID PCR panel is pending. PPI prophylaxis. With history of PE, anticoagulation continued, switched to Lovenox. (2) Collapse of left lung: Pulmonary toilet as above. Treat suspected aspiration pneumonia. Unable to perform thoracentesis. Additional assessment by CT chest considered in ER, and looks like was pursued after all. Follow-up. (3) Aspiration pneumonia: Zosyn. Obtain sputum cultures. Blood culture. Pulmonary toilet as above. (4) Acute respiratory failure with hypoxia: As above. (5) Mucus plugging of bronchi: As above. (6) Nonsustained ventricular tachycardia: Runs of nonsustained ventricular tachycardia in ER, PVCs, does have history of left bundle branch block. Additionally bradycardia unable to give him anything that would slow down the heart rate further. Noted potassium 3.8, receiving replacement. Check magnesium, noted returning at 1.7, requested magnesium replacement. Monitor on telemetry. Treat underlying conditions as above. Apply pads, cardioversion if sustained ventricular tachycardia or defibrillation if helpful would be okay per family. Cardiology is consulted in ER. (7) Bradycardia: Place pacing pads in case needing pacing. Cardiology is consulted in ER. (8) Pleural effusion, left: Pulmonary toilet as above to attempt to relieve obstruction with mucous plug versus aspirate. Mechanical ventilatory support. Unable to obtain thoracentesis, but with left mediastinal shift, fluid appears may be ex vacuo due to plugging and lung collapse although currently unknown and unknown if empyema. (9) UTI (urinary tract infection): Suspected UTI, possible complicated UTI, urine with microscopic hematuria, pyuria on review of UA. Continue Zosyn as above. I do not see a resistant urinary organism on review of prior cultures, but he has had resistant Staph epidermidis and blood previously, will add vancomycin empirically as well. (10) NSTEMI (non-ST elevated myocardial infarction): Possible NSTEMI with troponin elevation, frequent PVCs, NSVT runs, sinus bradycardia, on anticoagulation with history of PE, continue Lovenox, and aspirin, not a candidate for beta-naye at this time. Unclear benefit of statin. Monitor on telemetry. Assess TTE. Cardiology is consulted in ER as well. (11) Goals of care, counseling/discussion: On consideration with multiple family members including his and discussion of options with us and among themselves they request not to transfer him to higher level of care, understanding that we do not have all the treatments required for him, treatments provided here may be more supportive in nature and with lower likelihood of succeeding in weaning him off of mechanical ventilation, high risk of complication, request giving trial of the conservative measures here, versus, depending on his condition lower chance of possibly transfer later if he makes it through the worst of it and still needing transfer, with further consideration of goals of care with possibility of transitioning to comfort measures in case of worsening or lack of improvement. With regards to CODE STATUS on discussion of possible cardiac arrest consensus is for no chest compressions, though they would be okay with pacemaker or cardioversion or defibrillation in case this were to be helpful. Plan Hypomagnesemia: replace Recent worsening of renal function, CKD versus MAGDI on CKD, including last March, more recently in June and currently creatinine 1.6. With some microscopic hematuria, UTI, history of BPH, assess CT kidney stone for any obstruction. Barboza catheter requested. Monitor CARLOS. Reassess renal function. 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 Blood pressures are soft, Levophed is requested if needed. Target MAP 60 mmHg and above. Right IJ CVC was placed in ER. Anticoagulation as above. Aspirin. At the moment not a candidate for beta-naye. COPD, not in exacerbation. Pulmonary hypertension, Atrial fibrillation, continue anticoagulation, with bradycardia at the moment. Monitor telemetry. Replace and recheck electrolytes. Hx PE, on anticoagulation with Eliquis, left bundle branch block, ascending aorta dilation, GERD, PPI BPH, Barboza catheter placed for now. Assess kidney stone protocol CT. History of bacteremia: blood cultures collected, follow up Other medical problems Attestations Medical Necessity Statement*: Admission of over 2 midnights needed for assessment and management of respiratory arrest, left lung whiteout with left lung collapse, aspiration versus mucous plugging, pleural effusion, aspiration pneumonia, possible complicated UTI, NSTEMI, reassessment and continued goals of care discussion. Coding Level of Care Code Critical Care >/= 30 minutes Critical care time (in minutes): 75 The high probability of a clinically significant, sudden or life threatening deterioration, as referenced in this documentation, required my full and direct attention, intervention and personal management. The critical care time shown is in addition to time spent performing any reported separately billable procedures and includes the following: [x] Data and vital sign review and interpretation [x] Patient assessment, examination and intervention [x] Medication orders and management [x] Patient/Family updates as able [x] Care Coordination and Documentation. Diagnoses Respiratory arrest R09.2 Collapse of left lung J98.11 Aspiration pneumonia J69.0 Acute respiratory failure with hypoxia J96.01 Mucus plugging of bronchi T17.500A Nonsustained ventricular tachycardia I47.29 Bradycardia R00.1 Pleural effusion, left J90 UTI (urinary tract infection) N39.0 NSTEMI (non-ST elevated myocardial infarction) I21.4 Goals of care, counseling/discussion Z71.89
[2023-11-21 19:26] LABS: Magnesium 1.7 mg/dL (1.7-2.3)
[2023-11-21] MEDS: iohexol 350 mg/mL 500 mL Btl (per mL) IV (19:31)
--- NOTE | 2023-11-21 20:00 | PC.NURSE ---
report called to Catarino Escobar RN in ICU. this nurse informed Catarino that abx were delayed and to not start potassium drip per Dr. Webster. this nurse unable to cancel future order for potassium drip, Catarino had no further questions.
[2023-11-21] MEDS: vancomycin 1,000 MG in sodium chloride 0.9% 250 ML 250 MG IV (20:01)
[2023-11-21] MEDS: piperacillin-tazobactam 3.375 GM in sodium chloride 0.9% (plus) 50 ML IV (20:03)
--- NOTE | 2023-11-21 20:11 | PC.NURSE ---
Fentanyl: There is no fentanyl in the hospital. Dr. Haile contacted about this and he ordered for pharmacist to come back in and make some fentanyl premixes. [employer] called pharmacist.
[2023-11-21 20:25] LABS: Adenovirus Not Detected (NOT DETECT); Chlamydia Pneumoniae Not Detected (NOT DETECT); Coronavirus 229E,HKU1,NL63,OC4 Not Detected (NOT DETECT); Human Metapneumovirus Not Detected (NOT DETECT); Human Rhinovirus/Enterovirus Not Detected (NOT DETECT); Influenza A Not Detected (NOT DETECT); Influenza A H1 Not Detected (NOT DETECT); Influenza A H1-2009 Not Detected (NOT DETECT); Influenza A H3 Not Detected (NOT DETECT); Influenza B Not Detected (NOT DETECT); Mycoplasma Pneumoniae Not Detected (NOT DETECT); Parainfluenza Virus Type 1 Not Detected (NOT DETECT); Parainfluenza Virus Type 2 Not Detected (NOT DETECT); Parainfluenza Virus Type 3 Not Detected (NOT DETECT); Parainfluenza Virus Type 4 Not Detected (NOT DETECT); Respiratory Syncytial Virus A Not Detected (NOT DETECT); Respiratory Syncytial Virus B Not Detected (NOT DETECT); SARS-COV-2 Not Detected (NOT DETECT)
[2023-11-21 20:34] LABS: Troponin 5 2HR 111.3 ng/L (0-15); Troponin 5 2HR Delta -34.7 ABS# (0-10)
--- NOTE | 2023-11-21 21:22 | PC.NURSE ---
Patient arrived to the ICU with a temperature of 93.7 F rectal. Bear hugger was placed on the patient to raise their temperature.
--- NOTE | 2023-11-21 21:38 | P.CONIM_ITS ---
Providers/Reason For Consult 2 Consulting Physician/Specialty*: Demetrius Rosenthal MD/ Cardiology Reason for Consult*: Troponin elevation/ ventricular tachycardia Requesting Physician: Dr Webster Attending Physician: Rell Flores Primary Care Provider: Zoila Mcdermott MD History of Present Illness History of Present Illness Fredi Claire is a 78 year old male with past medical history of congestive heart failure, atrial fibrillation, pulmonary embolism on Eliquis, dementia, long term resident who presented with respiratory arrest. Was intubated in the field. Cardiology was consulted as had elevated troponin of 146. Also was having frequent nonsustained VT/PVCs. EKG not showing acute GA. Review of Systems 2 General: Reports: ROS unobtainable due to endotracheal tube and ROS unobtainable due to medical condition Medications/Allergies Home Medications Medication Instructions Recorded Confirmed Last Taken Type acetaminophen 500 mg tablet 500 mg PO QID 03/25/23 11/22/23 Unknown History apixaban 5 mg tablet (Eliquis) 5 mg PO BID@03/25/23 11/22/23 Unknown History atorvastatin 40 mg tablet 40 mg PO DAILY@03/25/23 11/22/23 Unknown History fluoxetine 40 mg capsule 80 mg PO DAILY@03/25/23 11/22/23 Unknown History folic acid 1 mg tablet 1 mg PO DAILY@03/25/23 11/22/23 Unknown History buspirone 15 mg tablet 15 mg PO TID 07/18/23 11/22/23 Unknown History cholecalciferol (vitamin D3) 25 25 mcg PO DAILY 07/18/23 11/22/23 Unknown History mcg (1,000 unit) tablet (Vitamin D3) clonazepam 0.5 mg tablet 0.5 mg PO TID 07/18/23 11/22/23 Unknown History dextran 70-hypromellose eye drops 1 drp ophthalmic (eye) BID 07/18/23 11/22/23 Unknown History in a dropperette (Artificial Tears (PF) drops in a dropperette) magnesium hydroxide 400 mg/5 mL 30 ml PO DAILY PRN Constipation 07/18/23 11/22/23 Unknown History oral suspension (Milk of Magnesia) memantine 10 mg tablet 10 mg PO BID 07/18/23 11/22/23 Unknown History ondansetron HCl 4 mg tablet 4 mg PO Q4H PRN Nausea 07/18/23 11/22/23 Unknown History pantoprazole 40 mg tablet,delayed 40 mg PO BID 07/18/23 11/22/23 Unknown History release sennosides 8.6 mg-docusate sodium 1 tab-cap PO BID 07/18/23 11/22/23 Unknown History 50 mg tablet (Senokot-S) solifenacin 5 mg tablet 5 mg PO QAM 07/18/23 11/22/23 Unknown History tamsulosin 0.4 mg capsule 0.4 mg PO QAM 07/18/23 11/22/23 Unknown History tiotropium bromide 2.5 1 inh inhalation QAM 07/18/23 11/22/23 Unknown History mcg/actuation mist for inhalation (Spiriva Respimat) tramadol 50 mg tablet 50 mg PO Q6H PRN Pain 07/18/23 11/22/23 Unknown History trazodone 100 mg tablet 100 mg PO BEDTIME 07/18/23 11/22/23 Unknown History triamcinolone acetonide 0.1 % See Rx Instructions .Route .COMPLEX 07/18/23 11/22/23 Unknown History lotion camphor-menthol 0.5 %-0.5 % lotion See Rx Instructions .Route .COMPLEX 11/22/23 11/22/23 Unknown History (Ilanana Original) docusate sodium 100 mg capsule 100 mg PO DAILY 11/22/23 11/22/23 Unknown History (Colace) ferrous sulfate 27 mg iron tablet 27 mg PO QAM 11/22/23 11/22/23 Unknown History furosemide 40 mg tablet 40 mg PO DAILY 11/22/23 11/22/23 Unknown History lanolin alcohols-mineral See Rx Instructions .Route .COMPLEX 11/22/23 11/22/23 Unknown History oil-w.petrolatum-ceresin topical cream (Eucerin topical cream) Allergies Allergy/AdvReac Type Severity Reaction Status Date / Time amitriptyline Allergy Unknown Verified 08/04/23 11:25 ibuprofen Allergy ALGY-Rash Verified 08/04/23 11:25 metoprolol Allergy Unknown Verified 08/04/23 11:25 sulfamethoxazole Allergy Unknown Verified 08/04/23 11:25 [From Bactrim] trimethoprim [From Bactrim] Allergy Unknown Verified 08/04/23 11:25 Current Medications Generic Name Dose Route Start Last Admin Trade Name Freq PRN Reason Stop Dose Admin norepinephrine 4 mg in 250 mls @ 0 mls/hr 11/21/23 16:15 11/21/23 21:31 Levophed IV 4 mcg/min .Q0M ELLIE 15 mls/hr Titration Protocol Per Protocol Midazolam HCl 100 mg in 100 mls @ 0 mls/hr 11/21/23 16:15 11/21/23 21:31 Versed IV 4 mg/hr .Q0M ELLIE 4 mls/hr Titration Protocol Per Protocol Fentanyl 1,000 mcg in 100 mls @ 0 mls/hr 11/21/23 16:15 11/21/23 19:00 Sublimaze IV 100 mcg/hr .Q0M ELLIE 10 mls/hr Titration Protocol Per Protocol Amiodarone HCl/Dextrose 360 mg in 200 mls @ 0 mls/hr 11/21/23 16:21 11/21/23 21:30 Nexterone IV 0 mg/min .Q0M ELLIE 0 mls/hr Titration Protocol Per Protocol Potassium Chloride 100 mls @ 25 mls/hr 11/21/23 16:45 11/21/23 17:57 K-Stefano IV 11/22/23 00:44 Not Given Q4H ELLIE Sodium Chloride 4 ml 11/21/23 20:45 11/21/23 21:03 Sodium Chloride 3.5% Neb 4 Ml Neb INHALATION Not Given BID.RESPIRATORY ELLIE PFSH Acute 2 PFSH: Medical History Anxiety Chronic pain BPH (benign prostatic hyperplasia) GERD (gastroesophageal reflux disease) Urgency incontinence Anticoagulation adequate with anticoagulant therapy Eliquis Pulmonary embolism Atrial fibrillation Venous insufficiency Ascending aorta dilatation Left bundle branch block Myocardial infarction Anemia CHF (congestive heart failure) DVT (deep venous thrombosis) COPD (chronic obstructive pulmonary disease) Ischemic cardiomyopathy Edema Tobacco abuse Pulmonary HTN Dyslipidemia Surgical History S/P hip replacement Hx of facial fracture repair History of left hip replacement Hx of neck surgery Family History Father , at age 76 CAD (coronary artery disease) Myocardial infarction Mother , at age 80 Blood clot associated with vein wall inflammation Social History Smoking and tobacco/nicotine status: never used tobacco/nicotine Alcohol intake: never Substance/Drug Use: unknown Adopted: No Caregiver/support person: No Lives independently: No Household members: spouse Marital status: Current occupational status: retired Vitals/I&O/Wt Last Vital Signs Temp 93.7 F L 11/21/23 21:15 Pulse 53 L 11/21/23 21:15 Resp 21 H 11/21/23 21:15 BP 113/53 11/21/23 21:15 Pulse Ox 91 11/21/23 21:15 O2 Del Method Mechanical Ventilation 11/21/23 21:15 FiO2 30 11/21/23 21:15 11/21/23 11/21/23 11/21/23 06:59 14:59 22:59 Intake Total 133.412 / 133.412 Balance 133.412 / 133.412 Weight last 48 hrs Weight 140 lb 1 oz Weight 136 lb Physical Exam 2 Narrative: GENERAL: Patient is intubated and sedated NECK: No jugular vein distension. [] HEART: Bradycardia LUNGS: Diminished air entry EXTREMITIES: Lower extremities with 1+ edema bilaterally Urinary Catheter Management: Barboza: Cath Placed During This Visit: yes Urinary Catheter Date of Insertion: 11/21/23 Urinary Catheter Time of Insertion: 16:30 Data 11/23/23 04:09 11/23/23 04:09 A&P Assessment and plan (1) Ischemic cardiomyopathy: (2) CHF (congestive heart failure): (3) Left bundle branch block: (4) Atrial fibrillation: (5) Pulmonary embolism: (6) CAD (coronary artery disease): Plan Patient has presented with respiratory arrest and is intubated. Likely pneumonia. Treatment per medicine team. Troponin was elevated however has trended down. Likely secondary to demand ischemia. Patient is bradycardic with amiodarone drip. Will hold it. If has frequent PVCs/nonsustained VT episodes, can start on lidocaine drip. Echocardiogram ordered. Patient's prognosis is guarded. Thank you for involving us with care of this patient. Will continue to follow. Please call with questions. Consult Attestations 2 Medical Necessity Statement: Care expected to cross 2 midnights. Coding Level of Care Code Acute Code for [facility] Fwd Diagnoses Ischemic cardiomyopathy I25.5 CHF (congestive heart failure) I50.9 Left bundle branch block I44.7 Atrial fibrillation I48.91 Pulmonary embolism I26.99 CAD (coronary artery disease) I25.10
--- NOTE | 2023-11-21 21:52 | PC.NURSE ---
Amiodarone was stopped due to the patient's heart rate dropping to the low [address] Rosenthal was notified and he ordered to stop the amiodarone for 1 hour and see if the patient's heart rate goes up to 60 BPM and then restart amiodarone back at a rate of 0.5 mg/min.
[2023-11-21] MEDS: magnesium sulfate premix 2 GM/50 ML PIGGYBACK IV (22:02)
[2023-11-21] MEDS: enoxaparin 100 mg/mL Syringe 62 MG SUBCUT (22:03)
[2023-11-21] MEDS: aspirin 325 mg Tablet PO (22:03)
[2023-11-21] MEDS: pantoprazole 40 mg SDV IVP (22:03)
[2023-11-21] MEDS: artificial tears Op Oint 3.5 gm 1 APPLIC EYE-BOTH (22:03)
--- NOTE | 2023-11-21 22:20 | ECG_ITS ---
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 Measurements Intervals [place] Rate: 55 P: 87 MD: 201 QRS: 110 QRSD: 202 T: 87 QT: 568 QTc: 544 Interpretive Statements SINUS BRADYCARDIA WITH OCCASIONAL VENTRICULAR PREMATURE COMPLEXES WITH OCCASIONAL SUPRAVENTRICULAR PREMATURE COMPLEXES RIGHT AXIS DEVIATION [QRS AXIS > 100] LEFT BUNDLE BRANCH BLOCK [120+ ms QRS DURATION, 80+ ms Q/S IN V1/V2, 85+ ms R IN I/aVL/V5/V6] PROLONGED QT INTERVAL Compared to ECG 11/21/2023 17:49:50 Right-axis deviation now present Prolonged QT interval now present Atrial fibrillation no longer present Aberrant conduction of supraventricular beat(s) no longer present Electronically Signed On 11-22-2023 10:23:21 DEPOT AGENT by Demetrius Rosenthal M.D. [id number]
[2023-11-21 22:40] LABS: Troponin 5 6HR 119.3 ng/L (0-15); Troponin 5 6HR Delta -26.7 ng/L (0-12)
--- NOTE | 2023-11-21 23:05 | PC.NURSE ---
Dr. Segundo was informed that the CT findings mentioned the end of the RIght IJ central line was in the right atria of the heart. Dr. Segundo looked at X-ray and CT and said that she believed it was not in the right atria and that it was okay to use the central line.
[2023-11-22] VITALS (58 sets, daily range): BP systolic 83–136; BP diastolic 47–70; PULSE 41–59; RESP 14–25; TEMP 35–37.2; O2SAT 92–99; BMI 19.0
[2023-11-22] MEDS: fentaNYL 1,000 MCG/100 ML BAG 10 MCG IV ×2 (01:46→19:17)
[2023-11-22] MEDS: piperacillin-tazobactam 3.375 GM in sodium chloride 0.9% (plus) 50 ML IV ×3 (04:09→20:03)
[2023-11-22 04:17] LABS: Basophils % 0.1 %; Lymphocytes # 0.3 10^3/uL (0.8-4.8); Lymphocytes % 2.5 %; Mean Corpuscular Hemoglobin 26.7 pg (27-33); Mean Corpuscular Volume 88.9 fl (82-101); Mean Platelet Volume 10.1 fL (7.4-10.4); Monocytes # 0.1 10^3/uL (0.2-0.9); Monocytes % 0.8 %; Neutrophils # 10.95 10^3/uL (1.8-7.7); Neutrophils % 95.9 %; Nucleated Red Blood Cells % 0 %; Platelet Count 260 10^3/cmm (157-399); White Blood Count 11.42 10^3/uL (3.29-11.43)
[2023-11-22 04:26] LABS: ABG PCO2 37.7 mmHg (35-45); ABG PH Result 7.39 (7.35-7.45); Alveolar-Arterial Oxygen Gradi 12.9 mmHg (5-10); Arterial Blood Gas Hematocrit 31.6 % (42-52); Blood Gas Allen Test Pos; Blood Gas Sample Site Brachial, left; Blood Gas Sample Type Arterial; Carboxyhemoglobin 1.5 %THgb (0.4-20.1); HCO3 ABG 22.7 mmol/L (22-26); HGB O2 Sat 92.1 % (95-100); Ionized Calcium Level - ABG 1.4 mmol/L (1.1-1.4); Methemoglobin 0.6 % (0.4-1.5); Oxygen Device VENT; Oxygen Saturation ABG 94.1; PO2 ABG 66.8 mmHg (80.0-100.0); PO2 FiO2 Ratio Arterial Blood 0; Potassium Level - ABG 3.1 mmol/L (3.5-5.0); Total Hemoglobin 10.3 g/dL (14-18)
[2023-11-22 04:36] LABS: Alanine Aminotransferase < 5 U/L (0-41); Albumin Level 2.5 g/dL (3.5-5.2); Alkaline Phosphatase 103 U/L (40-130); Anion Gap 12.3 (5-19); Aspartate Amino Transferase 7 U/L (0-40); Blood Urea Nitrogen 51 mg/dL (8-23); Calcium 9.6 mg/dL (8.5-10.5); Carbon Dioxide 23 mmol/L (22-29); Chloride 108 mmol/L (98-107); Globulin 3.5 g/dL (1.3-4.6); Glucose 157 mg/dL (65-115); Magnesium 2.1 mg/dL (1.7-2.3); Osmolality Calculated 307 mOsm/kg (285-295); Potassium 3.3 mmol/L (3.5-5.1); Sodium 140 mmol/L (136-145); Total Bilirubin 0.3 mg/dL (0.15-1.2)
--- NOTE | 2023-11-22 06:00 | USCV_ITS ---
Fredi Claire Age: 78 Gender: M : 1945 Exam Date: 11/22/2023 08:49 Ordering Phys: Rell Flores MD Technologist: Andrea Su [place]am [place] [facility] [place]: resp arrest BP: 125 / 65 HR: 42 Rhythm: Sinus Technical Quality: Adequate MEASUREMENTS (Male / Female) Normal Values 2D ECHO LVOT Diameter 2.0 cm LV Ejection Fraction MOD 2C 27.9 % LV Ejection Fraction 2C AL 27.2 % LA Diameter 4.2 cm LA Width 4.6 cm LA Height 6.4 cm RA Width 3.7 cm RA Height 4.6 cm Aorta at Sinotubular Diameter 2.8 cm IVC Diameter 2.0 cm M-MODE Aortic Annulus Diameter 3.1 cm LA Ao Ratio MM 1.7 MV E Point Septal Separation 0.9 cm DOPPLER Right Atrial Pressure 8.0 mmHg FINDINGS Left Ventricle Right Ventricle Right Atrium Left Atrium Mitral Valve Aortic Valve Tricuspid Valve Pulmonic Valve Pericardium Aorta IVC CONCLUSIONS There is a limited echocardiogram performed to assess LV systolic function. LV systolic function is severely reduced with EF of 20 to 25%. Severe global hypokinesis seen. Apical thrombus cannot be ruled out without contrast. Compared to prior echocardiogram from 03/2023, LV systolic function has decreased further and has an EF of 20-25% Demetrius Rosenthal MD (Electronically Signed) Final Date: 22 November 2023 10:46 S
--- NOTE | 2023-11-22 07:08 | PC.NURSE ---
Patient gets aggravated when turning from side to side to prevent pressure injuries and goes into cardiac arrhythmias requiring defibrillation.
[2023-11-22] MEDS: lidocaine drip 2,000 MG/500 ML PREMIX 30 MG IV (07:14)
--- NOTE | 2023-11-22 07:21 | PC.PHAR ---
Pharmacokinetic dosing service Date: 11/22/23 Time: 720 Objective: Patient: Fredi Claire Floor: ICU-11 Age: 78 yo Serum creatinine: 1.3 mg/dL Height: 72.0 Inches Weight (kg): 63.531 Diagnosis: Relevant medical/social history: Cultures and sensitivities: Other labs: Assessment: IBW (kg): 77.60 Dosing wt(kg): 63.531 Estimated Creatinine clearance (ml/min): 40.7 CRCL method: Cockcroft and Gault using ibw(default). Drug selected: Vancomycin Loading dose (mg): 0 Vd (liters): 57.2 (factor used: 0.9 L/kg) Richi (hr-1): 0.038 Half life (hrs): 18.24 Recommended dose: 1000 mg Interval: 24 hrs Infusion time (hrs): 1.5 Predicted peak (mcg/mL): 28.4 Predicted trough (mcg/mL): 12.08 Total body weight is being used for vancomycin dosing. Renal function is stable [ ] /unstable [ ] Recommendations: Give Vancomycin 1000 mg q 24 hrs with an expected Cpeak of 28.4 mcg/ml and an expected Ctrough of 12.08 mcg/ml Renal dosing of other antibiotics (review renal dosing of other medications and list guidelines here): Thank you for the consult, will continue to follow. Signature: Annamaria Rubalcava [facility]
[2023-11-22] MEDS: norepinephrine 4 MG/250 ML BAG 15 MG IV (07:40)
--- NOTE | 2023-11-22 07:52 | PC.NURSE ---
During patient report at 0700, patient went into ventricular tachycardiac. Heart rate in the 220's. Synchronized cardioversion at 120 joules converted patient back to previous rythm- Bradycadic with frequent PVC and BBB. Dr Segundo was already down on the unit and was quickly at bedside and she ordered a lidocaine drip.
[2023-11-22 07:54] LABS: Glucose Point of Care 133 mg/dL (70-110)
--- NOTE | 2023-11-22 07:56 | PC.NURSE ---
Addendum entered by Dung An RN 11/22/23 16:21: Later in the day after many hours of stable heart rate, nurse was able to turn the patient to assess the backside without any dysrythmias occurring. No pressure injuries to backside, after speaking to [facility] staff they clarified that the known pressure injuries were only on the feet. Patient does well laying supine or right side lying, but his blood pressure drops when he is left side lying. Original Note: Nurse attempted to reposition patient, but he became tachycardic with movement, given recent defibrillation due to a tachy rythm, nurse did not attempt repositioning further. [facility] reports that he already has a pressure injury which this nurse cannot assess at this time due to condition. Nurse is using the beds variable pressure mattress and tilt function in an attempt to provide some degree of pressure relief. Concerns about pressure injury relayed to physician.
[2023-11-22] MEDS: sodium chloride 3.5% neb 4 mL Neb INHALATION ×2 (08:31→20:13)
[2023-11-22] MEDS: enoxaparin 60 mg/0.6 mL Syringe SUBCUT ×2 (09:46→20:03)
[2023-11-22] MEDS: aspirin 325 mg Tablet PO (09:47)
[2023-11-22] MEDS: fentaNYL 1,000 MCG/100 ML BAG 12.5 MCG IV (10:55)
[2023-11-22] MEDS: potassium chloride premix 100 ML 50 MEQ IV (11:02)
[2023-11-22 12:44] LABS: Glucose Point of Care 117 mg/dL (70-110)
--- NOTE | 2023-11-22 16:22 | PM.PN ---
Subjective Subjective: Patient is requiring pressors, on lidocaine. ECHO showed severely reduced cardiac function. Vitals/I&O/Wt Last Vital Signs Temp 97.0 F L 11/22/23 07:00 Pulse 49 L 11/22/23 14:00 Resp 14 11/22/23 16:10 BP 104/60 11/22/23 14:00 Pulse Ox 99 11/22/23 16:10 O2 Del Method Mechanical Ventilation 11/22/23 13:00 FiO2 40 11/22/23 16:10 11/22/23 11/22/23 11/22/23 06:59 14:59 22:59 Intake Total 192.550 / 399.989 4477.8 / 2826.8 Output Total 500 / 1075 300 / 300 Balance -307.450 / -859.495 5583.8 / 2526.8 Weight last 48 hrs Weight 140 lb 1 oz Weight 140 lb 1 oz Weight 140 lb 1 oz Weight 136 lb Physical Exam Narrative: GENERAL: Patient is intubated and sedated NECK: No jugular vein distension. [] HEART: Bradycardia LUNGS: Diminished air entry EXTREMITIES: Lower extremities with 1+ edema bilaterally Urinary Catheter Management: Barboza: Cath Placed During This Visit: yes Reason for Continuing Indwelling Catheter: Accurate Measurement of Urinary Output in Critically Ill Patients Urinary Catheter Date of Insertion: 11/21/23 Urinary Catheter Time of Insertion: 16:30 Data 11/23/23 04:09 11/23/23 04:09 Micro: Microbiology 11/21/23 16:24 Gram Stain - Final Sputum - Endotracheal Tube Aspirate Sputum Culture - Preliminary Gram Negative Rods Strep agalactiae - (group b) A&P Assessment and plan (1) Ischemic cardiomyopathy: (2) CHF (congestive heart failure): (3) Left bundle branch block: (4) Atrial fibrillation: (5) Pulmonary embolism: (6) CAD (coronary artery disease): Plan Cardiac rhythm is stable. Continue lidocaine drip. Echo showed severely reduced systolic function. At this time continue medical therapy. Antibiotic therapy per primary team. I had a detailed discussion with patient's family about cardiac prognosis. They showed understanding. Thank you for involving us with care of this patient. Will continue to follow. Please call with questions. Attestations Medical Necessity Statement*: Care expected to cross 2 midnights. Coding Level of Care Code Acute Code for [facility] Fwd Diagnoses Ischemic cardiomyopathy I25.5 CHF (congestive heart failure) I50.9 Left bundle branch block I44.7 Atrial fibrillation I48.91 Pulmonary embolism I26.99 CAD (coronary artery disease) I25.10
--- NOTE | 2023-11-22 18:40 | PC.NURSE ---
Shift summary: at 0700 patient went into torsades de pointes, which resolved after synchronized cardioversion and then a lidocaine drip was strated, no tachy dysrythmias since. Uneventful since then. Patient has been bradycardic between 45-55 with a bundle branch block and less and less frequent PVCs as the day went on. FIO2 ventilator requirements went form 35-40% today. Blood pressure drops when placed left side lying. Family is considering comfort measures, but wants to reevaluate in the morning and see if his mucus plugging and pneumonia has improved.
[2023-11-22] MEDS: vancomycin 1,000 MG in sodium chloride 0.9% 250 ML 250 MG IV (19:50)
[2023-11-22] MEDS: pantoprazole 40 mg SDV IVP (20:03)
[2023-11-22] MEDS: acetylcysteine 200 mg/mL MDV 10 mL INHALATION (20:13)
[2023-11-22] MEDS: albuterol 2.5 mg/3 mL Neb INHALATION (20:13)
[2023-11-22] MEDS: artificial tears Op Oint 3.5 gm 1 APPLIC EYE-BOTH (21:10)
--- NOTE | 2023-11-22 21:11 | PC.NURSE ---
Mucinex 1200 mg mucinex extended release ordered PO for 2100. Patient unable to take PO, OG tube in place, however extended release tablets unable to be crushed. Dr. Segundo notified of route issue; no new orders received.
[2023-11-22 21:20] LABS: Glucose Point of Care 106 mg/dL (70-110)
--- NOTE | 2023-11-22 21:32 | P.PN_ITS ---
Subjective 2 Subjective: Intubated, mechanically ventilated. Moving occasionally, nonpurposeful. Otherwise does not appear in distress. Family at bedside. Vitals/I&O/Wt Last Vital Signs Temp 99 F 11/22/23 20:30 Pulse 54 L 11/22/23 21:00 Resp 14 11/22/23 20:15 BP 95/53 11/22/23 21:00 Pulse Ox 94 11/22/23 21:00 O2 Del Method Mechanical Ventilation 11/22/23 20:30 FiO2 40 11/22/23 20:30 11/22/23 11/22/23 11/22/23 06:59 14:59 22:59 Intake Total 192.550 / 926.816 7511.8 / 2826.8 166.800 / 2993.600 Output Total 500 / 1075 300 / 300 Balance -307.450 / -836.746 0143.8 / 2526.8 166.800 / 2693.600 Weight last 48 hrs Weight 63.531 kg Weight 63.531 kg Weight 63.531 kg Weight 61.689 kg Physical Exam 2 Const: GENERAL APPEARANCE: frail appearing and patient mechanically ventilated Neck/C-Spine: COMMON NORMALS: no JVD Resp: COMMON NORMALS: normal respiratory effort AUSCULTATION: diminished lung sounds (L) Cardio: COMMON NORMALS: no JVD, regular rhythm, S1 normal heart sound present, S2 normal heart sound present and No murmurs present (Cardio) RATE: b radycardic RHYTHM: regular rhythm HEART SOUNDS: S1 normal heart sound present and S2 normal heart sound present GI: COMMON NORMALS: Normal to inspection, nondistended, normoactive bowel sounds present, Soft to palpation and non-tender PALPATION: Yes Soft to palpation Extremity: COMMON NORMALS: no joint enlargement and no pedal edema Urinary Catheter Management: Barboza: Cath Placed During This Visit: yes Reason for Continuing Indwelling Catheter: Accurate Measurement of Urinary Output in Critically Ill Patients Urinary Catheter Date of Insertion: 11/21/23 Urinary Catheter Time of Insertion: 16:30 Data 11/22/23 03:53 11/22/23 03:53 Micro: Microbiology 11/21/23 16:24 Gram Stain - Final Sputum - Endotracheal Tube Aspirate Sputum Culture - Preliminary Gram Negative Rods Strep agalactiae - (group b) A&P Assessment and plan (1) Respiratory arrest: History was able to come down to 30% FiO2, today slightly worse at 40%. Overnight runs of arrhythmia this morning required cardioversion. Currently on lidocaine, heart rates controlled in the 50s. Discussed with family at bedside. Could not have chest vest therapy due to the arrhythmias. Continue hypertonic saline, added Mucomyst, albuterol, discussed with RT. We will repeat chest x-ray in the morning to reassess aeration of the collapsed lung. Reassess arrhythmia, discussed again regarding goals of care and further plans. Continue antibiotic coverage for pneumonia with Zosyn, vancomycin. Pulmonary toilet. Does have underlying cardiomyopathy with noted EF 35-40%, high risk of complication. Additionally noted possible NSTEMI. Also with history of PE, underlying COPD and pulmonary hypertension, advanced age, recent functional decline. Overall prognosis is not good, at the moment guarded. Additionally with unknown duration of respiratory arrest discussed with family consideration of possibility of anoxic brain injury which we may not know about until if he improves and we attempted waking him up. He is at elevated risk of delirium. COVID PCR panel Reviewed, negative PPI prophylaxis. With history of PE, anticoagulation continued w Lovenox. (2) Nonsustained ventricular tachycardia: Further ventricular tachycardia overnight and this morning torsade, prolonged QT, requiring cardioversion, was initially started on amiodarone, but bradycardic, as per discussion with cardiology amiodarone discontinued, was started on lidocaine, since then no further VT runs, remaining steadily in sinus bradycardia in the 50s. Received magnesium replacement. Recheck reviewed, noted 2.1. Given additional potassium. Discussed with cardiology. (3) Collapse of left lung: Could not chest vest therapy due to arrhythmias, continue hypertonic saline, added Mucinex. Discussed with RT. Pulmonary toilet as above. Treat suspected aspiration pneumonia. Unable to perform thoracentesis. Additional assessment by CT chest considered in ER, and looks like was pursued after all. Follow-up. (4) Aspiration pneumonia: Zosyn. Obtain sputum cultures. Blood culture. Pulmonary toilet as above. (5) Acute respiratory failure with hypoxia: As above. (6) Mucus plugging of bronchi: As above. (7) Bradycardia: Pacing pads in case needing pacing. Cardiology is consulted in ER. (8) Pleural effusion, left: Pulmonary toilet as above to attempt to relieve obstruction with mucous plug versus aspirate. Mechanical ventilatory support. Unable to obtain thoracentesis, but with left mediastinal shift, fluid appears may be ex vacuo due to plugging and lung collapse although currently unknown and unknown if empyema. (9) UTI (urinary tract infection): Suspected UTI, possible complicated UTI, urine with microscopic hematuria, pyuria on review of UA. Continue Zosyn as above. I do not see a resistant urinary organism on review of prior cultures, but he has had resistant Staph epidermidis and blood previously, will add vancomycin empirically as well. (10) NSTEMI (non-ST elevated myocardial infarction): Discussed worsening cardiomyopathy with family, EF down to 20-25%. At risk of further complications, including arrhythmia not unlike this morning, congestive heart failure, other complications. Possible NSTEMI with troponin elevation, frequent PVCs, NSVT runs, sinus bradycardia, on anticoagulation with history of PE, continue Lovenox, and aspirin, not a candidate for beta-naye at this time. Unclear benefit of statin. Monitor on telemetry. Cardiology is consulted in ER as well. (11) Goals of care, counseling/discussion: On consideration with multiple family members including his and discussion of options with us and among themselves they request not to transfer him to higher level of care, understanding that we do not have all the treatments required for him, treatments provided here may be more supportive in nature and with lower likelihood of succeeding in weaning him off of mechanical ventilation, high risk of complication, request giving trial of the conservative measures here, versus, depending on his condition lower chance of possibly transfer later if he makes it through the worst of it and still needing transfer, with further consideration of goals of care with possibility of transitioning to comfort measures in case of worsening or lack of improvement. With regards to CODE STATUS on discussion of possible cardiac arrest consensus is for no chest compressions, though they would be okay with pacemaker or cardioversion or defibrillation in case this were to be helpful. Plan Hypomagnesemia: replaced Recent worsening of renal function, CKD versus MAGDI on CKD, including last March, more recently in June and currently creatinine 1.6. With some microscopic hematuria, UTI, history of BPH, assess CT kidney stone for any obstruction. Barboza catheter requested. Monitor CARLOS. Reassess renal function. 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 Blood pressures are soft, Levophed is requested if needed. Target MAP 60 mmHg and above. Right IJ CVC was placed in ER. Anticoagulation as above. Aspirin. At the moment not a candidate for beta- naye. COPD, not in exacerbation. Pulmonary hypertension, Atrial fibrillation, continue anticoagulation, with bradycardia at the moment. Monitor telemetry. Replace and recheck electrolytes. Hx PE, on anticoagulation with Eliquis, left bundle branch block, ascending aorta dilation, GERD, PPI BPH, Barboza catheter placed for now. Assess kidney stone protocol CT. History of bacteremia: blood cultures collected, follow up Other medical problems Attestations 2 Medical Necessity Statement*: Continue admission for assessment management of respiratory failure, left lung whiteout, aspiration pneumonia, NSTEMI, arrhythmia and gentleman with worsening cardiomyopathy. Coding Level of Care Code Critical Care >/= 30 minutes Critical care time (in minutes): 35 The high probability of a clinically significant, sudden or life threatening deterioration, as referenced in this documentation, required my full and direct attention, intervention and personal management. The critical care time shown is in addition to time spent performing any reported separately billable procedures and includes the following: [x] Data and vital sign review and interpretation [x ] Patient assessment, examination and intervention [x] Medication orders and management [x] Patient/Family updates as able [x] Care Coordination and Documentation. Diagnoses Respiratory arrest R09.2 Nonsustained ventricular tachycardia I47.29 Collapse of left lung J98.11 Aspiration pneumonia J69.0 Acute respiratory failure with hypoxia J96.01 Mucus plugging of bronchi T17.500A Bradycardia R00.1 Pleural effusion, left J90 UTI (urinary tract infection) N39.0 NSTEMI (non-ST elevated myocardial infarction) I21.4 Goals of care, counseling/discussion Z71.89
[2023-11-23] VITALS (37 sets, daily range): BP systolic 90–121; BP diastolic 48–64; PULSE 48–87; RESP 14–22; TEMP 36.7–36.9; O2SAT 93–99; BMI 19.7
[2023-11-23] MEDS: lidocaine drip 2,000 MG/500 ML PREMIX 30 MG IV (00:05)
[2023-11-23] MEDS: albuterol 2.5 mg/3 mL Neb INHALATION ×4 (00:22→11:19)
[2023-11-23] MEDS: acetylcysteine 200 mg/mL MDV 10 mL INHALATION ×4 (00:23→11:19)
[2023-11-23] MEDS: piperacillin-tazobactam 3.375 GM in sodium chloride 0.9% (plus) 50 ML IV (04:01)
[2023-11-23] MEDS: fentaNYL 1,000 MCG/100 ML BAG 7.5 MCG IV (04:01)
[2023-11-23 04:39] LABS: ABG PCO2 44.5 mmHg (35-45); ABG PH Result 7.31 (7.35-7.45); Arterial Blood Gas Hematocrit 28.6 % (42-52); Base Excess ABG -3.6 mmol/L (-2.0-2.0); Blood Gas Operator Identificat JB; Blood Gas Sample Site Brachial, right; Blood Gas Sample Type Arterial; Carboxyhemoglobin 1.3 %THgb (0.4-20.1); HCO3 ABG 22.5 mmol/L (22-26); HGB O2 Sat 92.3 % (95-100); Ionized Calcium Level - ABG 1.4 mmol/L (1.1-1.4); Methemoglobin 0.7 % (0.4-1.5); Oxygen Device VENT; Oxygen Saturation ABG 94.2; PO2 ABG 70.9 mmHg (80.0-100.0); PO2 FiO2 Ratio Arterial Blood 0; Potassium Level - ABG 3.5 mmol/L (3.5-5.0); Total Hemoglobin 9.3 g/dL (14-18)
[2023-11-23 05:04] LABS: Basophils % 0.2 %; Eosinophils % 0.1 %; Hematocrit 31.5 % (37-53); Lymphocytes # 0.8 10^3/uL (0.8-4.8); Lymphocytes % 4.1 %; Mean Corpuscular HGB Conc 29.5 g/dL (30-55); Mean Corpuscular Hemoglobin 26.6 pg (27-33); Mean Platelet Volume 10.7 fL (7.4-10.4); Monocytes # 0.6 10^3/uL (0.2-0.9); Neutrophils # 16.82 10^3/uL (1.8-7.7); Nucleated Red Blood Cells % 0 %; Platelet Count 261 10^3/cmm (157-399); Red Cell Distribution Width 16.6 % (12.1-15.1); White Blood Count 18.47 10^3/uL (3.29-11.43)
[2023-11-23] MEDS: norepinephrine 4 MG/250 ML BAG 22.5 MG IV (05:23)
[2023-11-23] MEDS: midazolam hcl 100 MG/100 ML BAG IV (05:24)
[2023-11-23 05:25] LABS: Alanine Aminotransferase < 5 U/L (0-41); Albumin Level 2.4 g/dL (3.5-5.2); Alkaline Phosphatase 206 U/L (40-130); Anion Gap 14.8 (5-19); Aspartate Amino Transferase 7 U/L (0-40); Blood Urea Nitrogen 47 mg/dL (8-23); Calcium 9.6 mg/dL (8.5-10.5); Carbon Dioxide 23 mmol/L (22-29); Chloride 109 mmol/L (98-107); Globulin 3.9 g/dL (1.3-4.6); Glucose 138 mg/dL (65-115); Osmolality Calculated 310 mOsm/kg (285-295); Potassium 3.8 mmol/L (3.5-5.1); Sodium 143 mmol/L (136-145); Total Bilirubin 0.3 mg/dL (0.15-1.2); Total Protein 6.3 g/dL (6.6-8.7)
[2023-11-23 05:28] LABS: Magnesium 1.9 mg/dL (1.7-2.3)
--- NOTE | 2023-11-23 06:00 | XRR_ITS ---
PROCEDURE INFORMATION: Exam: XR Chest Exam date and time: 11/23/2023 5:29 AM Age: 78 years old Clinical indication: Patient HX: F/u resp failure. Intubated. Central line in place. On zoll. ; Additional info: Hypoxia TECHNIQUE: Imaging protocol: Radiologic exam of the chest. Views: 1 view. COMPARISON: CT angio chest w abd pel w con 11/21/2023 7:31 PM FINDINGS: Tubes, catheters and devices: The right IJ catheter and NG tubes appears stable. The endotracheal tube is not clearly seen today. Lungs: Increasing infiltrate on the right particularly in the right lower lobe. Pleural spaces: Diminished left pleural effusion although a large amount of fluid persists. The aerated left lung demonstrates atelectasis or infiltrate. Heart/Mediastinum: No change in the heart or mediastinum. Bones/joints: Unremarkable. XR/XR chest 1V portable [id number] IMPRESSION: Increasing infiltrate on the right. Slightly diminishing fluid on the left.
[2023-11-23] MEDS: chlorhexidine gluconate 4% Btl 118 mL 1 APPLIC TOPICAL (06:30)
[2023-11-23] MEDS: sodium chloride 3.5% neb 4 mL Neb INHALATION (07:42)
[2023-11-23] MEDS: enoxaparin 60 mg/0.6 mL Syringe SUBCUT (08:34)
[2023-11-23] MEDS: guaiFENesin 600 mg Tablet 1200 MG PO (08:35)
[2023-11-23] MEDS: aspirin 325 mg Tablet PO (08:35)
--- NOTE | 2023-11-23 11:24 | P.PN_ITS ---
Subjective 2 Subjective: Patient's condition overall unchanged. Vitals/I&O/Wt Last Vital Signs Temp 98.2 F 11/23/23 06:30 Pulse 58 L 11/23/23 11:21 Resp 14 11/23/23 11:21 BP 113/59 11/23/23 10:00 Pulse Ox 95 11/23/23 11:21 O2 Del Method Mechanical Ventilation 11/23/23 11:21 FiO2 40 11/23/23 11:21 11/22/23 11/23/23 11/23/23 22:59 06:59 14:59 Intake Total 356.175 / 3282.975 993.242 / 4276.217 100 / 100 Output Total 350 / 650 Balance 356.175 / 2982.975 643.242 / 3626.217 100 / 100 Weight last 48 hrs Weight 145 lb 8 oz Weight 145 lb 8 oz Weight 140 lb 1 oz Weight 140 lb 1 oz Weight 140 lb 1 oz Weight 136 lb Physical Exam 2 Narrative: GENERAL: Patient is intubated and sedated NECK: No jugular vein distension. [] HEART: Bradycardia LUNGS: Diminished air entry EXTREMITIES: Lower extremities with 1+ edema bilaterally Urinary Catheter Management: Barboza: Cath Placed During This Visit: yes Reason for Continuing Indwelling Catheter: Accurate Measurement of Urinary Output in Critically Ill Patients Urinary Catheter Date of Insertion: 11/21/23 Urinary Catheter Time of Insertion: 16:30 Data 11/23/23 04:09 11/23/23 04:09 Micro: Microbiology 11/21/23 16:24 Gram Stain - Final Sputum - Endotracheal Tube Aspirate Sputum Culture - Final Klebsiella pneumoniae Strep agalactiae - (group b) A&P Assessment and plan (1) Ischemic cardiomyopathy: (2) CHF (congestive heart failure): (3) Left bundle branch block: (4) Atrial fibrillation: (5) Pulmonary embolism: (6) CAD (coronary artery disease): Plan Patient's overall condition is unchanged. Patient's family want to proceed with the comfort care. Thank you for involving us with care of this patient. Please call with questions. Attestations 2 Medical Necessity Statement*: Care expected to cross 2 midnights. Coding Level of Care Code Acute Code for [facility] Diagnoses Ischemic cardiomyopathy I25.5 CHF (congestive heart failure) I50.9 Left bundle branch block I44.7 Atrial fibrillation I48.91 Pulmonary embolism I26.99 CAD (coronary artery disease) I25.10
--- NOTE | 2023-11-23 12:06 | PC.SOCIAL ---
IMM Not Updated Pg. 2 of IMM not updated at this time. Patient not anticipated to d/c within 48hours.
--- NOTE | 2023-11-23 12:37 | P.PN_ITS ---
Subjective 2 Subjective: Intubated, sedated, mechanically ventilated. Intermittent tremors. Vitals/I&O/Wt Last Vital Signs Temp 98.2 F 11/23/23 06:30 Pulse 62 11/23/23 12:00 Resp 14 11/23/23 11:21 BP 104/56 11/23/23 12:00 Pulse Ox 95 11/23/23 12:00 O2 Del Method Mechanical Ventilation 11/23/23 11:21 FiO2 40 11/23/23 11:21 11/22/23 11/23/23 11/23/23 22:59 06:59 14:59 Intake Total 356.175 / 3282.975 993.242 / 4276.217 100 / 100 Output Total 350 / 650 Balance 356.175 / 2982.975 643.242 / 3626.217 100 / 100 Weight last 48 hrs Weight 65.998 kg Weight 65.998 kg Weight 63.531 kg Weight 63.531 kg Weight 63.531 kg Weight 61.689 kg Physical Exam 2 Const: GENERAL APPEARANCE: frail appearing and patient mechanically ventilated Neck/C-Spine: COMMON NORMALS: no JVD Resp: COMMON NORMALS: normal respiratory effort and clear to auscultation bilaterally AUSCULTATION: clear to auscultation bilaterally, breath sounds absent on th left and diminished lung sounds (L) Cardio: COMMON NORMALS: no JVD, regular rhythm, S1 normal heart sound present, S2 normal heart sound present and No murmurs present (Cardio) RATE: b radycardic RHYTHM: regular rhythm and abnormal rhythm irregularly irregular HEART SOUNDS: S1 normal heart sound present and S2 normal heart sound present GI: COMMON NORMALS: Normal to inspection, nondistended, normoactive bowel sounds present, Soft to palpation and non-tender PALPATION: Yes Soft to palpation Extremity: COMMON NORMALS: no joint enlargement and no pedal edema Urinary Catheter Management: Barboza: Cath Placed During This Visit: yes Reason for Continuing Indwelling Catheter: Accurate Measurement of Urinary Output in Critically Ill Patients Urinary Catheter Date of Insertion: 11/21/23 Urinary Catheter Time of Insertion: 16:30 Data 11/23/23 04:09 11/23/23 04:09 Micro: Microbiology 11/21/23 16:24 Gram Stain - Final Sputum - Endotracheal Tube Aspirate Sputum Culture - Final Klebsiella pneumoniae Strep agalactiae - (group b) A&P Assessment and plan (1) Comfort measures only status: As he is not improving on further discussion of goals of care family would like to initiate end-of-life comfort measures, change CODE STATUS to AND. (2) Respiratory arrest: Reviewed vitals, CBC, ABD, CMP, chest x-ray. Discussed with family (3) Nonsustained ventricular tachycardia: Discussed with cardiology, we are going to decrease rate of lidocaine due to bradycardia but he is transitioning to comfort measures. (4) Collapse of left lung: (5) Aspiration pneumonia: (6) Acute respiratory failure with hypoxia: (7) Mucus plugging of bronchi: (8) Bradycardia: (9) Pleural effusion, left: Pulmonary toilet as above to attempt to relieve obstruction with mucous plug versus aspirate. Mechanical ventilatory support. Unable to obtain thoracentesis, but with left mediastinal shift, fluid appears may be ex vacuo due to plugging and lung collapse although currently unknown and unknown if empyema. (10) UTI (urinary tract infection): (11) NSTEMI (non-ST elevated myocardial infarction): (12) Goals of care, counseling/discussion: Plan Hypomagnesemia: replaced Recent worsening of renal function, CKD versus MAGDI on CKD, Worsened ischemic cardiomyopathy. COPD Pulmonary hypertension, Atrial fibrillation Hx PE, on anticoagulation with Eliquis, left bundle branch block, ascending aorta dilation, GERD, PPI BPH History of bacteremia Other medical problems Attestations 2 Medical Necessity Statement*: Transitioning to end-of-life comfort measures. Diagnoses Comfort measures only status Z51.5 Respiratory arrest R09.2 Nonsustained ventricular tachycardia I47.29 Collapse of left lung J98.11 Aspiration pneumonia J69.0 Acute respiratory failure with hypoxia J96.01 Mucus plugging of bronchi T17.500A Bradycardia R00.1 Pleural effusion, left J90 UTI (urinary tract infection) N39.0 NSTEMI (non-ST elevated myocardial infarction) I21.4 Goals of care, counseling/discussion Z71.89
--- NOTE | 2023-11-23 13:40 | PC.NURSE ---
Extubate Patient extubated at 1340 to 2LNC for comfort. Family present at bedside during extubation. All IV medications stopped at this time per provider orders peripheral IV lines removed, right IJ central line saline locked at this time.
--- NOTE | 2023-11-23 15:00 | PC.NURSE ---
Transfer Note Patient transferred to [facility] from ICU via bed. Handoff report given to VELMA Bhatti. Patient family oriented to environment and equipment. Covering service notified. Orders reviewed and will continue to monitor. Family present at bedside during transfer. Upon transfer patient is not speaking or following commands. Transferred on 2LNC per comfort orders. Right IJ central line is saline locked at this time. All patient belongings transferred with patient and placed at bedside.
[2023-11-23] MEDS: morphine 4 mg/mL SDV 1 mL IVP ×3 (16:16→20:23)
[2023-11-23] MEDS: atropine 1% op soln 2 mL Btl 3 DROP SUBLINGUAL (16:24)
[2023-11-23] MEDS: glycopyrrolate 0.2 mg/mL SDV 2 mL IV (20:19)
--- NOTE | 2023-11-23 23:08 | PC.NURSE ---
Pt placed in [facility] at 2250
--- NOTE | 2023-11-23 23:10 | PC.NURSE ---
At 210 family came to the desk to tell a nurse they thought the patient had passed. Pepper CARREON and myself verified there were no heart or lung sounds and voiced time of . Physician, household appliance mechanic, [employer], and MTS were notified.
--- NOTE | 2023-11-23 23:37 | PC.NURSE ---
Pt ring was removed and placed in a blue dent[facility] cup [facility] supervisor compounding and finishing aware.
--- NOTE | 2023-11-24 14:57 | PM.DDS ---
Discharge Providers DDS Date of Admission: 11/21/23 19:49 Date Summary Completed: 11/24/23 Attending Provider at Admission: Rell Flores Time of : 21:05 Attending Provider at Discharge: Rell Flores Primary Care Provider: Zoila Mcdermott MD Diagnoses Hospital Diagnoses (1) Comfort measures only status: (2) Respiratory arrest: (3) Nonsustained ventricular tachycardia: (4) Collapse of left lung: (5) Aspiration pneumonia: (6) Acute respiratory failure with hypoxia: (7) Mucus plugging of bronchi: (8) Bradycardia: (9) Pleural effusion, left: (10) UTI (urinary tract infection): (11) NSTEMI (non-ST elevated myocardial infarction): (12) Goals of care, counseling/discussion: Reason for Visit Reason for Visit RESP. DISTRESS Brief History: Fredi Claire is a 78 year old gentleman with history of systolic and diastolic CHF, COPD, ischemic cardiomyopathy, pulmonary hypertension, atrial fibrillation, PE, on anticoagulation with Eliquis, additional history of left bundle branch block, ascending aorta dilation, GERD, BPH, other medical problems, halfway resident, overall has been much less active, not getting up from bed, has been developing a pressure sore, in general recognizing family, not a good historian, was found in respiratory arrest over at halfway, intubated in the field by EMS. In ER with finding of whiteout of left lung, previously with admission with the same problem back in March 2023. In ER with runs of PVCs, nonsustained V. tach, sinus bradycardia, prolonged QT, soft blood pressure. ABG 7.38/39.4/408 on 100% FiO2. PEEP of 6. Creatinine recently noted worsened back in June and currently 1.6. Potassium 3.8, magnesium requested, pending. COVID-19 PCR pending. UA also returning with microscopic hematuria and pyuria, 50-80 RBC, 80-100 WBC. An extensive discussion was had with regards to his condition, including left-sided lung whiteout, mediastinal shift, soft blood pressures, nonsustained ventricular tachycardia runs, bradycardia, findings so far, and usual course of treatment, including as during previous hospitalization with bronchoscopy, thoracentesis currently unavailable here at the very least over the long weekend, and that to pursue usual care similar to prior hospitalization with consideration that he possibly could recover to the condition he was last time, although certainly difficult to know given respiratory arrest and degree of anoxia/possible anoxic brain injury, with usual treatment which would require transfer. On consideration of his overall condition, as well as his condition recently at the halfway despite his full CODE STATUS there, functional decline, some worsening of dementia, the family are not sure that he was fully understanding his condition and capable of making decisions although this is certainly difficult to know at current time. On consideration with multiple family members including his and discussion of options with us and among themselves they request not to transfer him to higher level of care, understanding that we do not have all the treatments required for him, treatments provided here may be more supportive in nature and with lower likelihood of succeeding in weaning him off of mechanical ventilation, high risk of complication, request giving trial of the conservative measures here, versus, depending on his condition lower chance of possibly transfer later if he makes it through the worst of it and still needing transfer, with further consideration of goals of care with possibility of transitioning to comfort measures in case of worsening or lack of improvement. With regards to CODE STATUS on discussion of possible cardiac arrest consensus is for no chest compressions, though they would be okay with pacemaker or cardioversion or defibrillation in case this were to be helpful. Summary Date and Time of Date of : 11/23/23 Time of : 21:05 Summary Summary: He was admitted and treated intensive care unit, with treatment for NSTEMI, treated with empiric broad antibiotic coverage with Zosyn, vancomycin, with coverage provided for possible UTI, with pulmonary toilet, hypertonic saline nebs, initially LifeVest was requested, however, after admission overnight he was having worsening ventricular ectopy, runs of ventricular tachycardia, and developed an episode of torsade requiring cardioversion. Amiodarone was initially started, but became too bradycardic, per discussion with cardiology we will switch to lidocaine, subsequently with no further ectopy, with bradycardia in the 50s. Maintain blood pressure at least initially. Oxygenation initially with some transient improvement down to 35% on FiO2. As unable to receive chest vest therapy Mucomyst was added as well. Continued with airway suctioning. Repeat chest x-ray with mild improvement in aeration of the left lung but worsening opacification of the right lung with now bilateral pneumonia. Worsening oxygenation. Requiring pressors. Assessment by echocardiogram revealed significantly worsened cardiomyopathy, EF down to 20-25%, global hypokinesis, could not exclude apical thrombus. With severity of his condition, underlying comorbidities, poor quality of life with dementia, progressively dwindling functional status, on further discussion family elected to switch to comfort measures, he was terminally extubated, started on comfort care, transferred to a private room upstairs. He accompanied by family on 11/23/2023 at 2105. Discharge Plan Discharge Patient Disposition: Condition: DS Attestations Time Spent in /Discharge Care*: greater than 30 min Quality - AMI: AMI present?: Yes Quality - Stroke: CVA present?: No Quality - VTE: VTE present?: No Coding Level of Care Code 27321 Total time (in minutes) for Discharge: 40 Diagnoses Comfort measures only status Z51.5 Respiratory arrest R09.2 Nonsustained ventricular tachycardia I47.29 Collapse of left lung J98.11 Aspiration pneumonia J69.0 Acute respiratory failure with hypoxia J96.01 Mucus plugging of bronchi T17.500A Bradycardia R00.1 Pleural effusion, left J90 UTI (urinary tract infection) N39.0 NSTEMI (non-ST elevated myocardial infarction) I21.4 Goals of care, counseling/discussion Z71.89
== END 2023-11-23 22:50 | disposition expired | DRG 208 ==
LOC: ER 16:34 → ICU 19:49 → MEDSURG 11-23 14:53
PROVIDERS: Emergency Medicine; Admitting Provider Internal Medicine; Emergency Provider Family Medicine; PCP Internal Medicine; Visit Provider Internal Medicine
DX: J96.21 Acute and chronic respiratory failure with hypoxia (principal); I21.4 Non-ST elevation (NSTEMI) myocardial infarction; J69.0 Pneumonitis due to inhalation of food and vomit; I47.20 Ventricular tachycardia, unspecified; R64 Cachexia; Z68.1 Body mass index [BMI] 19.9 or less, adult; N39.0 Urinary tract infection, site not specified; J98.19 Other pulmonary collapse; I50.42 Chronic combined systolic (congestive) and diastolic (congestive) heart failure; I24.89 Other forms of acute ischemic heart disease; J44.9 Chronic obstructive pulmonary disease, unspecified; F03.90 Unspecified dementia, unspecified severity, without behavioral disturbance, psychotic disturbance, mood disturbance, and anxiety; F41.9 Anxiety disorder, unspecified; G89.29 Other chronic pain; N40.0 Benign prostatic hyperplasia without lower urinary tract symptoms; K21.9 Gastro-esophageal reflux disease without esophagitis; I48.91 Unspecified atrial fibrillation; I25.2 Old myocardial infarction; I25.5 Ischemic cardiomyopathy; I27.20 Pulmonary hypertension, unspecified; E78.5 Hyperlipidemia, unspecified; I44.7 Left bundle-branch block, unspecified; E83.42 Hypomagnesemia; R31.29 Other microscopic hematuria; I77.819 Aortic ectasia, unspecified site; J84.10 Pulmonary fibrosis, unspecified; Z11.52 Encounter for screening for COVID-19; Z86.711 Personal history of pulmonary embolism; Z86.718 Personal history of other venous thrombosis and embolism; Z51.5 Encounter for palliative care
CPT/HCPCS: 31500; 36416; 36556; 36592; 36600; 51702; 70450; 71045; 71275; 74177; 80051; 80053; 81001; 82330; 82550; 82805; 82962; 83605; 83690; 83735; 84484; 85025; 87040; 87070; 87077; 87086; 87186; 87205; 87635; 93005; 93308; 94002; 94003; 94640; 94799; 96365; 96366; 96367; 96372; 96375; 96376; 99291; 99292; A4570; C1751; C9113; J0282; J0283; J1100; J1650; J2001; J2250; J2270; J2543; J3010; J3370; J3475; J3480; J3490; J7030; J7050; J7608; J7613; Q9967